=== PATIENT | male | born 1945 | race Caucasian/White ===

== ENCOUNTER 2020-01-12 17:22 | Inpatient (IN) ==
[2020-01-12 17:54] LABS: Basophils # (auto) 0.01 K/uL (0-0.2); Basophils % (auto) 0.2 %; Eosinophils # (auto) 0.12 K/uL (0-0.5); Eosinophils % (auto) 1.9 %; Hematocrit (blood only) 43.5 % (42-52); Hemoglobin 14.6 g/dL (14.0-18.0); Immature Granulocytes # (auto) 0.01 K/uL (0.00-0.02); Immature Granulocytes % (auto) 0.2 %; Lymphocytes # (auto) 1.65 K/uL (1.2-3.4); Lymphocytes % (auto) 25.7 %; Mean Corpuscular Hemoglobin 31.7 pg (25-34); Mean Corpuscular Hgb Conc 33.6 g/dL (32-36); Mean Corpuscular Volume 94.6 fL (80-100); Mean Platelet Volume 9.4 fL (7.4-10.4); Monocytes # (auto) 0.49 K/uL (0.11-0.59); Monocytes % (auto) 7.6 %; Neutrophils # (auto) 4.13 K/uL (1.4-6.5); Neutrophils % (auto) 64.4 %; Platelet Count 159 K/uL (130-400); RDW Coefficient of Variation 13.5 % (11.5-14.5); RDW Standard Deviation 46.3 fL (36.4-46.3); White Blood Count 6.41 K/uL (4.8-10.8)
[2020-01-12] MEDS ORDERED: FAMOTIDINE 20MG/5ML IV PUSH IV STA (17:57)
[2020-01-12] MEDS ORDERED: GI COCKTAIL ED USE PO ONE (17:57)
--- NOTE | 2020-01-12 18:03 | Emergency Department Note ---
Impression & Plan Epigastric abdominal pain, Biliary colic, Acute cholecystitis ED Provider Note NAME: KIM MOBLEY AGE: 74 SEX: M : 1945 ARRIVES VIA: Walk-In INFORMANT: [Patient] ED PROVIDER(S): [Cash Galvan MD] CHIEF COMPLAINT: Chest pain HISTORY OF PRESENT ILLNESS: The patient is a 74-year-old male who presents to the ER with epigastric, lower chest pain that is described as a burning. He has had the pain now for about 5 hours. The pain is a 4/10. He has had some nausea with it, no shortness of breath. No pain radiation. He has not had recent exertional chest pain or dyspnea as he has mowed the lawn and worked outside without difficulty. He has no known coronary disease. He states his pain did start about 30 minutes after having lunch. There has been no recent cough or congestion. No fever. The patient states he has never experienced pain like this before, he has no history of reflux or of gallbladder disease. REVIEW OF SYSTEMS: See HPI for pertinent positives and negatives. A total of ten systems were reviewed and were otherwise negative. PMHx/PSHx: See Below SOCIAL HISTORY: See Below. PHYSICAL EXAM: GENERAL: Patient is in no acute distress. HEENT: No acute trauma, normocephalic atraumatic, mucous membranes moist, no nasal congestion, no scleral icterus. NECK: No stridor, no adenopathy, no meningismus, trachea is midline. LUNGS: Clear to auscultation bilaterally, no wheeze, no rhonchi, breath sounds equal. HEART: Without murmurs gallops or rubs, regular rate and rhythm. Chest: Nontender chest wall. ABDOMEN: Soft, nontender, bowel sounds positive, no hernias, no peritonitis. EXTREMITIES: No cyanosis or edema, full range of motion of all the joints without pain or difficulty, no signs for acute trauma. NEUROLOGIC: Oriented x 3, no acute motor or sensory deficits, no focal weakness. SKIN: No rash, no jaundice, no diaphoresis. DIFFERENTIAL DIAGNOSIS: Cardiac ischemia, aortic dissection, pulmonary embolism, pneumothorax, pneumonia, pericarditis, myocarditis, esophageal rupture, GERD, cholecystitis, pancreatitis, musculoskeletal, as well as other pathologies. EMERGENCY DEPARTMENT COURSE/PROCEDURES: ECG: Indication was chest pain. The EKG shows a sinus rhythm with some sinus arrhythmia. The rate is 66. LVH is present. There is no ST elevation, no PVCs. The QTc is 421. Continuous Cardiac Monitoring: An order was placed for continuous cardiac monitoring. The monitor shows a rate of 72 with sinus rhythm with some sinus ar rhythmia. MEDICAL DECISION MAKING: There is no leukocytosis or anemia. No coagulopathy. No significant electrolyte abnormality or kidney failure. Alk phos slightly elevated, the remaining liver enzymes are unremarkable. No evidence for pancreatitis. EKG shows a sinus rhythm, no acute ischemia. Cardiac enzyme testing x1 is not consistent with acute cardiac injury. Chest film shows some diffuse parenchymal change of unknown etiology, no obvious pneumonia. Gallbladder ultrasound does show gallstones with some thickened gallbladder wall. The gallbladder was distended. Early acute cholecystitis was thought possible. The patient presents with epigastric/lower chest pain. Work-up here does suggest acute cholecystitis/biliary colic as the cause for his discomfort. The patient was given a GI cocktail, IV Pepcid. He is resting fairly comfortably. The patient was given a dose of IV Zosyn as antibiotic coverage because of the concern for early acute cholecystitis. I spoke to general surgery, I talked to the patient and case management. The patient will be admitted to a medical service with a surgery and GI consult. He is currently stable and not in need of emergent surgical intervention. The on-call hospitalist has been consulted. Past Med/Surg History Medical History High cholesterol Social History Feels Safe at Home: Yes Smoking Status: Never smoker Allergies Allergies Allergy/AdvReac Type Severity Reaction Status Date / Time niacin AdvReac FLUSH Unverified 01/12/20 20:03 Home Meds Home Medications Medication Instructions Recorded Confirmed allopurinol [Zyloprim] 200 mg PO DAILY 01/12/20 01/12/20 aspirin [Aspir-81] 81 mg PO DAILY 01/12/20 01/12/20 atorvastatin [Lipitor] 20 mg PO DAILY 01/12/20 01/12/20 clobetasol 1 applic TOPICAL BID 01/12/20 01/12/20 fluticasone propionate [Flonase 2 spray INTRANASAL DAILY 01/12/20 01/12/20 Allergy Relief] furosemide [Lasix] 20 mg PO 2XWK 01/12/20 01/12/20 latanoprost [Xalatan] 1 drp OPHTHALMIC (EYE) UD 01/12/20 01/12/20 levothyroxine [Levoxyl] 50 mcg PO DAILY 01/12/20 01/12/20 metoprolol succinate [Toprol XL] 25 mg PO DAILY 01/12/20 01/12/20 potassium chloride [Klor-Con M10] 10 meq PO 2XWK 01/12/20 01/12/20 thiamine HCl (vitamin B1) [Vitamin 100 mg PO DAILY 01/12/20 01/12/20 B-1] timolol maleate [Timoptic] 1 drp OPL DAILY 01/12/20 01/12/20 Results & Data (ED) Vital Signs Vital Signs - 24 hr 01/12/20 17:30 01/12/20 17:51 01/12/20 17:57 Temperature 36.5 C Temperature Source Oral Pulse Rate 66 71 Pulse Rate [Right Finger] Pulse Rate from SpO2 Sensor 64 65 Respiratory Rate 20 25 H 21 Respiratory Effort / Characteristics Non-Labored Respiratory Depth Normal Respiratory Pattern Blood Pressure 144/74 H 147/82 H Blood Pressure [Right Arm] Blood Pressure Mean 97 108 Blood Pressure Mean [Right Arm] Blood Pressure Position [Right Arm] Pulse Oximetry 99 100 99 Oxygen Delivery Method Room Air Sepsis Recent Fever Within 48 Hours No Sepsis Action Taken by Nursing No Action Required 01/12/20 18:00 01/12/20 18:11 01/12/20 18:30 Temperature Temperature Source Pulse Rate 64 65 72 Pulse Rate [Right Finger] Pulse Rate from SpO2 Sensor 62 61 66 Respiratory Rate 18 19 22 Respiratory Effort / Characteristics Respiratory Depth Respiratory Pattern Blood Pressure 139/69 135/93 Blood Pressure [Right Arm] Blood Pressure Mean 89 117 Blood Pressure Mean [Right Arm] Blood Pressure Position [Right Arm] Pulse Oximetry 99 100 96 Oxygen Delivery Method Sepsis Recent Fever Within 48 Hours Sepsis Action Taken by Nursing 01/12/20 18:31 01/12/20 19:44 Temperature Temperature Source Pulse Rate Pulse Rate [Right Finger] 73 Pulse Rate from SpO2 Sensor 70 Respiratory Rate 26 H 16 Respiratory Effort / Characteristics Non-Labored Spontaneous Respiratory Depth Normal Respiratory Pattern Regular Blood Pressure Blood Pressure [Right Arm] 122/57 L Blood Pressure Mean Blood Pressure Mean [Right Arm] 78 Blood Pressure Position [Right Arm] Lying Pulse Oximetry 98 99 Oxygen Delivery Method Room Air Sepsis Recent Fever Within 48 Hours Sepsis Action Taken by Assisted Medications Current Medication List: was personally reviewed by me Laboratory Data Attestation: I reviewed the patient's lab results. Result diagrams: 01/12/20 17:40 01/12/20 17:40 Lab Results 01/12/20 01/12/20 01/12/20 Range/Units 17:40 17:40 17:40 WBC 6.41 (4.8-10.8) K/uL RBC 4.60 L (4.7-6.1) M/uL Hgb 14.6 (14.0-18.0) g/dL Hct 43.5 (42-52) % MCV 94.6 (80-100) fL MCH 31.7 (25-34) pg MCHC 33.6 (32-36) g/dL RDW Std Deviation 46.3 (36.4-46.3) fL RDW Coeff of Christopher 13.5 (11.5-14.5) % Plt Count 159 (130-400) K/uL MPV 9.4 (7.4-10.4) fL Immature Gran % (Auto) 0.2 % Neut % (Auto) 64.4 % Lymph % (Auto) 25.7 % Powell % (Auto) 7.6 % Eos % (Auto) 1.9 % Baso % (Auto) 0.2 % Immature Gran # (Auto) 0.01 (0.00-0.02) K/uL Neut # (Auto) 4.13 (1.4-6.5) K/uL Lymph # (Auto) 1.65 (1.2-3.4) K/uL Powell # (Auto) 0.49 (0.11-0.59) K/uL Eos # (Auto) 0.12 (0-0.5) K/uL Baso # (Auto) 0.01 (0-0.2) K/uL PT 11.7 (9.0-12.0) Seconds INR 1.1 (0.9-1.1) APTT 29.3 (21.0-31.0) Seconds PTT Ratio 1.1 Sodium 136 (136-145) mmol/L Potassium 3.5 (3.5-5.1) mmol/L Chloride 104 (98-107) mmol/L Carbon Dioxide 26 (21-32) mmol/L Anion Gap 7.0 (3-11) BUN 18 (7-18) mg/dl Creatinine 1.07 (0.6-1.4) mg/dl Est Cr Clr Drug Dosing 65.5 ml/min Est GFR ( Amer) 78.3 Est GFR (Non-Af Amer) 67.5 BUN/Creatinine Ratio 16.4 (10-20) Glucose 127 H (70-99) mg/dl Calcium 9.2 (8.5-10.1) mg/dl Magnesium 2.3 (1.8-2.4) mg/dl Total Bilirubin 0.6 (0.2-1) mg/dl AST 18 (15-37) U/L ALT 33 (12-78) U/L Alkaline Phosphatase 154 H (45-117) U/L Troponin I < 0.015 (0-0.045) ng/ml NT-Pro-B Natriuret Pep 167 (0-900) pg/ml Total Protein 7.8 (6.4-8.2) gm/dl Albumin 3.9 (3.4-5.0) gm/dl Globulin 3.9 (2.5-4.0) gm/dl Albumin/Globulin Ratio 1.0 (0.9-2) Lipase 138 (73-393) U/L Administered Medications Piperacillin Sod/Tazobactam Sod (Zosyn) 4.5 gm in 120 mls @ 240 mls/hr IV NOW ONE Stop: 01/12/20 20:05 Last Admin: 01/12/20 19:48 Dose: 240 mls/hr Documented by: [id number] Miscellaneous Information (Consult) 1 ea N/A UD PRN PRN Reason: Consult Stop: 02/11/20 19:35 Last Admin: 01/12/20 19:46 Dose: 1 ea Documented by: [id number] Discontinued Medications Al Hydrox/Mg Hydrox/Simethicone () 1 dose PO ONE ONE Stop: 01/12/20 17:58 Last Admin: 01/12/20 18:10 Dose: 1 dose Documented by: [id number] Famotidine (Pepcid 20mg Iv Push) 20 mg IV ONE STA Stop: 01/12/20 17:58 Last Admin: 01/12/20 18:10 Dose: 20 mg Documented by: [id number] Imaging Data Radiologist's Impression: XR chest 1V portable CLINICAL HISTORY: Atypical chest pain COMPARISON STUDY: No previous studies for comparison. FINDINGS: The heart is enlarged. There is mild basilar interstitial thickening. There is no lobar consolidation. There are no significant pleural effusions.[ IMPRESSION: Cardiomegaly and mild basilar interstitial thickening, finding of uncertain chronicity BILIARY ULTRASOUND CLINICAL HISTORY: Epigastric pain, possible stones COMPARISON STUDY: No previous studies for comparison. FINDINGS: The pancreas appears normal as visualized. No focal hepatic masses are delineated. There is minimal intrahepatic biliary ductal prominence. There are multiple gallstones. There is mild gallbladder wall thickening. There is anterior, tail artifact consistent with adenomyomatosis. The technologist reports a negative sonographic Spring sign. There is no right-sided hydronephrosis. There is borderline dilatation of the common bile duct which measures 9 mm in maximal diameter. IMPRESSION: 1. Mildly distended gallbladder containing multiple calculi and demonstrating mild wall thickening 2. Mild ductal prominence. 3. Clinical correlation recommended in regards to acute cholecystitis. If desired, a nuclear medicine hepatic biliary study could be obtained to assess cystic duct patency Blood Pressure Blood Pressure Findings: Elevated blood pressure Blood Pressure Disposition: further management by hospitalist Discharge Plan Visit Data Chief Complaint: Chest Pain Stated Complaint: TIGHTNESS IN CHEST, FEELS LIKE VOMITING ED Provider: Cash Galvan Discharge Problem: Epigastric abdominal pain, Biliary colic, Acute cholecystitis Patient Disposition: Being Evaluated by Hospitalist Condition: Good Forms Stand Alone Forms: My [facility]ER[employer] Prescriptions Prescriptions: No Action potassium chloride [Klor-Con M10] 10 mEq tablet,ER particles/crystals 10 meq PO 2XWK RF: 0 furosemide [Lasix] 20 mg tablet 20 mg PO 2XWK RF: 0 latanoprost [Xalatan] 0.005 % drops 1 drp ophthalmic (eye) UD RF: 0 atorvastatin [Lipitor] 20 mg tablet 20 mg PO DAILY RF: 0 clobetasol 0.05 % Cream 1 applic TOPICAL BID RF: 0 thiamine HCl (vitamin B1) [Vitamin B-1] 100 mg Tablet 100 mg PO DAILY RF: 0 allopurinol [Zyloprim] 100 mg tablet 200 mg PO DAILY RF: 0 aspirin [Aspir-81] 81 mg Tablet,Delayed Release (Dr/Ec) 81 mg PO DAILY RF: 0 levothyroxine [Levoxyl] 50 mcg Tablet 50 mcg PO DAILY RF: 0 metoprolol succinate [Toprol XL] 25 mg tablet extended release 24 hr 25 mg PO DAILY RF: 0 timolol maleate [Timoptic] 0.5 % drops 1 drp OPL DAILY RF: 0 fluticasone propionate [Flonase Allergy Relief] 50 mcg/actuation [place],Suspension 2 spray INTRANASAL DAILY RF: 0 Referrals Referrals: Alyssa Kwok MD [Primary Care Provider] -
[2020-01-12 18:04] LABS: INR 1.1 (0.9-1.1); Partial Thromboplastin Ratio 1.1; Partial Thromboplastin Time 29.3 Seconds (21.0-31.0); Prothrombin Time 11.7 Seconds (9.0-12.0)
[2020-01-12 18:08] LABS: Albumin Level 3.9 gm/dl (3.4-5.0); Blood Urea Nitrogen 18 mg/dl (7-18); Calcium 9.2 mg/dl (8.5-10.1); Carbon Dioxide 26 mmol/L (21-32); Chloride 104 mmol/L (98-107); Glucose 127 mg/dl (70-99); Potassium 3.5 mmol/L (3.5-5.1); Sodium 136 mmol/L (136-145)
[2020-01-12 18:11] LABS: Alanine Aminotransferase 33 U/L (12-78); Aspartate Aminotransferase 18 U/L (15-37); BUN Creatinine Ratio 16.4 (10-20); Creatinine Clr Calc Pharmacy 65.5 ml/min; Est GFR (African American) 78.3; Est GFR (Non-African American) 67.5
--- NOTE | 2020-01-12 18:12 | XRay Report ---
XR chest 1V portable CLINICAL HISTORY: Atypical chest pain COMPARISON STUDY: No previous studies for comparison. FINDINGS: The heart is enlarged. There is mild basilar interstitial thickening. There is no lobar con solidation. There are no significant pleural effusions.[ IMPRESSION: Cardiomegaly and mild basilar interstitial thickening, finding of uncertain chronicity ACT 112: Negative or not required by law. Electronically signed by: Gold Duran M.D. 01/12/2020 6:11 PM
[2020-01-12 18:20] LABS: Alkaline Phosphatase 154 U/L (45-117); Bilirubin,Total 0.6 mg/dl (0.2-1); Globulin 3.9 gm/dl (2.5-4.0); Lipase 138 U/L (73-393); Magnesium 2.3 mg/dl (1.8-2.4); NT Pro B Type Natriuretic Pept 167 pg/ml (0-900); Total Protein 7.8 gm/dl (6.4-8.2); Troponin I < 0.015 ng/ml (0-0.045)
--- NOTE | 2020-01-12 19:28 | Ultrasound Report ---
BILIARY ULTRASOUND CLINICAL HISTORY: Epigastric pain, possible stones COMPARISON STUDY: No previous studies for comparison. FINDINGS: The pancreas appears normal as visualized. No focal hepatic masses are delineated. There is minimal intrahepatic biliary ductal prominence. There are multiple gallstones. There is mild gallbladder wall thickening. There is anterior, tail art ifact consistent with adenomyomatosis. The technologist reports a negative sonographic Spring sign. T here is no right-sided hydronephrosis. There is borderline dilatation of the common bile duct which measures 9 mm in maximal diameter. IMPRESSION: 1. Mildly distended gallbladder containing multiple calculi and demonstrating mild wall thickening 2. Mild ductal prominence. 3. Clinical correlation recommended in regards to acute cholecystitis. If desired, a nuclear medicine hepatic biliary study could be obtained to assess cystic duct patency ACT 112: Negative or not required by law. Electronically signed by: Gold Duran M.D. 01/12/2020 7:26 PM
[2020-01-12] MEDS ORDERED: PIPERACILL/TAZOBAC CONSULT ACTIVE PRN ×2 (19:36→21:36)
[2020-01-12] MEDS ORDERED: PIPERACILLIN/TAZOBACTAM 4.5 GM/120 ML BAG IV ONE (19:36)
--- NOTE | 2020-01-12 21:04 | History & Physical Report ---
Date of Service January 12, 2020 Assessment & Plan (1) Epigastric abdominal pain: (2) Acute cholecystitis: (3) Cholelithiasis: Pt is 74 y/o M with PMH HTN, HLD, diastolic heart failure hypothyroidism, gout, neuropathy presented to ER with complaint of epigastric pain. Patient states today for lunch he ate pasta with red meat sauce and coleslaw. States later developed burning type pain across the upper abdominal, epigastric area and lower chest area and nausea, occurred after eating pasta with meat sauce and coleslaw In ER patient afebrile, vitals stable. No leukocytosis alk phos: 154, otherwise LFTs WNL, initial troponin negative, EKG without any acute ST changes Gallbladder ultrasound:multiple gallstones. mild gallbladder wall thickening. borderline dilatation of the common bile duct which measures 9 mm in maximal diameter. -In ER patient given GI cocktail, Pepcid 20 mg IV with relief of epigastric discomfort -In ER Zosyn started. Will continue Zosyn -Clear liquids for now, n.p.o. at midnight -IVF -General surgery consult, on-call contacted by ER doctor and aware. Suggest GI consult as well -GI consult -Will obtain additional troponin -CBC, CMP in a.m. (4) HTN (hypertension): Stable -Continue metoprolol (5) Dyslipidemia: -Continue atorvastatin (6) Diastolic congestive heart failure: 2016 echo: EF: 60-64%, grade 1 diastolic dysfunction Appears euvolemic -Hold twice weekly Lasix at this time (7) Gout: -Continue allopurinol (8) Hypothyroidism: TSH: 1.9 in 12/2019 -Continue levothyroxine DVT Prophylaxis -SCDs Full Code as per discussion with pt, pt reports would want limited attempt Follows with Dr Kwok for routine care Pt was seen and care coordinated with Dr De Paz. See addendum History of Present Illness Chief Complaint: Epigastric pain Primary Care Provider: Alyssa Kwok MD Pt is 74 y/o M with PMH HTN, HLD, diastolic heart failure hypothyroidism, gout, neuropathy presented to ER with complaint of epigastric pain. Patient states today for lunch he ate pasta with red meat sauce and coleslaw. States later developed burning type pain across the upper abdominal, epigastric area and lower chest area. Patient also complains of nausea. Denies shortness of breath, dizziness, vomiting, diarrhea. Patient states a couple times in past has had some discomfort to right upper quadrant however has self resolved. Patient states is active and push mows his lawn without any history of shortness of breath or chest pain. Denies fever/chills, diaphoresis, GARG, dizziness, s yncope, vision changes, neck pain,orthopnea, palpitations, cough, sore throat, choking, otalgia, rhinorrhea, paresthesias, weakness, extremity weakness, extremity edema, rashes, urinary symptoms. Allergies Allergy/AdvReac Type Severity Reaction Status Date / Time niacin AdvReac FLUSH Unverified 01/12/20 20:03 Home Medications Home Medications Medication Instructions Recorded Confirmed Type allopurinol [Zyloprim] 200 mg PO DAILY 01/12/20 01/12/20 History aspirin [Aspir-81] 81 mg PO DAILY 01/12/20 01/12/20 History atorvastatin [Lipitor] 20 mg PO DAILY 01/12/20 01/12/20 History clobetasol 1 applic TOPICAL BID PRN 01/12/20 01/12/20 History furosemide [Lasix] 20 mg PO 2XWK 01/12/20 01/12/20 History latanoprost [Xalatan] 1 drp OPB HS 01/12/20 01/12/20 History levothyroxine [Levoxyl] 50 mcg PO DAILY 01/12/20 01/12/20 History metoprolol succinate [Toprol XL] 25 mg PO DAILY 01/12/20 01/12/20 History potassium chloride [Klor-Con M10] 10 meq PO 2XWK 01/12/20 01/12/20 History thiamine HCl (vitamin B1) [Vitamin 50 mg PO DAILY 01/12/20 01/12/20 History B-1] timolol maleate [Timoptic] 1 drp OPL DAILY 01/12/20 01/12/20 History Past Med/Surg History Medical History Diastolic congestive heart failure Dyslipidemia Gout High cholesterol HTN (hypertension) Hypothyroidism Surgical History H/O inguinal hernia repair History of arthroplasty of both knees Family History Other Coronary heart disease Social History Feels Safe at Home: Yes Smoking Status: Never smoker Tobacco Type: smokeless tobacco ; Hx Alcohol Use: Yes (2 beers a day) Hx Substance Use: No Review of Systems Review of Systems: All systems reviewed & are unremarkable except as noted in HPI & below Physical Exam Physical Exam: General: no distress, WDWN Head: normocephalic, atraumatic Eyes: PERRL, EOM's intact, conjunctiva non-injected, anicteric ENT: Hard of hearing, normal inspection external ears, nose, mucous membranes moist Neck: supple, trachea midline Lungs: clear, no respiratory distress, no wheezing/rhonchi/rales CV: RRR, no murmur, no pretibial edema Abd: normal BS, soft, non-tender to palpation at this time Ext: no cyanosis, no calf tenderness Neuro: A&O x 3, no focal deficits noted, normal affect Skin: warm, dry Results & Data Results & Data ([facility]) Vital Signs (Past 12 Hours) Vital Signs Temp Pulse Pulse Resp BP BP Pulse Ox 01/12/20 20:27 73 16 138/64 99 01/12/20 19:44 73 16 122/57 L 99 01/12/20 18:31 26 H 98 01/12/20 18:30 72 22 135/93 96 01/12/20 18:11 65 19 139/69 100 01/12/20 18:00 64 18 99 01/12/20 17:57 71 21 99 01/12/20 17:51 66 25 H 147/82 H 100 01/12/20 17:30 36.5 C 20 144/74 H 99 Laboratory Results Short CBC 01/12/20 Range/Units 17:40 WBC 6.41 (4.8-10.8) K/uL Hgb 14.6 (14.0-18.0) g/dL Hct 43.5 (42-52) % Plt Count 159 (130-400) K/uL BMP 01/12/20 17:40 Sodium 136 Potassium 3.5 Chloride 104 Carbon Dioxide 26 BUN 18 Creatinine 1.07 Glucose 127 H Calcium 9.2 Cardiac Enzymes 01/12/20 Range/Units 17:40 Troponin I < 0.015 (0-0.045) ng/ml Liver Function 01/12/20 Range/Units 17:40 Total Bilirubin 0.6 (0.2-1) mg/dl AST 18 (15-37) U/L ALT 33 (12-78) U/L Alkaline Phosphatase 154 H (45-117) U/L Albumin 3.9 (3.4-5.0) gm/dl Diagnostic Findings CXR: IMPRESSION: Cardiomegaly and mild basilar interstitial thickening, finding of uncertain chronicity GALLBLADDER ULTRASOUND: IMPRESSION: 1. Mildly distended gallbladder containing multiple calculi and demonstrating mild wall thickening 2. Mild ductal prominence. 3. Clinical correlation recommended in regards to acute cholecystitis. If desired, a nuclear medicine hepatic biliary study could be obtained to assess cystic duct patency ECG Rhythm: sinus rhythm Additional Comments: No ST elevation Code Status & VTE Plan VTE Prophylaxis Plan VTE Prophylaxis will be ordered: Yes Supervising Physician Co-Signing Physician Notes History and physical exam performed by me. History significant for 74 year old man with hypertension, hypothyroidism who presented with acute onset epigastric tightness that started at 2pm (30mins after lunch) associated with nausea. Reports father of heart problems in his 60s. At time of evaluation, symptoms are all resolved. Physical exam is unremarkable. Labs is only remarkable for elevated alk phos of 154. Gall bladder USS show mild distended gall bladder with multiple calculi, mild wall thickening, mild ductal prominence. -Acute calculous cholecystitis Continue IVF Got zosyn in ER. Continue zosyn for now Clear diet and NPO after midnight ER physician already spoke with surgeon Gen surg consult for eval for possible cholecystectomy GI consult for evaluation for possible ERCP considering Gall bladder findings Patient concerned about possibility of ACS. EKG is normal sinus without ischemic changes. Initial trop is <0.015 Low suspicion for ACS. However, will check one more trop 6hrs after initial one since first trop was about 3hrs after onset of symptoms. Other plans as documented in Neema Dumont PA-C's note
--- NOTE | 2020-01-12 21:10 | Communication Note ---
Date of Service: January 12, 2020 History and physical exam performed by me. History significant for 74 year old man with hypertension, hypothyroidism who presented with acute onset epigastric tightness that started at 2pm (30mins after lunch) associated with nausea. Reports father of heart problems in his 60s. At time of evaluation, symptoms are all resolved. Physical exam is unremarkable. Labs is only remarkable for elevated alk phos of 154. Gall bladder USS show mild distended gall bladder with multiple calculi, mild wall thickening, mild ductal prominence. -Acute calculous cholecystitis Continue IVF Got zosyn in ER. Continue zosyn for now Clear diet and NPO after midnight ER physician already spoke with surgeon Gen surg consult for eval for possible cholecystectomy GI consult for evaluation for possible ERCP considering Gall bladder findings Patient concerned about possibility of ACS. EKG is normal sinus without ischemic changes. Initial trop is <0.015 Low suspicion for ACS. However, will check one more trop 6hrs after initial one since first trop was about 3hrs after onset of symptoms. Other plans as documented in Neema Dumont PA-C's note.
[2020-01-12] MEDS ORDERED: ACETAMINOPHEN 325 MG TAB PO PRN (21:28)
[2020-01-12] MEDS ORDERED: ONDANSETRON INJ 2 MG/ML 2 ML VIAL IV PRN (21:28)
[2020-01-12] MEDS: SODIUM CHLORIDE 0.9% 1000ML 1,000 ML IV SCH (21:41)
[2020-01-12] MEDS: LATANOPROST 0.005% OP SOLN 2.5 ML BTL OPB SCH (23:30)
[2020-01-13] MEDS: PIPERACILLIN/TAZOBACTAM 3.375 GM in DEXTROSE 5% 100 ML IV SCH ×4 (01:04→23:19)
[2020-01-13] MEDS: LEVOTHYROXINE SODIUM 50 MCG TABLET PO SCH (06:13)
[2020-01-13 07:49] LABS: Hematocrit (blood only) 43.8 % (42-52); Hemoglobin 14.8 g/dL (14.0-18.0); Mean Corpuscular Hemoglobin 32.2 pg (25-34); Mean Corpuscular Hgb Conc 33.8 g/dL (32-36); Mean Corpuscular Volume 95.4 fL (80-100); Mean Platelet Volume 9.7 fL (7.4-10.4); Platelet Count 156 K/uL (130-400); RDW Coefficient of Variation 13.4 % (11.5-14.5); RDW Standard Deviation 46.8 fL (36.4-46.3); Red Blood Count 4.59 M/uL (4.7-6.1); White Blood Count 6.87 K/uL (4.8-10.8)
[2020-01-13] MEDS: METOPROLOL SUCC 25MG EXT REL TAB PO SCH (07:54)
[2020-01-13] MEDS: TIMOLOL MALEATE 0.25% OP SOLN 5 ML BTL OPL SCH (07:55)
[2020-01-13] MEDS: THIAMINE HCL 50 MG TABLET PO SCH (07:56)
[2020-01-13] MEDS: allopurinoL 100 MG TAB PO SCH (07:56)
[2020-01-13] MEDS: ATORVASTATIN 20 MG TAB PO SCH (07:56)
[2020-01-13 08:24] LABS: Albumin Level 3.7 gm/dl (3.4-5.0); BUN Creatinine Ratio 12.1 (10-20); Bilirubin Direct 0.2 mg/dl (0-0.2); Creatinine Clr Calc Pharmacy 65.5 ml/min; Est GFR (African American) 78.3; Est GFR (Non-African American) 67.5
[2020-01-13 08:26] LABS: Globulin 3.7 gm/dl (2.5-4.0); Total Protein 7.4 gm/dl (6.4-8.2)
--- NOTE | 2020-01-13 08:39 | Gastrointestinal Consultation ---
Date of Consultation January 13, 2020 Assessment & Plan (1) Epigastric abdominal pain: (2) Cholelithiasis: Pt is a 74 y/o male admitted w pain across upper abd 45min after lunch associated w nausea w/o vomiting. LFTs w mild elevation of Alk phose, normal lipase. Gallbladder us w signs of cholelithiasis and mild distended, wall thickened. CBD dilated at 9mm. He is clinically much improved today. Did state yesterday after Maalox w Lidocaine his pain was better. - Keep NPO - Will obtain MRCP to r/o choledocholithiasis. If positive will plan for ERCP - Surgery consulted already - Start Protonix 40mg daily in case he had gastritis, dyspepsia Supervising Physician Co-Signing Physician Notes Ingrid seen and examined the patient with STEW Walker whose note reflects our findings and plan. MRCP pending. Mildly elevated ALT. CBD9mm on imaging. Abd non-tender History of Present Illness Reason for Consultation: Borderline CBD dilation Requesting Physician: Dr. Kedar Sanabria Attending Physician: Dr. Dominique Cook History of Present Illness Pt is a 74 y/o w PMHx listed below who presented to ED yesterday w c/o pressure like discomfort across upper abd. This happened about 45 mins after eating lunch which consisted of pasta w red meat sauce and eri slaw w peppers. He had 2 bouts of nausea w/o vomiting. BM in ED yesterday w/o diarrhea, black tarry stools or rectal bleeding. He denies fever, chills, jaundice or dark colored urine. Labs w/o signs of leukocytosis, anemia. LFTs w sole elevation of Alk phose of 154, lipase normal. Gallbladder us showed: 1. Mildly distended gallbladder containing multiple calculi and demonstrating mild wall thickening 2. Mild ductal prominence of 9mm Pt today reports he's feeling great. In fact after he was given Maalox w Lidocaine in ED he felt a lot better. He chew tobacco, 2 beers a day. Denies NSAIDs Father w hx of stomach ulcers ? unknown etiology He denies any family hx of GI malignancy Allergies Allergy/AdvReac Type Severity Reaction Status Date / Time niacin AdvReac FLUSH Unverified 01/12/20 20:03 Home Medications Home Medications Medication Instructions Recorded Confirmed Type allopurinol [Zyloprim] 200 mg PO DAILY 01/12/20 01/12/20 History aspirin [Aspir-81] 81 mg PO DAILY 01/12/20 01/12/20 History atorvastatin [Lipitor] 20 mg PO DAILY 01/12/20 01/12/20 History clobetasol 1 applic TOPICAL BID PRN 01/12/20 01/12/20 History furosemide [Lasix] 20 mg PO 2XWK 01/12/20 01/12/20 History latanoprost [Xalatan] 1 drp OPB HS 01/12/20 01/12/20 History levothyroxine [Levoxyl] 50 mcg PO DAILY 01/12/20 01/12/20 History metoprolol succinate [Toprol XL] 25 mg PO DAILY 01/12/20 01/12/20 History potassium chloride [Klor-Con M10] 10 meq PO 2XWK 01/12/20 01/12/20 History thiamine HCl (vitamin B1) [Vitamin 50 mg PO DAILY 01/12/20 01/12/20 History B-1] timolol maleate [Timoptic] 1 drp OPL DAILY 01/12/20 01/12/20 History Patient History Medical History Diastolic congestive heart failure Dyslipidemia Gout High cholesterol HTN (hypertension) Hypothyroidism Surgical History H/O inguinal hernia repair History of arthroplasty of both knees Family History Other Coronary heart disease Social History Preferred Language: Lao Communication Ability: Effective Psychometric Examiner Required: No Beliefs That Will Affect Care: None Current Living Situation: Spouse Other Information That Helps Us Care for You: No Feels Safe at Home: Yes Safety Concerns: Feels Safe At This Time Smoking Status: Never smoker Tobacco Type: smokeless tobacco ; Do You Dip or Chew Tobacco: Yes ; Hx Alcohol Use: Yes Alcohol type: beer Hx Substance Use: No Review of Systems Review of Systems: All systems reviewed & are unremarkable except as noted in HPI & below Physical Exam Constitutional: WD/WN, vitals as above well groomed, cooperative and comfortable Eyes: PERRL, conjunctivae normal, anicteric sclerae ENMT: external ear and nose normal, oropharynx normal Respiratory: normal respiratory effort, lungs clear to auscultation Cardiovascular: RRR, no murmur, no edema Gastrointestinal (Abdomen): normal bowel sounds, soft, nontender, no hepatosplenomegaly Skin: no rashes, warm and dry no jaundice Psychiatric: A+Ox3, euthymic affect Lymphatic: no lymphedema Results & Data ([facility]) Vital Signs (Past 12 Hours) Vital Signs Temp Pulse Pulse Resp BP BP BP 01/13/20 07:27 36.5 C 56 L 18 141/75 H 01/13/20 07:09 48 L 01/13/20 04:00 36.5 C 58 L 18 134/69 01/13/20 02:49 58 L 01/12/20 23:23 64 01/12/20 22:59 36.8 C 64 20 139/79 01/12/20 21:28 36.8 C 64 18 149/76 H 01/12/20 21:16 65 18 136/76 Pulse Ox 01/13/20 07:27 98 01/13/20 07:09 01/13/20 04:00 97 01/13/20 02:49 01/12/20 23:23 01/12/20 22:59 99 01/12/20 21:28 98 01/12/20 21:16 98
--- NOTE | 2020-01-13 09:23 | Surgery Consultation ---
Date of Consultation January 13, 2020 Assessment & Plan (1) Epigastric abdominal pain: 74 year-old male presented to ED with epigastric abdominal pain postprandial at 2 pm. US showing gallstones, mild wall thickening, no leukocytosis, mild elevation in Alk phos other cmp and lipase wnl. Dilated CBD at 9 mm. Abdominal pain now resolved after GI cocktail. MRCP ordered for today. Plan: Will await results of MRCP. Discussed possible need for cholecystectomy depending on MRCP results either inpatient or outpatient. If MRCP negative, may consider outpatient cholecystectomy since his symptoms resolved. Continue NPO for now Continue medical management (2) Cholelithiasis: plan as above Dr. Nevarez has seen and examined patient, please see addendum for further recommendations/plan. Supervising Physician Co-Signing Physician Notes Interviewed and examined this patient and I agree with the above note. Patient was seen for upper abdominal tightness and was concerned about chest pain. During the work-up he had cholelithiasis detected with minimal gallbladder wall thickening. At the present time he is completely pain-free and tenderness free. His common bile duct measures 9 mm so I agree with the MRCP. He has a history of occasional discomfort in the right upper quadrant but it is not necessarily related to meals. We can find the results of the MRCP. If there is no ductal abnormalities he remains asymptomatic we can see him as an outpatient to discuss further cholecystectomy. History of Present Illness Reason for Consultation: Gallstones Requesting Physician: Neema Ugarte PA-C Attending Physician: Kedar Sanabria MD History of Present Illness Jerry is a 74 year-old male who presented to emergency department with complaint of upper abdominal lower chest pain that started yesterday afternoon around 2 pm after eating pasta, meat sauce, and eri slaw with peppers. States pain was more of a pressure sensation and thought maybe it was his chest. Had associated nausea but no vomiting. No prior episodes of similar pain. No known history of gallstones. Denies bowel changes, blood in stools, or black/tarry stools, diff iculty urinating, dysuria. ER work-up included labs which showed no leukocytosis. CMP wnl other than mildly elevated alk phos. Lipase wnl. US showed gallstones with mild gallbladder wall thickening. CBD dilated at 9 mm. Feeling fine now. States abdominal pain improved after Maalox and lidocaine in ED. GI saw recommending MRCP due to dilated CBD. Allergies Allergy/AdvReac Type Severity Reaction Status Date / Time niacin AdvReac FLUSH Unverified 01/12/20 20:03 Home Medications Home Medications Medication Instructions Recorded Confirmed Type allopurinol [Zyloprim] 200 mg PO DAILY 01/12/20 01/12/20 History aspirin [Aspir-81] 81 mg PO DAILY 01/12/20 01/12/20 History atorvastatin [Lipitor] 20 mg PO DAILY 01/12/20 01/12/20 History clobetasol 1 applic TOPICAL BID PRN 01/12/20 01/12/20 History furosemide [Lasix] 20 mg PO 2XWK 01/12/20 01/12/20 History latanoprost [Xalatan] 1 drp OPB HS 01/12/20 01/12/20 History levothyroxine [Levoxyl] 50 mcg PO DAILY 01/12/20 01/12/20 History metoprolol succinate [Toprol XL] 25 mg PO DAILY 01/12/20 01/12/20 History potassium chloride [Klor-Con M10] 10 meq PO 2XWK 01/12/20 01/12/20 History thiamine HCl (vitamin B1) [Vitamin 50 mg PO DAILY 01/12/20 01/12/20 History B-1] timolol maleate [Timoptic] 1 drp OPL DAILY 01/12/20 01/12/20 History Patient History Medical History Diastolic congestive heart failure Dyslipidemia Gout High cholesterol HTN (hypertension) Hypothyroidism Surgical History H/O inguinal hernia repair History of arthroplasty of both knees Family History Other Coronary heart disease Social History Preferred Language: Macedonian Communication Ability: Effective Dentures Lab Technician Required: No Beliefs That Will Affect Care: None Current Living Situation: Spouse Other Information That Helps Us Care for You: No Feels Safe at Home: Yes Safety Concerns: Feels Safe At This Time Smoking Status: Never smoker Tobacco Type: smokeless tobacco ; Do You Dip or Chew Tobacco: Yes ; Hx Alcohol Use: Yes Alcohol type: beer Hx Substance Use: No Review of Systems Review of Systems: All systems reviewed & are unremarkable except as noted in HPI & below Physical Exam Constitutional: WD/WN, vitals as above no acute distress Cardiovascular: RRR, no murmur, no edema Gastrointestinal (Abdomen): Inspection/Auscultation: abdomen normal to inspection and normal bowel sounds; abdomen not distended Percussion/Palpation: abdomen soft; abdomen nontender, no guarding and abdomen not rigid Skin: no rashes, warm and dry Psychiatric: A+Ox3, euthymic affect Results & Data Vital Signs (Past 12 Hours) Vital Signs Temp Pulse Pulse Resp BP BP Pulse Ox 01/13/20 07:27 36.5 C 56 L 18 141/75 H 98 01/13/20 07:09 48 L 01/13/20 04:00 36.5 C 58 L 18 134/69 97 01/13/20 02:49 58 L 01/12/20 23:23 64 01/12/20 22:59 36.8 C 64 20 139/79 99 01/12/20 21:28 36.8 C 64 18 149/76 H 98 Laboratory Results 01/13/20 01/13/20 01/13/20 Range/Units 07:11 07:11 07:11 WBC 6.87 (4.8-10.8) K/uL RBC 4.59 L (4.7-6.1) M/uL Hgb 14.8 (14.0-18.0) g/dL Hct 43.8 (42-52) % MCV 95.4 (80-100) fL MCH 32.2 (25-34) pg MCHC 33.8 (32-36) g/dL RDW Std Deviation 46.8 H (36.4-46.3) fL RDW Coeff of Christopher 13.4 (11.5-14.5) % Plt Count 156 (130-400) K/uL MPV 9.7 (7.4-10.4) fL Immature Gran % (Auto) % Neut % (Auto) % Lymph % (Auto) % [place] % (Auto) % Eos % (Auto) % Baso % (Auto) % Immature Gran # (Auto) (0.00-0.02) K/uL Neut # (Auto) (1.4-6.5) K/uL Lymph # (Auto) (1.2-3.4) K/uL [place] # (Auto) (0.11-0.59) K/uL Eos # (Auto) (0-0.5) K/uL Baso # (Auto) (0-0.2) K/uL PT (9.0-12.0) Seconds INR (0.9-1.1) APTT (21.0-31.0) Seconds PTT Ratio Sodium 140 (136-145) mmol/L Potassium 4.0 (3.5-5.1) mmol/L Chloride 106 (98-107) mmol/L Carbon Dioxide 28 (21-32) mmol/L Anion Gap 5.0 (3-11) BUN 13 (7-18) mg/dl Creatinine 1.07 (0.6-1.4) mg/dl Est Cr Clr Drug Dosing 65.5 ml/min Est GFR ( Amer) 78.3 Est GFR (Non-Af Amer) 67.5 BUN/Creatinine Ratio 12.1 (10-20) Glucose 97 (70-99) mg/dl Calcium 9.0 (8.5-10.1) mg/dl Magnesium (1.8-2.4) mg/dl Total Bilirubin 1.0 (0.2-1) mg/dl Direct Bilirubin 0.2 (0-0.2) mg/dl AST 17 (15-37) U/L ALT 30 (12-78) U/L Alkaline Phosphatase 127 H (45-117) U/L Troponin I (0-0.045) ng/ml NT-Pro-B Natriuret Pep (0-900) pg/ml Total Protein 7.4 (6.4-8.2) gm/dl Albumin 3.7 (3.4-5.0) gm/dl Globulin 3.7 (2.5-4.0) gm/dl Albumin/Globulin Ratio 1.0 (0.9-2) Amylase Cancelled 83 (25-115) U/L Lipase Cancelled 136 (73-393) U/L 01/12/20 01/12/20 01/12/20 Range/Units 22:41 17:40 17:40 WBC (4.8-10.8) K/uL RBC (4.7-6.1) M/uL Hgb (14.0-18.0) g/dL Hct (42-52) % MCV (80-100) fL MCH (25-34) pg MCHC (32-36) g/dL RDW Std Deviation (36.4-46.3) fL RDW Coeff of Christopher (11.5-14.5) % Plt Count (130-400) K/uL MPV (7.4-10.4) fL Immature Gran % (Auto) % Neut % (Auto) % Lymph % (Auto) % [place] % (Auto) % Eos % (Auto) % Baso % (Auto) % Immature Gran # (Auto) (0.00-0.02) K/uL Neut # (Auto) (1.4-6.5) K/uL Lymph # (Auto) (1.2-3.4) K/uL [place] # (Auto) (0.11-0.59) K/uL Eos # (Auto) (0-0.5) K/uL Baso # (Auto) (0-0.2) K/uL PT 11.7 (9.0-12.0) Seconds INR 1.1 (0.9-1.1) APTT 29.3 (21.0-31.0) Seconds PTT Ratio 1.1 Sodium 136 (136-145) mmol/L Potassium 3.5 (3.5-5.1) mmol/L Chloride 104 (98-107) mmol/L Carbon Dioxide 26 (21-32) mmol/L Anion Gap 7.0 (3-11) BUN 18 (7-18) mg/dl Creatinine 1.07 (0.6-1.4) mg/dl Est Cr Clr Drug Dosing 65.5 ml/min Est GFR ( Amer) 78.3 Est GFR (Non-Af Amer) 67.5 BUN/Creatinine Ratio 16.4 (10-20) Glucose 127 H (70-99) mg/dl Calcium 9.2 (8.5-10.1) mg/dl Magnesium 2.3 (1.8-2.4) mg/dl Total Bilirubin 0.6 (0.2-1) mg/dl Direct Bilirubin (0-0.2) mg/dl AST 18 (15-37) U/L ALT 33 (12-78) U/L Alkaline Phosphatase 154 H (45-117) U/L Troponin I < 0.015 < 0.015 (0-0.045) ng/ml NT-Pro-B Natriuret Pep 167 (0-900) pg/ml Total Protein 7.8 (6.4-8.2) gm/dl Albumin 3.9 (3.4-5.0) gm/dl Globulin 3.9 (2.5-4.0) gm/dl Albumin/Globulin Ratio 1.0 (0.9-2) Amylase (25-115) U/L Lipase 138 (73-393) U/L 01/12/20 Range/Units 17:40 WBC 6.41 (4.8-10.8) K/uL RBC 4.60 L (4.7-6.1) M/uL Hgb 14.6 (14.0-18.0) g/dL Hct 43.5 (42-52) % MCV 94.6 (80-100) fL MCH 31.7 (25-34) pg MCHC 33.6 (32-36) g/dL RDW Std Deviation 46.3 (36.4-46.3) fL RDW Coeff of Christopher 13.5 (11.5-14.5) % Plt Count 159 (130-400) K/uL MPV 9.4 (7.4-10.4) fL Immature Gran % (Auto) 0.2 % Neut % (Auto) 64.4 % Lymph % (Auto) 25.7 % [place] % (Auto) 7.6 % Eos % (Auto) 1.9 % Baso % (Auto) 0.2 % Immature Gran # (Auto) 0.01 (0.00-0.02) K/uL Neut # (Auto) 4.13 (1.4-6.5) K/uL Lymph # (Auto) 1.65 (1.2-3.4) K/uL [place] # (Auto) 0.49 (0.11-0.59) K/uL Eos # (Auto) 0.12 (0-0.5) K/uL Baso # (Auto) 0.01 (0-0.2) K/uL PT (9.0-12.0) Seconds INR (0.9-1.1) APTT (21.0-31.0) Seconds PTT Ratio Sodium (136-145) mmol/L Potassium (3.5-5.1) mmol/L Chloride (98-107) mmol/L Carbon Dioxide (21-32) mmol/L Anion Gap (3-11) BUN (7-18) mg/dl Creatinine (0.6-1.4) mg/dl Est Cr Clr Drug Dosing ml/min Est GFR ( Amer) Est GFR (Non-Af Amer) BUN/Creatinine Ratio (10-20) Glucose (70-99) mg/dl Calcium (8.5-10.1) mg/dl Magnesium (1.8-2.4) mg/dl Total Bilirubin (0.2-1) mg/dl Direct Bilirubin (0-0.2) mg/dl AST (15-37) U/L ALT (12-78) U/L Alkaline Phosphatase (45-117) U/L Troponin I (0-0.045) ng/ml NT-Pro-B Natriuret Pep (0-900) pg/ml Total Protein (6.4-8.2) gm/dl Albumin (3.4-5.0) gm/dl Globulin (2.5-4.0) gm/dl Albumin/Globulin Ratio (0.9-2) Amylase (25-115) U/L Lipase (73-393) U/L Diagnostic Findings BILIARY ULTRASOUND CLINICAL HISTORY: Epigastric pain, possible stones COMPARISON STUDY: No previous studies for comparison. FINDINGS: The pancreas appears normal as visualized. No focal hepatic masses are delineated. There is minimal intrahepatic biliary ductal prominence. There are multiple gallstones. There is mild gallbladder wall thickening. There is anterior, tail artifact consistent with adenomyomatosis. The technologist reports a negative sonographic Spring sign. There is no right-sided hydronephrosis. There is borderline dilatation of the common bile duct which measures 9 mm in maximal diameter. IMPRESSION: 1. Mildly distended gallbladder containing multiple calculi and demonstrating mild wall thickening 2. Mild ductal prominence. 3. Clinical correlation recommended in regards to acute cholecystitis. If desired, a nuclear medicine hepatic biliary study could be obtained to assess cystic duct patency
[2020-01-13] MEDS: SODIUM CHLORIDE 0.9% 1000ML 1,000 ML IV SCH (09:54)
[2020-01-13] MEDS: PANTOprazole 40 MG TAB PO SCH (10:36)
--- NOTE | 2020-01-13 11:28 | Hospitalist Progress Note ---
Date of Service January 13, 2020 Assessment & Plan (1) Epigastric abdominal pain: (2) Acute cholecystitis: (3) Cholelithiasis: -Pt is 74 y/o M with PMH HTN, HLD, diastolic heart failure hypothyroidism, gout, neuropathy presented to ER with complaint of epigastric pain. Patient states today for lunch he ate pasta with red meat sauce and coleslaw. States later developed burning type pain across the upper abdominal, epigastric area and lower chest area and nausea, occurred after eating pasta with meat sauce and coleslaw -In ER patient afebrile, vitals stable. No leukocytosis alk phos: 154, otherwise LFTs WNL, initial troponin negative, EKG without any acute ST changes Gallbladder ultrasound:multiple gallstones. mild gallbladder wall thickening. borderline dilatation of the common bile duct which measures 9 mm in maximal diameter. In ER patient given GI cocktail, Pepcid 20 mg IV with relief of epigastric discomfort. In ER Zosyn started and Zosyn continued -01/13/2020: day time hospitalist reviewed chart and no blood cultures were drawn on 01/12/2020 so they are sent on 01/13/2020 AM. continuing the IV Zosyn. patient has been seen by general surgery and gastroenterology and MRCP is pending to be performed. patient's abdominal symptoms apparently much improved on 01/13/2020 and based on my conversations with him, he seems reluctant to stay overnight further but he is agreeable to stay for now for MRCP and then await whether the findings change the hospital management. (4) HTN (hypertension): Stable -Continue metoprolol (5) Dyslipidemia: -Continue atorvastatin (6) Diastolic congestive heart failure: 2017 echo: EF: 60-64%, grade 1 diastolic dysfunction Appears euvolemic -Hold twice weekly Lasix at this time (7) Gout: -Continue allopurinol (8) Hypothyroidism: TSH: 1.9 in 12/2019 -Continue levothyroxine DVT Prophylaxis -SCDs Full Code as per discussion with pt, pt reports would want limited attempt Follows with Dr Kwok for routine care Admission and Anticipated Discharge Date Admission Date: January 12, 2020 Subjective Patient on IV antibiotics. Seen at bedside and awaiting for MRCP. Patient does not have any acute abdomen pain today. no vomiting. he denies fevers. no chest pain. no shortness of breath. breathing on room air. no dizziness. no headache Review of Systems Review of Systems: All systems reviewed & are unremarkable except as noted in Subjective Physical Exam Constitutional: WD/WN, vitals as above Eyes: PERRL, conjunctivae normal, anicteric sclerae EOM intact bilaterally ENMT: external ear and nose normal, oropharynx normal Neck: normal visual inspection Respiratory: normal respiratory effort, lungs clear to auscultation Cardiovascular: Rate/Rhythm: + bradycardic Gastrointestinal (Abdomen): normal bowel sounds, soft, nontender, no hepatosplenomegaly Musculoskeletal: Head/Neck/Chest: normocephalic and head atraumatic Neurologic: PERRL, EOMI, accommodation nl, no face palsy, no dysarthria CN's II-XI intact bilaterally Psychiatric: A+Ox3, euthymic affect Results & Data Results & Data ([facility]) Vital Signs (Past 12 Hours) Vital Signs Temp Pulse Pulse Resp BP Pulse Ox 01/13/20 07:27 36.5 C 56 L 18 141/75 H 98 01/13/20 07:09 48 L 01/13/20 04:00 36.5 C 58 L 18 134/69 97 01/13/20 02:49 58 L 01/12/20 23:23 64
[2020-01-13] MEDS ORDERED: ACETAMINOPHEN 325 MG TAB PO PRN (12:42)
[2020-01-13] MEDS: LATANOPROST 0.005% OP SOLN 2.5 ML BTL OPB SCH (20:10)
[2020-01-14] MEDS: LEVOTHYROXINE SODIUM 50 MCG TABLET PO SCH (05:49)
[2020-01-14 06:08] LABS: Basophils # (auto) 0.01 K/uL (0-0.2); Basophils % (auto) 0.2 %; Eosinophils # (auto) 0.16 K/uL (0-0.5); Hematocrit (blood only) 38.7 % (42-52); Immature Granulocytes # (auto) 0.01 K/uL (0.00-0.02); Immature Granulocytes % (auto) 0.2 %; Lymphocytes # (auto) 1.71 K/uL (1.2-3.4); Lymphocytes % (auto) 32.1 %; Mean Corpuscular Hgb Conc 33.6 g/dL (32-36); Mean Corpuscular Volume 95.3 fL (80-100); Mean Platelet Volume 9.5 fL (7.4-10.4); Monocytes % (auto) 9.4 %; Neutrophils # (auto) 2.93 K/uL (1.4-6.5); Neutrophils % (auto) 55.1 %; Platelet Count 133 K/uL (130-400); RDW Coefficient of Variation 13.6 % (11.5-14.5); RDW Standard Deviation 47.1 fL (36.4-46.3); Red Blood Count 4.06 M/uL (4.7-6.1); White Blood Count 5.32 K/uL (4.8-10.8)
[2020-01-14 06:39] LABS: BUN Creatinine Ratio 9.7 (10-20); Calcium 8.6 mg/dl (8.5-10.1); Creatinine Clr Calc Pharmacy 64.9 ml/min; Est GFR (African American) 77.4; Est GFR (Non-African American) 66.8; Potassium 4.2 mmol/L (3.5-5.1)
--- NOTE | 2020-01-14 07:48 | Hospitalist Progress Note ---
Date of Service January 14, 2020 Assessment & Plan (1) Epigastric abdominal pain: (2) Acute cholecystitis: acute cholecystitis was initially suspected (3) Cholelithiasis: -Pt is 74 y/o M with PMH HTN, HLD, diastolic heart failure hypothyroidism, gout, neuropathy presented to ER with complaint of epigastric pain. Patient states today for lunch he ate pasta with red meat sauce and coleslaw. States later developed burning type pain across the upper abdominal, epigastric area and lower chest area and nausea, occurred after eating pasta with meat sauce and coleslaw -In ER patient afebrile, vitals stable. No leukocytosis alk phos: 154, otherwise LFTs WNL, initial troponin negative, EKG without any acute ST changes Gallbladder ultrasound:multiple gallstones. mild gallbladder wall thickening. borderline dilatation of the common bile duct which measures 9 mm in maximal diameter. In ER patient given GI cocktail, Pepcid 20 mg IV with relief of epigastric discomfort. In ER Zosyn started and Zosyn continued -01/13/2020: day time hospitalist reviewed chart and no blood cultures were drawn on 01/12/2020 so they are sent on 01/13/2020 AM. continuing the IV Zosyn. patient has been seen by general surgery and gastroenterology and MRCP is pending to be performed. patient's abdominal symptoms apparently much improved on 01/13/2020 and based on my conversations with him, he seems reluctant to stay overnight further but he is agreeable to stay for now for MRCP and then await whether the findings change the hospital management. -01/14/2020. awaiting for MRCP machine to be repaired so that patient can have this diagnostic testing. hospitalist saw patient in AM when general surgery team at the bedside. Patient without acute abdomen symptoms. He is pain free. no vomiting. no fevers. the blood cultures from 01/13/2020. currently on IV Zosyn. discussed with general surgeon that if MRCP is unremarkable then perhaps patient can follow up with outpatient surgery clinic (4) HTN (hypertension): Stable -Continue metoprolol (5) Dyslipidemia: -Continue atorvastatin (6) Diastolic congestive heart failure: 2016 echo: EF: 60-64%, grade 1 diastolic dysfunction Appears euvolemic -Hold twice weekly Lasix at this time (7) Gout: -Continue allopurinol (8) Hypothyroidism: TSH: 1.9 in 12/2019 -Continue levothyroxine DVT Prophylaxis -SCDs Full Code as per discussion with pt, pt reports would want limited attempt Follows with Dr Kwok for routine care.appointment 01/18/2020 11:00 AM Provider Alyssa Kwok MD Department General Internal Medicine [facility] Admission and Anticipated Discharge Date Admission Date: January 12, 2020 Subjective 01/14/2020. awaiting for MRCP machine to be repaired so that patient can have this diagnostic testing. hospitalist saw patient in AM when general surgery team at the bedside. Patient without acute abdomen symptoms. He is pain free. no vomiting. no fevers. the blood cultures from 01/13/2020. currently on IV Zosyn. discussed with general surgeon that if MRCP is unremarkable then perhaps patient can follow up with outpatient surgery clinic no shortness of breath. no chest pain. no abdominal pain. no vomiting. no dizziness. no lightheadedness. Review of Systems Review of Systems: All systems reviewed & are unremarkable except as noted in Subjective Physical Exam Constitutional: WD/WN, vitals as above Eyes: PERRL, conjunctivae normal, anicteric sclerae EOM intact bilaterally ENMT: external ear and nose normal, oropharynx normal Neck: normal visual inspection Respiratory: normal respiratory effort, lungs clear to auscultation Cardiovascular: Rate/Rhythm: + bradycardic Gastrointestinal (Abdomen): normal bowel sounds, soft, nontender, no hepatosplenomegaly Musculoskeletal: Head/Neck/Chest: normocephalic and head atraumatic Neurologic: PERRL, EOMI, accommodation nl, no face palsy, no dysarthria CN's II-XI intact bilaterally Psychiatric: A+Ox3, euthymic affect Results & Data Results & Data ([facility]) Vital Signs (Past 12 Hours) Vital Signs Temp Pulse Resp BP BP Pulse Ox 01/14/20 07:24 36.6 C 54 L 18 138/84 96 01/14/20 00:02 36.5 C 57 L 18 123/75 97 01/13/20 20:00 36.4 C L 61 18 127/74 97
[2020-01-14] MEDS: PIPERACILLIN/TAZOBACTAM 3.375 GM in DEXTROSE 5% 100 ML IV SCH (08:14)
[2020-01-14] MEDS: ATORVASTATIN 20 MG TAB PO SCH (08:22)
[2020-01-14] MEDS: TIMOLOL MALEATE 0.25% OP SOLN 5 ML BTL OPL SCH (08:22)
[2020-01-14] MEDS: METOPROLOL SUCC 25MG EXT REL TAB PO SCH (08:22)
[2020-01-14] MEDS: THIAMINE HCL 50 MG TABLET PO SCH (08:22)
[2020-01-14] MEDS: allopurinoL 100 MG TAB PO SCH (08:22)
[2020-01-14] MEDS: PANTOprazole 40 MG TAB PO SCH (08:22)
--- NOTE | 2020-01-14 08:25 | Surgery Progress Note ---
Date of Service January 14, 2020 Assessment & Plan (1) Epigastric abdominal pain: 74 year-old male presented to ED with epigastric abdominal pain postprandial at 2 pm yesterday. US showing gallstones, mild wall thickening, no leukocytosis, mild elevation in Alk phos other cmp and lipase wnl. Dilated CBD at 9 mm. Abdominal pain now resolved after GI cocktail. MRCP ordered for today. Plan: Will await results of MRCP. Discussed possible need for cholecystectomy depending on MRCP results. If MRCP negative, can likely consider outpatient cholecystectomy since he is currently completely asymptomatic. Continue NPO for now Continue medical management (2) Cholelithiasis: plan as above Dr. Nevarez has seen and examined patient, please see addendum for further recommendations/plan. Subjective feeling well this am no abdominal pain no nausea or vomiting awaiting for MRCP Physical Exam Constitutional: WD/WN, vitals as above no acute distress Gastrointestinal (Abdomen): Inspection/Auscultation: abdomen normal to inspection; abdomen not distended Percussion/Palpation: abdomen soft; abdomen nontender, no guarding and abdomen not rigid Skin: no rashes, warm and dry Psychiatric: A+Ox3, euthymic affect Results & Data Vital Signs (Past 12 Hours) Vital Signs Temp Pulse Resp BP BP Pulse Ox 01/14/20 07:24 36.6 C 54 L 18 138/84 96 01/14/20 00:02 36.5 C 57 L 18 123/75 97 Laboratory Results 01/14/20 01/14/20 01/13/20 Range/Units 05:23 05:23 07:11 WBC 5.32 (4.8-10.8) K/uL RBC 4.06 L (4.7-6.1) M/uL Hgb 13.0 L (14.0-18.0) g/dL Hct 38.7 L (42-52) % MCV 95.3 (80-100) fL MCH 32.0 (25-34) pg MCHC 33.6 (32-36) g/dL RDW Std Deviation 47.1 H (36.4-46.3) fL RDW Coeff of Christopher 13.6 (11.5-14.5) % Plt Count 133 (130-400) K/uL MPV 9.5 (7.4-10.4) fL Immature Gran % (Auto) 0.2 % Neut % (Auto) 55.1 % Lymph % (Auto) 32.1 % Curry % (Auto) 9.4 % Eos % (Auto) 3.0 % Baso % (Auto) 0.2 % Immature Gran # (Auto) 0.01 (0.00-0.02) K/uL Neut # (Auto) 2.93 (1.4-6.5) K/uL Lymph # (Auto) 1.71 (1.2-3.4) K/uL Curry # (Auto) 0.50 (0.11-0.59) K/uL Eos # (Auto) 0.16 (0-0.5) K/uL Baso # (Auto) 0.01 (0-0.2) K/uL Sodium 143 140 (136-145) mmol/L Potassium 4.2 4.0 (3.5-5.1) mmol/L Chloride 109 H 106 (98-107) mmol/L Carbon Dioxide 29 28 (21-32) mmol/L Anion Gap 5.0 5.0 (3-11) BUN 11 13 (7-18) mg/dl Creatinine 1.08 1.07 (0.6-1.4) mg/dl Est Cr Clr Drug Dosing 64.9 65.5 ml/min Est GFR ( Amer) 77.4 78.3 Est GFR (Non-Af Amer) 66.8 67.5 BUN/Creatinine Ratio 9.7 L 12.1 (10-20) Glucose 85 97 (70-99) mg/dl Calcium 8.6 9.0 (8.5-10.1) mg/dl Total Bilirubin 1.0 (0.2-1) mg/dl Direct Bilirubin 0.2 (0-0.2) mg/dl AST 17 (15-37) U/L ALT 30 (12-78) U/L Alkaline Phosphatase 127 H (45-117) U/L Total Protein 7.4 (6.4-8.2) gm/dl Albumin 3.7 (3.4-5.0) gm/dl Globulin 3.7 (2.5-4.0) gm/dl Albumin/Globulin Ratio 1.0 (0.9-2) Amylase 83 (25-115) U/L Lipase 136 (73-393) U/L
--- NOTE | 2020-01-14 09:22 | Gastroenterology Progress Note ---
Date of Service January 14, 2020 Assessment & Plan (1) Epigastric abdominal pain: (2) Cholelithiasis: Pt is a 74 y/o male admitted w pain across upper abd 45min after lunch associated w nausea w/o vomiting. LFTs w mild elevation of Alk phose, normal lipase. Gallbladder us w signs of cholelithiasis and mild distended, wall thickened. CBD dilated at 9mm. He is clinically much improved today. Did state yesterday after Maalox w Lidocaine his pain was better. MRCP wasn't done yesterday as machine was broken. Hope to be done today. His previous abd pain ,nausea symptoms have resolved. - Keep NPO - Will obtain MRCP to r/o choledocholithiasis. If positive will plan for ERCP; if negative no further plans from GI standpoint and no contraindication for DC home. - Surgery following - Continue Protonix 40mg daily in case he had gastritis, dyspepsia Admission and Anticipated Discharge Date Admission Date: January 12, 2020 Supervising Physician Co-Signing Physician Notes I have seen and examined the patient with STEW Taylor whose note reflects our findings and plan. Awaiting MRCP. Subjective MRI machine down yesterday, MRCP unable to be done. Hope to be done this AM. Pt feels well, denies abd pain, n/v, tolerated CL diet. Last BM yesterday. Review of Systems Review of Systems: All systems reviewed & are unremarkable except as noted in HPI & below Physical Exam Constitutional: WD/WN, vitals as above well groomed, cooperative and comfortable Eyes: PERRL, conjunctivae normal, anicteric sclerae ENMT: external ear and nose normal, oropharynx normal Respiratory: normal respiratory effort, lungs clear to auscultation Cardiovascular: RRR, no murmur, no edema Gastrointestinal (Abdomen): normal bowel sounds, soft, nontender, no hepatosplenomegaly Skin: no rashes, warm and dry no jaundice Psychiatric: A+Ox3, euthymic affect Lymphatic: no lymphedema Results & Data ([facility]) Vital Signs (Past 12 Hours) Vital Signs Temp Pulse Resp BP BP Pulse Ox 01/14/20 07:24 36.6 C 54 L 18 138/84 96 01/14/20 00:02 36.5 C 57 L 18 123/75 97
--- NOTE | 2020-01-14 10:33 | Magnetic Resonance Report ---
MRCP CLINICAL HISTORY: r/o choledocholithiasis TECHNIQUE: Utilizing a 1.5 Itzel magnet and dedicated coil, multiplanar, multiecho imaging of the upp er abdomen was performed utilizing heavily T2 weighted pulsing sequences without IV contrast. COMPARISON STUDY: Right upper quadrant ultrasound January 12, 2020. FINDINGS: Note is made of an apparent 1.8 cm round T2 hypointense abnormality within the left atrial appendage on coronal FIESTA image 14 of 25. This could be artifactual. There is mild dilatation of th e common bile duct, measuring 8 mm. No common bile duct calculi are identified. There is relatively a brupt narrowing of the distal common bile duct. Numerous gallstones within the gallbladder are noted. No gallbladder wall thickening is evident by MRI. No hepatic lesions are identified on this unenhanc ed examination. The spleen, adrenal glands and kidneys are unremarkable. Course and caliber of the ma in pancreatic duct is normal. No abdominal lymphadenopathy or ascites is noted. IMPRESSION: 1. Mildly dilated common bile duct with relatively abrupt narrowing of the distal CBD. However, no co mmon bile duct calculi identified. 2. Cholelithiasis. 3. Apparent 1.8 cm round abnormality within the left atrial appendage. This could be artifactual. How ever, thrombus could appear similar. Cardiology consultation for consideration for echocardiography i s recommended. Discussed with María Gaffney at time of dictation. ACT 112: Positive. There are findings on this exam that require communication between the performing entity and the patient following Patient Test Result Information Act ([place] Act 112) guidelines. Electronically signed by: Rj Delcid M.D. 01/14/2020 10:31 AM
--- NOTE | 2020-01-14 13:52 | Cardiology Consultation ---
Date of Consultation January 14, 2020 Assessment & Plan (1) Abnormal MRI: MRI done to evaluate cholelithiasis demonstrated possible left atrial appendage mass versus thrombus. Echocardiogram without definitive answer. Discussed findings in detail with patient noted transesophageal echocardiogram best study to further define patient agreeable. 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 Sanabria Attending Physician: Kedar Sanabria MD History of Present Illness Patient is a 74-year-old male whose past medical history is notable for hypertension on therapy, hyperlipidemia and hypothyroidism who presented with symptoms of abdominal pain discomfort/cholelithiasis. MRCP performed and evaluation of presenting symptoms demonstrated possible mass in left atrial appendage Patient is referred now for further evaluation. Patient denies prior history of structural heart disease other than left hypertrophy/diastolic dysfunction. No prior history of [place] angina or congestive heart failure. No history of sustained tachypalpitations syncope or near syn cope of significance. One episode of syncope post knee replacement. No fevers chills unexplained infections. No history of TIA or stroke. No dysphasia or difficulty swallowing. No difficulties with sedation or anesthesia in the past most recent colonoscopy May 2019 with no difficulty No current bleeding issues melena medication dysuria hematuria. Patient n.p.o. overnight Allergies Allergy/AdvReac Type Severity Reaction Status Date / Time niacin AdvReac FLUSH Unverified 01/12/20 20:03 Home Medications Home Medications Medication Instructions Recorded Confirmed Type allopurinol [Zyloprim] 200 mg PO DAILY 01/12/20 01/12/20 History aspirin [Aspir-81] 81 mg PO DAILY 01/12/20 01/12/20 History atorvastatin [Lipitor] 20 mg PO DAILY 01/12/20 01/12/20 History clobetasol 1 applic TOPICAL BID PRN 01/12/20 01/12/20 History furosemide [Lasix] 20 mg PO 2XWK 01/12/20 01/12/20 History latanoprost [Xalatan] 1 drp OPB HS 01/12/20 01/12/20 History levothyroxine [Levoxyl] 50 mcg PO DAILY 01/12/20 01/12/20 History metoprolol succinate [Toprol XL] 25 mg PO DAILY 01/12/20 01/12/20 History potassium chloride [Klor-Con M10] 10 meq PO 2XWK 01/12/20 01/12/20 History thiamine HCl (vitamin B1) [Vitamin 50 mg PO DAILY 01/12/20 01/12/20 History B-1] timolol maleate [Timoptic] 1 drp OPL DAILY 01/12/20 01/12/20 History Patient History Medical History Diastolic congestive heart failure Dyslipidemia Gout High cholesterol HTN (hypertension) Hypothyroidism Surgical History H/O inguinal hernia repair History of arthroplasty of both knees Family History Other Coronary heart disease Social History Preferred Language: Salvadorean Communication Ability: Effective Job Molder Required: No Beliefs That Will Affect Care: None Current Living Situation: Spouse Other Information That Helps Us Care for You: No Feels Safe at Home: Yes Safety Concerns: Feels Safe At This Time Smoking Status: Never smoker Tobacco Type: smokeless tobacco ; Do You Dip or Chew Tobacco: Yes ; Hx Alcohol Use: Yes Alcohol type: beer Hx Substance Use: No Physical Exam Constitutional: WD/WN, vitals as above Eyes: PERRL, conjunctivae normal, anicteric sclerae ENMT: external ear and nose normal, oropharynx normal Neck: trachea midline, no thyromegaly Respiratory: normal respiratory effort, lungs clear to auscultation Cardiovascular: Rate/Rhythm: regular rate and regular rhythm Heart Sounds: normal S1 and normal S2; no gallop and no murmur Palpation: normal PMI Vessels: normal carotid upstroke and radial pulses present; no JVD and no carotid bruit Extremities: no edema Gastrointestinal (Abdomen): normal bowel sounds, soft, nontender, no hepatosplenomegaly Musculoskeletal: no cyanosis or clubbing, extremities motor strength 5/5 Skin: no rashes, warm and dry Neurologic: PERRL, EOMI, accommodation nl, no face palsy, no dysarthria Psychiatric: A+Ox3, euthymic affect Results & Data ([place]) Vital Signs (Past 12 Hours) Vital Signs Temp Pulse Resp BP Pulse Ox 01/14/20 07:24 36.6 C 54 L 18 138/84 96 Laboratory Results Laboratory Results - last 24 hr 01/14/20 01/14/20 05:23 05:23 WBC 5.32 RBC 4.06 L Hgb 13.0 L Hct 38.7 L MCV 95.3 MCH 32.0 MCHC 33.6 RDW Std Deviation 47.1 H RDW Coeff of Christopher 13.6 Plt Count 133 MPV 9.5 Immature Gran % (Auto) 0.2 Neut % (Auto) 55.1 Lymph % (Auto) 32.1 [place]ton % (Auto) 9.4 Eos % (Auto) 3.0 Baso % (Auto) 0.2 Immature Gran # (Auto) 0.01 Neut # (Auto) 2.93 Lymph # (Auto) 1.71 Overton # (Auto) 0.50 Eos # (Auto) 0.16 Baso # (Auto) 0.01 Sodium 143 Potassium 4.2 Chloride 109 H Carbon Dioxide 29 Anion Gap 5.0 BUN 11 Creatinine 1.08 Est Cr Clr Drug Dosing 64.9 Est GFR ( Amer) 77.4 Est GFR (Non-Af Amer) 66.8 BUN/Creatinine Ratio 9.7 L Glucose 85 Calcium 8.6 Diagnostic Findings MRI/MRCP 01/14/2020 IMPRESSION: 1. Mildly dilated common bile duct with relatively abrupt narrowing of the distal CBD. However, no common bile duct calculi identified. 2. Cholelithiasis. 3. Apparent 1.8 cm round abnormality within the left atrial appendage. This could be artifactual. However, thrombus could appear similar. Cardiology consultation for consideration for echocardiography is recommended ECG Additional Comments: EKG normal sinus rhythm with poor progression V1 V2 otherwise no acute changes or arrhythmias
--- NOTE | 2020-01-14 14:14 | Pre Anesthesia Assessment ---
Date of Service January 14, 2020 Pre Sedation Assessment Vital Signs Temp Pulse Pulse Resp BP BP Pulse Ox 01/14/20 07:24 36.6 C 54 L 18 138/84 96 01/14/20 00:02 36.5 C 57 L 18 123/75 97 01/13/20 20:00 36.4 C L 61 18 127/74 97 01/13/20 15:27 36.5 C 65 18 138/74 98 01/13/20 15:00 61 Cardiovascular RRR, no murmur, no edema Respiratory normal respiratory effort, lungs clear to auscultation Pre-Sedation Airway Assessment Smoking Status: Never smoker Mallampati Class: II NPO Status Date of Last Intake of Fluids: 01/14/20 Last Oral Intake of Fluids Comment: Sips of fluids with medications Date of Last Intake of Solid Food: 01/13/20 Last Intake of Solids Comment: Prior to midnight Procedure Planning Contraindications for Sedation: none Current Medications Reviewed: Yes Notes The planned sedation has been discussed with the patient. Informed Consent was obtained. I have identified the patient, determined the appropriateness of sedation and have assessed the patient immediately prior to the procedure. All medicine(s) and interventions are by my order.
[2020-01-14] MEDS ORDERED: fentaNYL citrate 100 MCG/2 ML VIAL ONE (14:18)
[2020-01-14] MEDS ORDERED: MIDAZOLAM HCL 1 MG/ML 2ML VIAL ONE (14:19)
--- NOTE | 2020-01-14 14:51 | Post Operative Brief Note ---
Cardiology Brief Post Op Date of Surgery January 14, 2020 Pre & Post Diagnosis Operation Date: 01/14/20 14:00 <No data on this case meets the specified criteria> Indications: Possible left atrial appendage thrombus versus mass on MRI Postop diagnosis: Normal structural heart, no left atrial appendage mass or thrombus Procedure Transesophageal echocardiogram [employer] Paral[employer] Matias Quinn MD Radiologic Electronic Specialist Kelvin Collins Estimated Blood Loss 0 Findings See Below Transesophageal echocardiogram was explained in detail with patient and informed consent was obtained. Patient was sedated with continuous heart rate blood pressure oxygen and end- tidal CO2 monitoring Sedation start time 1425, end time 1441 Medications administered Versed 4 mg IV, fentanyl 25 mg IV Topical anesthetic to posterior oropharynx with Xylocaine See echocardiogram report for full details. No intracardiac mass observed Post procedure patient aroused having tolerated well. Complications none Disposition Accompanied Patient To Recovery: Yes
--- NOTE | 2020-01-14 16:12 | Discharge Summary ---
Date of Service January 14, 2020 Admission HPI Per Admitting Provider Pt is 74 y/o M with PMH HTN, HLD, diastolic heart failure hypothyroidism, gout, neuropathy presented to ER with complaint of epigastric pain. Patient states today for lunch he ate pasta with red meat sauce and coleslaw. States later developed burning type pain across the upper abdominal, epigastric area and lower chest area. Patient also complains of nausea. Denies shortness of breath, dizziness, vomiting, diarrhea. Patient states a couple times in past has had some discomfort to right upper quadrant however has self resolved. Patient states is active and push mows his lawn without any history of shortness of breath or chest pain. Denies fever/chills, diaphoresis, GARG, dizziness, syncope, vision changes, neck pain,orthopnea, palpitations, cough, sore throat, choking, otalgia, rhinorrhea, paresthesias, weakness, extremity weakness, extremity edema, rashes, urinary symptoms. Principal Diagnosis Epigastric abdominal pain: Cholelithiasis suspected Acute cholecystitis initially but is ruled out Ruled Out left atrial appendage and reuled out cardiac thrombus Diastolic dysfunction without heart failure as per cardiology echocardiogram assessment on 01/14/2020 Discharge Exam Constitutional WD/WN, vitals as above Eyes PERRL, conjunctivae normal, anicteric sclerae EOM intact bilaterally ENMT external ear and nose normal, oropharynx normal Neck normal visual inspection Respiratory normal respiratory effort, lungs clear to auscultation Cardiovascular Rate/Rhythm: + bradycardic Gastrointestinal (Abdomen) normal bowel sounds, soft, nontender, no hepatosplenomegaly Musculoskeletal Head/Neck/Chest: normocephalic and head atraumatic Neurologic PERRL, EOMI, accommodation nl, no face palsy, no dysarthria CN's II-XI intact bilaterally Psychiatric A+Ox3, euthymic affect Discharge Data Allergies Allergy/AdvReac Type Severity Reaction Status Date / Time niacin AdvReac FLUSH Unverified 01/12/20 20:03 Consultations 01/12/20 20:10 ED Decision to Admit Stat 01/12/20 21:28 Consult Gastroenterology Routine Consult General Surgery Routine 01/14/20 10:51 Consult Cardiology Routine Procedures Performed Operation Date: 01/14/20 14:00 Actual Procedures p Echo Transesophageal - Matias Quinn MD Ordered Studies 01/12/20 17:57 US gallbladder Stat 01/14/20 02:02 MR MRCP Routine Hospital Course (1) Epigastric abdominal pain: secondary to cholelithiasis (2) Acute cholecystitis: acute cholecystitis was initially suspected and is ruled out (3) Cholelithiasis: -Pt is 74 y/o M with PMH HTN, HLD, diastolic heart failure hypothyroidism, gout, neuropathy presented to ER with complaint of epigastric pain. Patient states today for lunch he ate pasta with red meat sauce and coleslaw. States later developed burning type pain across the upper abdominal, epigastric area and lower chest area and nausea, occurred after eating pasta with meat sauce and coleslaw -In ER patient afebrile, vitals stable. No leukocytosis alk phos: 154, otherwise LFTs WNL, initial troponin negative, EKG without any acute ST changes Gallbladder ultrasound:multiple gallstones. mild gallbladder wall thickening. borderline dilatation of the common bile duct which measures 9 mm in maximal diameter. In ER patient given GI cocktail, Pepcid 20 mg IV with relief of epigastric discomfort. In ER Zosyn started and Zosyn continued -01/13/2020: day time hospitalist reviewed chart and no blood cultures were drawn on 01/12/2020 so they are sent on 01/13/2020 AM. continuing the IV Zosyn. patient has been seen by general surgery and gastroenterology and MRCP is pending to be performed. patient's abdominal symptoms apparently much improved on 01/13/2020 and based on my conversations with him, he seems reluctant to stay overnight further but he is agreeable to stay for now for MRCP and then await whether the findings change the hospital management. -MRCP 01/14/2020: Mildly dilated common bile duct with relatively abrupt narrowing of the distal CBD. However, no common bile duct calculi identified. Cholelithiasis. (as per radiology Apparent 1.8 cm round abnormality within the left atrial appendage. This could be artifactual. However, thrombus could appear similar. Cardiology consultation for consideration for echocardiography is recommended) -Transthoracic Echocardiogram performed without definitive answer. Cardiology Dr. Quinn performed Transesophageal echocardiography (FLACO) and reported to hospitalist that there is no left atrial appendage (PACO) atrial and there is no thrombus. blood cultures no growth to date and no further need for antibiotics. Diastolic dysfunction without heart failure as per cardiology echocardiogram assessment on 01/14/2020. no acute cardiac interventions at this time. follow up with primary care doctor -Gastroenterology Will offer pt outpt GI appt in a few week's time to discuss possible EUS to eval narrowing of distal CBD -avoid diet high in fatty/fried greasy foods. Outpatient follow-up to discuss elective cholecystectomy with Dr. Nevarez. appointment 02/10/2020 2:00 PM Provider Tony Nevarez MD Department General Surgery, [facility] -primary care doctor appointment 01/18/2020 11:00 AM Provider Alsysa Kwok MD Department General Internal Medicine [facility] Diastolic dysfunction without heart failure as per cardiology echocardiogram assessment on 01/14/2020 (4) HTN (hypertension): Stable -Continue metoprolol (5) Dyslipidemia: -Continue atorvastatin (6) Gout: -Continue allopurinol (7) Hypothyroidism: TSH: 1.9 in 12/2019 -Continue levothyroxine DVT Prophylaxis -SCDs Full Code as per discussion with pt, pt reports would want limited attempt Total Time Total Time Spent Total Time Spent (In Minutes): 40 minutes Total Time Includes: Examination of the Patient, Discharge Planning, Medication Reconciliation and Communication With Other Providers Discharge Plan Discharge Items Patient Disposition: Home - Self-Care Reason For Visit: EPIGASTRIC PAIN Discharge Diagnosis: Epigastric abdominal pain: Cholelithiasis suspected Acute cholecystitis initially but is ruled out Ruled Out left atrial appendage and reuled out cardiac thrombus 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 empirically started on IV Zosyn -MRCP 01/14/2020: Mildly dilated common bile duct with relatively abrupt narrowing of the distal CBD. However, no common bile duct calculi identified. Cholelithiasis. (as per radiology Apparent 1.8 cm round abnormality within the left atrial appendage. This could be artifactual. However, thrombus could appear similar. Cardiology consultation for consideration for echocardiography is recommended) -Transthoracic Echocardiogram performed without definitive answer. Cardiology Dr. Quinn performed Transesophageal echocardiography (FLACO) and reported to hospitalist that there is no left atrial appendage (PACO) atrial and there is no thrombus. blood cultures no growth to date and no further need for antibiotics. Diastolic dysfunction without heart failure as per cardiology echocardiogram assessment on 01/14/2020. no acute cardiac interventions at this time. follow up with primary care doctor -Gastroenterology Will offer pt outpt GI appt in a few week's time to discuss possible EUS to eval narrowing of distal CBD -avoid diet high in fatty/fried greasy foods. Outpatient follow-up to discuss elective cholecystectomy with Dr. Nevarez. appointment 02/10/2020 2:00 PM Provider Tnoy Nevarez MD Department General Surgery, [facility] -primary care doctor appointment 01/18/2020 11:00 AM Provider Alyssa Kwok MD Department General Internal Medicine [facility] Pending Studies at Discharge: No Stand-Alone Forms: My [facility], Smoking Cessation Medications and DC Order Prescriptions: Continued potassium chloride [Klor-Con M10] 10 mEq tablet,ER particles/crystals 10 meq PO 2XWK RF: 0 furosemide [Lasix] 20 mg tablet 20 mg PO 2XWK RF: 0 latanoprost [Xalatan] 0.005 % drops 1 drp OPB HS RF: 0 atorvastatin [Lipitor] 20 mg tablet 20 mg PO DAILY RF: 0 clobetasol 0.05 % Cream 1 applic TOPICAL BID PRN (Reason: BREAKOUTS) RF: 0 thiamine HCl (vitamin B1) [Vitamin B-1] 100 mg Tablet 50 mg PO DAILY RF: 0 allopurinol [Zyloprim] 100 mg tablet 200 mg PO DAILY RF: 0 aspirin [Aspir-81] 81 mg Tablet,Delayed Release (Dr/Ec) 81 mg PO DAILY RF: 0 levothyroxine [Levoxyl] 50 mcg Tablet 50 mcg PO DAILY RF: 0 metoprolol succinate [Toprol XL] 25 mg tablet extended release 24 hr 25 mg PO DAILY RF: 0 timolol maleate [Timoptic] 0.5 % drops 1 drp OPL DAILY RF: 0 Discharge Orders: Discharge Order (Routine); Ordered 01/14/20 Ordered By: Kedar Sanabria Admission Data Admit Date/Time: 01/12/20 20:44 Attending Provider: Kedar Sanabria Admit Provider: Kasandra De Paz I. Primary Care Provider: Alyssa Kwok Other Providers: Kasandra De Paz I. ; Dominique Cook ; Tony Nevarez ; Matias Quinn Other Interventions: Discharge Summary Assessment (RN) Last Done: 01/14/20 16:04
--- NOTE | 2020-01-15 06:31 | Electrocardiogram Report ---
Test Reason : Blood Pressure : / mmHG Vent. Rate : 053 BPM Atrial Rate : 053 BPM P-R Int : 180 ms QRS Dur : 088 ms QT Int : 446 ms P-R-T Axes : 038 019 004 degrees QTc Int : 418 ms Sinus bradycardia Cannot rule out Anterior infarct , age undetermined Abnormal ECG When compared with ECG of 27-NOV-2010 15:42, No significant change was found Confirmed by Bhavin Rich ([id number]) on 01/15/2020 6:31:30 AM Referred By: REFERRED SELF Confirmed By:Bhavin Rich
--- NOTE | 2020-01-15 09:12 | Electrocardiogram Report ---
Test Reason : Blood Pressure : / mmHG Vent. Rate : 066 BPM Atrial Rate : 066 BPM P-R Int : 182 ms QRS Dur : 096 ms QT Int : 402 ms P-R-T Axes : 048 -12 009 degrees QTc Int : 421 ms Normal sinus rhythm with sinus arrhythmia Minimal voltage criteria for LVH, may be normal variant Borderline ECG When compared with ECG of 27-NOV-2010 15:42, No significant change was found Confirmed by Shane Del Rio ([id number]) on 01/15/2020 9:11:35 AM Referred By: REFERRED SELF Confirmed By:Shane Del Rio
== END 2020-01-14 17:05 | disposition home or self-care (01) | DRG 392 ==
LOC: ED 17:22 → SUATTDRO 20:44 → 2N 20:44

== ENCOUNTER 2024-01-24 17:00 | Inpatient (IN) ==
--- NOTE | 2024-01-24 17:52 | Emergency Department Note ---
Impression & Plan Sepsis, Rhabdomyolysis, Cellulitis of foot, left, Heel ulcer ED Provider Note NAME: KIM MOBLEY AGE: 78 SEX: M : 1945 ARRIVES VIA: Walk-In INFORMANT: Patient ED PROVIDER(S): Michael Chung MD CHIEF COMPLAINT: illness, weak PLAN: Disposition: Admit MEDICAL DECISION MAKING: The patient is a pleasant 78 gentleman with a past medical history of diastolic dysfunction, hypothyroidism, gout, hypertension, hyperlipidemia who presents to the emergency department via walk-in for continued illness and weakness after being seen in this department earlier today after a fall last night where it was recommended he be admitted to the hospital but he declined. The patient reports that he fell last night in his garage and spent all night on the ground trying to get up on his left side. He also has a left heel ulcer that has been progressing over the past 2 weeks. He reports he is supposed to see a wound center at some point but has yet to have this scheduled. He does report a history of neuropathy. He reports he did not want to be admitted earlier because he wanted to visit his was admitted at this facility upstairs for a UTI. However now the patient admits that he is too weak to function and agrees with recommendations for admission. He denies any fevers, chills, cough congestion, vomiting or diarrhea. On evaluation the patient is ill-appearing in no distress, afebrile with stable vital signs. He exhibits dry cracked mucous membranes though he does have chronic bilateral lower extremity edema. There is a 4 cm left heel ulcer with foul odor and overlying eschar without overt purulent drainage. There is no crepitus. There is moderate surrounding erythema warmth. There is no tenderness. EKG without overt acute ischemia. Chest x-ray earlier today was negative for acute cardiopulmonary process. WBC within normal limits. There is neutrophil predominance but no left shift. H/H similar to prior range values. Platelets within normal limits. Chemistry without metabolic acidosis. BUN/creatinine is 29, consistent with patient's clinically dry appearance. CPK is elevated at 3900 consistent with the patient's prolonged downtime last night. High-sensitivity troponin is 27.4, nonspecific. Procalcitonin is elevated at 0.77 consistent with concern for infection/early sepsis. Lipase normal. TSH within normal limits. Blood cultures were obtained and empiric treatment initiated with IV Zosyn and daptomycin for left lower extremity cellulitis and infected ulcer. IV fluid hydration with 1 L normal saline provided with caution and 30 cc/kg was deferred given patient was hemodynamically stable and exhibits lower extremity edema. CT of the head, abdomen pelvis and left foot were ordered and are pending. Given the patient agrees with plan for admission patient referred to hospitalist service. [facility] the patient for admission. CT head negative for acute abnormality. CT of the abdomen pelvis demonstrates evidence of interstitial lung disease. CT of the left foot demonstrates plantar posterior ulceration below the posterior calcaneus. Diffuse edema consistent with patient's cellulitis on exam is noted. There is no soft tissue abscess. No distinct bony lesion. Further management per admitting team. Triage Nursing notes reviewed and agree them. Prior/external medical records reviewed Vital Signs: reviewed Differential diagnosis: Infection, dehydration, metabolic abnormality, hypo/hyperglycemia, electrolyte disturbance, anemia, hypoxia, cardiac sources, intracerebral event, toxicologic, neurologic, as well as other pathologies. ER treatment provided: See below. Diagnostics interpreted by me: ECG: Normal sinus rhythm, 86 bpm, no ectopy, LVH, no overt ST ovation or depression, QTc 447, QRS 80. Cardiac Monitoring: An order for continuous cardiac monitoring was placed and demonstrated Normal sinus rhythm, 86 bpm, no ectopy Laboratory studies: See below Imaging studies: See below Consultation(s): Case was discussed with Dr. Clay, [facility], who will evaluate the patient for admission. HPI: The patient is a pleasant 78 gentleman with a past medical history of diastolic dysfunction, hypothyroidism, gout, hypertension, hyperlipidemia who presents to the emergency department via walk-in for continued illness and weakness after being seen in this department earlier today after a fall last night where it was recommended he be admitted to the hospital but he declined. The patient reports that he fell last night in his garage and spent all night on the ground trying to get up on his left side. He also has a left heel ulcer that has been progressing over the past 2 weeks. He reports he is supposed to see a wound center at some point but has yet to have this scheduled. He does report a history of neuropathy. He reports he did not want to be admitted earlier because he wanted to visit his was admitted at this facility upstairs for a UTI. However now the patient admits that he is too weak to function and agrees with recommendations for admission. He denies any fevers, chills, cough congestion, vomiting or diarrhea. ROS: See above HPI for pertinent positives & negatives. A total of 10 systems reviewed and were otherwise negative. VITALS:See Below PHYSICAL EXAMINATION: GENERAL: Awake, alert, ill-appearing, in no distress HENT: Normocephalic, atraumatic. Oropharynx with dry mucous membranes and otherwise unremarkable. EYES: Normal conjunctiva. Sclera non-icteric. NECK: Supple. No nuchal rigidity. FROM. No JVD. RESPIRATORY: Clear to auscultation. CARDIAC: Regular rate, normal rhythm. Extremities warm and well perfused. Pulses equal. ABDOMEN: Soft, non-distended. No tenderness to palpation. No rebound or guarding. No masses. MUSCULOSKELETAL: Chest examination reveals no tenderness. The back is symmetrical on inspection without obvious abnormality. There is no CVA tenderness to palpation. No joint edema. LOWER EXTREMITIES: 2+ BLE edema. 4 cm left heel ulcer with foul odor and overlying eschar without overt purulent drainage. There is no crepitus. There is moderate surrounding erythema warmth. There is no tenderness. NEURO: No sensory or motor deficits noted. SKIN: No rash or jaundice noted. ED COURSE: Critical Care: I have personally spent greater than 35 minutes of critical care time in the direct management of this patient. This includes bedside care, interpretation of diagnostic studies, and testing, discussion with consultants, patient, and family members, and other required patient management activities. This 35 minutes is in excess of all separately billable procedures. Michael Chung MD Past Med/Surg History Problem List (Updated 01/25/24 @ 00:27 by Michael Chung MD) Sepsis (Acute) Heel ulcer (Acute) Cellulitis of foot, left (Acute) Rhabdomyolysis (Acute) Fall (Acute) Diabetic foot ulcer (Acute) Epigastric abdominal pain (Acute) Biliary colic (Acute) Acute cholecystitis (Acute) Cholelithiasis Abnormal MRI Diastolic dysfunction without heart failure Encounter for pre-operative examination Injury of right thigh Hypothyroidism Diastolic congestive heart failure Euvolemic on exam at [facility] Gout HTN (hypertension) Dyslipidemia Medical History Sleep apnea Osteoarthritis TMJ click Rarely Increased pressure in the eye Does not yet meet criteria for glaucoma Surgical History History of right cataract surgery S/P cholecystectomy History of arthroscopy of left knee History of transesophageal echocardiography (FLACO) History of colonoscopy History of ERCP H/O inguinal hernia repair BILAT History of arthroplasty of both knees Family History Other Coronary heart disease No family history of adverse response to anesthesia Social History Smoking Status: Never smoker Second Hand Exposure: No; Do You Dip or Chew Tobacco: Yes (advised); Hx Alcohol Use: Yes Alcohol type: beer Hx Substance Use: No Preferred Language: Persian Communication Ability: Effective Media Clerk Required: No Beliefs That Will Affect Care: None Current Living Situation: Spouse Current Living Situation Comment: Feels Safe at Home: Yes Assistive Devices: Hearing Aid - Left and Hearing Aid - Right Allergies Allergies Allergy/AdvReac Type Severity Reaction Status Date / Time niacin AdvReac Intermediate FLUSH Verified 01/24/24 21:54 Home Meds Home Medications Medication Instructions Recorded Confirmed allopurinol 100 mg tablet 200 mg PO QAM 01/12/20 01/24/24 (Zyloprim) aspirin 81 mg tablet,delayed 81 mg PO QAM 01/12/20 01/24/24 release (Aspir-) atorvastatin 20 mg tablet (Lipitor) 20 mg PO QAM 01/12/20 01/24/24 furosemide 20 mg tablet (Lasix) 20 mg PO Q OTHER DAY 01/12/20 01/24/24 latanoprost 0.005 % eye drops 1 drp OPB HS 01/12/20 01/24/24 (Xalatan) levothyroxine 50 mcg tablet 50 mcg PO QAM 01/12/20 01/24/24 (Levoxyl) metoprolol succinate 25 mg 25 mg PO QAM 01/12/20 01/24/24 tablet,extended release 24 hr (Toprol XL) thiamine HCl (vitamin B1) 100 mg 50 mg PO QAM 01/12/20 01/24/24 tablet (Vitamin B-1) timolol maleate 0.5 % eye drops 1 drp OPL QAM 01/12/20 01/24/24 (Timoptic) ketoconazole 1 % shampoo 1 applic topical UD 12/13/21 01/24/24 Previous Rx's Medication Instructions Recorded amoxicillin 875 mg-potassium 1 tab PO BID #14 tabs 01/24/24 clavulanate 125 mg tablet sulfamethoxazole 800 1 tab PO BID 7 days #14 tabs 01/24/24 mg-trimethoprim 160 mg tablet (Bactrim DS) Results & Data (ED) Vital Signs Vital Signs - 24 hr 01/24/24 17:09 01/24/24 17:18 01/24/24 17:55 Temperature 36.8 C Temperature Source Oral Pulse Rate 90 87 Pulse Rate [Apical] Pulse Rate from SpO2 Sensor Respiratory Rate 18 Respiratory Effort / Characteristics Respiratory Depth Respiratory Pattern Blood Pressure 144/76 H Blood Pressure [Right Arm] Blood Pressure Mean 98 Blood Pressure Mean [Right Arm] Pulse Oximetry 96 97 Oxygen Delivery Method Room Air Room Air Sepsis Recent Fever Within 48 Hours No Sepsis New/Unexplained Change in Mental Status No Sepsis Action Taken by Nursing No Action Required 01/24/24 19:09 01/24/24 20:21 01/24/24 22:08 Temperature Temperature Source Pulse Rate 80 Pulse Rate [Apical] 75 Pulse Rate from SpO2 Sensor 84 Respiratory Rate 22 24 Respiratory Effort / Characteristics Respiratory Depth Respiratory Pattern Blood Pressure 141/76 H Blood Pressure [Right Arm] 124/58 L Blood Pressure Mean 97 Blood Pressure Mean [Right Arm] 80 Pulse Oximetry 98 97 Oxygen Delivery Method Room Air Room Air Sepsis Recent Fever Within 48 Hours Sepsis New/Unexplained Change in Mental Status Sepsis Action Taken by Nursing 01/24/24 23:00 Temperature Temperature Source Pulse Rate Pulse Rate [Apical] 73 Pulse Rate from SpO2 Sensor Respiratory Rate 20 Respiratory Effort / Characteristics Non-Labored Spontaneous Respiratory Depth Normal Respiratory Pattern Regular Blood Pressure Blood Pressure [Right Arm] 116/59 L Blood Pressure Mean Blood Pressure Mean [Right Arm] 78 Pulse Oximetry 93 Oxygen Delivery Method Room Air Sepsis Recent Fever Within 48 Hours Sepsis New/Unexplained Change in Mental Status Sepsis Action Taken by Nursing Laboratory Data Attestation: I reviewed the patient's lab results. 01/24/24 18:01 01/24/24 18:01 Lab Results 01/24/24 01/24/24 01/24/24 Range/Units 18:01 18:03 18:57 WBC 8.07 (4.8-10.8) K/ul RBC 3.93 L (4.70-6.10) M/uL Hgb 12.5 L (14.0-18.0) g/dl Hct 37.0 L (42.0-52.0) % MCV 94.1 (80.0-100.0) fL MCH 31.8 (25.0-34.0) pg MCHC 33.8 (32.0-36.0) g/dL RDW Std Deviation 45.7 (36.4-46.3) fL RDW Coeff of Christopher 13.2 (11.5-14.5) % Plt Count 235 (130-400) K/uL MPV 8.6 L (9.4-12.4) fL Immature Gran % (Auto) 0.5 % Neut % (Auto) 82.9 % Lymph % (Auto) 7.9 % Osborne % (Auto) 8.1 % Eos % (Auto) 0.4 % Baso % (Auto) 0.2 % Neut # (Auto) 6.69 H (1.40-6.50) K/uL Lymph # (Auto) 0.64 L (1.20-3.40) K/uL Osborne # (Auto) 0.65 H (0.11-0.59) K/uL Eos # (Auto) 0.03 (0.00-0.50) K/uL Baso # (Auto) 0.02 (0.00-0.20) K/uL Immature Gran # (Auto) 0.04 (0.01-0.20) K/uL PT 13.0 H (9.0-12.0) Seconds INR 1.2 H (0.9-1.1) Sodium 133 L (136-145) mmol/L Potassium 4.3 (3.5-5.1) mmol/L Chloride 103 (98-107) mmol/L Carbon Dioxide 25 (21-32) mmol/L Anion Gap 5 (3-11) BUN 29 H (6-23) mg/dl Creatinine 0.97 (0.6-1.4) mg/dl Est Cr Clr Drug Dosing 67.4 ml/min Est GFR ( Amer) 85.7 ml/min Est GFR (Non-Af Amer) 73.9 ml/min BUN/Creatinine Ratio 29.9 H (10-20) Glucose 128 H (70-99(Fasting)) mg/dl Lactate 1.1 (0.4-2.0) mmol/L Calcium 8.3 L (8.6-10.3) mg/dl Phosphorus 2.4 L (2.5-4.9) mg/dl Magnesium 2.4 (1.7-2.4) mg/dl Total Creatine Kinase 3975 H (30-223) U/L Troponin I High Sens 27.4 H (0-20) pg/ml Lipase 15 (11-82) U/L Procalcitonin 0.77 H (0-0.5) ng/ml TSH 1.498 (0.300-4.500) uIu/ml Ethyl Alcohol mg/dL (<10.0) mg/dl 01/24/24 Range/Units 20:28 WBC (4.8-10.8) K/ul RBC (4.70-6.10) M/uL Hgb (14.0-18.0) g/dl Hct (42.0-52.0) % MCV (80.0-100.0) fL MCH (25.0-34.0) pg MCHC (32.0-36.0) g/dL RDW Std Deviation (36.4-46.3) fL RDW Coeff of Christopher (11.5-14.5) % Plt Count (130-400) K/uL MPV (9.4-12.4) fL Immature Gran % (Auto) % Neut % (Auto) % Lymph % (Auto) % Osborne % (Auto) % Eos % (Auto) % Baso % (Auto) % Neut # (Auto) (1.40-6.50) K/uL Lymph # (Auto) (1.20-3.40) K/uL Osborne # (Auto) (0.11-0.59) K/uL Eos # (Auto) (0.00-0.50) K/uL Baso # (Auto) (0.00-0.20) K/uL Immature Gran # (Auto) (0.01-0.20) K/uL PT (9.0-12.0) Seconds INR (0.9-1.1) Sodium (136-145) mmol/L Potassium (3.5-5.1) mmol/L Chloride (98-107) mmol/L Carbon Dioxide (21-32) mmol/L Anion Gap (3-11) BUN (6-23) mg/dl Creatinine (0.6-1.4) mg/dl Est Cr Clr Drug Dosing ml/min Est GFR ( Amer) ml/min Est GFR (Non-Af Amer) ml/min BUN/Creatinine Ratio (10-20) Glucose (70-99(Fasting)) mg/dl Lactate (0.4-2.0) mmol/L Calcium (8.6-10.3) mg/dl Phosphorus (2.5-4.9) mg/dl Magnesium (1.7-2.4) mg/dl Total Creatine Kinase (30-223) U/L Troponin I High Sens 27.7 H (0-20) pg/ml Lipase (11-82) U/L Procalcitonin (0-0.5) ng/ml TSH (0.300-4.500) uIu/ml Ethyl Alcohol mg/dL < 10.0 (<10.0) mg/dl Administered Medications Daptomycin 475 mg/ Syringe 9.5 mls @ 4.75 mls/min IV Q24H [facility]; Protocol Stop: 01/26/24 18:44 Last Admin: 01/24/24 19:14 Dose: 4.75 mls/min Documented By: PUMA Discontinued Medications Sodium Chloride (Nss) 1,000 mls @ 999 mls/hr IV .Q1H1M STA Stop: 01/24/24 18:50 Last Infusion: 01/24/24 19:07 Dose: Infused Documented By: Admin: 01/24/24 18:03 Dose: 999 mls/hr Documented By: JERRICA Piperacillin Sod/Tazobactam Sod (Zosyn) 4.5 gm in 100 mls @ 200 mls/hr IV NOW ONE Stop: 01/24/24 19:03 Last Infusion: 01/24/24 20:24 Dose: Infused Documented By: Admin: 01/24/24 19:14 Dose: 200 mls/hr Documented By: PUMA Ioversol (Optiray 320 100ml) 92 ml IV ONCE ONE Stop: 01/24/24 20:02 Last Admin: 01/24/24 20:01 Dose: 92 ml Documented By: REANNA Imaging Data Radiologist's Impression: Abdomen/Pelvis CT 01/24/24 18:33 Exam(s): CT ABDOMEN + PELVIS With Contrast IV Amt: 92 ml optiray 320 EXAM: CT Abdomen and Pelvis With Intravenous Contrast CLINICAL HISTORY: Reason for exam: sepsis, ?UTI. TECHNIQUE: Axial computed tomography images of the abdomen and pelvis with intravenous contrast. CTDI is 23.21 mGy and DLP is 1427.47 mGy-cm. Automated exposure control was utilized for the study. A dose lowering technique was utilized adhering to the principles of ALARA. CONTRAST: Patient received 92 ml optiray 320 of IV contrast COMPARISON: None. FINDINGS: Lung bases: Reticular interstitial prominence along the subtalar region of the lung bases concerning for interstitial lung disease versus early fibrosis. No consolidation. Pleural space: Trace bilateral effusions versus pleural thickening. Heart: Mild cardiomegaly with coronary artery calcifications. ABDOMEN: Liver: Unremarkable. No mass. Gallbladder and bile ducts: Status post cholecystectomy with nonspecific mild biliary distention. No ductal dilation. Pancreas: Unremarkable. No mass. No ductal dilation. Spleen: Unremarkable. No splenomegaly. Adrenals: Unremarkable. No mass. Kidneys and ureters: Unremarkable. No solid mass. No hydronephrosis. Stomach and bowel: Moderate to abundant fecal debris within the colon. Scattered diverticulosis with no signs of diverticulitis. No obstruction. PELVIS: Appendix: Normal appendix. Bladder: Slightly over distended urinary bladder. Reproductive: Mild prostate enlargement. ABDOMEN and PELVIS: Intraperitoneal space: Unremarkable. No free air. No significant fluid collection. Bones/joints: Multilevel degenerative disease of the spine. Minimal anterolisthesis of L5 on S1 with bilateral pars defect of L5. No acute fracture. No dislocation. Soft tissues: Small left-sided fat-containing inguinal hernia. Minimal stranding involving the subcutaneous fat, cannot exclude mild anasarca. Vasculature: Atherosclerotic disease of aorta with no aneurysm or dissection. Lymph nodes: Unremarkable. No enlarged lymph nodes. IMPRESSION: 1. Mild interstitial prominence which mainly indicate interstitial lung disease, cannot exclude pulmonary fibrosis versus early congestive heart failure. Trace bilateral pleural effusions versus pleural thickening. Clinical correlation recommended. 2. Status post cholecystectomy with nonspecific biliary distention. 3. Diverticulosis with no signs of diverticulitis. No acute appendicitis or bowel obstruction. Electronically signed by: Claudia Irving MD 01/24/24 23:[address] 01/24/24 18:33 Exam(s): CT LEFT FOOT With Contrast IV Amt: 92 ml optiray 320 EXAM: CT Left Lower Extremity With Intravenous Contrast, Foot CLINICAL HISTORY: Reason for exam: sepsis, plantar ulcer/infection. TECHNIQUE: Axial computed tomography images of the left foot with intravenous contrast. CTDI is 23.21 mGy and DLP is 1427.47 mGy-cm. Automated exposure control was utilized for the study. A dose lowering technique was utilized adhering to the principles of ALARA. CONTRAST: Patient received 92 ml optiray 320 of IV contrast COMPARISON: None. FINDINGS: Bones/joints: Mild degenerative arthrosis of the first metatarsal phalangeal joint and first tarsometatarsal joint. Otherwise bony structures are unremarkable with no acute fracture or subluxation. There is diffuse stranding/edema through the distal calf and ankle as well as dorsum of the foot. Soft tissues: There is a skin irregularity with defect and adjacent fluid and inflammation at the soft tissues along the plantar region, just inferior to the posterior calcaneus consistent with known ulceration. IMPRESSION: 1. Plantar posterior ulceration, just below the posterior calcaneus. 2. Diffuse edema versus cellulitis with no soft tissue abscess. 3. No distinct bony lesion seen. Note to be made that osteomyelitis cannot be excluded based on negative CT findings. If this represents a clinical concern, recommend follow-up with MRI of the region of interest or bone scan. Electronically signed by: Claudia Irving MD 01/24/24 23:[address] 01/24/24 18:33 Exam(s): CT HEAD Without Contrast EXAM: CT Head Without Intravenous Contrast CLINICAL HISTORY: Reason for exam: fall, weakness. TECHNIQUE: Axial computed tomography images of the head/brain without intravenous contrast. CTDI is 36.31 mGy and DLP is 625.8 mGy-cm. Automated exposure control was utilized for the study. A dose lowering technique was utilized adhering to the principles of ALARA. COMPARISON: No relevant prior studies available. FINDINGS: Brain: Remote ischemic injury of the left capsule. No hemorrhage. No significant white matter disease. No edema. Ventricles: Mild ventriculomegaly. Bones/joints: Incomplete fusion of the posterior ring of C1. No acute fracture. Soft tissues: Unremarkable. Sinuses: Unremarkable as visualized. No acute sinusitis. Mastoid air cells: Unremarkable as visualized. No mastoid effusion. IMPRESSION: No evidence of acute intracranial pathology. Electronically signed by: Karine Pichardo MD 01/24/24 23:40 PM Discharge Plan Visit Data Chief Complaint: Illness ED Provider: Michael Chung Discharge Problem: Sepsis, Rhabdomyolysis, Cellulitis of foot, left, Heel ulcer Discharge Instructions Interventions: ED Discharge Assessment Last Done: 01/24/24 23:58 Discharge Problem: Sepsis Qualifiers: Sepsis type: sepsis due to unspecified organism Sepsis acute organ dysfunction status: without acute organ dysfunction Qualified Code(s): A41.9 - Sepsis, unspecified organism Rhabdomyolysis Qualifiers: Rhabdomyolysis type: traumatic Encounter type: initial encounter Qualified Code(s): T79.6XXA - Traumatic ischemia of muscle, initial encounter Heel ulcer Qualifiers: Laterality: left Non-pressure ulcer stage: unspecified non-pressure ulcer stage Qualified Code(s): L97.429 - Non-pressure chronic ulcer of left heel and midfoot with unspecified severity
[2024-01-24] MEDS: SODIUM CHLORIDE 0.9% 1,000 ML IV STA (18:03)
[2024-01-24 18:19] LABS: Basophils # (auto) 0.02 K/uL (0.00-0.20); Basophils % (auto) 0.2 %; Eosinophils # (auto) 0.03 K/uL (0.00-0.50); Eosinophils % (auto) 0.4 %; Hemoglobin 12.5 g/dl (14.0-18.0); Immature Granulocytes # (auto) 0.04 K/uL (0.01-0.20); Immature Granulocytes % (auto) 0.5 %; Lymphocytes # (auto) 0.64 K/uL (1.20-3.40); Lymphocytes % (auto) 7.9 %; Mean Corpuscular Hemoglobin 31.8 pg (25.0-34.0); Mean Corpuscular Hgb Conc 33.8 g/dL (32.0-36.0); Mean Corpuscular Volume 94.1 fL (80.0-100.0); Mean Platelet Volume 8.6 fL (9.4-12.4); Monocytes # (auto) 0.65 K/uL (0.11-0.59); Monocytes % (auto) 8.1 %; Neutrophils # (auto) 6.69 K/uL (1.40-6.50); Neutrophils % (auto) 82.9 %; Platelet Count 235 K/uL (130-400); RDW Coefficient of Variation 13.2 % (11.5-14.5); RDW Standard Deviation 45.7 fL (36.4-46.3); Red Blood Count 3.93 M/uL (4.70-6.10); White Blood Count 8.07 K/ul (4.8-10.8)
[2024-01-24 18:33] LABS: BUN Creatinine Ratio 29.9 (10-20); Calcium 8.3 mg/dl (8.6-10.3); Creatinine Clr Calc Pharmacy 67.4 ml/min; Est GFR (African American) 85.7 ml/min; Est GFR (Non-African American) 73.9 ml/min; Magnesium 2.4 mg/dl (1.7-2.4); Phosphorus 2.4 mg/dl (2.5-4.9); Potassium 4.3 mmol/L (3.5-5.1)
[2024-01-24 18:39] LABS: Troponin I High Sensitivity 27.4 pg/ml (0-20)
[2024-01-24 18:43] LABS: INR 1.2 (0.9-1.1)
[2024-01-24 18:48] LABS: Thyroid Stimulating Hormone 1.498 uIu/ml (0.300-4.500)
[2024-01-24] MEDS: DAPTOmycin 475 MG in SYRINGE 0 ML IV SCH (19:14)
[2024-01-24] MEDS: PIPERACILLIN/TAZOBACTAM 4.5 GM/100 ML BAG IV ONE (19:14)
[2024-01-24] MEDS: OPTIRAY 320 100ml IV ONE (20:01)
--- NOTE | 2024-01-24 23:19 | CT Scan Report ---
Exam(s): CT LEFT FOOT With Contrast IV Amt: 92 ml optiray 320 EXAM: CT Left Lower Extremity With Intravenous Contrast, Foot CLINICAL HISTORY: Reason for exam: sepsis, plantar ulcer/infection. TECHNIQUE: Axial computed tomography images of the left foot with intravenous contrast. CTDI is 23.21 mGy and DLP is 1427.47 mGy-cm. Automated exposure control was utilized for the study. A dose lowering technique was utilized adhering to the principles of ALARA. CONTRAST: Patient received 92 ml optiray 320 of IV contrast COMPARISON: None. FINDINGS: Bones/joints: Mild degenerative arthrosis of the first metatarsal phalangeal joint and first tarsometatarsal joint. Otherwise bony structures are unremarkable with no acute fracture or subluxation. There is diffuse stranding/edema through the distal calf and ankle as well as dorsum of the foot. Soft tissues: There is a skin irregularity with defect and adjacent fluid and inflammation at the soft tissues along the plantar region, just inferior to the posterior calcaneus consistent with known ulceration. IMPRESSION: 1. Plantar posterior ulceration, just below the posterior calcaneus. 2. Diffuse edema versus cellulitis with no soft tissue abscess. 3. No distinct bony lesion seen. Note to be made that osteomyelitis cannot be excluded based on negative CT findings. If this represents a clinical concern, recommend follow-up with MRI of the region of interest or bone scan. Electronically signed by: Claudia Irving MD 01/24/24 23:18 PM
--- NOTE | 2024-01-24 23:24 | CT Scan Report ---
Exam(s): CT ABDOMEN + PELVIS With Contrast IV Amt: 92 ml optiray 320 EXAM: CT Abdomen and Pelvis With Intravenous Contrast CLINICAL HISTORY: Reason for exam: sepsis, ?UTI. TECHNIQUE: Axial computed tomography images of the abdomen and pelvis with intravenous contrast. CTDI is 23.21 mGy and DLP is 1427.47 mGy-cm. Automated exposure control was utilized for the study. A dose lowering technique was utilized adhering to the principles of ALARA. CONTRAST: Patient received 92 ml optiray 320 of IV contrast COMPARISON: None. FINDINGS: Lung bases: Reticular interstitial prominence along the subtalar region of the lung bases concerning for interstitial lung disease versus early fibrosis. No consolidation. Pleural space: Trace bilateral effusions versus pleural thickening. Heart: Mild cardiomegaly with coronary artery calcifications. ABDOMEN: Liver: Unremarkable. No mass. Gallbladder and bile ducts: Status post cholecystectomy with nonspecific mild biliary distention. No ductal dilation. Pancreas: Unremarkable. No mass. No ductal dilation. Spleen: Unremarkable. No splenomegaly. Adrenals: Unremarkable. No mass. Kidneys and ureters: Unremarkable. No solid mass. No hydronephrosis. Stomach and bowel: Moderate to abundant fecal debris within the colon. Scattered diverticulosis with no signs of diverticulitis. No obstruction. PELVIS: Appendix: Normal appendix. Bladder: Slightly over distended urinary bladder. Reproductive: Mild prostate enlargement. ABDOMEN and PELVIS: Intraperitoneal space: Unremarkable. No free air. No significant fluid collection. Bones/joints: Multilevel degenerative disease of the spine. Minimal anterolisthesis of L5 on S1 with bilateral pars defect of L5. No acute fracture. No dislocation. Soft tissues: Small left-sided fat-containing inguinal hernia. Minimal stranding involving the subcutaneous fat, cannot exclude mild anasarca. Vasculature: Atherosclerotic disease of aorta with no aneurysm or dissection. Lymph nodes: Unremarkable. No enlarged lymph nodes. IMPRESSION: 1. Mild interstitial prominence which mainly indicate interstitial lung disease, cannot exclude pulmonary fibrosis versus early congestive heart failure. Trace bilateral pleural effusions versus pleural thickening. Clinical correlation recommended. 2. Status post cholecystectomy with nonspecific biliary distention. 3. Diverticulosis with no signs of diverticulitis. No acute appendicitis or bowel obstruction. Electronically signed by: Claudia Irving MD 01/24/24 23:23 PM
--- NOTE | 2024-01-24 23:36 | History & Physical Report ---
Date of Service January 24, 2024 Assessment & Plan (1) Rhabdomyolysis: Plan: 78-year-old male with past medical history significant for hypothyroidism, hyperlipidemia, prediabetes, idiopathic chronic gout of multiple sites, chronic diastolic CHF, hypertension, Hereditary and idiopathic peripheral neuropathy, anxiety related to change in role presents because of fall at home and also found to have rhabdomyolysis and left heel infection. Patient states yesterday evening he got some stuff from his car into the garage and the lights went off in the garage when he tripped over his leg and fell down on the left side. Did not hit his head. No loss of consciousness. But he was not able to get up. Phone was inside the house. He stayed on the garage floor all night. In the morning was able to crawl and open his door and went inside and called EMS. And was brought into the ER. He was sore all over. But his was admitted in the hospital and he went to see her and declined admission At the time he was walking but was sore. But his family told him to get admitted as he was very weak . Patient resting comfortably currently. Denies any headache. No dizziness. No blurred vision. Has some runny nose. No sore throat. No cough. No fevers. No difficulty swallowing. No chest pain or shortness of breath. No nausea or vomiting. No abdominal pain. Normal bowel and bladder movements. He has chronic lower extremity edema. He states he has ulcer on left foot for last 2 weeks and is following with the podiatry. Is ambulating without support. Denies any pain in the legs. rhabdomyolysis fell down and is on the floor all night CPK 3975 creatinine 0.7 IV normal saline at 150 mill per hour repeat labs in a.m. fall seems mechanical PT OT when stable left heel infected ulcer on the plantar aspect , blackish color and foul-smelling. Empiric Zosyn and Vanco n.p.o. will follow Dopplers studies Ortho consult in a.m. prediabetes follow HbA1c levels elevated troponin troponin 27. Mostly demand ischemia we will follow serial enzymes chronic diastolic CHF lower extremity edema monitor for volume overload hypothyroidism on Synthyroid TSH is okay hyperlipidemia hold statin until CPK levels are okay hypertension on metoprolol succinate gout on allopurinol DVT prophylaxis SCDs for now disposition med/daily full code History of Present Illness Chief Complaint: Fall, rhabdomyolysis, left heel infection Primary Care Provider: Alyssa Kwok MD 78-year-old male with past medical history significant for hypothyroidism, hyperlipidemia, prediabetes, idiopathic chronic gout of multiple sites, chronic diastolic CHF, hypertension, Hereditary and idiopathic peripheral neuropathy, anxiety related to change in role presents because of fall at home and also found to have rhabdomyolysis and left heel infection. Patient states yesterday evening he got some stuff from his car into the garage and the lights went off in the garage when he tripped over his leg and fell down on the left side. Did not hit his head. No loss of consciousness. But he was not able to get up. Phone was inside the house. He stayed on the garage floor all night. In the morning was able to crawl and open his door and went inside and called EMS. And was brought into the ER. He was sore all over. But his was admitted in the hospital and he went to see her and declined admission At the time he was walking but was sore. But his family told him to get admitted as he was very weak . Patient resting comfortably currently. Denies any headache. No dizziness. No blurred vision. Has some runny nose. No sore throat. No cough. No fevers. No difficulty swallowing. No chest pain or shortness of breath. No nausea or vomiting. No abdominal pain. Normal bowel and bladder movements. He has chronic lower extremity edema. He states he has ulcer on left foot for last 2 weeks and is following with the podiatry. Is ambulating without support. Denies any pain in the legs. Past medical history. As mentioned above past surgical history. bilateral total knee arthroplasty. Colonoscopy. EGD with endoscopic ultrasound. ERCP. Knee arthroscopy. Inguinal hernia repair. Social history. . No smoking. Alcohol 8 standard drinks of alcohol per week. No drug use. Family history. Mother had [place]. Father had [place]. Father had stomach ulcer. Allergies Allergy/AdvReac Type Severity Reaction Status Date / Time niacin AdvReac Intermediate FLUSH Verified 01/24/24 21:54 Home Medications Medication Instructions Recorded Confirmed Type allopurinol 100 mg tablet 200 mg PO QAM 01/12/20 01/24/24 History (Zyloprim) aspirin 81 mg tablet,delayed 81 mg PO QAM 01/12/20 01/24/24 History release (Aspir-) atorvastatin 20 mg tablet (Lipitor) 20 mg PO QAM 01/12/20 01/24/24 History furosemide 20 mg tablet (Lasix) 20 mg PO Q OTHER DAY 01/12/20 01/24/24 History latanoprost 0.005 % eye drops 1 drp OPB HS 01/12/20 01/24/24 History (Xalatan) levothyroxine 50 mcg tablet 50 mcg PO QAM 01/12/20 01/24/24 History (Levoxyl) metoprolol succinate 25 mg 25 mg PO QAM 01/12/20 01/24/24 History tablet,extended release 24 hr (Toprol XL) thiamine HCl (vitamin B1) 100 mg 50 mg PO QAM 01/12/20 01/24/24 History tablet (Vitamin B-1) timolol maleate 0.5 % eye drops 1 drp OPL QAM 01/12/20 01/24/24 History (Timoptic) ketoconazole 1 % shampoo 1 applic topical UD 12/13/21 01/24/24 History amoxicillin 875 mg-potassium 1 tab PO BID #14 tabs 01/24/24 01/24/24 Rx clavulanate 125 mg tablet sulfamethoxazole 800 1 tab PO BID 7 days #14 tabs 01/24/24 01/24/24 Rx mg-trimethoprim 160 mg tablet (Bactrim DS) Past Med/Surg History Problem List (Updated 01/25/24 @ 00:27 by Michael Chung MD) Sepsis (Acute) Heel ulcer (Acute) Cellulitis of foot, left (Acute) Rhabdomyolysis (Acute) Fall (Acute) Diabetic foot ulcer (Acute) Epigastric abdominal pain (Acute) Biliary colic (Acute) Acute cholecystitis (Acute) Cholelithiasis Abnormal MRI Diastolic dysfunction without heart failure Encounter for pre-operative examination Injury of right thigh Hypothyroidism Diastolic congestive heart failure Euvolemic on exam at [facility] Gout HTN (hypertension) Dyslipidemia Medical History Sleep apnea Osteoarthritis TMJ click Rarely Increased pressure in the eye Does not yet meet criteria for glaucoma Surgical History History of right cataract surgery S/P cholecystectomy History of arthroscopy of left knee History of transesophageal echocardiography (FLACO) History of colonoscopy History of ERCP H/O inguinal hernia repair BILAT History of arthroplasty of both knees Family History Other Coronary heart disease No family history of adverse response to anesthesia Social History Smoking Status: Never smoker Second Hand Exposure: No; Do You Dip or Chew Tobacco: Yes (advised); Hx Alcohol Use: No Hx Substance Use: No Preferred Language: Slovak Communication Ability: Effective Jack Spinner Required: No Beliefs That Will Affect Care: None Current Living Situation: Spouse Current Living Situation Comment: Other Information That Helps Us Care for You: No Feels Safe at Home: Yes Safety Concerns: Feels Safe At This Time Assistive Devices: None Review of Systems Review of Systems: All systems reviewed & are unremarkable except as noted in HPI & below Physical Exam Physical Exam: General- Not in distress. Head- atraumatic Eyes- PERRL. ENT- oropharynx clear Neck- supple, no JVD. Lungs- clear to auscultation no wheezing or crackles. Heart- regular rate and rhythm; no murmur, no gallop, Abdomen- normal bowel sounds, soft, nontender, no distension Extremities- b/l lower extremity edema present ,Left heel on plantar aspect blackish discolored foul smell wound present Neuro- alert, oriented PERRL, no facial palsy; no dysarthria; moves extremities. Results & Data Results & Data Vital Signs (Past 12 Hours) Vital Signs Temp Pulse Pulse Resp BP BP Pulse Ox 01/24/24 22:08 75 124/58 L 01/24/24 20:21 24 97 01/24/24 19:09 80 22 141/76 H 98 01/24/24 17:55 97 01/24/24 17:18 87 01/24/24 17:09 36.8 C 90 18 144/76 H 96 O2 Del Method 01/24/24 22:08 01/24/24 20:21 Room Air 01/24/24 19:09 Room Air 01/24/24 17:55 Room Air 01/24/24 17:18 01/24/24 17:09 Room Air Diagnostic Findings Laboratory Results WBC 8.07 K/ul (4.8-10.8) 01/24/24 18:01 RBC 3.93 M/uL (4.70-6.10) L 01/24/24 18:01 Hgb 12.5 g/dl (14.0-18.0) L 01/24/24 18:01 Hct 37.0 % (42.0-52.0) L 01/24/24 18:01 MCV 94.1 fL (80.0-100.0) 01/24/24 18: MCH 31.8 pg (25.0-34.0) 01/24/24 18: MCHC 33.8 g/dL (32.0-36.0) 01/24/24 18: RDW Std Deviation 45.7 fL (36.4-46.3) 01/24/24 18: RDW Coeff of Christopher 13.2 % (11.5-14.5) 01/24/24 18: Plt Count 235 K/uL (130-400) 01/24/24 18: MPV 8.6 fL (9.4-12.4) L 01/24/24 18:01 Immature Gran % (Auto) 0.5 % 01/24/24 18:01 Neut % (Auto) 82.9 % 01/24/24 18:01 Lymph % (Auto) 7.9 % 01/24/24 18:01 [place] % (Auto) 8.1 % 01/24/24 18:01 Eos % (Auto) 0.4 % 01/24/24 18:01 Baso % (Auto) 0.2 % 01/24/24 18:01 Neut # (Auto) 6.69 K/uL (1.40-6.50) H 01/24/24 18:01 Lymph # (Auto) 0.64 K/uL (1.20-3.40) L 01/24/24 18:01 [place] # (Auto) 0.65 K/uL (0.11-0.59) H 01/24/24 18:01 Eos # (Auto) 0.03 K/uL (0.00-0.50) 01/24/24 18:01 Baso # (Auto) 0.02 K/uL (0.00-0.20) 01/24/24 18:01 Immature Gran # (Auto) 0.04 K/uL (0.01-0.20) 01/24/24 18:01 PT 13.0 Seconds (9.0-12.0) H 01/24/24 18:01 INR 1.2 (0.9-1.1) H 01/24/24 18:01 Sodium 133 mmol/L (136-145) L 01/24/24 18:01 Potassium 4.3 mmol/L (3.5-5.1) 01/24/24 18:01 Chloride 103 mmol/L (98-107) 01/24/24 18:01 Carbon Dioxide 25 mmol/L (21-32) 01/24/24 18:01 Anion Gap 5 (3-11) 01/24/24 18:01 BUN 29 mg/dl (6-23) H 01/24/24 18:01 Creatinine 0.97 mg/dl (0.6-1.4) 01/24/24 18:01 Est Cr Clr Drug Dosing 67.4 ml/min 01/24/24 18:01 Est GFR ( Amer) 85.7 ml/min 01/24/24 18:01 Est GFR (Non-Af Amer) 73.9 ml/min 01/24/24 18:01 BUN/Creatinine Ratio 29.9 (10-20) H 01/24/24 18:01 Glucose 128 mg/dl (70-99(Fasting)) H 01/24/24 18:01 Lactate 1.1 mmol/L (0.4-2.0) 01/24/24 18:57 Calcium 8.3 mg/dl (8.6-10.3) L 01/24/24 18:01 Phosphorus 2.4 mg/dl (2.5-4.9) L 01/24/24 18:01 Magnesium 2.4 mg/dl (1.7-2.4) 01/24/24 18:01 Total Creatine Kinase 3975 U/L (30-223) H 01/24/24 18:01 Troponin I High Sens 27.7 pg/ml (0-20) H 01/24/24 20:28 Lipase 15 U/L (11-82) 01/24/24 18:01 Procalcitonin 0.77 ng/ml (0-0.5) H 06/22/24 18:03 TSH 1.498 uIu/ml (0.300-4.500) 01/24/24 18:01 Ethyl Alcohol mg/dL < 10.0 mg/dl (<10.0) 01/24/24 20:28 Impressions Abdomen/Pelvis CT 01/24/24 18:33 Exam(s): CT ABDOMEN + PELVIS With Contrast IV Amt: 92 ml optiray 320 EXAM: CT Abdomen and Pelvis With Intravenous Contrast CLINICAL HISTORY: Reason for exam: sepsis, ?UTI. TECHNIQUE: Axial computed tomography images of the abdomen and pelvis with intravenous contrast. CTDI is 23.21 mGy and DLP is 1427.47 mGy-cm. Automated exposure control was utilized for the study. A dose lowering technique was utilized adhering to the principles of ALARA. CONTRAST: Patient received 92 ml optiray 320 of IV contrast COMPARISON: None. FINDINGS: Lung bases: Reticular interstitial prominence along the subtalar region of the lung bases concerning for interstitial lung disease versus early fibrosis. No consolidation. Pleural space: Trace bilateral effusions versus pleural thickening. Heart: Mild cardiomegaly with coronary artery calcifications. ABDOMEN: Liver: Unremarkable. No mass. Gallbladder and bile ducts: Status post cholecystectomy with nonspecific mild biliary distention. No ductal dilation. Pancreas: Unremarkable. No mass. No ductal dilation. Spleen: Unremarkable. No splenomegaly. Adrenals: Unremarkable. No mass. Kidneys and ureters: Unremarkable. No solid mass. No hydronephrosis. Stomach and bowel: Moderate to abundant fecal debris within the colon. Scattered diverticulosis with no signs of diverticulitis. No obstruction. PELVIS: Appendix: Normal appendix. Bladder: Slightly over distended urinary bladder. Reproductive: Mild prostate enlargement. ABDOMEN and PELVIS: Intraperitoneal space: Unremarkable. No free air. No significant fluid collection. Bones/joints: Multilevel degenerative disease of the spine. Minimal anterolisthesis of L5 on S1 with bilateral pars defect of L5. No acute fracture. No dislocation. Soft tissues: Small left-sided fat-containing inguinal hernia. Minimal stranding involving the subcutaneous fat, cannot exclude mild anasarca. Vasculature: Atherosclerotic disease of aorta with no aneurysm or dissection. Lymph nodes: Unremarkable. No enlarged lymph nodes. IMPRESSION: 1. Mild interstitial prominence which mainly indicate interstitial lung disease, cannot exclude pulmonary fibrosis versus early congestive heart failure. Trace bilateral pleural effusions versus pleural thickening. Clinical correlation recommended. 2. Status post cholecystectomy with nonspecific biliary distention. 3. Diverticulosis with no signs of diverticulitis. No acute appendicitis or bowel obstruction. Electronically signed by: Claudia Irving MD 01/24/24 23:[address] 01/24/24 18:33 Exam(s): CT LEFT FOOT With Contrast IV Amt: 92 ml optiray 320 EXAM: CT Left Lower Extremity With Intravenous Contrast, Foot CLINICAL HISTORY: Reason for exam: sepsis, plantar ulcer/infection. TECHNIQUE: Axial computed tomography images of the left foot with intravenous contrast. CTDI is 23.21 mGy and DLP is 1427.47 mGy-cm. Automated exposure control was utilized for the study. A dose lowering technique was utilized adhering to the principles of ALARA. CONTRAST: Patient received 92 ml optiray 320 of IV contrast COMPARISON: None. FINDINGS: Bones/joints: Mild degenerative arthrosis of the first metatarsal phalangeal joint and first tarsometatarsal joint. Otherwise bony structures are unremarkable with no acute fracture or subluxation. There is diffuse stranding/edema through the distal calf and ankle as well as dorsum of the foot. Soft tissues: There is a skin irregularity with defect and adjacent fluid and inflammation at the soft tissues along the plantar region, just inferior to the posterior calcaneus consistent with known ulceration. IMPRESSION: 1. Plantar posterior ulceration, just below the posterior calcaneus. 2. Diffuse edema versus cellulitis with no soft tissue abscess. 3. No distinct bony lesion seen. Note to be made that osteomyelitis cannot be excluded based on negative CT findings. If this represents a clinical concern, recommend follow-up with MRI of the region of interest or bone scan. Electronically signed by: Claudia Irving MD 01/24/24 23:18 PM ECG Additional Comments: Dizzy. Normal sinus rhythm rate of 86. No significant change was found. Code Status & VTE Plan VTE Prophylaxis Plan VTE Prophylaxis will be ordered: Yes
--- NOTE | 2024-01-24 23:41 | CT Scan Report ---
Exam(s): CT HEAD Without Contrast EXAM: CT Head Without Intravenous Contrast CLINICAL HISTORY: Reason for exam: fall, weakness. TECHNIQUE: Axial computed tomography images of the head/brain without intravenous contrast. CTDI is 36.31 mGy and DLP is 625.8 mGy-cm. Automated exposure control was utilized for the study. A dose lowering technique was utilized adhering to the principles of ALARA. COMPARISON: No relevant prior studies available. FINDINGS: Brain: Remote ischemic injury of the left capsule. No hemorrhage. No significant white matter disease. No edema. Ventricles: Mild ventriculomegaly. Bones/joints: Incomplete fusion of the posterior ring of C1. No acute fracture. Soft tissues: Unremarkable. Sinuses: Unremarkable as visualized. No acute sinusitis. Mastoid air cells: Unremarkable as visualized. No mastoid effusion. IMPRESSION: No evidence of acute intracranial pathology. Electronically signed by: Karine Pichardo MD 01/24/24 23:40 PM
[2024-01-25] MEDS ORDERED: ACETAMINOPHEN 325 MG TAB PO PRN (00:28)
[2024-01-25] MEDS ORDERED: NITROGLYCERIN SL 0.4 MG/TAB TAB SL PRN (00:28)
[2024-01-25] MEDS ORDERED: POLYETHYLENE (MIRALAX) 17 GM PACK PO PRN (00:28)
[2024-01-25] MEDS ORDERED: VANCOMYCIN CONSULT ACTIVE PRN (00:28)
[2024-01-25 01:20] LABS: BUN Creatinine Ratio 28.2 (10-20); Calcium 7.8 mg/dl (8.6-10.3); Creatinine Clr Calc Pharmacy 77.3 ml/min; Est GFR (African American) 96.1 ml/min; Est GFR (Non-African American) 82.9 ml/min; Potassium 3.8 mmol/L (3.5-5.1)
[2024-01-25] MEDS: SODIUM CHLORIDE 0.9% 1,000 ML IV SCH (01:20)
[2024-01-25] MEDS: PIPERACILLIN/TAZOBACTAM 4.5 GM in DEXTROSE 5% MINI-B 100 ML IV SCH (01:24)
[2024-01-25 01:41] LABS: Appearance Urine Cloudy (Clear); Bacteria Urine Automated None Seen (None Seen); Bilirubin Urine Negative (Negative); Blood Urine 3+ (Negative); Color Urine Dark Yellow; Glucose Urine UA Negative (Negative); Ketones Urine Trace (Negative); Leukocyte Esterase Urine 1+ (Negative); Nitrite Urine Negative (Negative); Protein Urine 3+ (Negative); RBC Urine Automated >20 /hpf (0-2); Specific Gravity Urine > 1.045 (1.000-1.030); Urobilinogen Urine Negative (Negative); WBC Urine Automated 21-50 /hpf (0-5)
[2024-01-25] MEDS: LEVOTHYROXINE SODIUM 50 MCG TABLET PO SCH (06:21)
[2024-01-25 06:55] LABS: Basophils # (auto) 0.02 K/uL (0.00-0.20); Basophils % (auto) 0.3 %; Eosinophils # (auto) 0.02 K/uL (0.00-0.50); Eosinophils % (auto) 0.3 %; Hematocrit (blood only) 33.8 % (42.0-52.0); Hemoglobin 11.2 g/dl (14.0-18.0); Immature Granulocytes # (auto) 0.02 K/uL (0.01-0.20); Immature Granulocytes % (auto) 0.3 %; Lymphocytes # (auto) 0.41 K/uL (1.20-3.40); Lymphocytes % (auto) 5.5 %; Mean Corpuscular Hemoglobin 31.3 pg (25.0-34.0); Mean Corpuscular Hgb Conc 33.1 g/dL (32.0-36.0); Mean Corpuscular Volume 94.4 fL (80.0-100.0); Mean Platelet Volume 8.6 fL (9.4-12.4); Monocytes # (auto) 0.36 K/uL (0.11-0.59); Monocytes % (auto) 4.9 %; Neutrophils # (auto) 6.58 K/uL (1.40-6.50); Neutrophils % (auto) 88.7 %; Platelet Count 194 K/uL (130-400); RDW Coefficient of Variation 13.2 % (11.5-14.5); RDW Standard Deviation 45.7 fL (36.4-46.3); Red Blood Count 3.58 M/uL (4.70-6.10); White Blood Count 7.41 K/ul (4.8-10.8)
--- NOTE | 2024-01-25 06:59 | Ultrasound Report ---
Exam(s): US VENOUS BILATERAL LOWER EXTREMITIES EXAM: US Duplex Bilateral Lower Extremities Veins CLINICAL HISTORY: Reason for exam: b/l lower ext edema. dvt?. TECHNIQUE: Real-time duplex ultrasound scan of the bilateral lower extremity veins integrating B-mode two-dimensional vascular structure, Doppler spectral analysis, color flow Doppler imaging and compression. COMPARISON: No relevant prior studies available. FINDINGS: Study is mildly limited for assessment of calf veins due to overlying edema. Right deep veins: Unremarkable. No DVT in the right common femoral, femoral, proximal deep femoral or popliteal veins. The veins demonstrate normal color flow, are normally compressible, with normal phasic flow and/or augmentation response. Right superficial veins: Unremarkable. No thrombus in the visualized right great saphenous vein. Left deep veins: There is some wall thickening or possible eccentric clot demonstrated within the left mid femoral vein. Deep venous structures are otherwise unremarkable configuration. Left superficial veins: Unremarkable. No thrombus in the visualized left great saphenous vein. Soft tissues: There is some edema demonstrated within the calves. No popliteal cyst. IMPRESSION: Possible chronic region of thrombosis and/or wall thickening left mid femoral vein no other thrombosis seen, some limitation as described Electronically signed by: Tung Monroy MD 01/25/24 06:58 AM
--- NOTE | 2024-01-25 07:06 | Ultrasound Report ---
Exam(s): US ARTERIAL LEFT LOWER EXTREMITY EXAM: US Duplex Left Lower Extremity Arteries CLINICAL HISTORY: Reason for exam: ulcer on heel. PVD?. TECHNIQUE: Real-time duplex ultrasound scan of the left lower extremity arteries integrating B-mode two-dimensional vascular structure, Doppler spectral analysis and color flow Doppler imaging. COMPARISON: No relevant prior studies available. FINDINGS: Aorta: Grayscale imaging reveals diffuse calcific atherosclerotic vascular disease, arterial sclerosis throughout the other vessels. Left common femoral artery: Grayscale imaging reveals some heterogeneous predominantly calcified plaque demonstrated within the left common femoral artery. Left superficial femoral artery: No acute findings. No occlusion or significant stenosis on color flow and spectral Doppler imaging. Left popliteal artery: Arterial sclerosis demonstrated. No occlusion or significant stenosis on color flow and spectral Doppler imaging. Left calf/foot arteries: There is diffuse disease demonstrated. No occlusion or significant stenosis on color flow and spectral Doppler imaging. Normal waveform. Soft tissues: Unremarkable. There are predominantly biphasic waveforms present IMPRESSION: Moderate vasculopathy demonstrated without focal vessel occlusions or stenosis. Electronically signed by: Tung Monroy MD 01/25/24 07:05 AM
[2024-01-25 07:09] LABS: BUN Creatinine Ratio 26.4 (10-20); Calcium 7.5 mg/dl (8.6-10.3); Creatinine Clr Calc Pharmacy 75.6 ml/min; Est GFR (African American) 95.1 ml/min; Est GFR (Non-African American) 82.1 ml/min; Magnesium 2.2 mg/dl (1.7-2.4); Potassium 3.7 mmol/L (3.5-5.1)
--- NOTE | 2024-01-25 08:48 | Urology Consultation ---
Date of Consultation January 25, 2024 Assessment & Plan (1) Voiding dysfunction: Plan Mcknight catheter placed secondary to weakness/inability to void upon arrival I think this is likely purely driven by his acute issues He probably has some underlying component of BPH and we could certainly add tamsulosin as he reports that he had some hesitancy with voiding for some time Overall, no indication for any involvement or intervention Plan for voiding trial prior to him leaving the hospital presuming he is ambulatory and moving around well Please call if further issues History of Present Illness Attending Physician: Dylon Griffiths MD History of Present Illness 78-year-old gentleman admitted with significant weakness Mcknight catheter placed on admission We were consulted secondary to urinary retention He reports that prior to this hospitalization he did not have significant urinary difficulties although he always felt that he needed to take a few s econds to consciously relax his bladder to be able to urinate He has not been on tamsulosin or other medications in the past He has no discomfort from the catheter currently His creatinine is 0.86 Allergies Allergy/AdvReac Type Severity Reaction Status Date / Time niacin AdvReac Intermediate FLUSH Verified 01/24/24 21:54 Home Medications Medication Instructions Recorded Confirmed Type allopurinol 100 mg tablet 200 mg PO QAM 01/12/20 01/24/24 History (Zyloprim) aspirin 81 mg tablet,delayed 81 mg PO QAM 01/12/20 01/24/24 History release (Aspir-) atorvastatin 20 mg tablet (Lipitor) 20 mg PO QAM 01/12/20 01/24/24 History furosemide 20 mg tablet (Lasix) 20 mg PO Q OTHER DAY 01/12/20 01/24/24 History latanoprost 0.005 % eye drops 1 drp OPB HS 01/12/20 01/24/24 History (Xalatan) levothyroxine 50 mcg tablet 50 mcg PO QAM 01/12/20 01/24/24 History (Levoxyl) metoprolol succinate 25 mg 25 mg PO QAM 01/12/20 01/24/24 History tablet,extended release 24 hr (Toprol XL) thiamine HCl (vitamin B1) 100 mg 50 mg PO QAM 01/12/20 01/24/24 History tablet (Vitamin B-1) timolol maleate 0.5 % eye drops 1 drp OPL QAM 01/12/20 01/24/24 History (Timoptic) ketoconazole 1 % shampoo 1 applic topical UD 12/13/21 01/24/24 History amoxicillin 875 mg-potassium 1 tab PO BID #14 tabs 01/24/24 01/24/24 Rx clavulanate 125 mg tablet sulfamethoxazole 800 1 tab PO BID 7 days #14 tabs 01/24/24 01/24/24 Rx mg-trimethoprim 160 mg tablet (Bactrim DS) Patient History Medical History Sleep apnea Osteoarthritis TMJ click Rarely Increased pressure in the eye Does not yet meet criteria for glaucoma Surgical History History of right cataract surgery S/P cholecystectomy History of arthroscopy of left knee History of transesophageal echocardiography (FLACO) History of colonoscopy History of ERCP H/O inguinal hernia repair BILAT History of arthroplasty of both knees Family History Other Coronary heart disease No family history of adverse response to anesthesia Social History Smoking Status: Never smoker Second Hand Exposure: No; Do You Dip or Chew Tobacco: Yes (advised); Hx Alcohol Use: No Hx Substance Use: No Preferred Language: Armenian Communication Ability: Effective 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: No Beliefs That Will Affect Care: None Current Living Situation: Spouse Current Living Situation Comment: Other Information That Helps Us Care for You: No Feels Safe at Home: Yes Safety Concerns: Feels Safe At This Time Assistive Devices: Cane, Crutches and Walker Review of Systems Constitutional: + fatigue and + malaise; no fever and no chills Eyes: no worsening vision Ear, Nose, Mouth, Throat: no facial pain and no pain with swallowing Respiratory: no cough and no dyspnea Cardiovascular: no chest pain and no palpitations Gastrointestinal: no abdominal pain, no nausea and no vomiting Musculoskeletal: no back pain Integumentary: no rash and no urticaria Neurologic: + unsteadiness and + generalized weaknes s Psychiatric: no behavioral changes and no depression Endocrine: no fatigue Physical Exam Physical Exam: Uncomfortable appearing Appropriately interactive Mcknight catheter in place draining clear urine Constitutional: well developed and well nourished Respiratory: no respiratory distress Cardiovascular: Extremities: no pedal edema Gastrointestinal (Abdomen): Inspection/Auscultation: abdomen normal to inspection Results & Data Vital Signs (Past 12 Hours) Vital Signs Temp Pulse Pulse Pulse Resp BP BP 01/25/24 07:21 22 01/25/24 07:21 01/25/24 07:16 98 H 01/25/24 07:13 37.5 C 93 H 22 01/25/24 03:37 36.3 C L 75 18 01/25/24 01:32 80 01/25/24 00:28 36.4 C L 82 18 122/65 01/24/24 23:58 66 20 122/59 L 01/24/24 23:00 73 20 01/24/24 22:08 75 BP Pulse Ox O2 Del Method O2 Flow Rate 01/25/24 07:21 92 Nasal Cannula 3 01/25/24 07:21 81 L Room Air, Nasal Cannula 0 01/25/24 07:16 01/25/24 07:13 120/64 81 L Room Air 01/25/24 03:37 111/60 91 Room Air 01/25/24 01:32 01/25/24 00:28 94 Room Air 01/24/24 23:58 95 Room Air 01/24/24 23:00 116/59 L 93 Room Air 01/24/24 22:08 124/58 L PG Care Time/CCT Total # of Minutes Spent Total Time Spent with Patient: Total time spent is greater than 50% in coordination of care (as documented) at patient's floor/unit and/or counseling patient: Coding Level of Care Code 00562 IN/OBS CONSULT LVL 2,35M Diagnoses Voiding dysfunction N39.8
--- NOTE | 2024-01-25 09:05 | Electrocardiogram Report ---
Test Reason : Blood Pressure : / mmHG Vent. Rate : 086 BPM Atrial Rate : 086 BPM P-R Int : 134 ms QRS Dur : 080 ms QT Int : 374 ms P-R-T Axes : 053 -21 006 degrees QTc Int : 447 ms Normal sinus rhythm Minimal voltage criteria for LVH, may be normal variant ( R in aVL ) Abnormal ECG When compared with ECG of 24-JAN-2024 09:25, No significant change was found Confirmed by Dandre Navarrete ([id number]) on 01/25/2024 9:05:21 AM Referred By: REFERRED SELF Confirmed By:Dandre Navarrete
[2024-01-25] MEDS: allopurinoL 100 MG TAB PO SCH (09:47)
[2024-01-25] MEDS: METOPROLOL SUCC 25MG EXT REL TAB PO SCH (09:47)
[2024-01-25] MEDS: THIAMINE HCL 50 MG TABLET PO SCH (09:47)
[2024-01-25] MEDS: ASPIRIN 81 MG ECTAB PO SCH (09:47)
[2024-01-25] MEDS: FUROSEMIDE 20 MG TAB PO SCH (09:47)
--- NOTE | 2024-01-25 10:20 | Pharmacy Report ---
Pharmacy PK ABX Note - Date of Service January 25, 2024 - Assessment and Plan Assessment 78 year old M receiving Vancomycin and Zosyn for treatment of left heel ulcer. * Day #2 of antimicrobial therapy. * Afebrile. No leukocytosis. SCr near baseline. * Blood and urine cultures pending. L foot culture growing Group B Strep. Plan Vancomycin * Loading dose: 1750 mg IV x 1 * Maintenance dose: 1000 mg IV every 12 hours * Regimen is predicted to achieve target AUC/YANG of 400-600 mg/L.hr * No level will be ordered unless therapy extends beyond 48 hours. Zosyn * 4.5 g IV every 8 hours Pharmacy will continue to follow and will adjust dose/frequency as necessary. Thank you. Pharmacy has transitioned to AUC monitoring for vancomycin. AUC/YANG is the preferred PK/PD target and is associated with decreased risk of nephrotoxicity compared to traditional trough targets.
[2024-01-25] MEDS: TIMOLOL MALEATE 0.5% OP SOLN 5 ML BTL OPL SCH (10:24)
--- NOTE | 2024-01-25 10:30 | XRay Report ---
SINGLE VIEW CHEST CLINICAL HISTORY: Hypoxia. FINDINGS: An AP, portable, upright chest radiograph is compared to study dated 01/24/2024. The heart i s enlarged noting atherosclerotic calcification of the thoracic aorta. Pulmonary vascular congestion is new from previous. There are small pleural effusions with bibasilar consolidation. No pneumothorax is seen. The skeletal structures are osteopenic. The bony thorax is grossly intact. Cholecystectomy clips are seen in the right upper quadrant. IMPRESSION: 1. Cardiomegaly with pulmonary vascular congestion. This is new from previous. 2. Small pleural effusions with dependent consolidation. This likely represents atelectasis. Correlat e clinically for evidence of pneumonia/aspiration pneumonitis. Clinical correlation will be required and radiographic follow-up to resolution is recommended. ACT 112: Negative or not required by law. Electronically signed by: Cash Kolb M.D. 01/25/2024 10:28 AM
[2024-01-25] MEDS: FUROSEMIDE INJ 20 MG/2 ML VIAL IV ONE (13:08)
--- NOTE | 2024-01-25 14:09 | Hospitalist Progress Note ---
Date of Service January 25, 2024 Assessment & Plan (1) Rhabdomyolysis: Plan: 78-year-old male with past medical history significant for hypothyroidism, hyperlipidemia, prediabetes, idiopathic chronic gout of multiple sites, chronic diastolic CHF, hypertension, Hereditary and idiopathic peripheral neuropathy, anxiety related to change in role presents because of fall at home and also found to have rhabdomyolysis and left heel infection. Left foot infected ulcer Patient presents with fall and left heel infected ulcer. Notes that the ulcer has increased in size for several weeks. Reports fatigue and tiredness for several days as well. No leukocytosis present Duplex of the arteries shows moderate vasculopathy without focal vessel occlusion or stenosis Venous duplex shows possible chronic region of thrombosis or wall thickening in the left medial femoral vein. No other thrombosis. Foot CT shows ulceration on left plantar posterior aspect. Continue on IV antibiotics with Zosyn and vancomycin. Wound culture is growing group B strep. Will likely need surgical debridement; discussed with on-call orthopedic. Patient to be evaluated later today follow up on blood culture Rhabdomyolysis CPK On presentation 3975 creatinine 0.7 s/p fluids. CPK improved. Repeat tomorrow am Acute on chronic diastolic heart failure Echocardiogram from January 2020 shows EF of 60 to 65% Chest x-ray personally reviewed; consistent with volume overload Will diuresis with IV Lasix Monitor urine output Acute urinary retention Status post Mcknight Urology consulted; plan to do trial of void later in the hospitalization Fall seems mechanical PT OT when stable Elevated troponin no chest pain troponin 27. Mostly demand ischemia Hypothyroidism on Synthyroid TSH is okay hyperlipidemia hold statin until CPK levels are normalized Hypertension on metoprolol succinate Gout on allopurinol DVT prophylaxis SCDs for now disposition med tele full code Time spent evaluating patient, direct bedside care, chart review, placing orders, interpretation of diagnostic studies, discussion with consultants, patient, and family members, as well as other required patient management activities is 50 minutes Please note the above document was generated using voice recognition software. It may contain grammatical, syntax or spelling errors. Any formal questions or concerns about the content, text or information contained within the body of this dictation should be directly addressed to the provider for clarification Admission and Anticipated Discharge Date Admission Date: January 24, 2024 Subjective Patient seen and examined at bedside. He appears fatigued and tired. Foul-smelling wound on left plantar aspect Urine appears cloudy Review of Systems Review of Systems: All systems reviewed & are unremarkable except as noted in Subjective Physical Exam Physical Exam: General- Not in distress. Head- atraumatic Lungs- clear to auscultation no wheezing or crackles. Heart- regular rate and rhythm; no murmur, no gallop, Abdomen- normal bowel sounds, soft, nontender, no distension Extremities- b/l lower extremity edema present ,Left heel on plantar aspect blackish discolored foul smell wound present Neuro- alert, oriented PERRL, no facial palsy; no dysarthria; moves extremities. Results & Data Results & Data Vital Signs (Past 12 Hours) Vital Signs Temp Pulse Pulse Resp BP Pulse Ox O2 Del Method 01/25/24 11:12 Nasal Cannula 01/25/24 11:06 36.8 C 74 20 109/62 96 Nasal Cannula 01/25/24 07:21 22 92 Nasal Cannula 01/25/24 07:21 81 L Room Air, Nasal Cannula 01/25/24 07:16 98 H 01/25/24 07:13 37.5 C 93 H 22 120/64 81 L Room Air 01/25/24 03:37 36.3 C L 75 18 111/60 91 Room Air O2 Flow Rate 01/25/24 11:12 3 01/25/24 11:06 3 01/25/24 07:21 3 01/25/24 07:21 0 01/25/24 07:16 01/25/24 07:13 01/25/24 03:37 (1) Rhabdomyolysis Encounter type: initial encounter Rhabdomyolysis type: traumatic Qualified Code(s): T79.6XXA - Traumatic ischemia of muscle, initial encounter
--- NOTE | 2024-01-25 15:24 | Orthopedic Consultation ---
Date of Consultation January 25, 2024 Assessment & Plan (1) Heel ulcer: IMPRESSION: Left Heel Ulcer, no distinct bone involvement PLAN: Discussed with patient and primary team that need to obtain MRI of the left foot Vascular consult The study and consult will aid in determining further treatment, which may include debridement vs amputation. To consider Wound care consult Continue dressing changes. Continue pain control Continue antibiotics Continue care per primary service Will continue to follow. Present on Admission?: Yes History of Present Illness Reason for Consultation: Left foot heel Ulcer Requesting Physician: Jaja Avalos MD Attending Physician: Dylon Griffiths MD History of Present Illness 78 yo male with past medical history significant for hypothyroidism, hyperlipidemia, prediabetes, idiopathic chronic gout of multiple sites, chronic diastolic CHF, hypertension, Hereditary and idiopathic peripheral neuropathy, anxiety related to change in role presents because of fall at home and also found to have rhabdomyolysis and left heel infection. 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 He was admitted by hospitalist service and started on antibiotics. I was consulted for evaluation and treatment. Allergies Allergy/AdvReac Type Severity Reaction Status Date / Time niacin AdvReac Intermediate FLUSH Verified 01/24/24 21:54 Home Medications Medication Instructions Recorded Confirmed Type allopurinol 100 mg tablet 200 mg PO QAM 01/12/20 01/24/24 History (Zyloprim) aspirin 81 mg tablet,delayed 81 mg PO QAM 01/12/20 01/24/24 History release (Aspir-) atorvastatin 20 mg tablet (Lipitor) 20 mg PO QAM 01/12/20 01/24/24 History furosemide 20 mg tablet (Lasix) 20 mg PO Q OTHER DAY 01/12/20 01/24/24 History latanoprost 0.005 % eye drops 1 drp OPB HS 01/12/20 01/24/24 History (Xalatan) levothyroxine 50 mcg tablet 50 mcg PO QAM 01/12/20 01/24/24 History (Levoxyl) metoprolol succinate 25 mg 25 mg PO QAM 01/12/20 01/24/24 History tablet,extended release 24 hr (Toprol XL) thiamine HCl (vitamin B1) 100 mg 50 mg PO QAM 01/12/20 01/24/24 History tablet (Vitamin B-1) timolol maleate 0.5 % eye drops 1 drp OPL QAM 01/12/20 01/24/24 History (Timoptic) ketoconazole 1 % shampoo 1 applic topical UD 12/13/21 01/24/24 History amoxicillin 875 mg-potassium 1 tab PO BID #14 tabs 01/24/24 01/24/24 Rx clavulanate 125 mg tablet sulfamethoxazole 800 1 tab PO BID 7 days #14 tabs 01/24/24 01/24/24 Rx mg-trimethoprim 160 mg tablet (Bactrim DS) Patient History Medical History Sleep apnea Osteoarthritis TMJ click Rarely Increased pressure in the eye Does not yet meet criteria for glaucoma Surgical History History of right cataract surgery S/P cholecystectomy History of arthroscopy of left knee History of transesophageal echocardiography (FLACO) History of colonoscopy History of ERCP H/O inguinal hernia repair BILAT History of arthroplasty of both knees Family History Other Coronary heart disease No family history of adverse response to anesthesia Social History Smoking Status: Never smoker Second Hand Exposure: No; Do You Dip or Chew Tobacco: Yes (advised); Hx Alcohol Use: No Hx Substance Use: No Preferred Language: Nepali Communication Ability: Effective Commercial Agent Required: No Beliefs That Will Affect Care: None Current Living Situation: Spouse Current Living Situation Comment: Other Information That Helps Us Care for You: No Feels Safe at Home: Yes Safety Concerns: Feels Safe At This Time Assistive Devices: None Review of Systems Review of Systems: All systems reviewed & are unremarkable except as noted in HPI & below Physical Exam Physical Exam: LLE: Non-healing ulcer plantar heel with eschar approximate size of half dollar, No active drainage. Unable to penetrate the edge with a Q-tip. + Swelling/pitting edema. Sensation diminished unchanged. BCR < 2 sec. Wiggling toes. Foul odor present. Results & Data Vital Signs (Past 12 Hours) Vital Signs Temp Pulse Pulse Resp BP Pulse Ox O2 Del Method 01/25/24 14:32 63 01/25/24 11:12 Nasal Cannula 01/25/24 11:06 36.8 C 74 20 109/62 96 Nasal Cannula 01/25/24 07:21 22 92 Nasal Cannula 01/25/24 07:21 81 L Room Air, Nasal Cannula 01/25/24 07:16 98 H 01/25/24 07:13 37.5 C 93 H 22 120/64 81 L Room Air 01/25/24 03:37 36.3 C L 75 18 111/60 91 Room Air O2 Flow Rate 01/25/24 14:32 01/25/24 11:12 3 01/25/24 11:06 3 01/25/24 07:21 3 01/25/24 07:21 0 01/25/24 07:16 01/25/24 07:13 01/25/24 03:37 Laboratory Results Laboratory Results WBC 7.41 K/ul (4.8-10.8) 01/25/24 06:36 RBC 3.58 M/uL (4.70-6.10) L 01/25/24 06:36 Hgb 11.2 g/dl (14.0-18.0) L 01/25/24 06:36 Hct 33.8 % (42.0-52.0) L 01/25/24 06:36 MCV 94.4 fL (80.0-100.0) 01/25/24 06:36 MCH 31.3 pg (25.0-34.0) 01/25/24 06:36 MCHC 33.1 g/dL (32.0-36.0) 01/25/24 06:36 RDW Std Deviation 45.7 fL (36.4-46.3) 01/25/24 06:36 RDW Coeff of Christopher 13.2 % (11.5-14.5) 01/25/24 06:36 Plt Count 194 K/uL (130-400) 01/25/24 06:36 MPV 8.6 fL (9.4-12.4) L 01/25/24 06:36 Immature Gran % (Auto) 0.3 % 01/25/24 06:36 Neut % (Auto) 88.7 % 01/25/24 06:36 Lymph % (Auto) 5.5 % 01/25/24 06:36 [place] % (Auto) 4.9 % 01/25/24 06:36 Eos % (Auto) 0.3 % 01/25/24 06:36 Baso % (Auto) 0.3 % 01/25/24 06:36 Neut # (Auto) 6.58 K/uL (1.40-6.50) H 01/25/24 06:36 Lymph # (Auto) 0.41 K/uL (1.20-3.40) L 01/25/24 06:36 [place] # (Auto) 0.36 K/uL (0.11-0.59) 01/25/24 06:36 Eos # (Auto) 0.02 K/uL (0.00-0.50) 01/25/24 06:36 Baso # (Auto) 0.02 K/uL (0.00-0.20) 01/25/24 06:36 Immature Gran # (Auto) 0.02 K/uL (0.01-0.20) 01/25/24 06:36 PT 13.0 Seconds (9.0-12.0) H 01/24/24 18:01 INR 1.2 (0.9-1.1) H 01/24/24 18:01 Sodium 136 mmol/L (136-145) 01/25/24 06:36 Potassium 3.7 mmol/L (3.5-5.1) 01/25/24 06:36 Chloride 106 mmol/L (98-107) 01/25/24 06:36 Carbon Dioxide 25 mmol/L (21-32) 01/25/24 06:36 Anion Gap 5 (3-11) 01/25/24 06:36 BUN 23 mg/dl (6-23) 01/25/24 06:36 Creatinine 0.87 mg/dl (0.6-1.4) 01/25/24 06:36 Est Cr Clr Drug Dosing 75.6 ml/min 01/25/24 06:36 Est GFR ( Amer) 95.1 ml/min 01/25/24 06:36 Est GFR (Non-Af Amer) 82.1 ml/min 01/25/24 06:36 BUN/Creatinine Ratio 26.4 (10-20) H 01/25/24 06:36 Glucose 111 mg/dl (70-99(Fasting)) H 01/25/24 06:36 Lactate 1.1 mmol/L (0.4-2.0) 01/24/24 18:57 Calcium 7.5 mg/dl (8.6-10.3) L 01/25/24 06:36 Phosphorus 2.4 mg/dl (2.5-4.9) L 01/24/24 18:01 Magnesium 2.2 mg/dl (1.7-2.4) 01/25/24 06:36 Total Creatine Kinase 1735 U/L (30-223) H 01/25/24 06:36 Troponin I High Sens 22.4 pg/ml (0-20) H 01/25/24 10:50 Lipase 15 U/L (11-82) 01/24/24 18:01 Procalcitonin 0.77 ng/ml (0-0.5) H 01/24/24 18:03 TSH 1.498 uIu/ml (0.300-4.500) 01/24/24 18:01 Urine Color Dark Yellow 01/25/24 01:29 Urine Appearance Cloudy (Clear) A 01/25/24 01:29 Urine pH 5.0 (4.5-7.5) 01/25/24 01:29 Ur Specific [place] > 1.045 (1.000-1.030) H 01/25/24 01:29 Urine Protein 3+ (Negative) H 01/25/24 01:29 Urine Glucose (UA) Negative (Negative) 01/25/24 01:29 Urine Ketones Trace (Negative) H 01/25/24 01:29 Urine Blood 3+ (Negative) H 01/25/24 01:29 Urine Nitrite Negative (Negative) 01/25/24 01:29 Urine Bilirubin Negative (Negative) 01/25/24 01:29 Urine Urobilinogen Negative (Negative) 01/25/24 01:29 Ur Leukocyte Esterase 1+ (Negative) H 01/25/24 01:29 Urine WBC (Auto) 21-50 /hpf (0-5) H 01/25/24 01:29 Urine RBC (Auto) >20 /hpf (0-2) H 01/25/24 01:29 U Hyaline Cast (Auto) 3-5 /lpf (0-2) H 01/25/24 01:29 U Epithel Cells (Auto) 3-5 /hpf (0-2) H 01/25/24 01:29 Urine Bacteria (Auto) None Seen (None Seen) 01/25/24 01:29 Ethyl Alcohol mg/dL < 10.0 mg/dl (<10.0) 01/24/24 20:28 Impressions Abdomen/Pelvis CT 01/24/24 18:33 Exam(s): CT ABDOMEN + PELVIS With Contrast IV Amt: 92 ml optiray 320 EXAM: CT Abdomen and Pelvis With Intravenous Contrast CLINICAL HISTORY: Reason for exam: sepsis, ?UTI. TECHNIQUE: Axial computed tomography images of the abdomen and pelvis with intravenous contrast. CTDI is 23.21 mGy and DLP is 1427.47 mGy-cm. Automated exposure control was utilized for the study. A dose lowering technique was utilized adhering to the principles of ALARA. CONTRAST: Patient received 92 ml optiray 320 of IV contrast COMPARISON: None. FINDINGS: Lung bases: Reticular interstitial prominence along the subtalar region of the lung bases concerning for interstitial lung disease versus early fibrosis. No consolidation. Pleural space: Trace bilateral effusions versus pleural thickening. Heart: Mild cardiomegaly with coronary artery calcifications. ABDOMEN: Liver: Unremarkable. No mass. Gallbladder and bile ducts: Status post cholecystectomy with nonspecific mild biliary distention. No ductal dilation. Pancreas: Unremarkable. No mass. No ductal dilation. Spleen: Unremarkable. No splenomegaly. Adrenals: Unremarkable. No mass. Kidneys and ureters: Unremarkable. No solid mass. No hydronephrosis. Stomach and bowel: Moderate to abundant fecal debris within the colon. Scattered diverticulosis with no signs of diverticulitis. No obstruction. PELVIS: Appendix: Normal appendix. Bladder: Slightly over distended urinary bladder. Reproductive: Mild prostate enlargement. ABDOMEN and PELVIS: Intraperitoneal space: Unremarkable. No free air. No significant fluid collection. Bones/joints: Multilevel degenerative disease of the spine. Minimal anterolisthesis of L5 on S1 with bilateral pars defect of L5. No acute fracture. No dislocation. Soft tissues: Small left-sided fat-containing inguinal hernia. Minimal stranding involving the subcutaneous fat, cannot exclude mild anasarca. Vasculature: Atherosclerotic disease of aorta with no aneurysm or dissection. Lymph nodes: Unremarkable. No enlarged lymph nodes. IMPRESSION: 1. Mild interstitial prominence which mainly indicate interstitial lung disease, cannot exclude pulmonary fibrosis versus early congestive heart failure. Trace bilateral pleural effusions versus pleural thickening. Clinical correlation recommended. 2. Status post cholecystectomy with nonspecific biliary distention. 3. Diverticulosis with no signs of diverticulitis. No acute appendicitis or bowel obstruction. Electronically signed by: Claudia Irving MD 01/24/24 23:[address] 01/24/24 18:33 Exam(s): CT LEFT FOOT With Contrast IV Amt: 92 ml optiray 320 EXAM: CT Left Lower Extremity With Intravenous Contrast, Foot CLINICAL HISTORY: Reason for exam: sepsis, plantar ulcer/infection. TECHNIQUE: Axial computed tomography images of the left foot with intravenous contrast. CTDI is 23.21 mGy and DLP is 1427.47 mGy-cm. Automated exposure control was utilized for the study. A dose lowering technique was utilized adhering to the principles of ALARA. CONTRAST: Patient received 92 ml optiray 320 of IV contrast COMPARISON: None. FINDINGS: Bones/joints: Mild degenerative arthrosis of the first metatarsal phalangeal joint and first tarsometatarsal joint. Otherwise bony structures are unremarkable with no acute fracture or subluxation. There is diffuse stranding/edema through the distal calf and ankle as well as dorsum of the foot. Soft tissues: There is a skin irregularity with defect and adjacent fluid and inflammation at the soft tissues along the plantar region, just inferior to the posterior calcaneus consistent with known ulceration. IMPRESSION: 1. Plantar posterior ulceration, just below the posterior calcaneus. 2. Diffuse edema versus cellulitis with no soft tissue abscess. 3. No distinct bony lesion seen. Note to be made that osteomyelitis cannot be excluded based on negative CT findings. If this represents a clinical concern, recommend follow-up with MRI of the region of interest or bone scan. Electronically signed by: Claudia Irving MD 01/24/24 23:[address] 01/24/24 18:33 Exam(s): CT HEAD Without Contrast EXAM: CT Head Without Intravenous Contrast CLINICAL HISTORY: Reason for exam: fall, weakness. TECHNIQUE: Axial computed tomography images of the head/brain without intravenous contrast. CTDI is 36.31 mGy and DLP is 625.8 mGy-cm. Automated exposure control was utilized for the study. A dose lowering technique was utilized adhering to the principles of ALARA. COMPARISON: No relevant prior studies available. FINDINGS: Brain: Remote ischemic injury of the left capsule. No hemorrhage. No significant white matter disease. No edema. Ventricles: Mild ventriculomegaly. Bones/joints: Incomplete fusion of the posterior ring of C1. No acute fracture. Soft tissues: Unremarkable. Sinuses: Unremarkable as visualized. No acute sinusitis. Mastoid air cells: Unremarkable as visualized. No mastoid effusion. IMPRESSION: No evidence of acute intracranial pathology. Electronically signed by: Karine Pichardo MD 01/24/24 23:40 PM Duplex Scan Lower Extremity Artery 01/25/24 00:28 Exam(s): US ARTERIAL LEFT LOWER EXTREMITY EXAM: US Duplex Left Lower Extremity Arteries CLINICAL HISTORY: Reason for exam: ulcer on heel. PVD?. TECHNIQUE: Real-time duplex ultrasound scan of the left lower extremity arteries integrating B-mode two-dimensional vascular structure, Doppler spectral analysis and color flow Doppler imaging. COMPARISON: No relevant prior studies available. FINDINGS: Aorta: Grayscale imaging reveals diffuse calcific atherosclerotic vascular disease, arterial sclerosis throughout the other vessels. Left common femoral artery: Grayscale imaging reveals some heterogeneous predominantly calcified plaque demonstrated within the left common femoral artery. Left superficial femoral artery: No acute findings. No occlusion or significant stenosis on color flow and spectral Doppler imaging. Left popliteal artery: Arterial sclerosis demonstrated. No occlusion or significant stenosis on color flow and spectral Doppler imaging. Left calf/foot arteries: There is diffuse disease demonstrated. No occlusion or significant stenosis on color flow and spectral Doppler imaging. Normal waveform. Soft tissues: Unremarkable. There are predominantly biphasic waveforms present IMPRESSION: Moderate vasculopathy demonstrated without focal vessel occlusions or stenosis. Electronically signed by: Tung Monroy MD 01/25/24 07:05 AM Venous Doppler Study 01/25/24 00:28 Exam(s): US VENOUS BILATERAL LOWER EXTREMITIES EXAM: US Duplex Bilateral Lower Extremities Veins CLINICAL HISTORY: Reason for exam: b/l lower ext edema. dvt?. TECHNIQUE: Real-time duplex ultrasound scan of the bilateral lower extremity veins integrating B-mode two-dimensional vascular structure, Doppler spectral analysis, color flow Doppler imaging and compression. COMPARISON: No relevant prior studies available. FINDINGS: Study is mildly limited for assessment of calf veins due to overlying edema. Right deep veins: Unremarkable. No DVT in the right common femoral, femoral, proximal deep femoral or popliteal veins. The veins demonstrate normal color flow, are normally compressible, with normal phasic flow and/or augmentation response. Right superficial veins: Unremarkable. No thrombus in the visualized right great saphenous vein. Left deep veins: There is some wall thickening or possible eccentric clot demonstrated within the left mid femoral vein. Deep venous structures are otherwise unremarkable configuration. Left superficial veins: Unremarkable. No thrombus in the visualized left great saphenous vein. Soft tissues: There is some edema demonstrated within the calves. No popliteal cyst. IMPRESSION: Possible chronic region of thrombosis and/or wall thickening left mid femoral vein no other thrombosis seen, some limitation as described Electronically signed by: Tung Monroy MD 01/25/24 06:58 AM Chest X-Ray 01/25/24 09:38 SINGLE VIEW CHEST CLINICAL HISTORY: Hypoxia. FINDINGS: An AP, portable, upright chest radiograph is compared to study dated 01/24/2024. The heart is enlarged noting atherosclerotic calcification of the thoracic aorta. Pulmonary vascular congestion is new from previous. There are small pleural effusions with bibasilar consolidation. No pneumothorax is seen. The skeletal structures are osteopenic. The bony thorax is grossly intact. Cholecystectomy clips are seen in the right upper quadrant. IMPRESSION: 1. Cardiomegaly with pulmonary vascular congestion. This is new from previous. 2. Small pleural effusions with dependent consolidation. This likely represents atelectasis. Correlate clinically for evidence of pneumonia/aspiration pneumonitis. Clinical correlation will be required and radiographic follow-up to resolution is recommended. ACT 112: Negative or not required by law. Electronically signed by: Cash Kolb M.D. 01/25/2024 10:28 AM (1) Heel ulcer Laterality: left Non-pressure ulcer stage: unspecified non-pressure ulcer stage Qualified Code(s): L97.429 - Non-pressure chronic ulcer of left heel and midfoot with unspecified severity
[2024-01-25] MEDS ORDERED: VANCOMYCIN HCL 1,000 MG in SODIUM CHLORIDE 0.9% 250 ML IV SCH (20:00)
[2024-01-25] MEDS: TAMSULOSIN HCL 0.4 MG CAP PO SCH (20:56)
[2024-01-25] MEDS: LATANOPROST 0.005% OP SOLN 2.5 ML BTL OPB SCH (21:20)
[2024-01-25] MEDS: VANCOMYCIN HCL 1,750 MG in SODIUM CHLORIDE 0.9% 500 ML IV ONE (21:20)
[2024-01-26 06:29] LABS: Creatinine Clr Calc Pharmacy 62.6 ml/min; Est GFR (African American) 77.9 ml/min; Est GFR (Non-African American) 67.2 ml/min
[2024-01-26 07:27] LABS: Estimated Average Glucose 123 mg/dl; Hemoglobin A1C 5.9 % (4.5-5.6)
[2024-01-26] MEDS: VANCOMYCIN HCL 1,000 MG in SODIUM CHLORIDE 0.9% 250 ML IV SCH (07:58)
[2024-01-26 08:21] LABS: Basophils # (auto) 0.01 K/uL (0.00-0.20); Basophils % (auto) 0.1 %; Eosinophils % (auto) 1.3 %; Hematocrit (blood only) 29.5 % (42.0-52.0); Hemoglobin 9.7 g/dl (14.0-18.0); Immature Granulocytes # (auto) 0.04 K/uL (0.01-0.20); Immature Granulocytes % (auto) 0.5 %; Lymphocytes # (auto) 0.77 K/uL (1.20-3.40); Mean Corpuscular Hemoglobin 31.3 pg (25.0-34.0); Mean Corpuscular Hgb Conc 32.9 g/dL (32.0-36.0); Mean Corpuscular Volume 95.2 fL (80.0-100.0); Mean Platelet Volume 8.6 fL (9.4-12.4); Monocytes # (auto) 0.43 K/uL (0.11-0.59); Monocytes % (auto) 5.6 %; Neutrophils # (auto) 6.34 K/uL (1.40-6.50); Neutrophils % (auto) 82.5 %; Platelet Count 202 K/uL (130-400); RDW Coefficient of Variation 13.4 % (11.5-14.5); RDW Standard Deviation 46.2 fL (36.4-46.3); White Blood Count 7.69 K/ul (4.8-10.8)
--- NOTE | 2024-01-26 08:23 | Hospitalist Progress Note ---
Date of Service January 26, 2024 Assessment & Plan (1) Rhabdomyolysis: Plan: 78-year-old male with past medical history significant for hypothyroidism, hyperlipidemia, prediabetes, idiopathic chronic gout of multiple sites, chronic diastolic CHF, hypertension, Hereditary and idiopathic peripheral neuropathy, anxiety related to change in role presents because of fall at home and also found to have rhabdomyolysis and left heel infection. Left foot infected ulcer: Acute Has been following with [facility] for a few weeks Duplex of the arteries shows moderate vasculopathy without focal vessel occlusion or stenosis Foot CT shows ulceration on left plantar posterior aspect. Venous duplex shows possible chronic region of thrombosis or wall thickening in the left medial femoral vein. No other thrombosis. Awaiting MRI of the left foot to further assess osteomyelitis possibility Vascular saw patient this a.m. reportedly has mild to moderate occlusive disease with normal blood flow Continue IV antibiotics and await Ortho recommendations regarding surgical debridement Teds to also assist with swelling WOCN consult placed Wound culture is growing group B strep. Ortho saw patient today; appreciate reccs; will await imaging results to determine next steps; debridement vs amputation follow up on blood culture; Group B Strep; on Zosyn; cont + Vanco for now; pending MRI L Foot; if osteomyelitis; consider ID consult Rhabdomyolysis: Acute secondary to mechanical fall CPK improving [id number] s/p fluids Repeat in AM to continue observing trend in right direction PT/OT when able Acute on chronic diastolic heart failure Acute urinary retention Chronic Echocardiogram from January 2020 shows EF of 60 to 65% Chest x-ray personally reviewed; consistent with volume overload Will diuresis with IV Lasix daily Monitor urine output (01/25: -250 mL/24 hour period) Status post [facility] consulted; plan to do trial of void later in the hospitalization Elevated troponin: On admission; troponin 27; improved to 15. Likely demand ischemia Hypothyroidism: Chronic Continue Synthroid HLD: Chronic Takes atorvastatin; continue to hold until CPK levels are normalized Hypertension: chronic Takes metoprolol succinate; continue Gout: Chronic Takes allopurinol;continue Disposition: PCP: Dr. Kwok Code Status: Full VTE Prophylaxis: Teds/ SCDs for now Please note the above document was generated using voice recognition software. It may contain grammatical, syntax or spelling errors. Any formal questions or concerns about the content, text or information contained within the body of this dictation should be directly addressed to the provider for clarification I spent a total of 81 minutes coordinating, documenting, and providing care for this patient excluding time spent in the performance of separately billed services. All of the aforementioned completed while collaborating with the assigned attending physician for a full treatment plan. Please see their addendum for further details. Admission and Anticipated Discharge Date Admission Date: January 24, 2024 Supervising Physician Co-Signing Physician Notes Patient seen and examined independently. Discussed with above provider Patient evaluated by vascular surgery; no intervention at present time Patient to undergo MRI to see if there is bone involvement. Continue current IV antibiotics Appreciate orthopedic input regarding timing of the debridement. Blood culture no growth to date I have reviewed the advanced practitioner's documentation, and I agree with, and take responsibility for the plan of care I spent a total of 30 minutes coordinating, documenting, and providing care for this patient excluding time spent in the performance of separately billed services. All of the aforementioned completed while collaborating with the assigned advanced practitioner for a full treatment plan Subjective Patient sitting in his hospital bed, laying at 30 degree angle in no apparent distress Continues to wear 2LNC Reports feeling weak and tired; reportedly admits to being concerned about discharge planning and concerns for his who is wheelchair-bound and also admitted Patient afebrile, no leukocytosis Updated daughter Myra at [phone] on the phone Review of Systems Review of Systems: Neuro: (-) Falls, trauma, slurred speech HEENT: (-) GARG, dizziness, dysphagia, visual or auditory changes CV: (-) CP, palpitations, swelling Resp: (-) SOB GI: (-) appetite changes, N/V/D, bowel changes : (-) urinary changes Skin: (-) rashes Psych: (-) anxiety, depression Physical Exam Physical Exam: Neuro: AAOx4, PERRLA, no aphagia, memory changes, CNII-XII grossly intact HEENT: head normocephalic, moist mucus membranes CV: S1/S2, (-) M/G/R, (-) edema, cap refill < 3 seconds Resp: Lungs CTA in all sanchez. On RA GI: Abdomen S/NT/ND, Ax4 bowel sounds, (-) CVA tenderness Musculoskeletal: 5/5 B/L UE strength, 5/5 B/L LE strength. No gait disturbance Skin: (-) rashes , (-) erythema. Psych: euthymic mood Results & Data Results & Data Vital Signs (Past 12 Hours) Vital Signs Temp Pulse Pulse Resp BP Pulse Ox O2 Del Method 01/26/24 08:04 Nasal Cannula 01/26/24 07:15 71 01/26/24 07:14 36.6 C 70 15 109/61 94 Nasal Cannula 01/26/24 03:27 36.4 C L 74 18 111/50 L 96 Nasal Cannula 01/25/24 22:49 36.4 C L 71 18 111/63 97 Nasal Cannula 01/25/24 21:54 61 O2 Flow Rate 01/26/24 08:04 2 01/26/24 07:15 01/26/24 07:14 2 01/26/24 03:27 2 01/25/24 22:49 2 01/25/24 21:54 Laboratory Results Short CBC 01/26/24 Range/Units 07:48 WBC 7.69 (4.8-10.8) K/ul Hgb 9.7 L (14.0-18.0) g/dl Hct 29.5 L (42.0-52.0) % Plt Count 202 (130-400) K/uL BMP 01/26/24 05:48 Creatinine 1.05 (1) Rhabdomyolysis Encounter type: initial encounter Rhabdomyolysis type: traumatic Qualified Code(s): T79.6XXA - Traumatic ischemia of muscle, initial encounter
--- NOTE | 2024-01-26 08:28 | Orthopedic Progress Note ---
Date of Service January 26, 2024 Assessment & Plan (1) Heel ulcer: Plan: IMPRESSION: Left Heel Ulcer, no distinct bone involvement, moderate vasculopathy PLAN: Awaiting MRI of the left foot, to further asses for osteomyelitis Awaiting Vascular consult to assess blood flow to leg especially in regards to healing potential of the the heel and rest of the leg. The study and consult will aid in determining further treatment, which may include debridement vs amputation. To consider Wound care consult Continue dressing changes. Continue pain control Continue antibiotics Continue care per primary service Will continue to follow. Present on Admission?: Yes Admission and Anticipated Discharge Date Admission Date: January 24, 2024 Subjective Feeling weak. Physical Exam Physical Exam: LLE: Non-healing ulcer plantar heel with eschar approximate size of half dollar, No active drainage. + Swelling/pitting edema. Sensation diminished unchanged. BCR < 2 sec. Wiggling toes. Foul odor present. Results & Data Vital Signs (Past 12 Hours) Vital Signs Temp Pulse Pulse Resp BP Pulse Ox O2 Del Method 01/26/24 08:04 Nasal Cannula 01/26/24 07:15 71 01/26/24 07:14 36.6 C 70 15 109/61 94 Nasal Cannula 01/26/24 03:27 36.4 C L 74 18 111/50 L 96 Nasal Cannula 01/25/24 22:49 36.4 C L 71 18 111/63 97 Nasal Cannula 01/25/24 21:54 61 O2 Flow Rate 01/26/24 08:04 2 01/26/24 07:15 01/26/24 07:14 2 01/26/24 03:27 2 01/25/24 22:49 2 01/25/24 21:54 Laboratory Results Laboratory Results WBC 7.69 K/ul (4.8-10.8) 01/26/24 07:48 RBC 3.10 M/uL (4.70-6.10) L 01/26/24 07:48 Hgb 9.7 g/dl (14.0-18.0) L 01/26/24 07:48 Hct 29.5 % (42.0-52.0) L 01/26/24 07:48 MCV 95.2 fL (80.0-100.0) 01/26/24 07:48 MCH 31.3 pg (25.0-34.0) 01/26/24 07:48 MCHC 32.9 g/dL (32.0-36.0) 01/26/24 07:48 RDW Std Deviation 46.2 fL (36.4-46.3) 01/26/24 07:48 RDW Coeff of Christopher 13.4 % (11.5-14.5) 01/26/24 07:48 Plt Count 202 K/uL (130-400) 01/26/24 07:48 MPV 8.6 fL (9.4-12.4) L 01/26/24 07:48 Immature Gran % (Auto) 0.5 % 01/26/24 07:48 Neut % (Auto) 82.5 % 01/26/24 07:48 Lymph % (Auto) 10.0 % 01/26/24 07:48 Snyder % (Auto) 5.6 % 01/26/24 07:48 Eos % (Auto) 1.3 % 01/26/24 07:48 Baso % (Auto) 0.1 % 01/26/24 07:48 Neut # (Auto) 6.34 K/uL (1.40-6.50) 01/26/24 07:48 Lymph # (Auto) 0.77 K/uL (1.20-3.40) L 01/26/24 07:48 Snyder # (Auto) 0.43 K/uL (0.11-0.59) 01/26/24 07:48 Eos # (Auto) 0.10 K/uL (0.00-0.50) 01/26/24 07:48 Baso # (Auto) 0.01 K/uL (0.00-0.20) 01/26/24 07:48 Immature Gran # (Auto) 0.04 K/uL (0.01-0.20) 01/26/24 07:48 PT 13.0 Seconds (9.0-12.0) H 01/24/24 18:01 INR 1.2 (0.9-1.1) H 01/24/24 18:01 Sodium 136 mmol/L (136-145) 01/25/24 06:36 Potassium 3.7 mmol/L (3.5-5.1) 01/25/24 06:36 Chloride 106 mmol/L (98-107) 01/25/24 06:36 Carbon Dioxide 25 mmol/L (21-32) 01/25/24 06:36 Anion Gap 5 (3-11) 01/25/24 06:36 BUN 23 mg/dl (6-23) 01/25/24 06:36 Creatinine 1.05 mg/dl (0.6-1.4) 01/26/24 05:48 Est Cr Clr Drug Dosing 62.6 ml/min 01/26/24 05:48 Est GFR ( Amer) 77.9 ml/min 01/26/24 05:48 Est GFR (Non-Af Amer) 67.2 ml/min 01/26/24 05:48 BUN/Creatinine Ratio 26.4 (10-20) H 01/25/24 06:36 Glucose 111 mg/dl (70-99(Fasting)) H 01/25/24 06:36 Estimat Average Glucose 123 mg/dl 01/25/24 06:36 Hemoglobin A1c 5.9 % (4.5-5.6) H 01/25/24 06:36 Lactate 1.1 mmol/L (0.4-2.0) 01/24/24 18:57 Calcium 7.5 mg/dl (8.6-10.3) L 01/25/24 06:36 Phosphorus 2.4 mg/dl (2.5-4.9) L 01/24/24 18:01 Magnesium 2.2 mg/dl (1.7-2.4) 01/25/24 06:36 Total Creatine Kinase 1735 U/L (30-223) H 01/25/24 06:36 Troponin I High Sens 15.0 pg/ml (0-20) D 01/25/24 17:27 Lipase 15 U/L (11-82) 01/24/24 18:01 Procalcitonin 0.77 ng/ml (0-0.5) H 01/24/24 18:03 TSH 1.498 uIu/ml (0.300-4.500) 01/24/24 18:01 Urine Color Dark Yellow 01/25/24 01:29 Urine Appearance Cloudy (Clear) A 01/25/24 01:29 Urine pH 5.0 (4.5-7.5) 01/25/24 01:29 Ur Specific [place] > 1.045 (1.000-1.030) H 01/25/24 01:29 Urine Protein 3+ (Negative) H 01/25/24 01:29 Urine Glucose (UA) Negative (Negative) 01/25/24 01:29 Urine Ketones Trace (Negative) H 01/25/24 01:29 Urine Blood 3+ (Negative) H 01/25/24 01:29 Urine Nitrite Negative (Negative) 01/25/24 01:29 Urine Bilirubin Negative (Negative) 01/25/24 01:29 Urine Urobilinogen Negative (Negative) 01/25/24 01:29 Ur Leukocyte Esterase 1+ (Negative) H 01/25/24 01:29 Urine WBC (Auto) 21-50 /hpf (0-5) H 01/25/24 01:29 Urine RBC (Auto) >20 /hpf (0-2) H 01/25/24 01:29 U Hyaline Cast (Auto) 3-5 /lpf (0-2) H 01/25/24 01:29 U Epithel Cells (Auto) 3-5 /hpf (0-2) H 01/25/24 01:29 Urine Bacteria (Auto) None Seen (None Seen) 01/25/24 01:29 Ethyl Alcohol mg/dL < 10.0 mg/dl (<10.0) 01/24/24 20:28 Impressions Abdomen/Pelvis CT 01/24/24 18:33 Exam(s): CT ABDOMEN + PELVIS With Contrast IV Amt: 92 ml optiray 320 EXAM: CT Abdomen and Pelvis With Intravenous Contrast CLINICAL HISTORY: Reason for exam: sepsis, ?UTI. TECHNIQUE: Axial computed tomography images of the abdomen and pelvis with intravenous contrast. CTDI is 23.21 mGy and DLP is 1427.47 mGy-cm. Automated exposure control was utilized for the study. A dose lowering technique was utilized adhering to the principles of ALARA. CONTRAST: Patient received 92 ml optiray 320 of IV contrast COMPARISON: None. FINDINGS: Lung bases: Reticular interstitial prominence along the subtalar region of the lung bases concerning for interstitial lung disease versus early fibrosis. No consolidation. Pleural space: Trace bilateral effusions versus pleural thickening. Heart: Mild cardiomegaly with coronary artery calcifications. ABDOMEN: Liver: Unremarkable. No mass. Gallbladder and bile ducts: Status post cholecystectomy with nonspecific mild biliary distention. No ductal dilation. Pancreas: Unremarkable. No mass. No ductal dilation. Spleen: Unremarkable. No splenomegaly. Adrenals: Unremarkable. No mass. Kidneys and ureters: Unremarkable. No solid mass. No hydronephrosis. Stomach and bowel: Moderate to abundant fecal debris within the colon. Scattered diverticulosis with no signs of diverticulitis. No obstruction. PELVIS: Appendix: Normal appendix. Bladder: Slightly over distended urinary bladder. Reproductive: Mild prostate enlargement. ABDOMEN and PELVIS: Intraperitoneal space: Unremarkable. No free air. No significant fluid collection. Bones/joints: Multilevel degenerative disease of the spine. Minimal anterolisthesis of L5 on S1 with bilateral pars defect of L5. No acute fracture. No dislocation. Soft tissues: Small left-sided fat-containing inguinal hernia. Minimal stranding involving the subcutaneous fat, cannot exclude mild anasarca. Vasculature: Atherosclerotic disease of aorta with no aneurysm or dissection. Lymph nodes: Unremarkable. No enlarged lymph nodes. IMPRESSION: 1. Mild interstitial prominence which mainly indicate interstitial lung disease, cannot exclude pulmonary fibrosis versus early congestive heart failure. Trace bilateral pleural effusions versus pleural thickening. Clinical correlation recommended. 2. Status post cholecystectomy with nonspecific biliary distention. 3. Diverticulosis with no signs of diverticulitis. No acute appendicitis or bowel obstruction. Electronically signed by: Claudia Irving MD 01/24/24 23:[address] 01/24/24 18:33 Exam(s): CT LEFT FOOT With Contrast IV Amt: 92 ml optiray 320 EXAM: CT Left Lower Extremity With Intravenous Contrast, Foot CLINICAL HISTORY: Reason for exam: sepsis, plantar ulcer/infection. TECHNIQUE: Axial computed tomography images of the left foot with intravenous contrast. CTDI is 23.21 mGy and DLP is 1427.47 mGy-cm. Automated exposure control was utilized for the study. A dose lowering technique was utilized adhering to the principles of ALARA. CONTRAST: Patient received 92 ml optiray 320 of IV contrast COMPARISON: None. FINDINGS: Bones/joints: Mild degenerative arthrosis of the first metatarsal phalangeal joint and first tarsometatarsal joint. Otherwise bony structures are unremarkable with no acute fracture or subluxation. There is diffuse stranding/edema through the distal calf and ankle as well as dorsum of the foot. Soft tissues: There is a skin irregularity with defect and adjacent fluid and inflammation at the soft tissues along the plantar region, just inferior to the posterior calcaneus consistent with known ulceration. IMPRESSION: 1. Plantar posterior ulceration, just below the posterior calcaneus. 2. Diffuse edema versus cellulitis with no soft tissue abscess. 3. No distinct bony lesion seen. Note to be made that osteomyelitis cannot be excluded based on negative CT findings. If this represents a clinical concern, recommend follow-up with MRI of the region of interest or bone scan. Electronically signed by: Claudia Irving MD 01/24/24 23:[address] 01/24/24 18:33 Exam(s): CT HEAD Without Contrast EXAM: CT Head Without Intravenous Contrast CLINICAL HISTORY: Reason for exam: fall, weakness. TECHNIQUE: Axial computed tomography images of the head/brain without intravenous contrast. CTDI is 36.31 mGy and DLP is 625.8 mGy-cm. Automated exposure control was utilized for the study. A dose lowering technique was utilized adhering to the principles of ALARA. COMPARISON: No relevant prior studies available. FINDINGS: Brain: Remote ischemic injury of the left capsule. No hemorrhage. No significant white matter disease. No edema. Ventricles: Mild ventriculomegaly. Bones/joints: Incomplete fusion of the posterior ring of C1. No acute fracture. Soft tissues: Unremarkable. Sinuses: Unremarkable as visualized. No acute sinusitis. Mastoid air cells: Unremarkable as visualized. No mastoid effusion. IMPRESSION: No evidence of acute intracranial pathology. Electronically signed by: Karine Pichardo MD 01/24/24 23:40 PM Duplex Scan Lower Extremity Artery 01/25/24 00:28 Exam(s): US ARTERIAL LEFT LOWER EXTREMITY EXAM: US Duplex Left Lower Extremity Arteries CLINICAL HISTORY: Reason for exam: ulcer on heel. PVD?. TECHNIQUE: Real-time duplex ultrasound scan of the left lower extremity arteries integrating B-mode two-dimensional vascular structure, Doppler spectral analysis and color flow Doppler imaging. COMPARISON: No relevant prior studies available. FINDINGS: Aorta: Grayscale imaging reveals diffuse calcific atherosclerotic vascular disease, arterial sclerosis throughout the other vessels. Left common femoral artery: Grayscale imaging reveals some heterogeneous predominantly calcified plaque demonstrated within the left common femoral artery. Left superficial femoral artery: No acute findings. No occlusion or significant stenosis on color flow and spectral Doppler imaging. Left popliteal artery: Arterial sclerosis demonstrated. No occlusion or significant stenosis on color flow and spectral Doppler imaging. Left calf/foot arteries: There is diffuse disease demonstrated. No occlusion or significant stenosis on color flow and spectral Doppler imaging. Normal waveform. Soft tissues: Unremarkable. There are predominantly biphasic waveforms present IMPRESSION: Moderate vasculopathy demonstrated without focal vessel occlusions or stenosis. Electronically signed by: Tung Monroy MD 01/25/24 07:05 AM Venous Doppler Study 01/25/24 00:28 Exam(s): US VENOUS BILATERAL LOWER EXTREMITIES EXAM: US Duplex Bilateral Lower Extremities Veins CLINICAL HISTORY: Reason for exam: b/l lower ext edema. dvt?. TECHNIQUE: Real-time duplex ultrasound scan of the bilateral lower extremity veins integrating B-mode two-dimensional vascular structure, Doppler spectral analysis, color flow Doppler imaging and compression. COMPARISON: No relevant prior studies available. FINDINGS: Study is mildly limited for assessment of calf veins due to overlying edema. Right deep veins: Unremarkable. No DVT in the right common femoral, femoral, proximal deep femoral or popliteal veins. The veins demonstrate normal color flow, are normally compressible, with normal phasic flow and/or augmentation response. Right superficial veins: Unremarkable. No thrombus in the visualized right great saphenous vein. Left deep veins: There is some wall thickening or possible eccentric clot demonstrated within the left mid femoral vein. Deep venous structures are otherwise unremarkable configuration. Left superficial veins: Unremarkable. No thrombus in the visualized left great saphenous vein. Soft tissues: There is some edema demonstrated within the calves. No popliteal cyst. IMPRESSION: Possible chronic region of thrombosis and/or wall thickening left mid femoral vein no other thrombosis seen, some limitation as described Electronically signed by: Tung Monroy MD 01/25/24 06:58 AM Chest X-Ray 01/25/24 09:38 SINGLE VIEW CHEST CLINICAL HISTORY: Hypoxia. FINDINGS: An AP, portable, upright chest radiograph is compared to study dated 01/24/2024. The heart is enlarged noting atherosclerotic calcification of the thoracic aorta. Pulmonary vascular congestion is new from previous. There are small pleural effusions with bibasilar consolidation. No pneumothorax is seen. The skeletal structures are osteopenic. The bony thorax is grossly intact. Cholecystectomy clips are seen in the right upper quadrant. IMPRESSION: 1. Cardiomegaly with pulmonary vascular congestion. This is new from previous. 2. Small pleural effusions with dependent consolidation. This likely represents atelectasis. Correlate clinically for evidence of pneumonia/aspiration pneumonitis. Clinical correlation will be required and radiographic follow-up to resolution is recommended. ACT 112: Negative or not required by law. Electronically signed by: Cash Kolb M.D. 01/25/2024 10:28 AM (1) Heel ulcer Laterality: left Non-pressure ulcer stage: unspecified non-pressure ulcer stage Qualified Code(s): L97.429 - Non-pressure chronic ulcer of left heel and midfoot with unspecified severity
[2024-01-26 08:39] LABS: BUN Creatinine Ratio 24.5 (10-20); Calcium 7.4 mg/dl (8.6-10.3); Creatinine Clr Calc Pharmacy 64.5 ml/min; Est GFR (African American) 80.6 ml/min; Est GFR (Non-African American) 69.6 ml/min; Potassium 3.6 mmol/L (3.5-5.1)
--- NOTE | 2024-01-26 11:10 | Consultation ---
Date of Consultation January 26, 2024 Assessment & Plan (1) Heel ulcer: Patient has mild to moderate occlusive disease of the left lower extremity. The anterior tibial has a normal waveform. He should have enough blood flow to undergo surgery on his left foot. Agree with antibiotics and surgical debridement. Would also use appropriate fitting knee adalberto compression stockings for his peripheral edema. Thank you very much for letting us participate in the care of this patient. Please call us if needed. Laterality: left Non-pressure ulcer stage: unspecified non- pressure ulcer stage Qualified Code(s): L97.429 - Non-pressure chronic ulcer of left heel and midfoot with unspecified severity History of Present Illness Reason for Consultation: Left heel ulcer Attending Physician: Dylon Griffiths MD History of Present Illness This is a 78 yo male with past medical history of prediabetes, idiopathic chronic gout of multiple sites, chronic diastolic CHF, hypertension. He does have a history of neuropathy. He had a fall at home and was admitted with rhabdomyolysis and left heel infected ulcer. He has been treated by his firewall engineer for the heel ulcer the last few weeks prior to admission. He does not give a history of claudication or rest pain. He claims the ulcer has been there for some time. He also complains of long standing lower extremity edema. He tried compression stockings in the past but can not get them on. Allergies Allergy/AdvReac Type Severity Reaction Status Date / Time niacin AdvReac Intermediate FLUSH Verified 01/24/24 21:54 Home Medications Medication Instructions Recorded Confirmed Type allopurinol 100 mg tablet 200 mg PO QAM 01/12/20 01/24/24 History (Zyloprim) aspirin 81 mg tablet,delayed 81 mg PO QAM 01/12/20 01/24/24 History release (Aspir-) atorvastatin 20 mg tablet (Lipitor) 20 mg PO QAM 01/12/20 01/24/24 History furosemide 20 mg tablet (Lasix) 20 mg PO Q OTHER DAY 01/12/20 01/24/24 History latanoprost 0.005 % eye drops 1 drp OPB HS 01/12/20 01/24/24 History (Xalatan) levothyroxine 50 mcg tablet 50 mcg PO QAM 01/12/20 01/24/24 History (Levoxyl) metoprolol succinate 25 mg 25 mg PO QAM 01/12/20 01/24/24 History tablet,extended release 24 hr (Toprol XL) thiamine HCl (vitamin B1) 100 mg 50 mg PO QAM 01/12/20 01/24/24 History tablet (Vitamin B-1) timolol maleate 0.5 % eye drops 1 drp OPL QAM 01/12/20 01/24/24 History (Timoptic) ketoconazole 1 % shampoo 1 applic topical UD 12/13/21 01/24/24 History amoxicillin 875 mg-potassium 1 tab PO BID #14 tabs 01/24/24 01/24/24 Rx clavulanate 125 mg tablet sulfamethoxazole 800 1 tab PO BID 7 days #14 tabs 01/24/24 01/24/24 Rx mg-trimethoprim 160 mg tablet (Bactrim DS) Patient History Medical History Sleep apnea Osteoarthritis TMJ click Rarely Increased pressure in the eye Does not yet meet criteria for glaucoma Surgical History History of right cataract surgery S/P cholecystectomy History of arthroscopy of left knee History of transesophageal echocardiography (FLACO) History of colonoscopy History of ERCP H/O inguinal hernia repair BILAT History of arthroplasty of both knees Family History Other Coronary heart disease No family history of adverse response to anesthesia Social History Smoking Status: Never smoker Second Hand Exposure: No; Do You Dip or Chew Tobacco: Yes (advised); Hx Alcohol Use: No Hx Substance Use: No Preferred Language: Upper Sorbian Communication Ability: Effective Entertainment Dancer Required: No Beliefs That Will Affect Care: None Current Living Situation: Spouse Current Living Situation Comment: Other Information That Helps Us Care for You: No Feels Safe at Home: Yes Safety Concerns: Feels Safe At This Time Assistive Devices: None Review of Systems Review of Systems: All systems reviewed & are unremarkable except as noted in HPI & below Physical Exam Constitutional: + frail appearing and cooperative; no ac benton distress Respiratory: normal respiratory effort; no respiratory distress Cardiovascular: Rate/Rhythm: regular rate and regular rhythm Vessels: femoral pulses present and dorsalis pedis pulses present Extremities: normal capillary refill and + edema (bilateral lower extremity edema) Gastrointestinal (Abdomen): Inspection/Auscultation: abdomen normal to inspection; abdomen not distended Percussion/Palpation: abdomen soft Skin: + eschar (overlying an ulcer of the left heel) malodorous left heel wound Neurologic: CN's II-XI intact bilaterally and moves all extremities; + abnormal sensation to monofilament Psychiatric: Orientation: alert and oriented x 3 Results & Data Vital Signs (Past 12 Hours) Vital Signs Temp Pulse Pulse Resp BP Pulse Ox O2 Del Method 01/26/24 10:53 36.4 C L 65 15 108/57 L 97 Nasal Cannula 01/26/24 08:04 Nasal Cannula 01/26/24 07:15 71 01/26/24 07:14 36.6 C 70 15 109/61 94 Nasal Cannula 01/26/24 03:27 36.4 C L 74 18 111/50 L 96 Nasal Cannula O2 Flow Rate 01/26/24 10:53 2 01/26/24 08:04 2 01/26/24 07:15 01/26/24 07:14 2 01/26/24 03:27 2 Diagnostic Findings Arterial non invasives show triphasic waveforms in the ant tib and dorsalis pedis. Peroneal and post tib waveforms are biphasic.
[2024-01-26] MEDS: FUROSEMIDE INJ 20 MG/2 ML VIAL IV SCH (11:17)
--- NOTE | 2024-01-26 17:47 | Magnetic Resonance Report ---
MRI OF THE LEFT ANKLE WITHOUT IV CONTRAST CLINICAL HISTORY: Heel wound. COMPARISON STUDY: Radiographs of the left ankle dated 01/24/2024. CT scan of the left foot dated 2023. TECHNIQUE: MRI of the left ankle was performed utilizing various T1 and T2-weighted sequences in the axial, sagittal, and coronal planes. IV contrast was not administered for this examination. The exami nation is compromised by motion artifact. FINDINGS: Diffuse soft tissue edema is present throughout the left ankle. There is a cutaneous ulcera tion/wound along the posterior plantar aspect of the heel. Surrounding soft tissue edema is typical f or cellulitis. A 1.4 cm pocket of fluid is seen in the region of the wound on axial image #37 and sag ittal image #11. This could potentially represent packing material versus a small fluid collection. T here is no marrow edema or erosive change in the underlying calcaneus to suggest osteomyelitis. There is no MRI evidence of fracture. There is degenerative change and marrow edema seen at the lateral bustamante btalar joint. Nonspecific edema is seen within the sinus tarsi. The ankle mortise is intact. No osteo chondral defect is seen in the talar dome. A small joint effusion is observed. The Achilles tendon is normal in morphology and signal intensity. There is trace surrounding fluid, as well as a retrocalca howie bursal effusion. There is also edema throughout Kager's fat pad. Paratenonitis is not excluded. The anterior and posterior tendons are intact. The tibialis tendon is significantly thickened and ten dinotic. There is a split-thickness tear of the peroneal brevis tendon. There is evidence of peroneal tenosynovitis. There is also tenosynovitis of the tibialis posterior tendon. Imaged portions of the plantar fascia appear intact. There is age indeterminant sprain of the anterior tibiofibular ligament . The anterior talofibular ligament is preserved. The deltoid ligament appears intact. IMPRESSION: 1. Diffuse soft tissue edema throughout the left foot/ankle with a plantar heel wound. Findings sugge st cellulitis. 2. There is no MRI evidence of osteomyelitis of the underlying calcaneus. 3. There is a 1.4 cm pocket of fluid seen in the region of the wound. This could represent packing ma terial. A small abscess is not excluded. Correlate clinically. 4. Question Achilles paratenonitis with nonspecific edema throughout Kager's fat pad and a retrocalca howie bursal effusion. 5. There is thickening and tendinopathy of the tibialis anterior tendon. 6. Split-thickness tear of the peroneus brevis tendon. 7. There is tenosynovitis of the peroneal tendons as well as the tibialis posterior. 8. Additional findings as above. Dictated: 01/26/2024 3:29 PM Transcribed: 01/26/2024 3:47 PM Vero [id number] Electronically signed by: Cash Kolb M.D. 01/26/2024 5:46 PM
[2024-01-26] MEDS: LACTATED RINGER'S 1,000 ML IV SCH (22:55)
[2024-01-27 06:32] LABS: Basophils # (auto) 0.01 K/uL (0.00-0.20); Basophils % (auto) 0.2 %; Eosinophils # (auto) 0.11 K/uL (0.00-0.50); Eosinophils % (auto) 2.1 %; Hematocrit (blood only) 29.5 % (42.0-52.0); Hemoglobin 9.9 g/dl (14.0-18.0); Immature Granulocytes # (auto) 0.03 K/uL (0.01-0.20); Immature Granulocytes % (auto) 0.6 %; Lymphocytes # (auto) 0.91 K/uL (1.20-3.40); Lymphocytes % (auto) 17.6 %; Mean Corpuscular Hemoglobin 31.5 pg (25.0-34.0); Mean Corpuscular Hgb Conc 33.6 g/dL (32.0-36.0); Mean Corpuscular Volume 93.9 fL (80.0-100.0); Mean Platelet Volume 8.5 fL (9.4-12.4); Monocytes # (auto) 0.38 K/uL (0.11-0.59); Monocytes % (auto) 7.4 %; Neutrophils # (auto) 3.73 K/uL (1.40-6.50); Neutrophils % (auto) 72.1 %; Platelet Count 212 K/uL (130-400); RDW Coefficient of Variation 13.3 % (11.5-14.5); RDW Standard Deviation 45.8 fL (36.4-46.3); Red Blood Count 3.14 M/uL (4.70-6.10); White Blood Count 5.17 K/ul (4.8-10.8)
[2024-01-27 06:44] LABS: Calcium 7.4 mg/dl (8.6-10.3); Creatinine Clr Calc Pharmacy 75.6 ml/min; Est GFR (African American) 95.1 ml/min; Est GFR (Non-African American) 82.1 ml/min; Potassium 3.6 mmol/L (3.5-5.1)
[2024-01-27] MEDS ORDERED: MIDAZOLAM HCL 1 MG/ML 2ML VIAL ONE (09:00)
[2024-01-27] MEDS ORDERED: fentaNYL citrate PF 100 MCG/2 ML VIAL ONE (09:00)
[2024-01-27] MEDS ORDERED: LIDOCAINE 2% 2 ML VIAL/AMP(20MG/ML) INFIL ONE (09:02)
[2024-01-27] MEDS ORDERED: PROPOFOL IV EMULSION 10 MG/ML 20 ML VIAL IV ONE (09:02)
[2024-01-27] MEDS ORDERED: DEXAMETHASONE SOD INJ 4 MG/ML VIAL ONE (09:02)
[2024-01-27] MEDS ORDERED: ONDANSETRON INJ 2 MG/ML 2 ML VIAL ONE (09:02)
--- NOTE | 2024-01-27 09:16 | Orthopedic Progress Note ---
Date of Service January 27, 2024 Assessment & Plan (1) Heel ulcer: Plan: IMPRESSION: Left Heel Ulcer, no bone involvement, moderate vasculopathy PLAN: MRI of the left foot, No osteomyelitis OR today for I&D, possible wound vac placement NPO since midnight Post-op will obtain Wound care consult Continue pain control Continue antibiotics Continue care per primary service Will continue to follow. Admission and Anticipated Discharge Date Admission Date: January 24, 2024 Subjective Ready for surgery Physical Exam Physical Exam: LLE: Non-healing ulcer plantar heel with eschar approximate size of half dollar, No active drainage. + Swelling/pitting edema. Sensation diminished unchanged. BCR < 2 sec. Wiggling toes. Foul odor present. Results & Data Vital Signs (Past 12 Hours) Vital Signs Temp Pulse Pulse Resp BP BP Pulse Ox 01/27/24 08:57 36.5 C 73 20 122/66 93 01/27/24 08:24 36.4 C L 62 18 108/56 L 93 01/27/24 07:37 64 01/27/24 02:36 36.5 C 83 16 125/66 93 01/27/24 01:50 77 01/26/24 23:20 36.4 C L 78 16 122/63 92 01/26/24 22:31 O2 Del Method 01/27/24 08:57 Room Air 01/27/24 08:24 Room Air 01/27/24 07:37 01/27/24 02:36 Room Air 01/27/24 01:50 01/26/24 23:20 Room Air 01/26/24 22:31 Room Air Laboratory Results Laboratory Results WBC 5.17 K/ul (4.8-10.8) 01/27/24 05:53 RBC 3.14 M/uL (4.70-6.10) L 01/27/24 05:53 Hgb 9.9 g/dl (14.0-18.0) L 01/27/24 05:53 Hct 29.5 % (42.0-52.0) L 01/27/24 05:53 MCV 93.9 fL (80.0-100.0) 01/27/24 05:53 MCH 31.5 pg (25.0-34.0) 01/27/24 05:53 MCHC 33.6 g/dL (32.0-36.0) 01/27/24 05:53 RDW Std Deviation 45.8 fL (36.4-46.3) 01/27/24 05:53 RDW Coeff of Christopher 13.3 % (11.5-14.5) 01/27/24 05:53 Plt Count 212 K/uL (130-400) 01/27/24 05:53 MPV 8.5 fL (9.4-12.4) L 01/27/24 05:53 Immature Gran % (Auto) 0.6 % 01/27/24 05:53 Neut % (Auto) 72.1 % 01/27/24 05:53 Lymph % (Auto) 17.6 % 01/27/24 05:53 [place] % (Auto) 7.4 % 01/27/24 05:53 Eos % (Auto) 2.1 % 01/27/24 05:53 Baso % (Auto) 0.2 % 01/27/24 05:53 Neut # (Auto) 3.73 K/uL (1.40-6.50) 01/27/24 05:53 Lymph # (Auto) 0.91 K/uL (1.20-3.40) L 01/27/24 05:53 [place] # (Auto) 0.38 K/uL (0.11-0.59) 01/27/24 05:53 Eos # (Auto) 0.11 K/uL (0.00-0.50) 01/27/24 05:53 Baso # (Auto) 0.01 K/uL (0.00-0.20) 01/27/24 05:53 Immature Gran # (Auto) 0.03 K/uL (0.01-0.20) 01/27/24 05:53 PT 13.0 Seconds (9.0-12.0) H 01/24/24 18:01 INR 1.2 (0.9-1.1) H 01/24/24 18:01 Sodium 135 mmol/L (136-145) L 01/27/24 05:53 Potassium 3.6 mmol/L (3.5-5.1) 01/27/24 05:53 Chloride 104 mmol/L (98-107) 01/27/24 05:53 Carbon Dioxide 26 mmol/L (21-32) 01/27/24 05:53 Anion Gap 5 (3-11) 01/27/24 05:53 BUN 27 mg/dl (6-23) H 01/27/24 05:53 Creatinine 0.87 mg/dl (0.6-1.4) 01/27/24 05:53 Est Cr Clr Drug Dosing 75.6 ml/min 01/27/24 05:53 Est GFR ( Amer) 95.1 ml/min 01/27/24 05:53 Est GFR (Non-Af Amer) 82.1 ml/min 01/27/24 05:53 BUN/Creatinine Ratio 31.0 (10-20) H 01/27/24 05:53 Glucose 100 mg/dl (70-99(Fasting)) H 01/27/24 05:53 Estimat Average Glucose 123 mg/dl 01/25/24 06:36 Hemoglobin A1c 5.9 % (4.5-5.6) H 01/25/24 06:36 Lactate 1.1 mmol/L (0.4-2.0) 01/24/24 18:57 Calcium 7.4 mg/dl (8.6-10.3) L 01/27/24 05:53 Phosphorus 2.4 mg/dl (2.5-4.9) L 01/24/24 18:01 Magnesium 2.2 mg/dl (1.7-2.4) 01/25/24 06:36 Total Creatine Kinase 615 U/L (30-223) H 01/26/24 07:48 Troponin I High Sens 15.0 pg/ml (0-20) D 01/25/24 17:27 Lipase 15 U/L (11-82) 01/24/24 18:01 Procalcitonin 0.77 ng/ml (0-0.5) H 01/24/24 18:03 TSH 1.498 uIu/ml (0.300-4.500) 01/24/24 18:01 Urine Color Dark Yellow 01/25/24 01:29 Urine Appearance Cloudy (Clear) A 01/25/24 01:29 Urine pH 5.0 (4.5-7.5) 01/25/24 01:29 Ur Specific [place] > 1.045 (1.000-1.030) H 01/25/24 01:29 Urine Protein 3+ (Negative) H 01/25/24 01:29 Urine Glucose (UA) Negative (Negative) 01/25/24 01:29 Urine Ketones Trace (Negative) H 01/25/24 01:29 Urine Blood 3+ (Negative) H 01/25/24 01:29 Urine Nitrite Negative (Negative) 01/25/24 01:29 Urine Bilirubin Negative (Negative) 01/25/24 01:29 Urine Urobilinogen Negative (Negative) 01/25/24 01:29 Ur Leukocyte Esterase 1+ (Negative) H 01/25/24 01:29 Urine WBC (Auto) 21-50 /hpf (0-5) H 01/25/24 01:29 Urine RBC (Auto) >20 /hpf (0-2) H 01/25/24 01:29 U Hyaline Cast (Auto) 3-5 /lpf (0-2) H 01/25/24 01:29 U Epithel Cells (Auto) 3-5 /hpf (0-2) H 01/25/24 01:29 Urine Bacteria (Auto) None Seen (None Seen) 01/25/24 01:29 Random Vancomycin 13.9 mcg/ml (10-20) 01/27/24 05:53 Ethyl Alcohol mg/dL < 10.0 mg/dl (<10.0) 01/24/24 20:28 Impressions Abdomen/Pelvis CT 01/24/24 18:33 Exam(s): CT ABDOMEN + PELVIS With Contrast IV Amt: 92 ml optiray 320 EXAM: CT Abdomen and Pelvis With Intravenous Contrast CLINICAL HISTORY: Reason for exam: sepsis, ?UTI. TECHNIQUE: Axial computed tomography images of the abdomen and pelvis with intravenous contrast. CTDI is 23.21 mGy and DLP is 1427.47 mGy-cm. Automated exposure control was utilized for the study. A dose lowering technique was utilized adhering to the principles of ALARA. CONTRAST: Patient received 92 ml optiray 320 of IV contrast COMPARISON: None. FINDINGS: Lung bases: Reticular interstitial prominence along the subtalar region of the lung bases concerning for interstitial lung disease versus early fibrosis. No consolidation. Pleural space: Trace bilateral effusions versus pleural thickening. Heart: Mild cardiomegaly with coronary artery calcifications. ABDOMEN: Liver: Unremarkable. No mass. Gallbladder and bile ducts: Status post cholecystectomy with nonspecific mild biliary distention. No ductal dilation. Pancreas: Unremarkable. No mass. No ductal dilation. Spleen: Unremarkable. No splenomegaly. Adrenals: Unremarkable. No mass. Kidneys and ureters: Unremarkable. No solid mass. No hydronephrosis. Stomach and bowel: Moderate to abundant fecal debris within the colon. Scattered diverticulosis with no signs of diverticulitis. No obstruction. PELVIS: Appendix: Normal appendix. Bladder: Slightly over distended urinary bladder. Reproductive: Mild prostate enlargement. ABDOMEN and PELVIS: Intraperitoneal space: Unremarkable. No free air. No significant fluid collection. Bones/joints: Multilevel degenerative disease of the spine. Minimal anterolisthesis of L5 on S1 with bilateral pars defect of L5. No acute fracture. No dislocation. Soft tissues: Small left-sided fat-containing inguinal hernia. Minimal stranding involving the subcutaneous fat, cannot exclude mild anasarca. Vasculature: Atherosclerotic disease of aorta with no aneurysm or dissection. Lymph nodes: Unremarkable. No enlarged lymph nodes. IMPRESSION: 1. Mild interstitial prominence which mainly indicate interstitial lung disease, cannot exclude pulmonary fibrosis versus early congestive heart failure. Trace bilateral pleural effusions versus pleural thickening. Clinical correlation recommended. 2. Status post cholecystectomy with nonspecific biliary distention. 3. Diverticulosis with no signs of diverticulitis. No acute appendicitis or bowel obstruction. Electronically signed by: Claudia Irving MD 01/24/24 23:[address] 01/24/24 18:33 Exam(s): CT LEFT FOOT With Contrast IV Amt: 92 ml optiray 320 EXAM: CT Left Lower Extremity With Intravenous Contrast, Foot CLINICAL HISTORY: Reason for exam: sepsis, plantar ulcer/infection. TECHNIQUE: Axial computed tomography images of the left foot with intravenous contrast. CTDI is 23.21 mGy and DLP is 1427.47 mGy-cm. Automated exposure control was utilized for the study. A dose lowering technique was utilized adhering to the principles of ALARA. CONTRAST: Patient received 92 ml optiray 320 of IV contrast COMPARISON: None. FINDINGS: Bones/joints: Mild degenerative arthrosis of the first metatarsal phalangeal joint and first tarsometatarsal joint. Otherwise bony structures are unremarkable with no acute fracture or subluxation. There is diffuse stranding/edema through the distal calf and ankle as well as dorsum of the foot. Soft tissues: There is a skin irregularity with defect and adjacent fluid and inflammation at the soft tissues along the plantar region, just inferior to the posterior calcaneus consistent with known ulceration. IMPRESSION: 1. Plantar posterior ulceration, just below the posterior calcaneus. 2. Diffuse edema versus cellulitis with no soft tissue abscess. 3. No distinct bony lesion seen. Note to be made that osteomyelitis cannot be excluded based on negative CT findings. If this represents a clinical concern, recommend follow-up with MRI of the region of interest or bone scan. Electronically signed by: Claudia Irving MD 01/24/24 23:[address] 01/24/24 18:33 Exam(s): CT HEAD Without Contrast EXAM: CT Head Without Intravenous Contrast CLINICAL HISTORY: Reason for exam: fall, weakness. TECHNIQUE: Axial computed tomography images of the head/brain without intravenous contrast. CTDI is 36.31 mGy and DLP is 625.8 mGy-cm. Automated exposure control was utilized for the study. A dose lowering technique was utilized adhering to the principles of ALARA. COMPARISON: No relevant prior studies available. FINDINGS: Brain: Remote ischemic injury of the left capsule. No hemorrhage. No significant white matter disease. No edema. Ventricles: Mild ventriculomegaly. Bones/joints: Incomplete fusion of the posterior ring of C1. No acute fracture. Soft tissues: Unremarkable. Sinuses: Unremarkable as visualized. No acute sinusitis. Mastoid air cells: Unremarkable as visualized. No mastoid effusion. IMPRESSION: No evidence of acute intracranial pathology. Electronically signed by: Karine Pichardo MD 01/24/24 23:40 PM Duplex Scan Lower Extremity Artery 01/25/24 00:28 Exam(s): US ARTERIAL LEFT LOWER EXTREMITY EXAM: US Duplex Left Lower Extremity Arteries CLINICAL HISTORY: Reason for exam: ulcer on heel. PVD?. TECHNIQUE: Real-time duplex ultrasound scan of the left lower extremity arteries integrating B-mode two-dimensional vascular structure, Doppler spectral analysis and color flow Doppler imaging. COMPARISON: No relevant prior studies available. FINDINGS: Aorta: Grayscale imaging reveals diffuse calcific atherosclerotic vascular disease, arterial sclerosis throughout the other vessels. Left common femoral artery: Grayscale imaging reveals some heterogeneous predominantly calcified plaque demonstrated within the left common femoral artery. Left superficial femoral artery: No acute findings. No occlusion or significant stenosis on color flow and spectral Doppler imaging. Left popliteal artery: Arterial sclerosis demonstrated. No occlusion or significant stenosis on color flow and spectral Doppler imaging. Left calf/foot arteries: There is diffuse disease demonstrated. No occlusion or significant stenosis on color flow and spectral Doppler imaging. Normal waveform. Soft tissues: Unremarkable. There are predominantly biphasic waveforms present IMPRESSION: Moderate vasculopathy demonstrated without focal vessel occlusions or stenosis. Electronically signed by: Tung Monroy MD 01/25/24 07:05 AM Venous Doppler Study 01/25/24 00:28 Exam(s): US VENOUS BILATERAL LOWER EXTREMITIES EXAM: US Duplex Bilateral Lower Extremities Veins CLINICAL HISTORY: Reason for exam: b/l lower ext edema. dvt?. TECHNIQUE: Real-time duplex ultrasound scan of the bilateral lower extremity veins integrating B-mode two-dimensional vascular structure, Doppler spectral analysis, color flow Doppler imaging and compression. COMPARISON: No relevant prior studies available. FINDINGS: Study is mildly limited for assessment of calf veins due to overlying edema. Right deep veins: Unremarkable. No DVT in the right common femoral, femoral, proximal deep femoral or popliteal veins. The veins demonstrate normal color flow, are normally compressible, with normal phasic flow and/or augmentation response. Right superficial veins: Unremarkable. No thrombus in the visualized right great saphenous vein. Left deep veins: There is some wall thickening or possible eccentric clot demonstrated within the left mid femoral vein. Deep venous structures are otherwise unremarkable configuration. Left superficial veins: Unremarkable. No thrombus in the visualized left great saphenous vein. Soft tissues: There is some edema demonstrated within the calves. No popliteal cyst. IMPRESSION: Possible chronic region of thrombosis and/or wall thickening left mid femoral vein no other thrombosis seen, some limitation as described Electronically signed by: Tung Monroy MD 01/25/24 06:58 AM Chest X-Ray 01/25/24 09:38 SINGLE VIEW CHEST CLINICAL HISTORY: Hypoxia. FINDINGS: An AP, portable, upright chest radiograph is compared to study dated 01/24/2024. The heart is enlarged noting atherosclerotic calcification of the thoracic aorta. Pulmonary vascular congestion is new from previous. There are small pleural effusions with bibasilar consolidation. No pneumothorax is seen. The skeletal structures are osteopenic. The bony thorax is grossly intact. Cholecystectomy clips are seen in the right upper quadrant. IMPRESSION: 1. Cardiomegaly with pulmonary vascular congestion. This is new from previous. 2. Small pleural effusions with dependent consolidation. This likely represents atelectasis. Correlate clinically for evidence of pneumonia/aspiration pneumonitis. Clinical correlation will be required and radiographic follow-up to resolution is recommended. ACT 112: Negative or not required by law. Electronically signed by: Cash Kolb M.D. 01/25/2024 10:28 AM Ankle MRI 01/26/24 10:55 MRI OF THE LEFT ANKLE WITHOUT IV CONTRAST CLINICAL HISTORY: Heel wound. COMPARISON STUDY: Radiographs of the left ankle dated 01/24/2024. CT scan of the left foot dated 01/24/2024. TECHNIQUE: MRI of the left ankle was performed utilizing various T1 and T2- weighted sequences in the axial, sagittal, and coronal planes. IV contrast was not administered for this examination. The examination is compromised by motion artifact. FINDINGS: Diffuse soft tissue edema is present throughout the left ankle. There is a cutaneous ulceration/wound along the posterior plantar aspect of the heel. Surrounding soft tissue edema is typical for cellulitis. A 1.4 cm pocket of fluid is seen in the region of the wound on axial image #37 and sagittal image #11. This could potentially represent packing material versus a small fluid collection. There is no marrow edema or erosive change in the underlying calcaneus to suggest osteomyelitis. There is no MRI evidence of fracture. There is degenerative change and marrow edema seen at the lateral subtalar joint. N onspecific edema is seen within the sinus tarsi. The ankle mortise is intact. No osteochondral defect is seen in the talar dome. A small joint effusion is observed. The Achilles tendon is normal in morphology and signal intensity. There is trace surrounding fluid, as well as a retrocalcaneal bursal effusion. There is also edema throughout Kager's fat pad. Paratenonitis is not excluded. The anterior and posterior tendons are intact. The tibialis tendon is significantly thickened and tendinotic. There is a split-thickness tear of the peroneal brevis tendon. There is evidence of peroneal tenosynovitis. There is also tenosynovitis of the tibialis posterior tendon. Imaged portions of the plantar fascia appear intact. There is age indeterminant sprain of the anterior tibiofibular ligament. The anterior talofibular ligament is preserved. The deltoid ligament appears intact. IMPRESSION: 1. Diffuse soft tissue edema throughout the left foot/ankle with a plantar heel wound. Findings suggest cellulitis. 2. There is no MRI evidence of osteomyelitis of the underlying calcaneus. 3. There is a 1.4 cm pocket of fluid seen in the region of the wound. This could represent packing material. A small abscess is not excluded. Correlate clinically. 4. Question Achilles paratenonitis with nonspecific edema throughout [place]'s fat pad and a retrocalcaneal bursal effusion. 5. There is thickening and tendinopathy of the tibialis anterior tendon. 6. Split-thickness tear of the peroneus brevis tendon. 7. There is tenosynovitis of the peroneal tendons as well as the tibialis posterior. 8. Additional findings as above. Dictated: 01/26/2024 3:29 PM Transcribed: 01/26/2024 3:47 PM Vero [id number] Electronically signed by: Cash Kolb M.D. 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
[2024-01-27] MEDS ORDERED: ONDANSETRON INJ 2 MG/ML 2 ML VIAL IV PRN (10:00)
[2024-01-27] MEDS ORDERED: ATROPINE SULFATE 0.1 MG/ML 10ML SYR IV PRN (10:00)
[2024-01-27] MEDS ORDERED: fentaNYL citrate PF 100 MCG/2 ML VIAL IV PRN (10:00)
[2024-01-27] MEDS ORDERED: ePHEDrine sulfate 50 MG/ML AMP IV PRN (10:00)
--- NOTE | 2024-01-27 10:00 | Anesthesiology Consultation ---
Date of Service January 27, 2024 Assessment & Plan Chart Review Chart Review: Acceptable Risk for Surgery and Patient NOT seen in Pre Admission Testing Consults Requested none ASA ASA3 Proposed Anesthesia Anesthesia Type: General Risk / Benefits Reviewed With: PT / POA / Parent / Guardian, Accepts Plan and Informed Consent Obtained History Surgery Operation Date: 01/27/24 09:35 Proposed Procedures p Left Heel Incision and Drainage, Antibiotic Beads, Placement of Wound Vac - Giles Eugenie Avalos MD Height/Weight Height: 6 ft Weight: 86.2 kg Allergies Allergy/AdvReac Type Severity Reaction Status Date / Time niacin AdvReac Intermediate FLUSH Verified 01/24/24 21:54 Medications Home Medications Medication Instructions Recorded Confirmed Last Taken allopurinol 100 mg tablet 200 mg PO QAM 01/12/20 01/24/24 12/17/21 (Zyloprim) aspirin 81 mg tablet,delayed 81 mg PO QAM 01/12/20 01/24/24 12/17/21 release (Aspir-) atorvastatin 20 mg tablet (Lipitor) 20 mg PO QAM 01/12/20 01/24/24 12/17/21 furosemide 20 mg tablet (Lasix) 20 mg PO Q OTHER DAY 01/12/20 01/24/24 01/23/24 latanoprost 0.005 % eye drops 1 drp OPB HS 01/12/20 01/24/24 12/17/21 (Xalatan) levothyroxine 50 mcg tablet 50 mcg PO QAM 01/12/20 01/24/24 01/01/22 07:40 (Levoxyl) metoprolol succinate 25 mg 25 mg PO QAM 01/12/20 01/24/24 01/01/22 07:40 tablet,extended release 24 hr (Toprol XL) thiamine HCl (vitamin B1) 100 mg 50 mg PO QAM 01/12/20 01/24/24 12/17/21 tablet (Vitamin B-1) timolol maleate 0.5 % eye drops 1 drp OPL QA 01/12/20 01/24/24 12/17/21 (Timoptic) ketoconazole 1 % shampoo 1 applic topical UD 12/13/21 01/24/24 Unknown amoxicillin 875 mg-potassium 1 tab PO BID #14 tabs 01/24/24 01/24/24 Unknown clavulanate 125 mg tablet sulfamethoxazole 800 1 tab PO BID 7 days #14 tabs 01/24/24 01/24/24 Unknown mg-trimethoprim 160 mg tablet (Bactrim DS) Active Medications Generic Name Dose Route Start Last Admin Trade Name Amaris PRN Reason Stop Dose Admin Allopurinol 200 mg 01/25/24 09:00 01/27/24 08:28 Allopurinol 100 Mg Tab PO 02/24/24 08:59 200 mg QAM RADHA Administration Aspirin 81 mg 01/25/24 09:00 01/26/24 07:55 Aspirin 81 Mg Ectab PO 02/24/24 08:59 81 mg QAM RADHA Administration Furosemide 20 mg 01/26/24 11:00 01/27/24 08:28 Furosemide Inj 20 Mg/2 Ml Vial IV 02/25/24 10:59 20 mg DAILY RADHA Administration Piperacillin Sod/Tazobactam 100 mls @ 25 mls/hr 01/25/24 02:00 01/27/24 07:31 Sod 4.5 gm/ Dextrose IV 02/01/24 01:59 Infused Q8H RADHA Infusion Protocol Vancomycin HCl 1,000 mg/ 270 mls @ 200 mls/hr 01/26/24 08:00 01/27/24 08:28 Sodium Chloride IV 02/02/24 07:59 200 mls/hr Q12H RADHA Administration Lactated Ringer's 1,000 mls @ 80 mls/hr 01/27/24 00:00 01/26/24 22:55 Lr IV 02/26/24 00:00 80 mls/hr .[id number] RADHA Administration Latanoprost 1 drops 01/25/24 21:00 01/26/24 20:30 Latanoprost 0.005% Op Soln 2.5 Ml Btl OPB 02/24/24 20:59 1 drops HS RADHA Administration Levothyroxine Sodium 50 mcg 01/25/24 06:30 01/27/24 05:56 Levothyroxine Sodium 50 Mcg Tablet PO 02/24/24 06:29 50 mcg DAILYBB RADHA Administration Metoprolol Succinate 25 mg 01/25/24 09:00 01/27/24 08:29 Metoprolol Succ 25mg Ext Rel Tab PO 02/24/24 08:59 25 mg QAM RADHA Administration Miscellaneous 1 each 01/25/24 08:00 01/27/24 07:23 Ketoconazole Shampoo - Order Awaiting Action N/A 02/24/24 07:59 Not Given QS RADHA Tamsulosin HCl 0.4 mg 01/25/24 21:00 01/26/24 21:23 Tamsulosin Hcl 0.4 Mg Cap PO 02/24/24 20:59 0.4 mg HS RADHA Administration Thiamine HCl 50 mg 01/25/24 09:00 01/27/24 08:29 Thiamine Hcl 50 Mg Tablet PO 02/24/24 08:59 50 mg QAM RADHA Administration Timolol Maleate 1 drops 01/25/24 09:00 01/27/24 08:29 Timolol Maleate 0.5% Op Soln 5 Ml Btl OPL 02/24/24 08:59 1 drops QAM RADHA Administration NPO Date Last Intake of Fluids: 01/26/24 Time Last Intake of Fluids: 23:00 Last Intake of Fluids Comment: 30 sip water for meds Date Last Intake of Solids: 01/26/24 Time Last Intake of Solids: 19:00 Past Medical History Medical History Sleep apnea Osteoarthritis TMJ click Rarely Increased pressure in the eye Does not yet meet criteria for glaucoma Exercise / Class Metabolic Activity II 4-5 Yardwork/Stairs/Walk up hill Past Family History Family History Other Coronary heart disease No family history of adverse response to anesthesia Past Surgical History Surgical History History of right cataract surgery S/P cholecystectomy History of arthroscopy of left knee History of transesophageal echocardiography (FLACO) History of colonoscopy History of ERCP H/O inguinal hernia repair BILAT History of arthroplasty of both knees Past Anesthesia History No Hx of Anesthesia Complications and No Family Hx of Anesthesia Complications History of PONV No Hx of PONV and No Hx of Motion Sickness Social History Smoking Status: Never smoker tobacco type: smokeless tobacco Do You Dip or Chew Tobacco: Yes (advised) Hx Alcohol Use: No Alcohol type: beer alcohol intake frequency: 0-2 drinks per day Hx Substance Use: No substance use type: does not use Physical Exam Vital Signs Last Vital Signs Temp 36.5 C 01/27/24 08:57 Pulse 73 01/27/24 08:57 Resp 20 01/27/24 08:57 BP 122/66 01/27/24 08:57 Pulse Ox 93 01/27/24 08:57 O2 Del Method Room Air 01/27/24 08:57 O2 Flow Rate 2 01/26/24 10:53 ENMT Mouth: no dentition abnormality Thyromental Distance: > or= 3.5 Finger Breadths Mallampati Class: II Neck normal visual inspection Respiratory normal respiratory effort Auscultation: lungs clear to auscultation bilaterally Cardiovascular Rate/Rhythm: regular rate and regular rhythm Psychiatric Orientation: alert Testing Laboratory Results 01/27/24 05:53 01/27/24 05:53 PT 13.0 Seconds (9.0-12.0) H 01/24/24 18:01 INR 1.2 (0.9-1.1) H 01/24/24 18:01 Hemoglobin A1c 5.9 % (4.5-5.6) H 01/25/24 06:36 Urine Color Dark Yellow 01/25/24 01:29 Urine Appearance Cloudy (Clear) A 01/25/24 01:29 Urine pH 5.0 (4.5-7.5) 01/25/24 01:29 Ur Specific [place] > 1.045 (1.000-1.030) H 01/25/24 01:29 Urine Protein 3+ (Negative) H 01/25/24 01:29 Urine Glucose (UA) Negative (Negative) 01/25/24 01:29 Urine Ketones Trace (Negative) H 01/25/24 01:29 Urine Nitrite Negative (Negative) 01/25/24 01:29 Ur Leukocyte Esterase 1+ (Negative) H 01/25/24 01:29 Urine WBC (Auto) 21-50 /hpf (0-5) H 01/25/24 01:29 Urine RBC (Auto) >20 /hpf (0-2) H 01/25/24 01:29 U Hyaline Cast (Auto) 3-5 /lpf (0-2) H 01/25/24 01:29 U Epithel Cells (Auto) 3-5 /hpf (0-2) H 01/25/24 01:29 Urine Bacteria (Auto) None Seen (None Seen) 01/25/24 01:29 01/24/24 18:57 Aerobic Blood Culture - Preliminary Blood No growth in Aerobic bottle after 48 hours. Anaerobic Blood Culture - Preliminary No growth in Anaerobic bottle after 48 hours. 01/24/24 18:57 Aerobic Blood Culture - Preliminary Blood No growth in Aerobic bottle after 48 hours. Anaerobic Blood Culture - Preliminary No growth in Anaerobic bottle after 48 hours. 01/24/24 13:58 Gram Stain - Final Foot,Left Wound Culture - Preliminary Group B Beta Strep 01/25/24 Unknown Urine Culture - Preliminary Urine,Clean Catch No growth - Less than 1,000 colonies/mL, Final report to follow.
--- NOTE | 2024-01-27 10:34 | Pharmacy Report ---
Pharmacy PK ABX Note - Date of Service January 27, 2024 - Assessment and Plan Assessment 01/26: Reviewed vancomycin level, predicting therapeutic AUC/YANG. No evidence of osteomyelitis per ankle MRI, likely cellulitis, abscess?. I&D today 01/24: 78 year old M receiving Vancomycin and Zosyn for treatment of left heel ulcer. * Day #2 of antimicrobial therapy. * Afebrile. No leukocytosis. SCr near baseline. * Blood and urine cultures pending. L foot culture growing Group B Strep. Plan Vancomycin * Loading dose: 1750 mg IV x 1 * Maintenance dose: 1000 mg IV every 12 hours * Regimen is predicted to achieve target AUC/YANG of 400-600 mg/L.hr * Reorder level if continued beyond 48 hours. Zosyn * 4.5 g IV every 8 hours Pharmacy will continue to follow and will adjust dose/frequency as necessary. Thank you. Pharmacy has transitioned to AUC monitoring for vancomycin. AUC/YANG is the preferred PK/PD target and is associated with decreased risk of nephrotoxicity compared to traditional trough targets.
[2024-01-27] MEDS: GENTAMICIN SULFATE 40 MG/ML 2 ML VIAL ONE (10:54)
[2024-01-27] MEDS: VANCOMYCIN HCL 1000MG/20ML VIAL ONE (10:54)
[2024-01-27] MEDS: BUPIVACAINE 0.5 % 5 MG/1 ML MPF 30ML VIAL ONE (11:31)
[2024-01-27] MEDS: LIDOCAINE 1%/EPINEPHRINE 1:100,000 50 ML VIAL ONE (11:32)
--- NOTE | 2024-01-27 11:41 | Post Operative Brief Note ---
Immediate Post Op Note Date of Surgery January 27, 2024 Pre & Post Diagnosis Operation Date: 01/27/24 09:35 Pre-Op Diagnosis: Left Heel Infected Ulcer Post-Op Diagnosis: Left Heel Infected Ulcer I identified the patient and participated in the time-out.: Yes Procedure Operation Date: 01/27/24 09:35 Actual Procedures p Left Heel Incision and Drainage, Placement of Wound Vac(Left) - Giles Avalos MD Surgeon Giles Avalos MD Operations Dispatcher DENIA Bonner PA-C (No fellow avail) Estimated Blood Loss 75 Findings Consistent with Post-Op Diagnosis Fluids 1000 cc Specimens L Heel Cx x 2 L Heel Ulcer skin & Soft Tissue for Pathology Drains Mcknight Catheter Anesthesia Type General Complications none
--- NOTE | 2024-01-27 11:41 | Operative Report ---
Post Operative Report Pre & Post Diagnosis Operation Date: 01/27/24 09:35 Pre-Op Diagnosis: Left Heel Infected Ulcer Post-Op Diagnosis: Left Heel Infected Ulcer I identified the patient and participated in the time-out.: Yes Procedure Operation Date: 01/27/24 09:35 Actual Procedures p Left Heel Incision and Drainage, Placement of Wound Vac(Left) - Giles Avalos MD Surgeon Giles Avalos MD Profile Saw Operator DENIA Bonner PA-C (No fellow avail) Estimated Blood Loss 75 Findings See Below Left Heel Ulcer with eschar and necrotic tissue beneath, measured 45 mm x 40 mm x 13 mm. There was larger area, around the previous described area where there was loss of the superficial skin with some other smaller deeper lesions. Fluids 1000 cc Specimens L Heel Cx x 2, L Heel Ulcer skin & Soft Tissue for Pathology Drains Mcknight Wound Vac Anesthesia Type General Complications none Indications The patient had chronic draining wound from there left heel that appears to be infected. The patient understands the risks of surgery, which include but are not limited to: bleeding, infection, re-operation, damage to nerves and arteries, continued pain and DVT. The patient understands all of these instructions and explanations, all of their questions have been satisfactorily addressed. The patient has elected to proceed with surgery and the informed consent was signed. Description of Procedure DENIA Bonner PA-C is assisting with positioning, I&D for retraction, placement of wound vac, due to fellow not available. Procedure The patient was taken to the Operating Room and placed in the lazy lateral position on the operating table. After general anesthetic was administered a multidisciplinary time-out was performed identifying my initials on the left limb as the correct and operative limb. Antibiotics were regime was continued as scheduled. The left leg was prepped and draped in the usual Orthopaedic sterile fashion. The edge of the patient's viable skin and planned incision were marked. The planned incision was injected with a 50:50 mixture of 1% lidocaine and 0.5 % Marcaine with epi for a total of 6 cc. The planned incision was carried from distal to the central portion of the necrotic eschar which was circumferentially excised with a scalpel and The superficial skin which had from the remained of the skin was also excised with scalpel. There was devitalized, necrotic soft tissue beneath the eschar. There was no floyd purulence, deep cultures were obtained. The non-viable skin, soft tissue down to the calcaneus and plantar fascia was removed with a combination of sharp dissection with the scalpel, curette, the Versajet, rongeur. The wound was copiously irrigated with 6L normal saline. Following irrigation and debridement there was healthy viable red beefy tissue that was bleeding. The adaptic was placed in the portion of the wound covering the calcaneus and plantar fascia. A small wound vac was placed in the standard fashion and held a seal immediately. The wound was limb was covered with sterile cast padding, and an HUBERT. The sponge and needle counts were correct. POST-OP: Patient will be re-admitted to the hospitalist service and continued on IV antibiotics. Will continue with wound vac which will be changed by Wound Care team M-W-F. TTWB. I attest to the content of the Intraoperative Record and any orders documented therein. Any exceptions are noted below.
--- NOTE | 2024-01-27 11:50 | Operative Report ---
Post Operative Report Pre & Post Diagnosis Operation Date: 01/27/24 09:35 Pre-Op Diagnosis: Left Heel Infected Ulcer Post-Op Diagnosis: Left Heel Infected Ulcer I identified the patient and participated in the time-out.: Yes Procedure Operation Date: 01/27/24 09:35 Actual Procedures p Left Heel Incision and Drainage, Placement of Wound Vac(Left) - Giles Avalos MD Surgeon Giles Avalos MD Associate Professor Of Forestry DENIA Bonner PA-C (No fellow avail) Estimated Blood Loss 75 Findings Consistent with Post-Op Diagnosis Specimens Left heel soft tissue Description of Procedure I was present during the entire case assisting with positioning, prepping, draping, wound retraction, dressing and wound vac placement. No fellow present. Please see Dr. Avalos procedure note for specifics of the case. I attest to the content of the Intraoperative Record and any orders documented therein. Any exceptions are noted below.
--- NOTE | 2024-01-27 13:15 | Anesthesiology Progress Note ---
Date of Service January 27, 2024 Anesthesia Post Procedure Vital Signs Vital Signs: Temp Pulse Pulse Pulse Resp BP BP 01/27/24 13:10 36.3 C L 65 21 123/63 01/27/24 12:55 53 L 19 128/70 01/27/24 12:40 62 15 129/68 01/27/24 12:30 70 15 118/65 01/27/24 12:20 36.5 C 65 16 122/68 01/27/24 12:10 66 16 120/65 01/27/24 12:00 65 19 117/66 01/27/24 11:51 36.6 C 66 17 121/64 01/27/24 08:57 36.5 C 73 20 122/66 01/27/24 08:24 36.4 C L 62 18 108/56 L 01/27/24 07:37 64 01/27/24 02:36 36.5 C 83 16 125/66 01/27/24 01:50 77 01/26/24 23:20 36.4 C L 78 16 122/63 01/26/24 22:31 01/26/24 20:13 36.9 C 86 18 132/70 01/26/24 15:04 36.4 C L 75 14 114/60 01/26/24 14:50 84 Pulse Ox O2 Del Method O2 Flow Rate 01/27/24 13:10 97 Nasal Cannula 01/27/24 12:55 97 Nasal Cannula 01/27/24 12:40 95 Room Air 01/27/24 12:30 95 Room Air 01/27/24 12:20 95 Room Air 01/27/24 12:10 95 Room Air 01/27/24 12:00 100 Oxymask 5 01/27/24 11:51 100 Oxymask 5 01/27/24 08:57 93 Room Air 01/27/24 08:24 93 Room Air 01/27/24 07:37 01/27/24 02:36 93 Room Air 01/27/24 01:50 01/26/24 23:20 92 Room Air 01/26/24 22:31 Room Air 01/26/24 20:13 90 Room Air 01/26/24 15:04 93 Room Air 01/26/24 14:50 Transfer of Care Handoff Completed per policy Notes Mental Status: alert / awake / arousable Patient Amnestic to Procedure: Yes Nausea / Vomiting: adequately controlled Pain: adequately controlled Airway Patency, RR, SpO2: stable & adequate BP & HR: stable & adequate Hydration State: stable & adequate Anesthetic Complications: no major complications apparent
--- NOTE | 2024-01-27 14:45 | Hospitalist Progress Note ---
Date of Service January 27, 2024 Assessment & Plan (1) Heel ulcer: (2) Rhabdomyolysis: (3) HTN (hypertension): (4) Hypothyroidism: (5) Hypothyroidism: Plan: 78-year-old male with past medical history significant for hypothyroidism, hyperlipidemia, prediabetes, idiopathic chronic gout of multiple sites, chronic diastolic CHF, hypertension, Hereditary and idiopathic peripheral neuropathy, anxiety related to change in role presents because of fall at home and also found to have rhabdomyolysis and left heel infection. Left foot infected ulcer: Acute Has been following with [facility] for a few weeks Duplex of the arteries shows moderate vasculopathy without focal vessel occlusion or stenosis Foot CT shows ulceration on left plantar posterior aspect. Venous duplex shows possible chronic region of thrombosis or wall thickening in the left medial femoral vein. No other thrombosis. MRI of the left foot without osteomyelitis. 1.4 cm pocket of fluid seen in the region of the wound. This could represent packing material. A small abscess is not excluded. Vascular saw patient this a.m. reportedly has mild to moderate occlusive disease with normal blood flow Continue IV antibiotics and await Ortho recommendations regarding surgical debridement Teds to also assist with swelling Wound culture is growing group B strep. POD # 0 s/p Left Heel Incision and Drainage and wound vac placement of L heel under the care of Dr. Avalos 01/26 follow up on blood culture; Group B Strep; on Zosyn; cont + Vanco for now Rhabdomyolysis: Acute secondary to mechanical fall CPK improving 3975-615 s/p fluids Repeat in AM to continue observing trend in right direction PT/OT to start 01/27 if able Acute on chronic diastolic heart failure Acute urinary retention Chronic Echocardiogram from January 2020 shows EF of 60 to 65% Chest x-ray personally reviewed; consistent with volume overload Will diuresis with IV Lasix daily Monitor urine output (01/25: -250 mL/24 hour period) Status post Mcknight Urology consulted; plan to do trial of void later in the hospitalization Elevated troponin: resolved. On admission; troponin 27; improved to 15. Likely demand ischemia Hypothyroidism: Chronic Continue Synthroid HLD: Chronic Takes atorvastatin; continue to hold until CPK levels are normalized Hypertension: chronic Takes metoprolol succinate; continue Gout: Chronic Takes allopurinol;continue Disposition: PCP: Dr. Kwok Code Status: Full VTE Prophylaxis: Teds/ SCDs for now Please note the above document was generated using voice recognition software. It may contain grammatical, syntax or spelling errors. Any formal questions or concerns about the content, text or information contained within the body of this dictation should be directly addressed to the provider for clarification I spent a total of 58 minutes coordinating, documenting, and providing care for this patient excluding time spent in the performance of separately billed services. All of the aforementioned completed while collaborating with the assigned attending physician for a full treatment plan. Please see their addendum for further details. Admission and Anticipated Discharge Date Admission Date: January 24, 2024 Supervising Physician Co-Signing Physician Notes Patient seen and examined independently. Discussed with above provider. Patient underwent wound debridement and wound VAC placement today by orthopedic He is doing well postoperatively; vitals are stable and pain is well-controlled Will follow-up on postop wound culture. Plan to treat for 7 days postoperatively depending on culture results. PT OT eval. Will likely need rehab at discharge I have reviewed the advanced practitioner's documentation, and I agree with, and take responsibility for the plan of care I spent a total of 20 minutes coordinating, documenting, and providing care for this patient excluding time spent in the performance of separately billed services. All of the aforementioned completed while collaborating with the assigned advanced practitioner for a full treatment plan Subjective Pt sitting in his hospital bed post operatively. He is in no apparent distress. he is s/p Left Heel Incision and Drainage and wound vac placement of L heel under the care of Dr. Avalos on 01/26 Pt is normotensive post op and tolerating a diet. Denies chest pain, SOB, palpitations, N/V/D, numbness, tingling in his left foot. Review of Systems Review of Systems: Neuro: (-) Falls, trauma, slurred speech HEENT: (-) GARG, dizziness, dysphagia, visual or auditory changes CV: (-) CP, palpitations, swelling Resp: (-) SOB GI: (-) appetite changes, N/V/D, bowel changes : (-) urinary changes Skin: (-) rashes Psych: (-) anxiety, depression Physical Exam Physical Exam: Neuro: AAOx4, PERRLA, no aphagia, memory changes, CNII-XII grossly intact HEENT: head normocephalic, moist mucus membranes CV: S1/S2, (-) M/G/R, (-) edema, cap refill < 3 seconds Resp: Lungs CTA in all sanchez. On RA GI: Abdomen S/NT/ND, Ax4 bowel sounds, (-) CVA tenderness Musculoskeletal: 5/5 B/L UE strength, 5/5 B/L LE strength. No gait disturbance Skin: (-) rashes , LLE with ulcer that underwent debridement today. Wound vac in place with seroussangenous drainage. Psych: euthymic mood Results & Data Results & Data Vital Signs (Past 12 Hours) Vital Signs Temp Pulse Pulse Pulse Resp BP BP 01/27/24 13:54 36.4 C L 63 18 131/71 01/27/24 13:30 36.4 C L 66 16 123/64 01/27/24 13:10 36.3 C L 65 21 123/63 01/27/24 12:55 53 L 19 128/70 01/27/24 12:40 62 15 129/68 01/27/24 12:30 70 15 118/65 01/27/24 12:20 36.5 C 65 16 122/68 01/27/24 12:10 66 16 120/65 01/27/24 12:00 65 19 117/66 01/27/24 11:51 36.6 C 66 17 121/64 01/27/24 08:57 36.5 C 73 20 122/66 01/27/24 08:30 01/27/24 08:24 36.4 C L 62 18 108/56 L 01/27/24 07:37 64 Pulse Ox O2 Del Method O2 Flow Rate 01/27/24 13:54 96 Nasal Cannula 2 01/27/24 13:30 95 Nasal Cannula 2 01/27/24 13:10 97 Nasal Cannula 01/27/24 12:55 97 Nasal Cannula 01/27/24 12:40 95 Room Air 01/27/24 12:30 95 Room Air 01/27/24 12:20 95 Room Air 01/27/24 12:10 95 Room Air 01/27/24 12:00 100 Oxymask 5 01/27/24 11:51 100 Oxymask 5 01/27/24 08:57 93 Room Air 01/27/24 08:30 Room Air 01/27/24 08:24 93 Room Air 01/27/24 07:37 Laboratory Results Short CBC 01/27/24 Range/Units 05:53 WBC 5.17 (4.8-10.8) K/ul Hgb 9.9 L (14.0-18.0) g/dl Hct 29.5 L (42.0-52.0) % Plt Count 212 (130-400) K/uL BMP 01/27/24 05:53 Sodium 135 L Potassium 3.6 Chloride 104 Carbon Dioxide 26 BUN 27 H Creatinine 0.87 Glucose 100 H Calcium 7.4 L (1) Heel ulcer Laterality: left Non-pressure ulcer stage: unspecified non-pressure ulcer stage Qualified Code(s): L97.429 - Non-pressure chronic ulcer of left heel and midfoot with unspecified severity (2) Rhabdomyolysis Encounter type: initial encounter Rhabdomyolysis type: traumatic Qualified Code(s): T79.6XXA - Traumatic ischemia of muscle, initial encounter
[2024-01-27] MEDS ORDERED: Nursing to Pharmacy Communication SCH (16:00)
[2024-01-27] MEDS ORDERED: SULFAMETHOXAZOLE/TRIMETHOPRIM DS 800/160MG TAB PO SCH (21:00)
[2024-01-27] MEDS ORDERED: AMOXICILLIN/CLAVULANATE 875 MG TAB PO SCH (21:00)
[2024-01-28 07:15] LABS: Basophils # (auto) 0.01 K/uL (0.00-0.20); Basophils % (auto) 0.2 %; Eosinophils # (auto) 0.01 K/uL (0.00-0.50); Eosinophils % (auto) 0.2 %; Hematocrit (blood only) 28.1 % (42.0-52.0); Hemoglobin 9.4 g/dl (14.0-18.0); Immature Granulocytes # (auto) 0.03 K/uL (0.01-0.20); Immature Granulocytes % (auto) 0.5 %; Lymphocytes # (auto) 0.78 K/uL (1.20-3.40); Lymphocytes % (auto) 13.2 %; Mean Corpuscular Hemoglobin 31.9 pg (25.0-34.0); Mean Corpuscular Hgb Conc 33.5 g/dL (32.0-36.0); Mean Corpuscular Volume 95.3 fL (80.0-100.0); Mean Platelet Volume 8.8 fL (9.4-12.4); Monocytes # (auto) 0.44 K/uL (0.11-0.59); Monocytes % (auto) 7.5 %; Neutrophils # (auto) 4.62 K/uL (1.40-6.50); Neutrophils % (auto) 78.4 %; Platelet Count 193 K/uL (130-400); RDW Coefficient of Variation 12.9 % (11.5-14.5); RDW Standard Deviation 44.7 fL (36.4-46.3); Red Blood Count 2.95 M/uL (4.70-6.10); White Blood Count 5.89 K/ul (4.8-10.8)
[2024-01-28 07:23] LABS: BUN Creatinine Ratio 24.7 (10-20); C Reactive Protein 5.49 mg/dl (0-0.5); Calcium 7.5 mg/dl (8.6-10.3); Creatinine Clr Calc Pharmacy 66.4 ml/min; Est GFR (African American) 85.7 ml/min; Est GFR (Non-African American) 73.9 ml/min; Potassium 4.1 mmol/L (3.5-5.1)
[2024-01-28] MEDS: ATORVASTATIN 20 MG TAB PO SCH (08:09)
--- NOTE | 2024-01-28 09:57 | Orthopedic Progress Note ---
Date of Service January 28, 2024 Assessment & Plan (1) Heel ulcer: Plan: IMPRESSION: POD #1 s/p I&D Left Heel Ulcer; no bone involvement, moderate vasculopathy PLAN: Resume diet Wound care consult, for wound vac change -- LLE TTWB Continue pain control Continue antibiotics: Group B Strep; on Zosyn; cont + Vanco Weekly CBC, ESR, CRP Continue care per primary service Will continue to follow. Admission and Anticipated Discharge Date Admission Date: January 24, 2024 Subjective No Complaints Physical Exam Physical Exam: LLE:+ Swelling/pitting edema. Sensation diminished unchanged. BCR < 2 sec. Wiggling toes. Wound vac in place functioning, with minimal drainage. Results & Data Vital Signs (Past 12 Hours) Vital Signs Temp Pulse Pulse Resp BP BP Pulse Ox 01/28/24 07:43 36.3 C L 54 L 16 104/39 L 94 01/28/24 07:40 53 L 01/28/24 03:39 36.3 C L 66 16 115/53 L 94 01/27/24 22:52 65 01/27/24 21:52 36.4 C L 75 16 110/54 L 95 O2 Del Method O2 Flow Rate 01/28/24 07:43 Nasal Cannula 2 01/28/24 07:40 01/28/24 03:39 Nasal Cannula 2 01/27/24 22:52 01/27/24 21:52 Nasal Cannula 2 Laboratory Results 01/28/24 Range/Units 06:13 WBC 5.89 (4.8-10.8) K/ul RBC 2.95 L (4.70-6.10) M/uL Hgb 9.4 L (14.0-18.0) g/dl Hct 28.1 L (42.0-52.0) % MCV 95.3 (80.0-100.0) fL MCH 31.9 (25.0-34.0) pg MCHC 33.5 (32.0-36.0) g/dL RDW Std Deviation 44.7 (36.4-46.3) fL RDW Coeff of Christopher 12.9 (11.5-14.5) % Plt Count 193 (130-400) K/uL MPV 8.8 L (9.4-12.4) fL Immature Gran % (Auto) 0.5 % Neut % (Auto) 78.4 % Lymph % (Auto) 13.2 % [place] % (Auto) 7.5 % Eos % (Auto) 0.2 % Baso % (Auto) 0.2 % Neut # (Auto) 4.62 (1.40-6.50) K/uL Lymph # (Auto) 0.78 L (1.20-3.40) K/uL [place] # (Auto) 0.44 (0.11-0.59) K/uL Eos # (Auto) 0.01 (0.00-0.50) K/uL Baso # (Auto) 0.01 (0.00-0.20) K/uL Immature Gran # (Auto) 0.03 (0.01-0.20) K/uL Sodium 135 L (136-145) mmol/L Potassium 4.1 (3.5-5.1) mmol/L Chloride 102 (98-107) mmol/L Carbon Dioxide 28 (21-32) mmol/L Anion Gap 5 (3-11) BUN 24 H (6-23) mg/dl Creatinine 0.97 (0.6-1.4) mg/dl Est Cr Clr Drug Dosing 66.4 ml/min Est GFR ( Amer) 85.7 ml/min Est GFR (Non-Af Amer) 73.9 ml/min BUN/Creatinine Ratio 24.7 H (10-20) Glucose 120 H (70-99(Fasting)) mg/dl Calcium 7.5 L (8.6-10.3) mg/dl Total Creatine Kinase 203 (30-223) U/L C-Reactive Protein 5.49 H (0-0.5) mg/dl Nurse reported that wound Cx showed MRSA. (1) Heel ulcer Laterality: left Non-pressure ulcer stage: unspecified non-pressure ulcer stage Qualified Code(s): L97.429 - Non-pressure chronic ulcer of left heel and midfoot with unspecified severity
--- NOTE | 2024-01-28 13:05 | Hospitalist Progress Note ---
Date of Service January 28, 2024 Assessment & Plan (1) Heel ulcer: (2) Rhabdomyolysis: (3) HTN (hypertension): (4) Hypothyroidism: (5) Hypothyroidism: Plan: 78-year-old male with past medical history significant for hypothyroidism, hyperlipidemia, prediabetes, idiopathic chronic gout of multiple sites, chronic diastolic CHF, hypertension, Hereditary and idiopathic peripheral neuropathy, anxiety related to change in role presents because of fall at home and also found to have rhabdomyolysis and left heel infection. Left foot infected ulcer: Acute Has been following with [facility] for a few weeks Duplex of the arteries shows moderate vasculopathy without focal vessel occlusion or stenosis Foot CT shows ulceration on left plantar posterior aspect. Venous duplex shows possible chronic region of thrombosis or wall thickening in the left medial femoral vein. No other thrombosis. MRI of the left foot without osteomyelitis. 1.4 cm pocket of fluid seen in the region of the wound. This could represent packing material. A small abscess is not excluded. Vascular saw patient this a.m. reportedly has mild to moderate occlusive disease with normal blood flow Continue IV antibiotics and await Ortho recommendations regarding surgical debridement Teds to also assist with swelling Wound culture is growing group B strep. POD # 1 s/p Left Heel Incision and Drainage and wound vac placement of L heel under the care of Dr. Avalos 01/26 Wound vac M-W- LLE TTWB Weekly CBC, ESR, CRP follow up on blood culture; Group B Strep and MRSA; on Vanco and zosyn contact precautions consult infectious disease for antibiotic recommendations Rhabdomyolysis: Acute secondary to mechanical fall CPK 3900, now normalized Acute on chronic diastolic heart failure Chronic Echocardiogram from January 2020 shows EF of 60 to 65% CXR with volume overload, congestion Continue IV lasix monitor intake and output, daily weight pt still examines as volume overload Acute urinary retention Urology consulted; plan to do trial of void later in the hospitalization flomax started, pimentel in place Elevated troponin: resolved. On admission; troponin 27; improved to 15. Likely demand ischemia Hypothyroidism: Chronic Continue Synthroid HLD: Chronic Takes atorvastatin; will resume Hypertension: chronic Takes metoprolol succinate; continue Gout: Chronic Takes allopurinol;continue Disposition: PT/OT recs reviewed, awaiting infectious disease consultation, pt likely to need rehab, continue tele monitoring while treating acute chf PCP: Dr. Kwok Code Status: Full VTE Prophylaxis: SQ Lovenox Pt was seen and examined in collaboration with Dr. Reyes, please see addendum I spent a total of 46 minutes coordinating, documenting, and providing care for this patient excluding time spent in the performance of separately billed services. All of the aforementioned completed while collaborating with the assigned attending physician for a full treatment plan. Please see their addendum for further details. Admission and Anticipated Discharge Date Admission Date: January 24, 2024 Supervising Physician Co-Signing Physician Notes Patient seen and examined independently. Discussed with above provider. Patient underwent wound debridement and wound VAC placement 12/26 by orthopedic. c/w angelina and marce. He is doing well postoperatively; vitals are stable and pain is well-controlled Will follow-up on postop wound culture. Final antibiotics TBD. PT OT eval. Will likely need rehab at discharge I have reviewed the advanced practitioner's documentation, and I agree with, and take responsibility for the plan of care I spent a total of 20 minutes coordinating, documenting, and providing care for this patient excluding time spent in the performance of separately billed services. All of the aforementioned completed while collaborating with the assigned advanced practitioner for a full treatment plan Subjective Pt was seen in room 284-2. F/U L foot wound. He denies any pain. He feels he may need to have a bowel movement. He was passing gas. He denies f/c/s, chest pain, sob, n/v/d. Review of Systems Review of Systems: All systems reviewed & are unremarkable except as noted in HPI & below Physical Exam Physical Exam: Gen: Elderly, Chronically ill M, NAD, A&O x3 to basics HEENT: Normocephalic, atraumatic, conjunctivae moist, sclerae anicteric, mucous membranes moist. Lung: Clear to Auscultation bilaterally, no wheezes/rales/rhonchi Heart: Regular rate, regular rhythm, no murmurs, rubs, or gallops Abdomen: Soft, NT, ND +BS x 4 Extremities: wound vac L heel, LLE dressing/splint in place, b/l lower extremity edema Skin: Warm, no rash, negative turgor. Results & Data Results & Data Vital Signs (Past 12 Hours) Vital Signs Temp Pulse Pulse Resp BP BP Pulse Ox 01/28/24 11:35 36.4 C L 53 L 16 90/44 L 93 01/28/24 09:15 01/28/24 07:43 36.3 C L 54 L 16 104/39 L 94 01/28/24 07:40 53 L 01/28/24 03:39 36.3 C L 66 16 115/53 L 94 O2 Del Method O2 Flow Rate 01/28/24 11:35 Room Air 01/28/24 09:15 Room Air 01/28/24 07:43 Nasal Cannula 2 01/28/24 07:40 01/28/24 03:39 Nasal Cannula 2 Medications Administered Current Inpatient Medications Acetaminophen (Acetaminophen 325 Mg Tab) 650 mg PO Q4H PRN PRN Reason: Pain or Fever Stop: 02/24/24 00:27 Allopurinol ([facility] 100 Mg Tab) [facility] [place] Stop: 02/24/24 08:59 Last Admin: 01/28/24 08:09 Dose: 200 mg Aspirin (Aspirin 81 Mg Ectab) [facility] [place] Stop: 02/24/24 08:59 Last Admin: 01/28/24 08:09 Dose: 81 mg Atorvastatin Calcium (Atorvastatin 20 Mg Tab) [facility] [place] Stop: 02/27/24 08:59 Last Admin: 01/28/24 08:09 Dose: 20 mg Furosemide (Furosemide Inj 20 Mg/2 Ml Vial) 20 mg IV DAILY [facility] Stop: 02/25/24 10:59 Last Admin: 01/28/24 08:10 Dose: 20 mg Piperacillin Sod/Tazobactam (Sod 4.5 gm/ Dextrose) 100 mls @ 25 mls/hr IV Q8H [facility]; Protocol Stop: 02/01/24 01:59 Last Infusion: 01/28/24 09:47 Dose: Infused Vancomycin HCl 1,000 mg/ (Sodium Chloride) 270 mls @ 200 mls/hr IV Q12H [facility] Stop: 02/02/24 07:59 Last Infusion: 01/28/24 09:47 Dose: Infused Latanoprost (Latanoprost 0.005% Op Soln 2.5 Ml Btl) 1 drops OPB HS [facility] Stop: 02/24/24 20:59 Last Admin: 01/27/24 20:38 Dose: 1 drops Levothyroxine Sodium (Levothyroxine Sodium 50 Mcg Tablet) 50 mcg PO DAILYBB [facility] Stop: 02/24/24 06:29 Last Admin: 01/28/24 05:15 Dose: 50 mcg Metoprolol Succinate (Metoprolol Succ 25mg Ext Rel Tab) 25 mg PO QAM [facility] Stop: 02/24/24 08:59 Last Admin: 01/28/24 08:10 Dose: Not Given Miscellaneous (Ketoconazole Shampoo - Order Awaiting Action) 1 each N/A QS [facility] Stop: 02/24/24 07:59 Last Admin: 01/28/24 07:09 Dose: Not Given Miscellaneous Information (Vancomycin Consult Active) 1 each N/A UD PRN PRN Reason: Consult Stop: 02/24/24 00:27 Nitroglycerin (Nitroglycerin Sl 0.4 Mg/Tab Tab) 0.4 mg SL Q5M PRN PRN Reason: Chest Pain Stop: 02/24/24 00:27 Polyethylene Glycol (Polyethylene (Miralax) 17 Gm Pack) 17 gm PO DAILY PRN PRN Reason: Constipation Stop: 02/24/24 00:27 Tamsulosin HCl (Tamsulosin Hcl 0.4 Mg Cap) 0.4 mg PO HS [facility] Stop: 02/24/24 20:59 Last Admin: 01/27/24 20:38 Dose: 0.4 mg Thiamine HCl (Thiamine Hcl 50 Mg Tablet) 50 mg PO QAM [facility] Stop: 02/24/24 08:59 Last Admin: 01/28/24 08:09 Dose: 50 mg Timolol Maleate (Timolol Maleate 0.5% Op Soln 5 Ml Btl) 1 drops OPL [facility] Stop: 02/24/24 08:59 Last Admin: 01/28/24 08:09 Dose: 1 drops (1) Heel ulcer Laterality: left Non-pressure ulcer stage: unspecified non-pressure ulcer stage Qualified Code(s): L97.429 - Non-pressure chronic ulcer of left heel and midfoot with unspecified severity (2) Rhabdomyolysis Encounter type: initial encounter Rhabdomyolysis type: traumatic Qualified Code(s): T79.6XXA - Traumatic ischemia of muscle, initial encounter
[2024-01-28] MEDS: ENOXAPARIN INJ 40 MG/0.4 ML SYR SQ SCH (19:39)
[2024-01-29 07:08] LABS: Basophils # (auto) 0.01 K/uL (0.00-0.20); Basophils % (auto) 0.2 %; Eosinophils # (auto) 0.16 K/uL (0.00-0.50); Hematocrit (blood only) 29.1 % (42.0-52.0); Hemoglobin 9.4 g/dl (14.0-18.0); Immature Granulocytes # (auto) 0.06 K/uL (0.01-0.20); Immature Granulocytes % (auto) 1.1 %; Lymphocytes # (auto) 0.96 K/uL (1.20-3.40); Lymphocytes % (auto) 18.3 %; Mean Corpuscular Hemoglobin 30.6 pg (25.0-34.0); Mean Corpuscular Hgb Conc 32.3 g/dL (32.0-36.0); Mean Corpuscular Volume 94.8 fL (80.0-100.0); Mean Platelet Volume 8.8 fL (9.4-12.4); Monocytes % (auto) 9.5 %; Neutrophils # (auto) 3.57 K/uL (1.40-6.50); Neutrophils % (auto) 67.9 %; Platelet Count 217 K/uL (130-400); RDW Coefficient of Variation 13.2 % (11.5-14.5); Red Blood Count 3.07 M/uL (4.70-6.10); White Blood Count 5.26 K/ul (4.8-10.8)
[2024-01-29 07:28] LABS: Calcium 7.6 mg/dl (8.6-10.3); Creatinine Clr Calc Pharmacy 64.4 ml/min; Est GFR (African American) 82.6 ml/min; Est GFR (Non-African American) 71.3 ml/min
--- NOTE | 2024-01-29 09:29 | Orthopedic Progress Note ---
Date of Service January 29, 2024 Assessment & Plan (1) Heel ulcer: Plan: The patient was educated regarding today's findings. Conservative care measures were discussed. His wound VAC will be changed tomorrow. Switch to WBAT through heel with post op shoe on the left leg for now. He will be reassessed tomorrow. Continue his IV antibiotics. I concur with the hospitalist service plan of using Lovenox for DVT prophylaxis given his sedentary status. Admission and Anticipated Discharge Date Admission Date: January 24, 2024 Supervising Physician Co-Signing Physician Notes I, Dr. Avalos, saw and examined the patient. I discussed the management with my PA. I reviewed my PAs note and agree with the documented findings and attest to completing the substantive portion of medical decision making and plan of care I developed. Subjective This 78-year-old male seen today in his room. He is 2 days status post left heel I&D with wound VAC application. He denies any chest pain, shortness of breath, nausea, vomiting, or chest pain. He states his heel does not hurt. He is wondering when he can start bearing weight. Hospitalist service is in the room at the same time and has evaluated him this morning. No other complaints. Physical Exam Physical Exam: General: Well-developed, well-nourished, elderly male, in no acute distress. Laying in bed. Alert and oriented. Conversive. Skin: Warm and dry with good turgor. No rashes. Postsurgical dressing is in place on the left lower leg. It was not removed. He has an intact wound VAC that is putting out a very small amount of bloody drainage. Musculoskeletal: The patient has intact motor function of all of his toes of the left foot. Intact motor function of his left hip and knee as well. Ankle motion was not assessed secondary to his dressing and wound VAC placement. Neurologic: Gross sensation is intact across each of the toes of the left foot. Dorsalis pedis pulse is 2+. Results & Data Vital Signs (Past 12 Hours) Vital Signs Temp Pulse Pulse Resp BP BP Pulse Ox 01/29/24 06:33 36.3 C L 57 L 18 129/64 92 01/28/24 23:20 36.4 C L 64 18 107/58 L 93 01/28/24 22:28 56 L O2 Del Method O2 Flow Rate 01/29/24 06:33 Nasal Cannula 2 01/28/24 23:20 Room Air 01/28/24 22:28 Laboratory Results CBC obtained this morning shows a white count of 5.26. H&H of 9.4 and 29.1. This is stable. Platelets 217,000. BUN of 26 with creatinine 1.0. Glucose this morning is stable at 93. (1) Heel ulcer Laterality: left Non-pressure ulcer stage: unspecified non-pressure ulcer stage Qualified Code(s): L97.429 - Non-pressure chronic ulcer of left heel and midfoot with unspecified severity
--- NOTE | 2024-01-29 10:30 | XRay Report ---
SINGLE VIEW CHEST CLINICAL HISTORY: Congestive heart failure. FINDINGS: An AP, portable, upright chest radiograph is compared to study dated 01/25/2024. The heart i s enlarged noting atherosclerotic calcification of the thoracic aorta. Pulmonary vascular congestion persists. There are small pleural effusions with bibasilar consolidation. There are increasing airspa ce opacities in the upper lobes, right greater than left. No pneumothorax is seen. The skeletal struc tures are osteopenic. The bony thorax is grossly intact. Cholecystectomy clips are seen in the right upper quadrant. IMPRESSION: 1. Cardiomegaly with persistent pulmonary vascular congestion. . 2. Small pleural effusions with dependent consolidation. There are also increasing airspace opacities in the upper lobes. This likely represents pulmonary edema. Correlate clinically for evidence of a s uperimposed pneumonia/aspiration noticed. Radiographic follow up to resolution is recommended. ACT 112: Negative or not required by law. Electronically signed by: Cash Kolb M.D. 01/29/2024 10:28 AM
--- NOTE | 2024-01-29 12:02 | Cardiology Consultation ---
Date of Consultation January 29, 2024 Assessment & Plan (1) Acute on chronic diastolic HF (heart failure): (2) Cellulitis of foot, left: (3) Rhabdomyolysis: (4) Urinary retention: Plan IMPRESSION: 78-year-old male admitted for rhabdomyolysis following a mechanical fall. Consistently found to have a left heel ulcer and debridement and wound VAC placement with orthopedics on 01/27/2024. Known chronic diastolic CHF with acute exacerbation. PLAN: Acute on chronic diastolic CHF: Patient remains hypervolemic on exam likely in the setting IV fluid and IV antibiotic use this admission. Recommend ongoing diuresis with IV Lasix, given low blood pressures and with a Mcknight in place will proceed with IV Lasix 20 mg QID Hospitalist service working with ID to adjust antibiotics to reduce fluid intake. BMP in the am. Maintain K goal of 4.0 and mag goal of 2.0 Echocardiogram pending 2g sodium diet restriction. Daily standing weights. Strict I's/O. CHF education. Wean o2 as tolerated. Rhabdomyolysis: Acute; secondary to mechanical fall CPK 3900, now normalized Cellulitis of the Left foot: Wound vac in place; receiving IV abx. Will defer to surgical team and h ospitalist service for management. Urinary retention: Following with urology. Mcknight in place. On Flomax Case discussed with Dr. Rob. Further recommendations pending assessment. I spent a total of 60 minutes on the date of service in preparation, delivery, and documentation of the care provided to the patient excluding any time spent in the performance of separately billed services. STEW Addison Department of Cardiology, [facility] This chart was completed in part utilizing Speech Voice Recognition Software. Grammatical errors, random word insertions, pronoun errors, and incomplete sentences are an occasional consequence of this system due to software limitations, ambient noise, and hardware issues. Any formal questions or concerns about the content, text, or information contained within the body of this dictation should be directly addressed to the provider for clarification. Supervising Physician Co-Signing Physician Notes Attending attestation: Case reviewed with the advanced practitioner. I have personally performed a history and physical examination on the patient. I have reviewed the advanced practitioner's documentation on the date of service referenced in note, and I agree with, and take responsibility for the plan of care. Subjective: Patient sitting up, pulse oximetry 92% on room air during my assessment. 1+ right lower extremity edema, left lower leg wrapped in an John bandage. Exam: Mildly decreased breath sounds bilaterally at the bases Data: Chest x-ray with interstitial edema, small left pleural effusion Impression/ Plan: Acute heart failure (likely with preserved ejection fraction based on history, repeat echo pending) with iatrogenic volume overload having received IV fluids on admission and subsequent treatment with 2 IV antibiotics Mcknight catheter already in place due to urinary retention. -Increase furosemide 20 mg IV daily to 20 mg IV 4 times daily -Repeat echocardiogram has been requested and will be reviewed. I spent a total of 20 minutes coordinating, documenting, and providing care for this patient excluding time spent in the performance of separately billed services or time spent by another provider. Derick Rob DO History of Present Illness Reason for Consultation: CHF Requesting Physician: Hawk montanaist Attending Physician: Bernie Reyes MD History of Present Illness 78-year-old male who initially presented to [facility] emergency department on 01/24/2024 after suffering a mechanical fall at home while getting out of his car. Patient was unable to get up off the floor and laid on the floor overnight. In the morning he was able to crawl to his door and call EMS. Patient found to have rhabdomyolysis with a CPK of 3975. Incidentally found to have a left heel ulcer and has been treated with antibiotics. MRI of the foot showed cellulitis without evidence of ost eomyelitis. Underwent debridement and wound VAC placement on 01/27/[address] Avalos (ortho). Vascular surgery was consulted and he was found to have mild to moderate occlusive disease of the left lower extremity. No intervention was recommended. During hospitalization he has been having difficulty with urinary retention. Urology consulted. Patient was started on Flomax and Mcknight catheter was placed. Patient appeared hypervolemic on exam with evidence of pulmonary edema and small bilateral pleural effusions on chest x-ray. Was started on IV Lasix 40 mg daily on 01/27/2024. Cardiology consulted for volume management. 01/29/2024: TELE: /SB 50-60s I/O: +3L Weight: 85 kg >> 86.2kg >>76 kg Echo: PENDING* Upon entrance into the room patient resting in the chair. Subjectively has no concerns. Notes some mild dyspnea with exertion but none at rest. Denies orthopnea or PND. + BLLE pitting edema. Wearing o2, sats in the mid to upper 90s at rest, but drops into the mid 70s per nursing. Does not normally wear o2 at home. No palpitations, dizziness, syncope or near syncope. No fever, chills, cough, hematochezia, melena, or hemoptysis. Outpatient cardiac medications include: Atorvastatin 20 mg daily Furosemide 20 mg twice per week Aspirin 81 mg daily Past medical history: Hypertensive heart disease with chronic diastolic CHF Hyperlipidemia Type 2 diabetes Hereditary idiopathic peripheral neuropathy Gout Hypothyroidism Allergies Allergy/AdvReac Type Severity Reaction Status Date / Time niacin AdvReac Intermediate FLUSH Verified 01/24/24 21:54 Home Medications Medication Instructions Recorded Confirmed Type allopurinol 100 mg tablet 200 mg PO QAM 01/12/20 01/24/24 History (Zyloprim) aspirin 81 mg tablet,delayed 81 mg PO QAM 01/12/20 01/24/24 History release (Aspir-) atorvastatin 20 mg tablet (Lipitor) 20 mg PO QAM 01/12/20 01/24/24 History furosemide 20 mg tablet (Lasix) 20 mg PO Q OTHER DAY 01/12/20 01/24/24 History latanoprost 0.005 % eye drops 1 drp OPB HS 01/12/20 01/24/24 History (Xalatan) levothyroxine 50 mcg tablet 50 mcg PO QAM 01/12/20 01/24/24 History (Levoxyl) metoprolol succinate 25 mg 25 mg PO QAM 01/12/20 01/24/24 History tablet,extended release 24 hr (Toprol XL) thiamine HCl (vitamin B1) 100 mg 50 mg PO QAM 01/12/20 01/24/24 History tablet (Vitamin B-1) timolol maleate 0.5 % eye drops 1 drp OPL QAM 01/12/20 01/24/24 History (Timoptic) ketoconazole 1 % shampoo 1 applic topical UD 12/13/21 01/24/24 History amoxicillin 875 mg-potassium 1 tab PO BID #14 tabs 01/24/24 01/24/24 Rx clavulanate 125 mg tablet sulfamethoxazole 800 1 tab PO BID 7 days #14 tabs 01/24/24 01/24/24 Rx mg-trimethoprim 160 mg tablet (Bactrim DS) Patient History Medical History Sleep apnea Osteoarthritis TMJ click Rarely Increased pressure in the eye Does not yet meet criteria for glaucoma Surgical History History of right cataract surgery S/P cholecystectomy History of arthroscopy of left knee History of transesophageal echocardiography (FLACO) History of colonoscopy History of ERCP H/O inguinal hernia repair BILAT History of arthroplasty of both knees Family History Other Coronary heart disease No family history of adverse response to anesthesia Social History Smoking Status: Never smoker Second Hand Exposure: No; Do You Dip or Chew Tobacco: Yes (advised); Hx Alcohol Use: No Hx Substance Use: No Preferred Language: Lithuanian Communication Ability: Effective Charity Fundraiser Required: No Beliefs That Will Affect Care: None Current Living Situation: Spouse Current Living Situation Comment: Other Information That Helps Us Care for You: No Feels Safe at Home: Yes Safety Concerns: Feels Safe At This Time Assistive Devices: Cane, Crutches and Walker Review of Systems Review of Systems: All systems reviewed & are unremarkable except as noted in HPI & below Physical Exam Constitutional: well developed, well nourished and + ill appearing; no acute distress Eyes: PERRL, conjunctivae normal, anicteric sclerae ENMT: external ear and nose normal, oropharynx normal Neck: normal visual inspection and trachea midline Respiratory: normal respiratory effort and + cough; no respiratory distress Auscultation: + rales; no rhonchi and no wheezes Cardiovascular: Rate/Rhythm: regular rate and regular rhythm Heart Sounds: normal S1 and normal S2; no murmur Extremities: + edema (+3 BLLE pitting edema ) Neurologic: PERRL, EOMI, accommodation nl, no face palsy, no dysarthria Psychiatric: A+Ox3, euthymic affect Results & Data Vital Signs (Past 12 Hours) Vital Signs Temp Pulse Pulse Resp BP BP Pulse Ox 01/29/24 11:33 36.5 C 67 18 111/64 98 01/29/24 11:15 62 01/29/24 06:33 36.3 C L 57 L 18 129/64 92 O2 Del Method O2 Flow Rate 01/29/24 11:33 Nasal Cannula 2.5 01/29/24 11:15 01/29/24 06:33 Nasal Cannula 2 Laboratory Results CBC 01/29/24 Range/Units 06:29 WBC 5.26 (4.8-10.8) K/ul RBC 3.07 L (4.70-6.10) M/uL Hgb 9.4 L (14.0-18.0) g/dl Hct 29.1 L (42.0-52.0) % Plt Count 217 (130-400) K/uL Neut # (Auto) 3.57 (1.40-6.50) K/uL Lymph # (Auto) 0.96 L (1.20-3.40) K/uL Dixon # (Auto) 0.50 (0.11-0.59) K/uL Eos # (Auto) 0.16 (0.00-0.50) K/uL Baso # (Auto) 0.01 (0.00-0.20) K/uL Comprehensive Metabolic Panel 01/29/24 Range/Units 06:29 Sodium 135 L (136-145) mmol/L Potassium 4.0 (3.5-5.1) mmol/L Chloride 103 (98-107) mmol/L Carbon Dioxide 28 (21-32) mmol/L BUN 26 H (6-23) mg/dl Creatinine 1.00 (0.6-1.4) mg/dl Glucose 93 (70-99(Fasting)) mg/dl Calcium 7.6 L (8.6-10.3) mg/dl Intake and Output 01/28/24 01/29/24 01/29/24 22:59 06:59 14:59 Intake Total 370 / 1320 100 / 1320 370 / 370 Output Total 700 / 1300 Balance 370 / 20 -600 / 20 370 / 370 Intake: IV 370 / 840 100 / 840 370 / 370 Piperacillin/Tazobactam 4.5 gm 100 / 300 100 / 300 100 / 100 In Dextrose 5% Mini-B 100 ml @ 25 mls/hr IV Q8H [facility] Rx#: [id number] Vancomycin HCl 1,000 mg In 270 / 540 270 / 270 Sodium Chloride 0.9% 250 ml @ 200 mls/hr IV Q12H [facility] Rx#: [id number] Output: Urine Amount (Catheter) 700 / 1300 Mcknight/Indwelling 700 / 1300 (3) Rhabdomyolysis Encounter type: initial encounter Rhabdomyolysis type: traumatic Qualified Code(s): T79.6XXA - Traumatic ischemia of muscle, initial encounter
--- NOTE | 2024-01-29 13:50 | Hospitalist Progress Note ---
Date of Service January 29, 2024 Assessment & Plan (1) Heel ulcer: (2) Rhabdomyolysis: (3) HTN (hypertension): (4) Hypothyroidism: (5) Hypothyroidism: Plan: 78-year-old male with past medical history significant for hypothyroidism, hyperlipidemia, prediabetes, idiopathic chronic gout of multiple sites, chronic diastolic CHF, hypertension, Hereditary and idiopathic peripheral neuropathy, anxiety related to change in role presents because of fall at home and also found to have rhabdomyolysis and left heel infection. Left foot infected ulcer: Acute Has been following with [facility] for a few weeks Duplex of the arteries shows moderate vasculopathy without focal vessel occlusion or stenosis Foot CT shows ulceration on left plantar posterior aspect. Venous duplex shows possible chronic region of thrombosis or wall thickening in the left medial femoral vein. No other thrombosis. MRI of the left foot without osteomyelitis. 1.4 cm pocket of fluid seen in the region of the wound. This could represent packing material. A small abscess is not excluded. Vascular saw patient this a.m. reportedly has mild to moderate occlusive disease with normal blood flow Continue IV antibiotics and await Ortho recommendations regarding surgical debridement Teds to also assist with swelling POD # 2 s/p Left Heel Incision and Drainage and wound vac placement of L heel under the care of Dr. Avalos 01/26 Wound vac M-W-F LLE TTWB Weekly CBC, ESR, CRP BC: NGTD Wound culture Group B Strep and MRSA; both sensitive to Vancomycin, will d/c Zosyn contact precautions Discussed with Dr. Santamaria with ID who recommends continue IV vanco for now, will consider de escalate to oral antibiotic upon final culture data given no concern for bone involvement Rhabdomyolysis: Acute secondary to mechanical fall CPK 3900, now normalized Acute on chronic diastolic heart failure Chronic Echocardiogram from January 2020 shows EF of 60 to 65% CXR with volume overload, congestion Repeat CXR on 01/28 with persistent effusions, vascular congestion and pulm edema Consult cardiology - discussed with Dr. Rob, given pts Rhabdo and requirement for IV antibiotics he likely has become volume overload update echo, BNP 499 Continue IV lasix but cardiology to increase to 20mg QID due to soft pressures Pt with + net output on 01/27 therefore not effective diuresis monitor intake and output, daily weight pt still examines as volume overload Discussed with pharmacy to help concentrate antibiotic, d/c of zosyn will also be helpful Acute urinary retention Urology consulted; plan to do trial of void later in the hospitalization flomax started, pimentel in place keep pimentel in while diuresing Elevated troponin: resolved. On admission; troponin 27; improved to 15. Likely demand ischemia Hypothyroidism: Chronic Continue Synthroid HLD: Chronic Takes atorvastatin; will resume Hypertension: chronic Takes metoprolol succinate; continue Gout: Chronic Takes allopurinol;continue Disposition: PT/OT recs reviewed, awaiting infectious disease consultation, pt likely to need rehab, continue tele monitoring while treating acute chf PCP: Dr. Kwok Code Status: Full VTE Prophylaxis: SQ Lovenox Pt was seen and examined in collaboration with Dr. Reyes, please see addendum I spent a total of 52 minutes coordinating, documenting, and providing care for this patient excluding time spent in the performance of separately billed services. All of the aforementioned completed while collaborating with the [facility] attending physician for a full treatment plan. Please see their addendum for further details. Admission and Anticipated Discharge Date Admission Date: January 24, 2024 Supervising Physician Co-Signing Physician Notes Pt was not seen or evaluated myself today. Subjective Pt was seen in room 284-2. F/U L foot wound and a/c chf. He denies any pain. He denies any chest pain or shortness of breath. He still admits to coughing while eating if he is not sitting upright. He states he was sitting in a chair for lunch yesterday and he did not have any issues. Review of Systems Review of Systems: All systems reviewed & are unremarkable except as noted in HPI & below Physical Exam Physical Exam: Gen: Elderly, Chronically ill M, NAD, A&O x3 to basics HEENT: Normocephalic, atraumatic, conjunctivae moist, sclerae anicteric, mucous membranes moist. Lung: Clear to Auscultation bilaterally, no wheezes/rales/rhonchi Heart: Regular rate, regular rhythm, no murmurs, rubs, or gallops Abdomen: Soft, NT, ND +BS x 4 Extremities: wound vac L heel, LLE dressing/splint in place, b/l lower extremity edema Skin: Warm, no rash, negative turgor. Results & Data Results & Data Vital Signs (Past 12 Hours) Vital Signs Temp Pulse Pulse Resp BP BP Pulse Ox 01/29/24 11:33 36.5 C 67 18 111/64 98 01/29/24 11:33 01/29/24 11:15 62 01/29/24 06:33 36.3 C L 57 L 18 129/64 92 O2 Del Method O2 Flow Rate 01/29/24 11:33 Nasal Cannula 2.5 01/29/24 11:33 Nasal Cannula 2 01/29/24 11:15 01/29/24 06:33 Nasal Cannula 2 Diagnostic Findings Chest X-Ray 01/29/24 09:18 SINGLE VIEW CHEST CLINICAL HISTORY: Congestive heart failure. FINDINGS: An AP, portable, upright chest radiograph is compared to study dated 01/25/2024. The heart is enlarged noting atherosclerotic calcification of the thoracic aorta. Pulmonary vascular congestion persists. There are small pleural effusions with bibasilar consolidation. There are increasing airspace opacities in the upper lobes, right greater than left. No pneumothorax is seen. The skeletal structures are osteopenic. The bony thorax is grossly intact. Cholecystectomy clips are seen in the right upper quadrant. IMPRESSION: 1. Cardiomegaly with persistent pulmonary vascular congestion. . 2. Small pleural effusions with dependent consolidation. There are also increasing airspace opacities in the upper lobes. This likely represents pulmonary edema. Correlate clinically for evidence of a superimposed pneumonia/aspiration noticed. Radiographic follow up to resolution is recommended. ACT 112: Negative or not required by law. Electronically signed by: Cash Kolb M.D. 01/29/2024 10:28 AM Medications Administered Current Inpatient Medications Acetaminophen (Acetaminophen 325 Mg Tab) 650 mg PO Q4H PRN PRN Reason: Pain or Fever Stop: 02/24/24 00:27 [facility]urin[facility] ([facility] 100 Mg Tab) [facility] Stop[facility] 02/24/24 08:59 Last Admin: 01/29/24 09:26 Dose: 200 mg Aspirin (Aspirin 81 Mg Ectab) [facility] Stop: 02/24/24 08:59 Last Admin: 01/29/24 09:26 Dose: 81 mg Atorvastatin Calcium (Atorvastatin 20 Mg Tab) [facility] Stop: 02/27/24 08:59 Last Admin: 01/29/24 09:26 Dose: 20 mg Enoxaparin Sodium (Enoxaparin Inj 40 Mg/0.4 Ml Syr) 40 mg SQ HS [facility] Stop: 02/27/24 20:59 Last Admin: 01/28/24 19:39 Dose: 40 mg Furosemide (Furosemide 40 Mg/4 Ml Vial) 20 mg IV QID [facility] Stop: 02/28/24 12:59 Piperacillin Sod/Tazobactam (Sod 4.5 gm/ Dextrose) 100 mls @ 25 mls/hr IV Q8H [facility]; Protocol Stop: 02/01/24 01:59 Last Infusion: 01/29/24 10:53 Dose: Infused Vancomycin HCl 1,000 mg/ (Sodium Chloride) 270 mls @ 200 mls/hr IV Q12H [facility] Stop: 02/02/24 07:59 Last Infusion: 01/29/24 10:52 Dose: Infused Latanoprost (Latanoprost 0.005% Op Soln 2.5 Ml Btl) 1 drops OPB [facility] Stop: 02/24/24 20:59 Last Admin: 01/28/24 19:40 Dose: 1 drops Levothyroxine Sodium (Levothyroxine Sodium 50 Mcg Tablet) 50 mcg PO DAILYBB [facility] Stop: 02/24/24 06:29 Last Admin: 01/29/24 06:12 Dose: 50 mcg Metoprolol Succinate (Metoprolol Succ 25mg Ext Rel Tab) 25 mg PO QAM [facility] Stop: 02/24/24 08:59 Last Admin: 01/29/24 09:27 Dose: 25 mg Miscellaneous (Ketoconazole Shampoo - Order Awaiting Action) 1 each N/A QS [facility] Stop: 02/24/24 07:59 Last Admin: 01/29/24 09:20 Dose: Not Given Miscellaneous Information (Vancomycin Consult Active) 1 each N/A UD PRN PRN Reason: Consult Stop: 02/24/24 00:27 Nitroglycerin (Nitroglycerin Sl 0.4 Mg/Tab Tab) 0.4 mg SL Q5M PRN PRN Reason: Chest Pain Stop: 02/24/24 00:27 Polyethylene Glycol (Polyethylene (Miralax) 17 Gm Pack) 17 gm PO DAILY PRN PRN Reason: Constipation Stop: 02/24/24 00:27 Tamsulosin HCl (Tamsulosin Hcl 0.4 Mg Cap) 0.4 mg PO [facility] Stop: 02/24/24 20:59 Last Admin: 01/28/24 19:40 Dose: 0.4 mg Thiamine HCl (Thiamine Hcl 50 Mg Tablet) 50 mg PO QAM [facility] Stop: 02/24/24 08:59 Last Admin: 01/29/24 09:27 Dose: 50 mg Timolol Maleate (Timolol Maleate 0.5% Op Soln 5 Ml Btl) 1 drops [facility]PL [facility] Stop: 02/24/24 08:59 Last Admin: 01/29/24 09:28 Dose: 1 drops (1) Heel ulcer Laterality: left Non-pressure ulcer stage: unspecified non-pressure ulcer stage Qualified Code(s): L97.429 - Non-pressure chronic ulcer of left heel and midfoot with unspecified severity (2) Rhabdomyolysis Encounter type: initial encounter Rhabdomyolysis type: traumatic Qualified Code(s): T79.6XXA - Traumatic ischemia of muscle, initial encounter
--- NOTE | 2024-01-29 15:05 | Communication Note ---
Date of Service: January 29, 2024 Mr. Tobias is a 78-year-old man with medical history of hypothyroidism, hyperlipidemia, prediabetes, idiopathic chronic gout, chronic diastolic congestive heart failure, HTN, idiopathic peripheral neuropathy and generalized anxiety disorder who was admitted to [facility] on 01/23 after a fall at home. In the hospital, workup suggested rhabdomyolysis and he was found to have a left heel infected ulcer. MRI of the heel showed diffuse soft tissue edema of the left foot/ankle with plantar heel wound without any evidence of osteomyelitis. It also demonstrated 1.4 cm pocket of fluid in the area of the wound which could suggest an abscess. He was eventually taken for an incision and drainage on 01/26 with all intraoperative cultures negative to date. Microbiology: 01/23: Superficial wound culture of the left foot with group B strep and MRSA 01/23: 2 sets of blood culture negative to date 01/26: 2 intraoperative tissue cultures were obtained, 1 of them showing pinpoint growth (reintubated for further growth) Impression: 1. Infected left heel ulcer-no evidence of osteomyelitis on the MRI and intraoperatively 2. Status post incision and drainage 3. History of idiopathic peripheral neuropathy Recommendations: 1. I agree with the primary team on IV vancomycin for now. 2. We will follow up on the intraoperative tissue cultures and adjust antibiotics as needed. 3. Since there is no concern for osteomyelitis, we would likely be able to finalize the antibiotic plan with oral antibiotics and for a short duration (not exceeding 14 days).
[2024-01-29] MEDS: FUROSEMIDE 40 MG/4 ML VIAL IV SCH (15:12)
[2024-01-30] MEDS: VANCOMYCIN LEVEL ONE (06:22)
[2024-01-30 06:44] LABS: Basophils # (auto) 0.02 K/uL (0.00-0.20); Basophils % (auto) 0.3 %; Eosinophils # (auto) 0.13 K/uL (0.00-0.50); Eosinophils % (auto) 2.3 %; Hematocrit (blood only) 30.3 % (42.0-52.0); Hemoglobin 10.2 g/dl (14.0-18.0); Immature Granulocytes # (auto) 0.08 K/uL (0.01-0.20); Immature Granulocytes % (auto) 1.4 %; Lymphocytes # (auto) 0.97 K/uL (1.20-3.40); Lymphocytes % (auto) 16.9 %; Mean Corpuscular Hemoglobin 31.5 pg (25.0-34.0); Mean Corpuscular Hgb Conc 33.7 g/dL (32.0-36.0); Mean Corpuscular Volume 93.5 fL (80.0-100.0); Mean Platelet Volume 8.7 fL (9.4-12.4); Monocytes # (auto) 0.62 K/uL (0.11-0.59); Monocytes % (auto) 10.8 %; Neutrophils # (auto) 3.92 K/uL (1.40-6.50); Neutrophils % (auto) 68.3 %; Platelet Count 226 K/uL (130-400); RDW Coefficient of Variation 12.8 % (11.5-14.5); RDW Standard Deviation 43.9 fL (36.4-46.3); Red Blood Count 3.24 M/uL (4.70-6.10); White Blood Count 5.74 K/ul (4.8-10.8)
--- NOTE | 2024-01-30 07:10 | Cardiology Progress Note ---
Date of Service January 30, 2024 Assessment & Plan (1) Acute on chronic diastolic HF (heart failure): (2) Cellulitis of foot, left: (3) Rhabdomyolysis: (4) Urinary retention: Plan IMPRESSION: 78-year-old male admitted for rhabdomyolysis following a mechanical fall. Consistently found to have a left heel ulcer and debridement and wound VAC placement with orthopedics on 01/27/2024. Known chronic diastolic CHF with acute exacerbation secondary to iatrogenic volume overload having received IV fluids on admission and subsequent treatment with x2 IV antibiotics. PLAN: Acute on chronic diastolic CHF: Patient remains mildly hypervolemic on exam but responding well to IV diuresis. Put out 3 L overnight. Recommend ongoing diuresis with IV Lasix, given low blood pressures and with a Mcknight in place will proceed with IV Lasix 20 mg QID for an additional day. Hospitalist service working with ID to adjust antibiotics to reduce fluid intake. Monitor daily BMP. Maintain K goal of 4.0 and mag goal of 2.0. Potassium supplementation increased today to 40 meq twice daily. 2g sodium diet restriction. Daily standing weights. Strict I's/O. CHF education. Rhabdomyolysis: Acute; secondary to mechanical fall CPK 3900, now normalized Cellulitis of the Left foot: Wound vac in place; receiving IV abx. Will defer to surgical team and hospi talist service for management. Urinary retention: Following with urology. Mcknight in place. On Flomax Case discussed with Dr. Rob. Further recommendations pending assessment. I spent a total of 30 minutes on the date of service in preparation, delivery, and documentation of the care provided to the patient excluding any time spent in the performance of separately billed services. STEW Addison Department of Cardiology, [facility] This chart was completed in part utilizing Speech Voice Recognition Software. Grammatical errors, random word insertions, pronoun errors, and incomplete sentences are an occasional consequence of this system due to software limitations, ambient noise, and hardware issues. Any formal questions or concerns about the content, text, or information contained within the body of this dictation should be directly addressed to the provider for clarification. Admission and Anticipated Discharge Date Admission Date: January 24, 2024 Supervising Physician Co-Signing Physician Notes Attending attestation: Case reviewed with the advanced practitioner. I have personally performed a history and physical examination on the patient. I have reviewed the advanced practitioner's documentation on the date of service referenced in note, and I agree with, and take responsibility for the plan of care. Patient improved subjectively. Pulse oximetry 93% room air. 4.7 L of urine output noted yesterday, and another 1.4 L of urine output noted thus far today. Impression: Acute decompensation of heart failure with preserved ejection fraction due to IV fluid and fluid from fluid resuscitation for rhabdomyolysis and antibiotic therapy. Recommendations: Zosyn has now been discontinued. He remains on monotherapy with vancomycin. Mcknight catheter remains in place due to urinary outflow dysfunction earlier this hospital stay. While Mcknight is in place, would recommend continue furosemide 20 mg IV every 6 hours for the next 24 to 48 hours. Blood pressure stable. Patient is also on potassium supplementation potassium chloride 40 mill equivalents twice daily. Would consider obtaining a repeat chest x-ray perhaps on 02/01/2024, formal study in the department rather than a portable study for reassessment and back off on diuretics as able. Depending upon plans with antibiotics, would recommend that ongoing negative fluid balance achieved. Cardiology to sign off. Dr. Gonzalez rounding 01/31/2024, call with questions or concerns I spent a total of 25 minutes coordinating, documenting, and providing care for this patient excluding time spent in the performance of separately billed services or time spent by another provider. Derick Rob DO Subjective 78-year-old male admitted for rhabdomyolysis following a mechanical fall. Consistently found to have a left heel ulcer and debridement and wound VAC placement with orthopedics on 01/27/2024. Known chronic diastolic CHF with acute exacerbation secondary to iatrogenic volume overload having received IV fluids on admission and subsequent treatment with x2 IV antibiotics. 01/29/2024: Patient hypervolemic on exam. Furosemide increased to 20 mg 4 times daily. Urinary retention: Mcknight in place. Patient on Flomax. 01/30/2024: Telemetry: Sinus rhythm/sinus bradycardia 50 to 60s I/O: -3.4 L (24 hrs), -152 mL (total) Weight:77.2 kg >> 86.2 kg >> 76 kg >> 75.8 kg Upon entrance into the room patient patient resting comfortably in the chair eating breakfast. No acute concerns. Denies chest pain, shortness of breath, palpitations, dizziness, syncope or near syncope. Lower extremity edema improving. No orthopnea, PND. No fever, chills, cough, hematochezia, melena, or hemoptysis. Review of Systems Review of Systems: All systems reviewed & are unremarkable except as noted in HPI & below Physical Exam Constitutional: well developed, well nourished and + ill appearing; no acute distress Eyes: PERRL, conjunctivae normal, anicteric sclerae ENMT: external ear and nose normal, oropharynx normal Neck: normal visual inspection and trachea midline Respiratory: normal respiratory effort and + cough; no respiratory distress Auscultation: + rales (Bilateral bases); no rhonchi and no wheezes Cardiovascular: Rate/Rhythm: regular rate and regular rhythm Heart Sounds: normal S1 and normal S2; no murmur Extremities: + edema (+1 left lower extremity pitting edema. Right leg wrapped.) Neurologic: PERRL, EOMI, accommodation nl, no face palsy, no dysarthria Psychiatric: A+Ox3, euthymic affect Results & Data Vital Signs (Past 12 Hours) Vital Signs Temp Pulse Pulse Resp BP Pulse Ox O2 Del Method 01/30/24 02:56 36.5 C 75 18 126/62 92 Room Air 01/30/24 02:09 59 L 01/29/24 23:29 36.7 C 74 18 135/69 94 Room Air 01/29/24 20:00 Room Air 01/29/24 19:09 36.5 C 62 18 135/73 96 Room Air Laboratory Results Cardiac Enzymes 01/29/24 Range/Units 11:50 B-Natriuretic Peptide 499 H (0-100) pg/ml CBC 01/30/24 Range/Units 06:15 WBC 5.74 (4.8-10.8) K/ul RBC 3.24 L (4.70-6.10) M/uL Hgb 10.2 L (14.0-18.0) g/dl Hct 30.3 L (42.0-52.0) % Plt Count 226 (130-400) K/uL Neut # (Auto) 3.92 (1.40-6.50) K/uL Lymph # (Auto) 0.97 L (1.20-3.40) K/uL Meade # (Auto) 0.62 H (0.11-0.59) K/uL Eos # (Auto) 0.13 (0.00-0.50) K/uL Baso # (Auto) 0.02 (0.00-0.20) K/uL Comprehensive Metabolic Panel 01/30/24 Range/Units 06:15 Sodium 135 L (136-145) mmol/L Potassium 3.6 (3.5-5.1) mmol/L Chloride 101 (98-107) mmol/L Carbon Dioxide 29 (21-32) mmol/L BUN 25 H (6-23) mg/dl Creatinine 0.98 (0.6-1.4) mg/dl Glucose 97 (70-99(Fasting)) mg/dl Calcium 7.9 L (8.6-10.3) mg/dl Intake and Output 01/29/24 01/30/24 01/30/24 22:59 06:59 14:59 Intake Total 674 / 1369 120 / 120 Output Total 7211 / 0630 Balance -2851 / -3356 120 / 120 Intake: IV 120 / 490 120 / 120 Vancomycin HCl 1,000 mg In 0.9 120 / 120 120 / 120 % Sodium Chloride 100 ml @ 80 mls/hr IV Q12H [facility] Rx#:[id number] Oral 554 / 879 Output: Urine Amount (Catheter) 3525 / 3525 Mcknight/Indwelling 3525 / 3525 Other: Other Intake Source sips Weight 75.8 kg (3) Rhabdomyolysis Encounter type: initial encounter Rhabdomyolysis type: traumatic Qualified Code(s): T79.6XXA - Traumatic ischemia of muscle, initial encounter
[2024-01-30 07:19] LABS: BUN Creatinine Ratio 25.5 (10-20); Calcium 7.9 mg/dl (8.6-10.3); Creatinine Clr Calc Pharmacy 65.5 ml/min; Est GFR (African American) 84.6 ml/min; Magnesium 1.9 mg/dl (1.7-2.4); Potassium 3.6 mmol/L (3.5-5.1)
[2024-01-30] MEDS: POTASSIUM CHLORIDE CRTAB 20 MEQ TABCR PO SCH ×2 (08:43→20:24)
[2024-01-30] MEDS ORDERED: FUROSEMIDE 40 MG/4 ML VIAL IV SCH (09:00)
[2024-01-30] MEDS: POTASSIUM CHLORIDE CRTAB 20 MEQ TABCR PO STA (09:48)
--- NOTE | 2024-01-30 10:48 | Pharmacy Report ---
Pharmacy PK ABX Note - Date of Service January 30, 2024 - Assessment and Plan Assessment 01/29: * Random vancomycin level this AM was 21 mcg/ml - current dosing estimated to achieve AUC/YANG >600, therefore will scale back dosing to 750 mg iv q 12 hours 01/26: Reviewed vancomycin level, predicting therapeutic AUC/YANG. No evidence of osteomyelitis per ankle MRI, likely cellulitis, abscess?. I&D today 01/24: 78 year old M receiving Vancomycin and Zosyn for treatment of left heel ulcer. * Day #2 of antimicrobial therapy. * Afebrile. No leukocytosis. SCr near baseline. * Blood and urine cultures pending. L foot culture growing Group B Strep. Plan Vancomycin * Decrease 750 mg iv q 12 hrs * Plan to recheck level in next 2-3 days * Note: nonstandard concentration d/t provider request to limit fluid Pharmacy will continue to follow and will adjust dose/frequency as necessary. Thank you. Pharmacy has transitioned to AUC monitoring for vancomycin. AUC/YANG is the preferred PK/PD target and is associated with decreased risk of nephrotoxicity compared to traditional trough targets.
--- NOTE | 2024-01-30 14:04 | Orthopedic Progress Note ---
Date of Service January 30, 2024 Assessment & Plan (1) Heel ulcer: Plan: IMPRESSION: POD #3 s/p I&D Left Heel Ulcer; no bone involvement, moderate vasculopathy PLAN: Resume diet Wound care consult, wound vac changed 01/30/24 and continue changes M-W-F LLE TTWB Continue pain control Continue antibiotics: per ID, awaiting sensitivities. Weekly CBC, ESR, CRP Continue care per primary service Follow-up next week in Dr. Avalos's office. Admission and Anticipated Discharge Date Admission Date: January 24, 2024 Subjective No complaints, wound vac replaced earlier today. Physical Exam Physical Exam: LLE:+ Swelling/pitting edema. + Swelling & bruising foot and toes. Sensation diminished unchanged. BCR < 2 sec. Wiggling toes. Wound vac in place functioning, with minimal drainage. Results & Data Vital Signs (Past 12 Hours) Vital Signs Temp Pulse Pulse Resp BP Pulse Ox O2 Del Method 01/30/24 11:23 36.6 C 67 18 127/64 93 Room Air 01/30/24 07:58 36.6 C 76 18 126/65 93 Room Air 01/30/24 07:33 Room Air 01/30/24 06:03 78 01/30/24 02:56 36.5 C 75 18 126/62 92 Room Air 01/30/24 02:09 59 L Laboratory Results 01/30/24 Range/Units 06:15 WBC 5.74 (4.8-10.8) K/ul RBC 3.24 L (4.70-6.10) M/uL Hgb 10.2 L (14.0-18.0) g/dl Hct 30.3 L (42.0-52.0) % MCV 93.5 (80.0-100.0) fL MCH 31.5 (25.0-34.0) pg MCHC 33.7 (32.0-36.0) g/dL RDW Std Deviation 43.9 (36.4-46.3) fL RDW Coeff of Christopher 12.8 (11.5-14.5) % Plt Count 226 (130-400) K/uL MPV 8.7 L (9.4-12.4) fL Immature Gran % (Auto) 1.4 % Neut % (Auto) 68.3 % Lymph % (Auto) 16.9 % Wright % (Auto) 10.8 % Eos % (Auto) 2.3 % Baso % (Auto) 0.3 % Neut # (Auto) 3.92 (1.40-6.50) K/uL Lymph # (Auto) 0.97 L (1.20-3.40) K/uL Wright # (Auto) 0.62 H (0.11-0.59) K/uL Eos # (Auto) 0.13 (0.00-0.50) K/uL Baso # (Auto) 0.02 (0.00-0.20) K/uL Immature Gran # (Auto) 0.08 (0.01-0.20) K/uL Sodium 135 L (136-145) mmol/L Potassium 3.6 (3.5-5.1) mmol/L Chloride 101 (98-107) mmol/L Carbon Dioxide 29 (21-32) mmol/L Anion Gap 5 (3-11) BUN 25 H (6-23) mg/dl Creatinine 0.98 (0.6-1.4) mg/dl Est Cr Clr Drug Dosing 65.5 ml/min Est GFR ( Amer) 84.6 ml/min Est GFR (Non-Af Amer) 73.0 ml/min BUN/Creatinine Ratio 25.5 H (10-20) Glucose 97 (70-99(Fasting)) mg/dl Calcium 7.9 L (8.6-10.3) mg/dl Magnesium 1.9 (1.7-2.4) mg/dl Random Vancomycin 21.2 H (10-20) mcg/ml Source: Foot,Left OV Order: Ordered: Aer/Santa Cult/Sm Comments: Comment 1. Left Heel Ulcer Procedure Result Verified Site Gram Stain Final 01/28/24-0800 Gram Stain Result Moderate WBCs Seen No Organisms Seen Aero/Santa Cult Preliminary 01/30/24-1104 Organism 1 Anaerobic gram negative bacill Quantity Rare Sens No Sensitivities to Follow Organism 2 Staphylococcus species Quantity Rare Sens Sensitivities to Follow (1) Heel ulcer Laterality: left Non-pressure ulcer stage: unspecified non-pressure ulcer stage Qualified Code(s): L97.429 - Non-pressure chronic ulcer of left heel and midfoot with unspecified severity
--- NOTE | 2024-01-30 14:29 | Hospitalist Progress Note ---
Date of Service January 30, 2024 Assessment & Plan (1) Heel ulcer: (2) Rhabdomyolysis: (3) HTN (hypertension): (4) Hypothyroidism: (5) Hypothyroidism: Plan: 78-year-old male with past medical history significant for hypothyroidism, hyperlipidemia, prediabetes, idiopathic chronic gout of multiple sites, chronic diastolic CHF, hypertension, Hereditary and idiopathic peripheral neuropathy, anxiety related to change in role presents because of fall at home and also found to have rhabdomyolysis and left heel infection. Left foot infected ulcer: Acute Has been following with [facility] for a few weeks Duplex of the arteries shows moderate vasculopathy without focal vessel occlusion or stenosis Foot CT shows ulceration on left plantar posterior aspect. Venous duplex shows possible chronic region of thrombosis or wall thickening in the left medial femoral vein. No other thrombosis. MRI of the left foot without osteomyelitis. 1.4 cm pocket of fluid seen in the region of the wound. This could represent packing material. A small abscess is not excluded. Vascular saw patient this a.m. reportedly has mild to moderate occlusive disease with normal blood flow Continue IV antibiotics and await Ortho recommendations regarding surgical debridement Teds to also assist with swelling POD # 3 s/p Left Heel Incision and Drainage and wound vac placement of L heel under the care of Dr. Avalos 01/26 Wound vac M-W- LLE TTWB Weekly CBC, ESR, CRP Follow up next week in orthopedic office if discharged BC: NGTD Wound culture Group B Strep and MRSA; both sensitive to Vancomycin, will d/c Zosyn Intra operative culture growing bacteroides fragilis and staph species with sensitives still to follow - will await final results contact precautions Discussed with Dr. Santamaria with ID who recommends continue IV vanco for now, will consider de escalate to oral antibiotic upon final culture data given no concern for bone involvement for total of 14 days therapy Rhabdomyolysis: Acute secondary to mechanical fall CPK [id number], now normalized Acute on chronic diastolic heart failure Chronic Echocardiogram from January 2020 shows EF of 60 to 65% Echo today EF 60-65%, mild TR, PASP 41mmhg, grade I DD, aortic root borderline dilated at 4.5cm BNP 499 Initial CXR with volume overload, congestion Iatrogenic in setting of IVF resusc 2/2 rhabdo and antibiotics Repeat CXR on 01/28 with persistent effusions, vascular congestion and pulm edema Consulted cardiology - discussed with Arely Phelan who recommends continued IV diuresis today and consider backing down over next 1-2 days, appreciate cardiology assistance Continue IV lasix 20mg QID, pt with -4.3L outpt in last 24hrs, goal is to keep a negative net output given hx will repeat CXR on 01/31 and cbc, bmp, mag in am. Continue IV diuresis for another 24-48hrs and back down accordingly Supplement K to 40meq BID to keep K > 4 He is still mildly hypervolemic but much improved from 01/28 anticipate d/c IV antibiotics soon and transition to oral which will also help Acute urinary retention Urology consulted; plan to do trial of void later in the hospitalization flomax started, pimentel in place keep pimentel in while diuresing consider voiding trial after significant diuresing resolved or consider voiding trial at rehab [facility] Elevated troponin: resolved. On admission; troponin 27; improved to 15. Likely demand ischemia Hypothyroidism: Chronic Continue Synthroid HLD: Chronic Takes atorvastatin; will resume Hypertension: chronic Takes metoprolol succinate; continue Gout: Chronic Takes allopurinol;continue Disposition: Awaiting final antibiotic recs and continued diuresis, anticipate possible discharge on Friday or early next week when Euvolemic and on oral antibiotics. PCP: Dr. Kwok Code Status: Full VTE Prophylaxis: SQ Lovenox Pt was seen and examined in collaboration with Dr. Reyes, please see addendum I spent a total of 51 minutes coordinating, documenting, and providing care for this patient excluding time spent in the performance of separately billed services. All of the aforementioned completed while collaborating with the assigned attending physician for a full treatment plan. Please see their addendum for further details. Admission and Anticipated Discharge Date Admission Date: January 24, 2024 Supervising Physician Co-Signing Physician Notes Pt was not seen or evaluated myself today. Subjective Pt was seen in room 284-2. F/U L foot wound and a/c chf. He is sitting up in bedside chair eating lunch. He denies f/c/s, chest pain, sob, n/v/d. He is off oxygen. He expresses concern for managing his while he is recovering himself. Review of Systems Review of Systems: All systems reviewed & are unremarkable except as noted in HPI & below Physical Exam Physical Exam: Gen: Elderly, Chronically ill M, NAD, A&O x3 to basics HEENT: Normocephalic, atraumatic, conjunctivae moist, sclerae anicteric, mucous membranes moist. Lung: Clear to Auscultation bilaterally, no wheezes/rales/rhonchi off oxygen Heart: Regular rate, regular rhythm, no murmurs, rubs, or gallops Abdomen: Soft, NT, ND +BS x 4 Extremities: wound vac L heel, LLE dressing/splint in place, lower extremity edema much improved Skin: Warm, no rash, negative turgor. Wound pictures noted in chart Results & Data Results & Data Vital Signs (Past 12 Hours) Vital Signs Temp Pulse Pulse Resp BP Pulse Ox O2 Del Method 01/30/24 11:23 36.6 C 67 18 127/64 93 Room Air 01/30/24 07:58 36.6 C 76 18 126/65 93 Room Air 01/30/24 07:33 Room Air 01/30/24 06:03 78 01/30/24 02:56 36.5 C 75 18 126/62 92 Room Air Laboratory Results Short CBC 01/30/24 Range/Units 06:15 WBC 5.74 (4.8-10.8) K/ul Hgb 10.2 L (14.0-18.0) g/dl Hct 30.3 L (42.0-52.0) % Plt Count 226 (130-400) K/uL BMP 01/30/24 06:15 Sodium 135 L Potassium 3.6 Chloride 101 Carbon Dioxide 29 BUN 25 H Creatinine 0.98 Glucose 97 Calcium 7.9 L I have independently reviewed and interpreted patient's a.m. labs including cbc, bmp, mag Medications Administered Current Inpatient Medications Acetaminophen (Acetaminophen 325 Mg Tab) 650 mg PO Q4H PRN PRN Reason: Pain or Fever Stop: 02/24/24 00:27 Allopurinol (Allopurinol 100 Mg Tab) 200 mg PO [facility] Stop: 02/24/24 08:59 Last Admin: 01/30/24 08:41 Dose: 200 mg Aspirin (Aspirin 81 Mg Ectab) [facility]: 02/24/24 08:59 Last Admin: 01/30/24 08:41 Dose: 81 mg Atorvastatin Calcium (Atorvastatin 20 Mg Tab) 20 mg PO [facility] Stop: 02/27/24 08:59 Last Admin: 01/30/24 08:41 Dose: 20 mg Enoxaparin Sodium (Enoxaparin Inj 40 Mg/0.4 Ml Syr) 40 mg SQ HS [facility] Stop: 02/27/24 20:59 Last Admin: 01/29/24 21:42 Dose: 40 mg Furosemide (Furosemide 40 Mg/4 Ml Vial) 20 mg IV QID [facility] Stop: 02/28/24 12:59 Last Admin: 01/30/24 12:15 Dose: 20 mg Vancomycin HCl 750 mg/ Sodium (Chloride) 115 mls @ 80 mls/hr IV Q12H [facility] Stop: 02/02/24 19:59 Latanoprost (Latanoprost 0.005% Op Soln 2.5 Ml Btl) 1 drops OPB [facility] Stop: 02/24/24 20:59 Last Admin: 01/29/24 22:47 Dose: 1 drops Levothyroxine Sodium (Levothyroxine Sodium 50 Mcg Tablet) 50 mcg PO DAILYBB [facility] Stop: 02/24/24 06:29 Last Admin: 01/30/24 06:22 Dose: 50 mcg Metoprolol Succinate (Metoprolol Succ 25mg Ext Rel Tab) 25 [facility] [place] Stop: 02/24/24 08:59 Last Admin: 01/30/24 08:41 Dose: 25 mg Miscellaneous Information (Vancomycin Consult Active) 1 each N/A UD PRN PRN Reason: Consult Stop: 02/24/24 00:27 Nitroglycerin (Nitroglycerin Sl 0.4 Mg/Tab Tab) 0.4 mg SL Q5M PRN PRN Reason: Chest Pain Stop: 02/24/24 00:27 Polyethylene Glycol (Polyethylene (Miralax) 17 Gm Pack) 17 gm PO DAILY PRN PRN Reason: Constipation Stop: 02/24/24 00:27 Potassium Chloride (Potassium Chloride Crtab 20 Meq Tabcr) 40 meq PO BID [facility] Stop: 02/29/24 20:59 Tamsulosin HCl (Tamsulosin Hcl 0.4 Mg Cap) 0.4 mg PO [facility] Stop: 02/24/24 20:59 Last Admin: 01/29/24 21:42 Dose: 0.4 mg Thiamine HCl (Thiamine Hcl 50 Mg Tablet) 50 mg PO QAM [facility] Stop: 02/24/24 08:59 Last Admin: 01/30/24 08:41 Dose: 50 mg Timolol Maleate (Timolol Maleate 0.5% Op Soln 5 Ml Btl) 1 drops OPL QAM [facility] Stop: 02/24/24 08:59 Last Admin: 01/30/24 08:40 Dose: 1 drops (1) Heel ulcer Laterality: left Non-pressure ulcer stage: unspecified non-pressure ulcer stage Qualified Code(s): L97.429 - Non-pressure chronic ulcer of left heel and midfoot with unspecified severity (2) Rhabdomyolysis Encounter type: initial encounter Rhabdomyolysis type: traumatic Qualified Code(s): T79.6XXA - Traumatic ischemia of muscle, initial encounter
--- NOTE | 2024-01-30 17:35 | Infectious Disease Consult ---
Date of Service January 30, 2024 Telehealth Information I performed this visit using a real-time telehealth connection between my location and the patients location ([facility]). After connecting through interactive tele-video, patient was identified by name and date of and/or wristband check.Patient (or authorized healthcare office machines sales representative) was informed that this was a telemedicine visit and it was being conducted confidentially over secure lines. My office door was closed and no one else was present in the room with me.Patient (or authorized healthcare office machines sales representative) provided consent to proceed with the visit, expressed an understanding of privacy and security of the telemedicine visit, and gave permission to have a hospital office machines sales representative in the room in order to assist with the visit and to conduct portions of the visit, as needed. I informed the patient (or authorized healthcare office machines sales representative) that I reviewed their record and presented the opportunity for them to ask any questions regarding the visit today. The patient agreed to participate. Assessment & Plan (1) Foot abscess, left: (2) Heel ulcer: (3) Peripheral neuropathy: (4) Status post incision and drainage: Plan 1. Please continue on IV vancomycin for now. 2. We will follow up on the intraoperative tissue cultures and adjust antibiotics as needed. 3. Since there is no concern for osteomyelitis, we would likely be able to finalize the antibiotic plan with oral antibiotics and for a short duration (not exceeding 14 days). History of Present Illness History of Present Illness Mr. Tobias is a 78-year-old man with medical history of hypothyroidism, hyperlipidemia, prediabetes, idiopathic chronic gout, chronic diastolic congestive heart failure, HTN, idiopathic peripheral neuropathy and generalized anxiety disorder who was admitted to [facility] on 01/23 after a fall at home. In the hospital, workup suggested rhabdomyolysis and he was found to have a left heel infected ulcer. MRI of the heel showed diffuse soft tissue edema of the left foot/ankle with plantar heel wound without any evidence of osteomyelitis. It also demonstrated 1.4 cm pocket of fluid in the area of the wound which could suggest an abscess. He was eventually taken for an incision and drainage on 01/26 with all intraoperative cultures negative to date.ID team was consulted for further recommendations and to help guide antibiotic treatment. Allergies Allergy/AdvReac Type Severity Reaction Status Date / Time niacin AdvReac Intermediate FLUSH Verified 01/24/24 21:54 Home Medications Medication Instructions Recorded Confirmed Type allopurinol 100 mg tablet 200 mg PO QAM 01/12/20 01/24/24 History (Zyloprim) aspirin 81 mg tablet,delayed 81 mg PO QAM 01/12/20 01/24/24 History release (Aspir-) atorvastatin 20 mg tablet (Lipitor) 20 mg PO QAM 01/12/20 01/24/24 History furosemide 20 mg tablet (Lasix) 20 mg PO Q OTHER DAY 01/12/20 01/24/24 History latanoprost 0.005 % eye drops 1 drp OPB HS 01/12/20 01/24/24 History (Xalatan) levothyroxine 50 mcg tablet 50 mcg PO QAM 01/12/20 01/24/24 History (Levoxyl) metoprolol succinate 25 mg 25 mg PO QAM 01/12/20 01/24/24 History tablet,extended release 24 hr (Toprol XL) thiamine HCl (vitamin B1) 100 mg 50 mg PO QAM 01/12/20 01/24/24 History tablet (Vitamin B-1) timolol maleate 0.5 % eye drops 1 drp OPL QAM 01/12/20 01/24/24 History (Timoptic) ketoconazole 1 % shampoo 1 applic topical UD 12/13/21 01/24/24 History amoxicillin 875 mg-potassium 1 tab PO BID #14 tabs 01/24/24 01/24/24 Rx clavulanate 125 mg tablet sulfamethoxazole 800 1 tab PO BID 7 days #14 tabs 01/24/24 01/24/24 Rx mg-trimethoprim 160 mg tablet (Bactrim DS) Patient History Medical History Sleep apnea Osteoarthritis TMJ click Rarely Increased pressure in the eye Does not yet meet criteria for glaucoma Surgical History History of right cataract surgery S/P cholecystectomy History of arthroscopy of left knee History of transesophageal echocardiography (FLACO) History of colonoscopy History of ERCP H/O inguinal hernia repair BILAT History of arthroplasty of both knees Family History Other Coronary heart disease No family history of adverse response to anesthesia Social History Smoking Status: Never smoker Second Hand Exposure: No; Do You Dip or Chew Tobacco: Yes (advised); Hx Alcohol Use: No Hx Substance Use: No Preferred Language: Frisian Communication Ability: Effective Electrical Systems Design Engineer Required: No Beliefs That Will Affect Care: None Current Living Situation: Spouse Current Living Situation Comment: Other Information That Helps Us Care for You: No Feels Safe at Home: Yes Safety Concerns: Feels Safe At This Time Assistive Devices: Cane, Crutches and Walker Review of Systems Constitutional: No fever or chills Cardiovascular: No chest pain or palpitations Respiratory: No shortness of breath or cough Abdominal: no Lt foot pain Urinary tract: No dysuria, urgency or frequency Musculoskeletal: No muscle pain or rash Physical Exam Couldn't be performed as the encounter was performed via telemed. Results & Data Vital Signs (Past 12 Hours) Vital Signs Temp Pulse Pulse Resp BP Pulse Ox O2 Del Method 01/30/24 15:47 36.3 C L 66 18 133/66 92 Room Air 01/30/24 14:13 61 01/30/24 11:23 36.6 C 67 18 127/64 93 Room Air 01/30/24 07:58 36.6 C 76 18 126/65 93 Room Air 01/30/24 07:33 Room Air 01/30/24 06:03 78 Laboratory Results Microbiology: 01/23: Superficial wound culture of the left foot with group B strep and MRSA 01/23: 2 sets of blood culture negative to date 01/26: 2 intraoperative tissue cultures were obtained, 1 of them growing staph species and bacteroides Diagnostic Findings Lt ankle MRI on 01/25: 1. Diffuse soft tissue edema throughout the left foot/ankle with a plantar heel wound. Findings suggest cellulitis. 2. There is no MRI evidence of osteomyelitis of the underlying calcaneus. 3. There is a 1.4 cm pocket of fluid seen in the region of the wound. This could represent packing material. A small abscess is not excluded. Correlate clinically. 4. Question Achilles paratenonitis with nonspecific edema throughout Kager's fat pad and a retrocalcaneal bursal effusion. 5. There is thickening and tendinopathy of the tibialis anterior tendon. 6. Split-thickness tear of the peroneus brevis tendon. 7. There is tenosynovitis of the peroneal tendons as well as the tibialis posterior. (2) Heel ulcer Laterality: left Non-pressure ulcer stage: unspecified non-pressure ulcer stage Qualified Code(s): L97.429 - Non-pressure chronic ulcer of left heel and midfoot with unspecified severity
[2024-01-30] MEDS: SODIUM CHLORIDE 0.9% IV SCH (20:25)
[2024-01-30] MEDS: VANCOMYCIN HCL IV SCH (20:25)
[2024-01-31 06:35] LABS: Hematocrit (blood only) 30.9 % (42.0-52.0); Hemoglobin 10.5 g/dl (14.0-18.0); Mean Corpuscular Hemoglobin 31.4 pg (25.0-34.0); Mean Corpuscular Volume 92.5 fL (80.0-100.0); Mean Platelet Volume 8.8 fL (9.4-12.4); Platelet Count 244 K/uL (130-400); RDW Coefficient of Variation 13.2 % (11.5-14.5); RDW Standard Deviation 43.8 fL (36.4-46.3); Red Blood Count 3.34 M/uL (4.70-6.10); White Blood Count 6.64 K/ul (4.8-10.8)
[2024-01-31 07:11] LABS: BUN Creatinine Ratio 27.8 (10-20); Calcium 8.1 mg/dl (8.6-10.3); Creatinine Clr Calc Pharmacy 71.2 ml/min; Est GFR (African American) 93.8 ml/min; Est GFR (Non-African American) 80.9 ml/min; Potassium 4.2 mmol/L (3.5-5.1)
--- NOTE | 2024-01-31 14:37 | Hospitalist Progress Note ---
Date of Service January 31, 2024 Assessment & Plan (1) Heel ulcer: (2) Rhabdomyolysis: (3) HTN (hypertension): (4) Hypothyroidism: Plan 78-year-old male with past medical history significant for hypothyroidism, hyperlipidemia, prediabetes, idiopathic chronic gout of multiple sites, chronic diastolic CHF, hypertension, Hereditary and idiopathic peripheral neuropathy, anxiety related to change in role presents because of fall at home and also found to have rhabdomyolysis and left heel infection. Left foot infected ulcer: Acute Has been following with [facility] for a few weeks Duplex of the arteries shows moderate vasculopathy without focal vessel occlusion or stenosis Foot CT shows ulceration on left plantar posterior aspect. Venous duplex shows possible chronic region of thrombosis or wall thickening in the left medial femoral vein. No other thrombosis. MRI of the left foot without osteomyelitis. 1.4 cm pocket of fluid seen in the region of the wound. This could represent packing material. A small abscess is not excluded. Vascular saw patient this a.m. reportedly has mild to moderate occlusive disease with normal blood flow Continue IV antibiotics and await Ortho recommendations regarding surgical debridement Teds to also assist with swelling S/p Left Heel Incision and Drainage and wound vac placement of L heel under the care of Dr. Avalos 01/26 Wound vac M-W-F LLE TTWB Weekly CBC, ESR, CRP Follow up in a week w orthopedic office. Neg Bl Cx. 01/23 (pre op) lt foot wound Cx w/ Gr B strep and MRSA. 01/26 (operative Cx) Lt foot wound Cx w/ Bacteroides fragilis and MRSA. ID Evaled, recs are Linezolid 600 mg BID to complete 14 days of therapy from OT date. contact precautions Change atb to linezolid 01/30. Rhabdomyolysis: secondary to mechanical fall. Resolved. Acute on chronic diastolic heart failure Echocardiogram from January 2020 shows EF of 60 to 65% Echo this admission EF 60-65%, mild TR, PASP 41mmhg, grade I DD, aortic root borderline dilated at 4.5cm BNP 499 Initial CXR with volume overload, congestion Iatrogenic in setting of IVF resusc /2 rhabdo and antibiotics Repeat CXR on 01/28 with persistent effusions, vascular congestion and pulm edema Cardiology evaluated, on IV diuresis, possibly to p.o. diuresis from tomorrow. Follow-up CXR in the morning. Labs in AM. Adjust KCL supplement in AM. He is still mildly hypervolemic but much improved from 01/28 Acute urinary retention Urology consulted; plan to do trial of void later in the hospitalization flomax started, pimentel in place keep pimentel in while diuresing consider voiding trial after significant diuresing resolved or consider voiding trial at rehab if [facility] Elevated troponin: resolved. On admission; troponin 27; improved to 15. Likely demand ischemia Hypothyroidism: Chronic Continue Synthroid HLD: Chronic Takes atorvastatin; will resume Hypertension: chronic Takes metoprolol succinate; continue Gout: Chronic Takes allopurinol;continue Disposition: possible dc in 1-2 days PCP: Dr. Kwok Code Status: Full VTE Prophylaxis: SQ Lovenox Admission and Anticipated Discharge Date Admission Date: January 24, 2024 Subjective Pt was seen in room 284-2. F/U L foot wound and a/c chf. He is sitting up in bedside chair , Comfortable He denies f/c/s, chest pain, sob, n/v/d. He is off oxygen. Physical Exam Physical Exam: Gen: Elderly, Chronically ill M, NAD, A&O x3 HEENT: Normocephalic, atraumatic, conjunctivae moist, sclerae anicteric, mucous membranes moist. Lung: Clear to Auscultation bilaterally, no wheezes/rales/rhonchi off oxygen Heart: Regular rate, regular rhythm, no murmurs, rubs, or gallops Abdomen: Soft, NT, ND +BS x 4 Extremities: wound vac L heel, LLE dressing/splint in place, lower extremity edema much improved Skin: Warm, no rash, negative turgor. Wound pictures noted in chart Results & Data Results & Data Vital Signs (Past 12 Hours) Vital Signs Temp Pulse Pulse Resp BP Pulse Ox O2 Del Method 01/31/24 13:00 67 01/31/24 11:25 36.5 C 74 20 104/64 96 Room Air 01/31/24 08:47 79 01/31/24 07:50 36.5 C 93 H 20 106/64 94 Room Air 01/31/24 07:11 Room Air 01/31/24 05:36 61 01/31/24 03:49 36.5 C 81 18 126/64 92 Room Air (1) Heel ulcer Laterality: left Non-pressure ulcer stage: unspecified non-pressure ulcer stage Qualified Code(s): L97.429 - Non-pressure chronic ulcer of left heel and midfoot with unspecified severity (2) Rhabdomyolysis Encounter type: initial encounter Rhabdomyolysis type: traumatic Qualified Code(s): T79.6XXA - Traumatic ischemia of muscle, initial encounter
[2024-01-31] MEDS: ADVANCED PROBIOTIC 625 MG CAPSULE PO SCH (17:06)
[2024-01-31] MEDS: LINEZOLID 600 MG TAB PO SCH (19:53)
[2024-02-01 07:15] LABS: BUN Creatinine Ratio 27.8 (10-20); Calcium 8.3 mg/dl (8.6-10.3); Creatinine Clr Calc Pharmacy 66.2 ml/min; Est GFR (African American) 85.7 ml/min; Est GFR (Non-African American) 73.9 ml/min; Phosphorus 3.2 mg/dl (2.5-4.9); Potassium 4.1 mmol/L (3.5-5.1)
--- NOTE | 2024-02-01 09:52 | XRay Report ---
XR chest 2V PA/lateral CLINICAL HISTORY: Congestive heart failure. COMPARISON STUDY: Chest radiograph January 29, 2024. FINDINGS: There is no pneumothorax. There are trace bilateral pleural effusions. Pulmonary edema has mildly improved. Cardiomegaly is again noted. Mild left basilar opacity is improved. IMPRESSION: 1. Cardiomegaly. Mild improvement in pulmonary edema. 2. Trace bilateral pleural effusions. ACT 112: Negative or not required by law. Electronically signed by: Rj Delcid M.D. 02/01/2024 9:50 AM
--- NOTE | 2024-02-01 11:00 | Discharge Summary ---
Date of Service February 01, 2024 Admission HPI Per Admitting Provider 78-year-old male with past medical history significant for hypothyroidism, hyperlipidemia, prediabetes, idiopathic chronic gout of multiple sites, chronic diastolic CHF, hypertension, Hereditary and idiopathic peripheral neuropathy, anxiety related to change in role presents because of fall at home and also found to have rhabdomyolysis and left heel infection. Patient states yesterday evening he got some stuff from his car into the garage and the lights went off in the garage when he tripped over his leg and fell down on the left side. Did not hit his head. No loss of consciousness. But he was not able to get up. Phone was inside the house. He stayed on the garage floor all night. In the morning was able to crawl and open his door and went inside and called EMS. And was brought into the ER. He was sore all over. But his was admitted in the hospital and he went to see her and declined admission At the time he was walking but was sore. But his family told him to get admitted as he was very weak . Patient resting comfortably currently. Denies any headache. No dizziness. No blurred vision. Has some runny nose. No sore throat. No cough. No fevers. No difficulty swallowing. No chest pain or shortness of breath. No nausea or vomiting. No abdominal pain. Normal bowel and bladder movements. He has chronic lower extremity edema. He states he has ulcer on left foot for last 2 weeks and is following with the podiatry. Is ambulating without support. Denies any pain in the legs. Past medical history. As mentioned above past surgical history. bilateral total knee arthroplasty. Colonoscopy. EGD with endoscopic ultrasound. ERCP. Knee arthroscopy. Inguinal hernia repair. Social history. . No smoking. Alcohol 8 standard drinks of alcohol per week. No drug use. Family history. Mother had PR. Father had PR. Father had stomach ulcer. Admission Exam Per Admitting Provider General- Not in distress. Head- atraumatic Eyes- PERRL. ENT- oropharynx clear Neck- supple, no JVD. Lungs- clear to auscultation no wheezing or crackles. Heart- regular rate and rhythm; no murmur, no gallop, Abdomen- normal bowel sounds, soft, nontender, no distension Extremities- b/l lower extremity edema present ,Left heel on plantar aspect blackish discolored foul smell wound present Neuro- alert, oriented PERRL, no facial palsy; no dysarthria; moves extremities. Principal Diagnosis Left foot infected ulcer Rhabdomyolysis Acute on chronic diastolic heart failure Acute urinary retention Discharge Exam Gen: Elderly, Chronically ill M, NAD, A&O x3 HEENT: Normocephalic, atraumatic, conjunctivae moist, sclerae anicteric, mucous membranes moist. Lung: Clear to Auscultation bilaterally, no wheezes/rales/rhonchi off oxygen Heart: Regular rate, regular rhythm, no murmurs, rubs, or gallops Abdomen: Soft, NT, ND +BS x 4 Extremities: wound vac L heel, LLE dressing/splint in place, lower extremity edema much improved Skin: Warm, no rash, negative turgor. Wound pictures noted in chart Discharge Data Allergies Allergy/AdvReac Type Severity Reaction Status Date / Time niacin AdvReac Intermediate FLUSH Verified 01/24/24 21:54 Consultations 01/24/24 19:36 ED Decision to Admit Stat 01/25/24 08:00 Consult Orthopedic Surgery Routine Consult Urology Routine 01/26/24 07:19 Consult Vascular Surgery Routine 01/28/24 12:24 Consult Infectious Diseases Routine 01/29/24 11:41 Consult Cardiology Routine Procedures Performed Operation Date: 01/27/24 09:35 Actual Procedures p Left Heel Incision and Drainage, Placement of Wound Vac(Left) - Giles Avalos MD Ordered Studies 01/24/24 18:33 CT abd pelvis IV con only Stat CT foot LT w con Stat CT head/brain wo con Stat 01/25/24 00:28 US doppler leg [US arterial duplex LE LT] Urgent US venous doppler LE BI Urgent 01/26/24 10:55 MR ankle LT wo con Routine Hospital Course (1) Heel ulcer: (2) Rhabdomyolysis: (3) HTN (hypertension): (4) Hypothyroidism: Plan 78-year-old male with past medical history significant for hypothyroidism, hyperlipidemia, prediabetes, idiopathic chronic gout of multiple sites, chronic diastolic CHF, hypertension, Hereditary and idiopathic peripheral neuropathy, anxiety related to change in role presents because of fall at home and also found to have rhabdomyolysis and left heel infection. He was managed for the following: Left foot infected ulcer: Acute Has been following with [facility] for a few weeks Duplex of the arteries shows moderate vasculopathy without focal vessel occlusion or stenosis Foot CT shows ulceration on left plantar posterior aspect. Venous duplex shows possible chronic region of thrombosis or wall thickening in the left medial femoral vein. No other thrombosis. MRI of the left foot without osteomyelitis. 1.4 cm pocket of fluid seen in the region of the wound. This could represent packing material. A small abscess is not excluded. Vascular evaled, has mild to moderate occlusive disease with normal blood flow S/p Left Heel Incision and Drainage and wound vac placement of L heel under the care of Dr. Avalos 01/26 Wound vac M-W-F LLE TTWB Weekly CBC, ESR, CRP Follow up in a week w orthopedic office. Neg Bl Cx. 01/23 (pre op) lt foot wound Cx w/ Gr B strep and MRSA. 01/26 (operative Cx) Lt foot wound Cx w/ Bacteroides fragilis and MRSA. ID Evaled, recs are Linezolid 600 mg BID to complete 14 days of therapy from OT date. contact precautions Change atb to linezolid 01/30. Complete the course. Rhabdomyolysis: secondary to mechanical fall. Resolved. Acute on chronic diastolic heart failure Echocardiogram from January 2020 shows EF of 60 to 65% Echo this admission EF 60-65%, mild TR, PASP 41mmhg, grade I DD, aortic root borderline dilated at 4.5cm BNP 499 Initial CXR with volume overload, congestion Iatrogenic in setting of IVF resusc 2/2 rhabdo and antibiotics Repeat CXR on 01/28 with persistent effusions, vascular congestion and pulm edema Cardiology evaluated CXR w/ improved pul edema. To po diuresis w/ kcl supplement. needs labs in 3-5 days of discharge. He is still mildly hypervolemic but much improved. FR 1.8L/day, low Na diet. Acute urinary retention Urology consulted; plan to do trial of void later in the hospitalization flomax started, pimentel in place keep pimentel in while diuresing consider voiding trial at rehab in 3-5 days. ? uro follow up if pimentel can't be taken off. Elevated troponin: resolved. On admission; troponin 27; improved to 15. Likely demand ischemia Hypothyroidism: Chronic Continue Synthroid HLD: Chronic Takes atorvastatin; will resume Hypertension: chronic Takes metoprolol succinate; continue Gout: Chronic Takes allopurinol;continue Disposition: possible dc in 1-2 days PCP: Dr. Kwok Code Status: Full Patient is being discharged to [facility] with following instruction at the point of discharge: Follow-up with your primary care physician within a week time and likely you will need labs CBC/CMP/magnesium/phosphorus. Weekly CBC/ESR/CRP while on antibiotic. You had been evaluated for left foot infected ulcer, you underwent left heel incision and drainage and wound VAC placement on 01/27/2024. You are being discharged on antibiotic to complete 14-day therapy from the date of operation. Maintain wound VAC and wound care, follow-up with home health and wound care as an outpatient. Follow-up with orthopedics in 1 week's time upon discharge. You will be discharged on Lasix 20 mg daily, maintain fluid restriction of 1.8 L a day, maintain low-sodium [less than 2 g/day] diet. Maintain heart healthy diet. Take 20 meq KCL supplement when taking lasix. You were also evaluated for acute urinary retention, urology evaluated you. Flomax started. You will need voiding trial in about 3 to 5 days to assess if you can be taken off of Pimentel catheter. If not, you will need urology follow-up in a week time. Take your medications as prescribed. Please make sure that you are able to get your medications today by calling your pharmacy before you leave the hospital so that your treatment continuity is not broken. Home Health Attestation I certify that this patient is under my care and that I, or a physicians buyer assistant working with me, had a face to-face encounter that meets the home health [id number] encounter requirements with this patient. The encounter with the patient was in whole, or in part, for the following medical condition, which is the primary reason for home health care (list medical condition): I certify that, based on my findings, the following services are medically necessary home health services: My clinical findings support the need for the above services because: Further, I certify that my clinical findings support that this patient is homebound (i.e. absences from home require considerable and taxing effort and are for medical reasons or episcopal services or infrequently or of short duration when for other reasons) because: Certification for Home Health Services: Based on the above findings, I certify that this patient is confined to the home and needs intermittent long term care, physical therapy and/or speech therapy or continues to need occupational therapy. The patient is under my care, and I have initiated the establishment of the plan of care. This patient will be followed by a physician who will periodically review the plan of care. Total Time Total Time Spent Total Time Spent (In Minutes): 45 Discharge Plan Discharge Items Patient Disposition: Transfer Inpatient Rehab Fac Reason For Visit: FALL,RHABDOMYOLYSIS,LEFT HEEL INFECTED ULCER Discharge Diagnosis: left heel infected ulcer Health Concerns: Left foot infected ulcer Rhabdomyolysis Acute on chronic diastolic heart failure Acute urinary retention Activity: Per Instructions section Non-emergency contact: Surgeon Call non-emergency contact if: your symptoms worsen, your pain is not controlled, your temperature is above 101, your wound has increased redness and your wound has increased drainage Follow-up/Referrals: Claudette Mendoza PA-C [[employer]] - 02/04/24 8:15 am Alyssa Kwok MD [Primary Care Provider] - Diet: Heart Healthy and Low Sodium (2gm) Addtl Attending Provider Instructions: Follow-up with your primary care physician within a week time and likely you will need labs CBC/CMP/magnesium/phosphorus. Weekly CBC/ESR/CRP while on antibiotic. You had been evaluated for left foot infected ulcer, you underwent left heel incision and drainage and wound VAC placement on 01/27/2024. You are being discharged on antibiotic to complete 14-day therapy from the date of operation. Maintain wound VAC and wound care, follow-up with home health and wound care as an outpatient. Follow-up with orthopedics in 1 week's time upon discharge. You will be discharged on Lasix 20 mg daily, maintain fluid restriction of 1.8 L a day, maintain low-sodium [less than 2 g/day] diet. Maintain heart healthy diet. Take 20 meq KCL supplement when taking lasix. You were also evaluated for acute urinary retention, urology evaluated you. Flomax started. You will need voiding trial in about 3 to 5 days to assess if you can be taken off of Pimentel catheter. If not, you will need urology follow-up in a week time. Take your medications as prescribed. Please make sure that you are able to get your medications today by calling your pharmacy before you leave the hospital so that your treatment continuity is not broken. Addtl Revenue Liaison Provider Instructions: Orthopedic Instructions: - Toe touch weight bearing with post op shoe in place - Rest and elevation frequently to prevent swelling - Ice to left heel as needed for pain/swelling - Keep wound vac in place at all times. Will need Home health and wound care outpatient appointments for the vac to be changed. - Antibiotics as ordered - use walker or crutches to assist with ambulation - Weekly CBC, CRP and ESR and weekly labs needed while on antibiotics - Follow up with [facility] as scheduled - Call [phone] with any questions, concerns, fevers, chills, drainage, need to confirm or reschedule appointments. Pending Studies at Discharge: No Stand-Alone Forms: My [facility] Skilled Items Patient informed of condition?: Yes DNR: No Discharge Level of Care: Acute rehab Communicable Disease: No Discharge Prognosis: Stable Lines: None Urinary Catheter: Yes Medications and DC Order Prescriptions: New linezolid 600 mg Tablet 600 mg PO BID 10 Days Qty: 20 0RF tamsulosin 0.4 mg Capsule 0.4 mg PO HS Qty: 30 0RF potassium chloride 20 mEq Tablet,Er Particles/Crystals 20 meq PO DAILY Qty: 30 0RF Advanced Probiotic 625 mg (10 billion cell) Capsule 1 cap PO DAILY 14 Days Qty: 14 0RF Continued latanoprost [Xalatan] 0.005 % drops 1 drp OPB HS atorvastatin [Lipitor] 20 mg tablet 20 mg PO QAM thiamine HCl (vitamin B1) [Vitamin B-1] 100 mg Tablet 50 mg PO QAM allopurinol [Zyloprim] 100 mg tablet 200 mg PO QAM aspirin [Aspir-81] 81 mg Tablet,Delayed Release (Dr/Ec) 81 mg PO QAM levothyroxine [Levoxyl] 50 mcg Tablet 50 mcg PO QAM metoprolol succinate [Toprol XL] 25 mg tablet extended release 24 hr 25 mg PO QAM timolol maleate [Timoptic] 0.5 % drops 1 drp OPL QAM Rx Instructions: LEFT EYE ketoconazole 1 % Shampoo 1 applic TOPICAL UD Rx Instructions: PUT ON SITE SEVERAL MINUTES PRIOR TO SHOWERING 3-5X PER WEEK Changed furosemide [Lasix] 20 mg tablet 20 mg PO DAILY Qty: 30 0RF Discontinued sulfamethoxazole-trimethoprim [Bactrim DS] 800-160 mg tablet 1 tab PO BID 7 Days Qty: 14 0RF amoxicillin-pot clavulanate 875-125 mg tablet 1 tab PO BID Qty: 14 0RF Discharge Orders: Discharge Order (Routine); Ordered 02/01/24 Ordered By: Bernie eRyes Admission Data Admit Date/Time: 01/24/24 23:05 Attending Provider: Bernie Reyes Admit Provider: Tim Clay Primary Care Provider: Alyssa Kowk Other Providers: [facility]; Tim Clay; Giles Avalos; Liborio Lopez; Tyler Aiken; Hong Saucedo; Manuel Stanley I.; Harish Varner II; Ruthie Bowser; Tony Byrne; Kris Diallo; Vicente Santamaria; Derick Rob
[2024-02-02] MEDS ORDERED: VANCOMYCIN LEVEL ONE (07:30)
== END 2024-02-01 14:36 | DRG 570 ==
LOC: ED 17:00 → 2N 23:05 → SUATTDRO 23:05 → 2N 23:58

== ENCOUNTER 2024-12-03 10:10 | Inpatient (IN) ==
--- NOTE | 2024-12-03 10:36 | Emergency Department Note ---
Impression & Plan Pneumonia, Generalized weakness, MUNIRA (acute kidney injury), Elevated troponin, Chronic heel ulcer ED Provider Note CHIEF COMPLAINT: Weakness, fever HISTORY OF PRESENTING ILLNESS: This 79-year-old male patient presents to the emergency department via EMS for evaluation of weakness and fever. The patient states that he woke up this morning and just felt weak. He was having trouble getting out of bed because he could not stand on his own. Having pain in his left heel that has progressively gotten worse since yesterday. The patient's left foot is in a cast. The patient requires a walker to get around. The patient also started with a cough this morning. The patient did not notice a fever at home, but has one in the ER. Denies chest pain or SOB. Denies abdominal pain, nausea, or vomiting. Denies any urinary symptoms or changes in his BMs. Denies any headaches, dizziness, confusion, or changes in his mental status. Denies any trouble talking. Denies facial droop. He states that he just feels weak and tired all over. No weakness or symptoms of a particular side or a particular limb. He has not taken any medication for his symptoms today. The patient was last seen by the diabetic foot clinic on 11/30/2024. The patient has a bivalved cast secondary to increased drainage from his pressure ulcer of his left heel. The patient gets his dressing and cast changed weekly. The patient has a history of peripheral arterial disease and has seen Dr. Lopez for moderate occlusive disease of the left lower extremity. No intervention was recommended and the patient is in compression stockings. The patient had x-rays of the left heel on 06/23/2024 and an MRI of the left heel on 07/29/2024 that showed no evidence of osteomyelitis or other concerning abnormalities. REVIEW OF SYSTEMS: See HPI for pertinent positives and pertinent negatives. ALLERGIES: Niacin MEDICATIONS: See below PAST MEDICAL HISTORY: See below PHYSICAL EXAM: VITALS: Vitals are noted on the nurse's note and reviewed by myself. GENERAL: No acute distress, non-diaphoretic. SKIN: See musculoskeletal exam. Capillary reflex less than 2 seconds. HEAD: No scalp tenderness. No step-offs felt. EARS: Bilateral external auditory canals clear. Bilateral tympanic membranes pearly rosas without erythema or effusion. No hemotympanum. No richards sign. No mastoid tenderness. EYES: Pupils equal round and reactive to light and accommodation. Conjunctivae without injection, sclerae without icterus. Extraocular movements intact without pain. No nystagmus. NOSE: Patent, turbinates without inflammation or discharge. No sinus tenderness. No septal hematoma or bleeding. FACE: No facial bone tenderness. Full range of motion of the jaw without tenderness. No facial droop. MOUTH: Mucous membranes moist. Uvula midline. Airway patent. Tongue does not deviate. NECK: Supple without nuchal rigidity. Cervical spine is nontender. Full range of motion of the neck without tenderness and normal strength. HEART: Regular rate and rhythm without murmurs gallops or rubs. LUNGS: Clear to auscultation bilaterally without wheezes, rales or rhonchi. No retractions or accessory muscle use. No chest wall tenderness. ABDOMEN: Positive bowel sounds x 4. Normal tympanic percussion. Soft, nontender to palpation. No masses or hepatosplenomegaly. No guarding or rebound tenderness. No focal RLQ or LLQ tenderness. MUSCULOSKELETAL: No tenderness of the thoracic or lumbar spine or paraspinal muscles. Normal strength and movement of the bilateral upper extremities given his age and health condition. The patient is able to move the bilateral lower extremities fully, but difficulty moving the left lower extremity due to the pain and cast in place. The patient has a cast in place to the left lower extremity. Once the cast was removed, his pressure ulcer was noted to the left heel. There was some mild erythema surrounding the pressure ulcer, but no obvious fluctuance, pointing, or discharge. No obvious lymphatic streaking. Dorsalis pedis and posterior tibial pulses were equal in the bilateral lower extremities. No tenderness to palpation of the left calf or upper part of the leg. NEURO: Patient was alert and oriented to person place and time. Normal mental status exam. Normal sensation to light and sharp touch. No focal neurological deficits. DIFFERENTIAL DIAGNOSIS: Differential diagnosis includes infection, dehydration, metabolic abnormality, hypo/hyperglycemia, electrolyte disturbance, anemia, hypoxia, cardiac sources, PE, CVA, TIA, acute intracranial bleed, intracerebral event, toxicologic, neurologic, Influenza, RSV, COVID, viral syndrome, otitis media, otitis externa, pharyngitis, strep throat, pneumonia, meningitis, urinary tract infection, cellulitis, abscess, sepsis, bacteremia, as well as other pathologies. ED COURSE AND MEDICAL DECISION MAKING: MEDICATIONS GIVEN: 500 mL normal saline solution bolus. Tylenol 1000 mg IV. Cefepime 2 g IV. Zithromax 500 mg p.o. MONITOR: Continuous monitoring engineer: Order was placed for continuous monitoring engineer. Patient was placed on the monitoring engineer and continuous pulse ox. Patient was noted to be in normal sinus rhythm at an initial rate of 90 bpm per my interpretation. EKG: EKG was interpreted by myself as normal sinus rhythm at 95 bpm with no acute ST or T wave changes. INTERPRETATION OF LABS: I interpreted the labs with full lab results as below in the lab section of this note. Laboratory results pertinent to the emergent complaint are discussed in the MDM section below. The patient was advised to follow up with their PCP and/or specialist(s) for further outpatient monitoring and management of any abnormal results. INTERPRETATION OF IMAGING: Imaging studies were interpreted by myself and read by radiology as per the imaging section of this note. The patient was advised to follow up with their PCP and/or specialist(s) for further outpatient management of any non-emergent abnormal findings. Chest x-ray shows a 2.9 cm right midlung elongated density which may represent atelectasis or pneumonia. A pulmonary nodule could appear similar. Cardiomegaly with no evidence for overt pulmonary edema. X-rays of the left foot and calcaneus were negative for acute traumatic abnormalities or obvious evidence of acute osteomyelitis by x-ray. There is soft tissue swelling with a heel ulcer present. EXTERNAL RECORDS REVIEWED: I reviewed the outpatient wound care notes as summarized above. 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 Nursing triage protocols were initiated with IV lock, labs, and/or imaging studies conducted by protocol in the triage area. The patient was initially evaluated in a triage room and then re-evaluated once they were taken back to an exam room. The patient woke up this morning and felt weak all over with no focal neurologic deficits by history or exam. The patient also has increased pain to the left heel where he currently has a pressure ulcer that is being managed by the diabetic foot clinic and wound management. The patient has a cast in place to the left lower extremity to assist with healing in between visits. The patient was found to be febrile in triage. The patient started with a cough this morning as well. The patient was protocoled with labs obtained. The patient was given 500 mL normal saline solution bolus. Additional IV fluids were held in the ER due to concerns for fluid overload due to his history of heart failure. The patient was given IV Tylenol for his pain and fever. White blood cell count normal at 9.86. Hemoglobin low, but stable at 10.5. Platelet count low at 111. INR 1.2 and PT 13. The patient has an acute kidney injury with a creatinine of 1.46 and BUN of 26. Sodium 134 and alk phos 106, but CMP otherwise without concerning abnormalities. Initial high-sensitivity troponin was 43.6 and increased to 79.1 on recheck. The patient denies any chest pain and his EKG was without evidence for STEMI. I suspect his elevated troponins are secondary to ischemic demand. The patient's lactate was normal. Procalcitonin elevated at 1.0. Respiratory bio fire was negative. The patient was unable to give a urine sample while in the ER. The patient's cast was removed in the ER so that I could evaluate the patient's chronic ulcer of the left heel. X-rays of the left foot and calcaneus were negative for acute traumatic abnormalities or obvious evidence of acute osteomyelitis by x-ray. There is soft tissue swelling with a heel ulcer present. Chest x-ray shows a 2.9 cm right midlung elongated density which may represent atelectasis or pneumonia. A pulmonary nodule could appear similar. Cardiomegaly with no evidence for overt pulmonary edema. Blood cultures were drawn and the patient was given cefepime 2 g IV and Zithromax 500 mg p.o. I had a meaningful discussion about this patient with Dr. Mi who agrees with my assessment and the treatment plan. We suspect the patient's fever and weakness is secondary to his pneumonia found on chest x-ray. We feel that the patient requires admission for further evaluation and treatment given his history, exam, and workup findings. I spoke with the on-call hospitalist who agreed to admit the patient for further evaluation and treatment. Please refer to their dictation for further details. The patient was admitted in stable condition. DIAGNOSIS: Pneumonia Weakness Acute kidney injury Elevated troponin Chronic heel ulcer Past Med/Surg History Problem List (Updated 12/03/24 @ 20:20 by Dorinda Mcknight PA-C) Chronic heel ulcer (Acute) Elevated troponin (Acute) MUNIRA (acute kidney injury) (Acute) Generalized weakness (Acute) Pneumonia (Acute) Peripheral arterial disease (Chronic) Peripheral neuropathy Hypothyroidism Diastolic congestive heart failure Euvolemic on exam at [facility] Gout HTN (hypertension) Dyslipidemia Medical History (Updated 12/03/24 @ 20:20 by Dorinda Mcknight PA-C) Hypothyroidism Stage III pressure ulcer of left heel Loss of protective sensation of skin of deformed foot Deformity of left foot MRSA infection Pseudomonas infection Venous ulcer of left leg Surgical wound, non healing Foot abscess, left Urinary retention Acute on chronic diastolic HF (heart failure) Voiding dysfunction Sepsis Cellulitis of foot, left Rhabdomyolysis Injury of right thigh Encounter for pre-operative examination Diastolic dysfunction without heart failure Abnormal MRI Cholelithiasis Acute cholecystitis Biliary colic Epigastric abdominal pain Pressure ulcer of left foot Sleep apnea Osteoarthritis TMJ click Rarely Increased pressure in the eye Does not yet meet criteria for glaucoma Surgical History Status post incision and drainage History of right cataract surgery S/P cholecystectomy History of arthroscopy of left knee History of transesophageal echocardiography (FLACO) History of colonoscopy History of ERCP H/O inguinal hernia repair BILAT History of arthroplasty of both knees Family History Other Coronary heart disease No family history of adverse response to anesthesia Social History (Updated 12/03/24 @ 14:26 by STEW Martinez) Smoking Status: Never smoker Tobacco Type: Smokeless Tobacco (Dip or Chew) Second Hand Exposure: Yes (as a child); Do You Dip or Chew Tobacco: Yes (advised); Hx Alcohol Use: Yes Alcohol type: beer Hx Substance Use: No Preferred Language: Kiswahili Communication Ability: Effective Athletic Turf Worker Required: No Beliefs That Will Affect Care: None Current Living Situation: Spouse Current Living Situation Comment: and daughter Feels Safe at Home: Yes Assistive Devices: Cane, Crutches and Walker Allergies Allergies Allergy/AdvReac Type Severity Reaction Status Date / Time niacin AdvReac Intermediate FLUSH Verified 11/30/24 10:04 Home Meds Home Medications Medication Instructions Recorded Confirmed allopurinol 100 mg tablet 200 mg PO QAM 01/12/20 12/03/24 (Zyloprim) aspirin 81 mg tablet,delayed 81 mg PO QAM 01/12/20 12/03/24 release (Aspir-) atorvastatin 20 mg tablet (Lipitor) 20 mg PO QAM 01/12/20 12/03/24 latanoprost 0.005 % eye drops 1 drp OPB HS 01/12/20 12/03/24 (Xalatan) levothyroxine 50 mcg tablet 50 mcg PO QAM 01/12/20 12/03/24 (Levoxyl) metoprolol succinate 25 mg 25 mg PO QAM 01/12/20 12/03/24 tablet,extended release 24 hr (Toprol XL) thiamine HCl (vitamin B1) 100 mg 50 mg PO QAM 01/12/20 12/03/24 tablet (Vitamin B-1) timolol maleate 0.5 % eye drops 1 drp OPL [facility] 01/12/20 12/03/24 (Timoptic) ketoconazole 1 % shampoo 1 applic topical UD 12/13/21 12/03/24 amoxicillin 250 mg capsule 1,000 mg PO .COMPLEX 02/24/24 12/03/24 potassium chloride 20 mEq 10 meq PO DAILY 12/03/24 12/03/24 tablet,extended release(part/cryst) Previous Rx's Medication Instructions Recorded furosemide 20 mg tablet (Lasix) 20 mg PO DAILY #30 tabs 02/01/24 tamsulosin 0.4 mg capsule 0.4 mg PO HS #30 caps 02/01/24 Results & Data (ED) Vital Signs Vital Signs - 24 hr 12/03/24 10:22 12/03/24 11:27 12/03/24 11:36 Temperature 38.0 C H Temperature Source Oral Pulse Rate 86 95 H Pulse Rate from SpO2 Sensor Respiratory Rate 20 Respiratory Effort / Characteristics Non-Labored Spontaneous Respiratory Depth Normal Respiratory Pattern Regular Blood Pressure 127/61 131/64 Blood Pressure Mean 83 86 Pulse Oximetry 96 Oxygen Delivery Method Room Air Sepsis Recent Fever Within 48 Hours Yes Sepsis New/Unexplained Change in Mental Status N/A Sepsis Action Taken by Nursing No Action Required 12/03/24 12:03 12/03/24 12:33 12/03/24 13:00 Temperature Temperature Source Pulse Rate 72 72 71 Pulse Rate from SpO2 Sensor Respiratory Rate 32 H 34 H 23 Respiratory Effort / Characteristics Respiratory Depth Respiratory Pattern Blood Pressure Blood Pressure Mean Pulse Oximetry Oxygen Delivery Method Sepsis Recent Fever Within 48 Hours Sepsis New/Unexplained Change in Mental Status Sepsis Action Taken by Nursing 12/03/24 13:30 12/03/24 14:06 Temperature Temperature Source Pulse Rate 64 64 Pulse Rate from SpO2 Sensor 64 65 Respiratory Rate 25 H 26 H Respiratory Effort / Characteristics Respiratory Depth Respiratory Pattern Blood Pressure Blood Pressure Mean Pulse Oximetry 95 95 Oxygen Delivery Method Room Air Room Air Sepsis Recent Fever Within 48 Hours Sepsis New/Unexplained Change in Mental Status Sepsis Action Taken by Nursing Laboratory Data 12/03/24 11:29 12/03/24 11:29 Lab Results 12/03/24 12/03/24 Range/Units 11:29 14:47 WBC 9.86 (4.8-10.8) K/ul RBC 3.38 L (4.70-6.10) M/uL Hgb 10.5 L (14.0-18.0) g/dl Hct 31.6 L (42.0-52.0) % MCV 93.5 (80.0-100.0) fL MCH 31.1 (25.0-34.0) pg MCHC 33.2 (32.0-36.0) g/dL RDW Std Deviation 50.3 H (36.4-46.3) fL RDW Coeff of Christopher 14.6 H (11.5-14.5) % Plt Count 111 L (130-400) K/uL MPV 9.8 (9.4-12.4) fL Immature Gran % (Auto) 0.7 % Neut % (Auto) 88.3 % Lymph % (Auto) 3.9 % [place] % (Auto) 6.9 % Eos % (Auto) 0.0 % Baso % (Auto) 0.2 % Neut # (Auto) 8.71 H (1.40-6.50) K/uL Lymph # (Auto) 0.38 L (1.20-3.40) K/uL [place] # (Auto) 0.68 H (0.11-0.59) K/uL Eos # (Auto) 0.00 (0.00-0.50) K/uL Baso # (Auto) 0.02 (0.00-0.20) K/uL Immature Gran # (Auto) 0.07 (0.01-0.20) K/uL PT 13.0 H (9.0-12.0) Seconds INR 1.2 H (0.9-1.1) APTT 26 (21-31) Seconds PTT Ratio 1.0 Sodium 134 L (136-145) mmol/L Potassium 4.3 (3.5-5.1) mmol/L Chloride 103 (98-107) mmol/L Carbon Dioxide 25 (21-32) mmol/L Anion Gap 6 (3-11) BUN 26 H (6-23) mg/dl Creatinine 1.46 H (0.6-1.4) mg/dl Est Cr Clr Drug Dosing Not Reportable eGFR 48.31 BUN/Creatinine Ratio 17.8 (10-20) Glucose 99 (70-99(Fasting)) mg/dl Lactate 1.8 (0.4-2.0) mmol/L Calcium 9.1 (8.6-10.3) mg/dl Total Bilirubin 0.9 (0.2-1.0) mg/dl AST 31 (13-39) U/L ALT 13 (7-52) U/L Alkaline Phosphatase 106 H (34-104) U/L Troponin I High Sens 43.6 H 79.1 H* D (0-20) pg/ml Total Protein 7.0 (6.0-8.3) gm/dl Albumin 4.0 (3.4-5.0) gm/dl Globulin 3.0 (2.5-4.0) gm/dl Albumin/Globulin Ratio 1.3 (0.9-2) Procalcitonin 1.00 H (0-0.5) ng/ml Adenovirus (PCR) Not Detected (NotDetected) B. pertussis DNA (PCR) Not Detected (NotDetected) B.parapertussis DNA PCR Not Detected (NotDetected) C. pneumoniae DNA (PCR) Not Detected (NotDetected) Coronavirus OC43 (PCR) Not Detected (NotDetected) Coronavirus HKU1 (PCR) Not Detected (NotDetected) Coronavirus 229E (PCR) Not Detected (NotDetected) SARS-CoV-2 (PCR) Not Detected (NotDetected) Coronavirus NL63 (PCR) Not Detected (NotDetected) Human Metapneumovir PCR Not Detected (NotDetected) Influenza Type A (PCR) Not Detected (NotDetected) Influenza Type B (PCR) Not Detected (NotDetected) M. pneumoniae (PCR) Not Detected (NotDetected) Parainfluenza 1 (PCR) Not Detected (NotDetected) Parainfluenza 2 (PCR) Not Detected (NotDetected) Parainfluenza 3 (PCR) Not Detected (NotDetected) Parainfluenza 4 (PCR) Not Detected (NotDetected) RSV (PCR) Not Detected (NotDetected) Entero/Rhino (PCR) Not Detected (NotDetected) Administered Medications Sodium Chloride (Nss) 1,000 mls @ 75 mls/hr IV .[id number] ONE Stop: 12/04/24 04:16 Last Admin: 12/03/24 15:20 Dose: 75 mls/hr Documented By: CAP Discontinued Medications Azithromycin (Azithromycin 250 Mg Tab) 500 mg PO NOW ONE Stop: 12/03/24 12:45 Last Admin: 12/03/24 13:12 Dose: 500 mg Documented By: CAP Doxycycline Hyclate (Doxycycline Hyclate 100 Mg Cap) 100 mg PO NOW ONE Stop: 12/03/24 14:50 Last Admin: 12/03/24 15:19 Dose: 100 mg Documented By: CAP Sodium Chloride (Nss) 500 mls @ 999 mls/hr IV .[id number] ONE Stop: 12/03/24 11:16 Last Infusion: 12/03/24 12:41 Dose: Infused Documented By: Admin: 12/03/24 11:36 Dose: 999 mls/hr Documented By: CAP Acetaminophen (Ofirmev) 1,000 mg in 100 mls @ 400 mls/hr IV NOW STA Stop: 12/03/24 11:00 Last Infusion: 12/03/24 12:11 Dose: Infused Documented By: Admin: 12/03/24 11:36 Dose: 400 mls/hr Documented By: CAP Cefepime HCl (Maxipime 2000mg) 2,000 mg in 20 mls @ 5 mls/min IV NOW STA; Protocol Stop: 12/03/24 12:47 Last Admin: 12/03/24 13:14 Dose: 5 mls/min Documented By: CAP Sodium Chloride (Nss) 1,000 mls @ 75 mls/hr IV .[id number] RADHA Stop: 12/06/24 14:14 Last Infusion: 12/03/24 15:20 Dose: Infused Documented By: Admin: 12/03/24 14:24 Dose: 75 mls/hr Documented By: PING Imaging Data Radiologist's Impression: Calcaneus X-Ray 12/03/24 11:30 XR calcaneus LT min 2V CLINICAL HISTORY: Pain, infection, pressure ulcer - ? osteomyelitis COMPARISON: MRI of the left ankle July 29, 2024. Left ankle radiographs and left foot CT January 24, 2024. FINDINGS: No areas of bony erosion within the left calcaneus are identified. There are no fractures or osseous lesions. Moderate vascular calcification is incidentally noted. Subtalar joint is intact. IMPRESSION: No evidence for osteomyelitis within the left calcaneus. ACT 112: Negative or not required by law. Electronically signed by: Rj Delcid M.D. 12/03/2024 12:04 PM Foot X-Ray 12/03/24 11:30 XR foot LT min 3V routine HISTORY: 79 years-old Male Pain, infection, pressure ulcer - ? osteomyelitis chronic pain of the left foot with clinical concern for osteomyelitis COMPARISON: Calcaneus radiographs 06/23/2024 TECHNIQUE: 3 views of the left foot FINDINGS: Limited evaluation of the toes secondary to extension of the metatarsophalangeal joints and flexion of the interphalangeal joints. Arterial calcifications. Demineralized appearance of the bones with mild to moderate multifocal osteoarthritis. There is diffuse soft tissue swelling. Probable cutaneous ulcer of the posterior heel. No acute osseous erosions. IMPRESSION: 1. Soft tissue swelling with heel ulcer. 2. No radiographic evidence of acute osteomyelitis. ACT 112: Negative or not required by law. The above report was generated using voice recognition software. It may contain grammatical, syntax or spelling errors. Electronically signed by: Allan Soriano M.D. 12/03/2024 12:10 PM Chest X-Ray 12/03/24 11:34 XR chest 1V not portable CLINICAL HISTORY: Fever. COMPARISON STUDY: Chest radiograph February 01, 2024. FINDINGS: Lung volumes are normal. A 2.9 cm right midlung elongated density is noted. An adjacent linear density represents atelectasis or scarring. There is no pneumothorax or pleural effusion. Cardiomegaly is unchanged. Mediastinal contours are normal. There is no evidence for pulmonary edema. IMPRESSION: 1. 2.9 cm right midlung elongated density. This may represent atelectasis or pneumonia. A pulmonary nodule could appear similar. Radiographic follow-up to ensure resolution is recommended. 2. Cardiomegaly without evidence for overt pulmonary edema. ACT 112: Negative or not required by law. Electronically signed by: Rj Delcid M.D. 12/03/2024 12:37 PM Discharge Plan Visit Data Chief Complaint: Leg Weakness, Bilateral Stated Complaint: WEAKNESS ED Provider: Tony Mi ED Midlevel Provider: Dorinda Mcknight Discharge Problem: Pneumonia, Generalized weakness, MUNIRA (acute kidney injury), Elevated troponin, Chronic heel ulcer Patient Disposition: Admitted As Inpatient Condition: Fair Discharge Instructions Interventions: ED Discharge Assessment Last Done: 12/03/24 17:04 Discharge Problem: Pneumonia Qualifiers: Pneumonia type: due to unspecified organism Laterality: right Lung location: u nspecified part of lung Qualified Code(s): J18.9 - Pneumonia, unspecified organism Chronic heel ulcer Qualifiers: Laterality: left
[2024-12-03] MEDS: ACETAMINOPHEN 1,000 MG/100 ML VIAL IV STA (11:36)
[2024-12-03] MEDS: SODIUM CHLORIDE 0.9% 500 ML IV ONE (11:36)
[2024-12-03 11:47] LABS: Basophils # (auto) 0.02 K/uL (0.00-0.20); Basophils % (auto) 0.2 %; Hematocrit (blood only) 31.6 % (42.0-52.0); Hemoglobin 10.5 g/dl (14.0-18.0); Immature Granulocytes # (auto) 0.07 K/uL (0.01-0.20); Immature Granulocytes % (auto) 0.7 %; Lymphocytes # (auto) 0.38 K/uL (1.20-3.40); Lymphocytes % (auto) 3.9 %; Mean Corpuscular Hemoglobin 31.1 pg (25.0-34.0); Mean Corpuscular Hgb Conc 33.2 g/dL (32.0-36.0); Mean Corpuscular Volume 93.5 fL (80.0-100.0); Mean Platelet Volume 9.8 fL (9.4-12.4); Monocytes # (auto) 0.68 K/uL (0.11-0.59); Monocytes % (auto) 6.9 %; Neutrophils # (auto) 8.71 K/uL (1.40-6.50); Neutrophils % (auto) 88.3 %; Platelet Count 111 K/uL (130-400); RDW Coefficient of Variation 14.6 % (11.5-14.5); RDW Standard Deviation 50.3 fL (36.4-46.3); Red Blood Count 3.38 M/uL (4.70-6.10); White Blood Count 9.86 K/ul (4.8-10.8)
[2024-12-03 12:06] LABS: Alanine Aminotransferase 13 U/L (7-52); Albumin Globulin Ratio 1.3 (0.9-2); Alkaline Phosphatase 106 U/L (34-104); Anion Gap 6 (3-11); Aspartate Aminotransferase 31 U/L (13-39); BUN Creatinine Ratio 17.8 (10-20); Bilirubin,Total 0.9 mg/dl (0.2-1.0); Blood Urea Nitrogen 26 mg/dl (6-23); Calcium 9.1 mg/dl (8.6-10.3); Carbon Dioxide 25 mmol/L (21-32); Chloride 103 mmol/L (98-107); Glucose 99 mg/dl (70-99(Fasting)); Potassium 4.3 mmol/L (3.5-5.1); Sodium 134 mmol/L (136-145)
--- NOTE | 2024-12-03 12:06 | XRay Report ---
XR calcaneus LT min 2V CLINICAL HISTORY: Pain, infection, pressure ulcer - ? osteomyelitis COMPARISON: MRI of the left ankle July 29, 2024. Left ankle radiographs and left foot CT January 24, 2024. FINDINGS: No areas of bony erosion within the left calcaneus are identified. There are no fractures or osseous lesions. Moderate vascular calcification is incidentally noted. Subtalar joint is intact. IMPRESSION: No evidence for osteomyelitis within the left calcaneus. ACT 112: Negative or not required by law. Electronically signed by: Rj Delcid M.D. 12/03/2024 12:04 PM
--- NOTE | 2024-12-03 12:11 | XRay Report ---
XR foot LT min 3V routine HISTORY: 79 years-old Male Pain, infection, pressure ulcer - ? osteomyelitis chronic pain of the lef t foot with clinical concern for osteomyelitis COMPARISON: Calcaneus radiographs 06/23/2024 TECHNIQUE: 3 views of the left foot FINDINGS: Limited evaluation of the toes secondary to extension of the metatarsophalangeal joints and flexion o f the interphalangeal joints. Arterial calcifications. Demineralized appearance of the bones with mil d to moderate multifocal osteoarthritis. There is diffuse soft tissue swelling. Probable cutaneous ul cer of the posterior heel. No acute osseous erosions. IMPRESSION: 1. Soft tissue swelling with heel ulcer. 2. No radiographic evidence of acute osteomyelitis. ACT 112: Negative or not required by law. The above report was generated using voice recognition software. It may contain grammatical, syntax o r spelling errors. Electronically signed by: Allan Soriano M.D. 12/03/2024 12:10 PM
[2024-12-03 12:12] LABS: Troponin I High Sensitivity 43.6 pg/ml (0-20)
[2024-12-03 12:36] LABS: INR 1.2 (0.9-1.1); Partial Thromboplastin Time 26 Seconds (21-31)
--- NOTE | 2024-12-03 12:38 | XRay Report ---
XR chest 1V not portable CLINICAL HISTORY: Fever. COMPARISON STUDY: Chest radiograph February 01, 2024. FINDINGS: Lung volumes are normal. A 2.9 cm right midlung elongated density is noted. An adjacent kesha ear density represents atelectasis or scarring. There is no pneumothorax or pleural effusion. Cardiom egaly is unchanged. Mediastinal contours are normal. There is no evidence for pulmonary edema. IMPRESSION: 1. 2.9 cm right midlung elongated density. This may represent atelectasis or pneumonia. A pulmonary n odule could appear similar. Radiographic follow-up to ensure resolution is recommended. 2. Cardiomegaly without evidence for overt pulmonary edema. ACT 112: Negative or not required by law. Electronically signed by: Rj Delcid M.D. 12/03/2024 12:37 PM
[2024-12-03 12:41] LABS: Adenovirus PCR Not Detected (NotDetected); Bordetella parapertussis PCR Not Detected (NotDetected); Bordetella pertussis PCR Not Detected (NotDetected); Chlamydia pneumoniae PCR Not Detected (NotDetected); Coronavirus 229E PCR Not Detected (NotDetected); Coronavirus CoV-2 (COVID19)PCR Not Detected (NotDetected); Coronavirus HKU1 PCR Not Detected (NotDetected); Coronavirus NL63 PCR Not Detected (NotDetected); Coronavirus OC43PCR Not Detected (NotDetected); Human Metapneumovirus PCR Not Detected (NotDetected); Influenza A PCR Not Detected (NotDetected); Influenza B PCR Not Detected (NotDetected); Mycoplasma pneumoniae PCR Not Detected (NotDetected); Parainfluenza Virus 1 PCR Not Detected (NotDetected); Parainfluenza Virus 2 PCR Not Detected (NotDetected); Parainfluenza Virus 3 PCR Not Detected (NotDetected); Parainfluenza Virus 4 PCR Not Detected (NotDetected); Respiratory Syncytial VirusPCR Not Detected (NotDetected); Rhinovirus/Enterovirus PCR Not Detected (NotDetected)
--- OUTSIDE RECORDS SUMMARY | 2024-12-03 12:44 | External Medical Summary | Summary of Care ---
Author Name Unknown Organization [facility] Address [address] [place] [address] Phone [phone] Care Team Providers Care Seal Extrusion Operator Name Role Phone Alyssa Kwok MD Primary Care Provider [phone] Reason for Visit * Reason Comments Follow Up Encounter Details Date Type Department Care Team (Late st Contact Info) Description 07/30/2024 10:20 AM EST Office Visit General Internal Medicine [facility] [place] [address] [facility] [place] [address] Alyssa Kwok MD [address] [place] [address] HTN, goal below 140/90*; Nummular dermatitis; Stress due to illness of family member; Prediabetes; Hyperlipidemia with target LDL less than 100; Idiopathic chronic gout of multiple sites without tophus; Stage 3a chronic kidney disease (HCC); Hereditary and idiopathic peripheral neuropathy; Heart failure, diastolic, due to HTN (HCC); Anxiety related to change in role; Acquired hypothyroidism; BPH with obstruction/lower urinary tract symptoms; Anemia, unspecified type; Ulcer of left foot, unspecified ulcer stage ([facility]); Other vitamin B12 deficiency anemia; NATALI (generalized anxiety disorder) Allergies Active Allergy Reactions Criticality Noted Date Comments Niacin [place] High 12/18/2021 Niacin High 04/28/2009 Itchy burning skin red ears documented as of this encounter (statuses as of 07/30/2024) Medications ASPIRIN 81 MG PO CHEW One pill by mouth once a day with food 100 Tab 5 05/20/20 12 Active TIMOLOL MALEATE 0.25 % OP SOLN one drop in left eye once daily 09/01/19 14 Active latanoprost (XALATAN) 0.005 % ophthalmic solution 1 Drop at bedtime. Active Thiamine HCl (B-1) 100 MG TABS Take 50 mg by mouth daily. 09/15/19 19 Active Allopurinol 100 MG Oral Tablet (Zyloprim)Indicati ons:Idiopathic chronic gout of left ankle without tophus,Idiopathic chronic gout of right ankle without tophus Take 2 Tablets by mouth in the morning. 180 Tablet 3 02/18/20 24 Active Metoprolol Succinate ER 25 MG Oral Tablet Extended Release 24 Hour (toPROL XL)Indications:HTN , goal below 140/90,Heart failure, diastolic, due to HTN (HCC) Take 1 Tablet by mouth in the morning. 90 Tablet 3 02/18/20 24 Active Levothyroxine Sodium 50 MCG Oral Tablet (Levoxyl)Indicatio ns:Acquired hypothyroidism Take 1 Tablet by mouth daily first thing in the morning. (at least 30 min prior to breakfast or other meds) 90 Tablet 3 04/30/20 24 Active Furosemide 20 MG Oral Tablet (Lasix)Indications :Heart failure, diastolic, due to HTN (HCC) Take 1 tab daily in the morning . Take an extra tab on Mon and Fri if increased swelling. 100 Tablet 3 04/30/20 24 Active Potassium Chloride Edwina ER 10 MEQ Oral Tablet Extended ReleaseIndications :Heart failure, diastolic, due to HTN (HCC) Take 1 Tablet by mouth in the morning. With extra one Mon and Fri along with lasix. 100 Tablet 3 04/30/20 24 Active Atorvastatin Calcium 20 MG Oral Tablet (Lipitor)Indicatio ns:Hyperlipidemia with target LDL less than 100 TAKE 1 TABLET EVERY MORNING 90 Tablet 3 07/09/20 24 Active Tamsulosin HCl 0.4 MG Oral Capsule (Flomax)Indication s:BPH with obstruction/lower urinary tract symptoms Take 1 Capsule by mouth every evening. 90 Capsule 3 07/30/20 24 Active DULoxetine HCl 20 MG Oral Capsule Delayed Release Particles (duloxetine)Indica tions:Anxiety related to change in role,NATALI (generalized anxiety disorder) Take 1 Capsule by mouth in the morning. Do not cut, crush or chew. 30 Capsule 5 07/30/20 24 Active Betamethasone Valerate 0.1 % External Ointment (Valisone) Apply to back twice daily as needed for itching 45 g 11/21/19 22 024 Discontin ued(End of Procedure ) Multi-Vitamins Oral Tablet Take 1 Tablet by mouth in the morning. 02/18/20 24 024 Discontin ued(End of Procedure ) Tamsulosin HCl 0.4 MG Oral Capsule (Flomax)Indication s:BPH with obstruction/lower urinary tract symptoms Take 1 Capsule by mouth every evening. 04/30/20 24 024 Discontin ued(Refil l) documented as of this encounter (statuses as of 07/30/2024) Active Problems Problem Noted Date Diagnosed Date Stage 3a chronic kidney disease 07/30/2024 Prediabetes 05/17/2024 Overview: Per Prediabetes protocol Stress due to illness of family member Anxiety related to change in role 08/24/2023 Idiopathic chronic gout of multiple sites withou t tophus 12/05/2021 Nummular dermatitis 06/29/2018 Hereditary and idiopathic peripheral neuropathy 03/13/2018 Heart failure, diastolic, due to HTN 05/19/2017 HTN, goal below 140/90 05/19/2017 Hyperlipidemia with target LDL less than 100 11/2010 Acquired hypothyroidism documented as of this encounter (statuses as of 07/30/2024) Resolved Problems Problem Noted Date Diagnosed Date Resolved Date Prediabetes 08/17/2018 03/18/2024 Overview: Per Prediabetes protocol #1 Neuropathy involving both lower extremities 09/12/2017 12/05/2021 Idiopathic chronic gout of l eft ankle without tophus 05/19/2017 12/05/2021 Idiopathic chronic gout of r ight ankle without tophus 02/25/2017 12/05/2021 Chronic idiopathic gout invo lving toe of right foot without tophus 09/11/2016 12/05/2021 Impaired fasting glucose 05/11/201011/2021 HTN, goal to be determined 1 08/22/2008 Overview (06/22/2009): Modified per [facility] protocol #16. documented as of this encounter (statuses as of 07/30/2024) Immunizations Name Administration Dates Next Due COVID-19 mRNA, LNP-s, No Pre serve, 2-Dose Series (Pfizer) 12/04/2021,06/01/2021,10/16/2020,09/11 COVID-19, MRNA-LNP, 24-25, P F, 50 MCG/0.5ML, IM, 12 YRS & ABOVE (Moderna - Spikevax) 05/15/2024 Covid-19, Mrna, Lnp-s, Pf, B ivalent, 30 Mcg, IM, 12 yrs and above (Pfizer) 01/10/2023,06/05/2022 DTaP Dipth/Tet/Acell Pertussis (Infanrix), Peds 09/16/2000 Pneumococcal Conjugate Vacc, 13 Valent (Prevnar) 03/13/2016 Pneumococcal Polysaccharide PPV23 (Pneumovax) 09/01/2013,01/27/2008 Seasonal Influenza Vac., MDV , IM, 0.5 mL (Fluzone) 08/12/2014,09/01/2013,05/20/2012,05/20,05/11/2010,04/28/2009,07/15/2008 Seasonal Influenza, High Dos e, Trivalent, PF, IM (Fluzone HD) 04/30/2024 Seasonal Influenza, PF, 6 M & above, IM , (FluLaval or Fluzone) 05/11/2020,09/14/2018,05/19/2017 Seasonal Influenza, Quadriva lent Hd (Fluzone Hd) 06/06/2023,05/11/2022,06/21/2021 Seasonal Influenza, Quadriva lent Hd, 65+ Yrs 05/11/2020 Seasonal Influenza, Quadriva lent, No Preserve, IM 09/04/2016,09/15/2015 Seasonal Influenza, Trivalen t, Adjuvanted, 65+ YRS, PF, (Fluad) 04/15/2019 TD, Preservative Free 05/20/2011 TDAP (age 10 and older)(Boostrix) 02/18/2024 Varicella Zoster Vaccine (Adult) 05/20/2012 Zoster Vaccine Recombinant (Shingrix) 01/10/2023 ,03/13/2018 documented as of this encounter Social History Tobacco Use Types Packs/Day Years Used Date Smoking Tobacco: Never Smokeless Tobacco: Current Chew Comments:smokeless tobacco f or 49 yrs Alcohol Use Standard Drinks/Week Comments Yes 8 (1 standard drink = 0.6 oz pur e alcohol) PHQ-2 Answer Date Recorded PHQ Adult Total Score 2 02/18/2024 Hunger Vital Sign Answer Date Recorded Within the past 12 months, y ou worried that your food would run out before you got the money to buy more. Never true 02/18/20 24 Within the past 12 months, t he food you bought just didn't last and you didn't have money to get more. Never true 02/18/2024 Childcare Answer Date Recorded Do you feel overwhelmed with taking care of a child, family member or friend? No 02/18/2024 Does your family need help f inding childcare? (Household - for ages 0-17 years) Not on file 02/18/2024 Clothing Answer Date Recorded Have you been unable to get clothing when it was really needed? No 02/18/2024 Is your family able to get c lothes or diapers when needed? (Household - for ages 0-17 years) Not on file 02/18/2024 Personal Safety Answer Date Recorded Do you feel unsafe or have concerns for your saf ety? No 02/18/2024 Do you have concerns for you r family's safety? (Household - for ages 0-17 years) Not on file 02/18/2024 Utilities Answer Date Recorded Do you have trouble paying y our heating, water, or electric bill? No 02/18/2024 Is your family able to pay t he heat, water, or electric bill? (Household - for ages 0-17 years) Not on file 02/18/2024 Does your family have access to good internet? (Household - for ages 0-17 years) Not on file 02/18/2024 Employment Status Answer Date Recorded Are you unemployed or without regular income? No 02/18/2024 Does the household have a re gular source of income? (Household - for ages 0-17 years) Not on file 02/18/2024 Social Connections Answer Date Recorded How often do you feel lonely or isolated from th ose around you? Never 02/18/2024 Financial Resource Strain Answer Date R ecorded Do you have any trouble payi ng for your medications, or do you think you might in the future? No 02/18/2024 Does your family have troubl e paying for medicine? (Household - for ages 0-17 years) Not on file 02/18/2024 Transportation Needs Answer Date Record ed Do you have trouble getting a ride to medical visits or work? (Adult - for ages 18 years and over) Not on file 02/18/2024 Does your family have a hard time getting a ride to doctors visits? (Household - for ages 0-17 years) Not on file 02/18/2024 Has lack of transportation k ept you from medical appointments, meetings, work, or from getting things needed for daily living? Check all that apply. No 02/18/2024 Do you (or your family) have trouble finding or paying for a ride (transportation)? (Household - for ages 0-17 years) Not on file 02/18/2024 Housing Stability Answer Date Recorded Do you currently live in a s helter or have no steady place to sleep at night? No 02/18/2024 Do you think you are at risk of becoming homeless? (Adult - for ages 18 years and over) Not on file 02/18/2024 Does your family worry about paying for your home or becoming homeless? (Household - for ages 0-17 years) Not on file 0 02/18/2024 Are you homeless or worried that you might be in the future? No 02/18/2024 Are you (or your family) dave eless or worried that you might be in the future? (Household - for ages 0-17 years) Not on file Food Insecurity Answer Date Recorded Do you need food for this week? No 02/18/2024 Are you able to get enough f ood for your family? (Household - for ages 0-17 years) Not on file 02/18/2024 Does your family need food t his week? (Household - for ages 0-17 years) Not on file 02/18/2024 Do you always have enough fo od for your family? (Household - for ages 0-17 years) Not on file 02/18/2024 Sex and Gender Information Value Date Recorded Sex Assigned at Male 04/15/2019 9:31 AM EDT Legal Sex Male 6:40 AM EST Gender Identity Male 04/15/2019 9:31 AM EDT Sexual Orientation Choose not to disclose 2018 9:31 AM EDT Occupation Industry Job Start Date Job End Date ritired Not on file Not on file Not on file documented as of this encounter Last Filed Vital Signs Vital Sign Reading Time Taken Comments Blood Pressure 108/54 07/30/2024 10:28 AM EST Pulse 77 07/30/2024 10:28 AM EST Temperature 36.3 °C (97.3 °F) 07/30/2024 1 0:28 AM EST Respiratory Rate 16 07/30/2024 10:2 8 AM EST Oxygen Saturation 99% 07/30/2024 10: 28 AM EST Inhaled Oxygen Concentration - - Weight 79.3 kg (174 lb 14.4 oz) 024 10:28 AM EST Height 172.7 cm (5' 7.99") 07/30/2024 1 0:28 AM EST Body Mass Index 26.6 07/30/2024 10:28 AM EST documented in this encounter Progress Notes * Alyssa Kwok MD - 07/30/2024 10:36 AM EST Images from the original note were not included. History of Present Illness Jerry Tobias is a 78 year old male that presents for Follow Up 78 YOM with PMH of HTN, hyperlipidemia, hypothyroidism , prediabetes, nummular eczema, venous stasis , gout tobacco abuse and daily alcohol use has seen for recheck. Acute concern :- -wants to talk about anemia that he has been dealing with since last 6-7 months. He has also been dealing with a left heel ulcer for that long which is very slowly healing. Has been seeing wound clinic once a week and foot doctor regularly. Last note reviewed with said wound is gradually healing. He does not know whether he had circulation or KRISTIAN checked already. Has appointment with wound clinictoday and also had MRI of the leg recently -stress at home due to change in personality his due to dementia. 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 Alcohol 1 beer in the evening after caregiver goes away to help with stress. Sometimes trouble sleeping due to mind racing Watching diet and exercise : Active but not as much as before and appetite is overall okay Routine labs : Labs reviewed with patient. Stable except mild anemia which has been stable/slightlyworse. Workup done in April was negative except high ferritin Routine HM : Up-to-date except colonoscopy which he is planning on scheduling it soon with the helpdaughter Chronic medical problem: reviewed and stable Physical Exam Vitals: 07/30/24 1028 Temp: 97.3 °F (36.3 °C) Pulse: 77 Resp: 16 SpO2: 99% BP: 108/54 BMI: 26.6 Physical Exam Vitals and nursing note reviewed. Constitutional: General: He is not in acute distress. Appearance: He is normal weight. HENT: Head: Normocephalic. Right Ear: There is no impacted cerumen. Left Ear: There is no impacted cerumen. Cardiovascular: Rate and Rhythm: Normal rate and regular rhythm. Heart sounds: No murmur heard. Pulmonary: Effort: Pulmonary effort is normal. No respiratory distress. Breath sounds: No wheezing. Abdominal: General: Bowel sounds are normal. There is no distension. Palpations: Abdomen is soft. There is no mass. Musculoskeletal: General: No swelling, tenderness or signs of injury. Cervical back: Neck supple. No rigidity. Right lower leg: Edema present. Left lower leg: Edema present. Skin: General: Skin is warm. Capillary Refill: Feeble dorsalis pedis pulses bilateral Findings: No lesion or rash. Neurological: Mental Status: He is alert. I have reviewed the following results: CMP, Lipid Panel, TSH, and CBC Assessment and Plan HTN, goal below 140/90 If blood pressure goes any lower would hold metoprolol - COMPREHENSIVE METABOLIC PANEL; Future Nummular dermatitis Better Stress due to illness of family member Prediabetes Doing well on conservative measure Continue to watch diet and exercise Wwill follow lab closely - HEMOGLOBIN A1C; Future Hyperlipidemia with target LDL less than 100 Stable Continue current treatment as directed - LIPID PANEL WITH DIRECT LDL IF TG IS HIGH; Future Idiopathic chronic gout of multiple sites without tophus Stage 3a chronic kidney disease (HCC) - ALBUMIN / CREATININE RATIO, URINE; Future Hereditary and idiopathic peripheral neuropathy Heart failure, diastolic, due to HTN (HCC) Anxiety related to change in role - DULoxetine HCl 20 MG Oral Capsule Delayed Release Particles (duloxetine); Take 1 Capsule by mouthin the morning. Do not cut, crush or chew. New Advised taking medications better than drinking alcohol Acquired hypothyroidism - TSH; Future BPH with obstruction/lower urinary tract symptoms - Tamsulosin HCl 0.4 MG Oral Capsule (Flomax); Take 1 Capsule by mouth every evening. Anemia, unspecified type - CBC; Future - FERRITIN; Future Ulcer of left foot, unspecified ulcer stage (HCC) - IRON SCREEN, INCLUDING TIBC; Future - CRP (INFLAMMATORY MARKER); Future Other vitamin B12 deficiency anemia - VITAMIN B12; Future NATALI (generalized anxiety disorder) - DULoxetine HCl 20 MG Oral Capsule Delayed Release Particles (duloxetine); Take 1 Capsule by mouthin the morning. Do not cut, crush or chew. Wrap-Up Time: I spent a total of 40-54 minutes (exact time 44 mins) on the date of service in preparation, delivery, and documentation of the care provided to Jerry Tobias excluding any time spent in the performance of separately billed services. documented in this encounter Nursing Notes * Leydi Cortez CMA - 07/30/2024 10:21 AM EST Pt here for a 6 month follow up. Pt would like to discuss lab work documented in this encounter Plan of Treatment Upcoming Encounters Date Type Department Care Team (Late st Contact Info) Description 01/31/2025 1:40 PM EDT [facility] [place] [address] [facility] [place] [address] Alyssa Kwok MD [address] [facility] [place] [address] Scheduled Orders Name Type Priority Associated Diagnoses Orde r Schedule CBC Lab Routine Anemia, unspecified type Expected: 09/30/2024, Expires: 07/30/2025 FERRITIN Lab Routine Anemia, unspecified type Expected: 09/30/2024, Expires: 07/30/2025 IRON SCREEN, INCLUDING TIBC Lab Routine Ulcer of left foot, unspecified ulcer stage (HCC) Expected: 09/30/2024, Expires: 07/30/2025 CRP (INFLAMMATORY MARKER) Lab Routine Ulcer of left foot, unspecified ulcer stage (HCC) Expected: 09/30/2024, Expires: 07/30/2025 COMPREHENSIVE METABOLIC PANEL Lab Routine HTN, goal below 140/90 Expected: 01/28/2025, Expires: 07/30/2025 LIPID PANEL WITH DIRECT LDL IF TG IS HIGH Lab Routine Hyperlipidemia with target LDL less than 100 Expected: 01/28/2025, Expires: 07/30/2025 TSH Lab Routine Acquired hypothyroidism Expected: 01/28/2025, Expires: 07/30/2025 HEMOGLOBIN A1C Lab Routine Prediabetes Expected: 07/30/2024 (Approximate), Expires: 07/30/2025 VITAMIN B12 Lab Routine Other vitamin B12 deficiency anemia Expected: 09/30/2024, Expires: 07/30/2025 ALBUMIN / CREATININE RATIO, URINE Lab Routine Stage 3a chronic kidney disease (HCC) Expected: 07/30/2024 (Approximate), Expires: 07/30/2025 Health Maintenance Due Date Last Done Comments CKD PHOS USE SMARTSET 42985 1963 Adult Wellness Visit 09/26/2022 09/26/2021 Albumin/Creatinine Ratio 09/26/2022 09/26/2021 Colonoscopy 05/14/2024 05/14/2019, 05/04, 12/20/2013, Additional history exists COVID-19 Vaccine ( season) 2024 05/15/2024, 01/10/2023, 06/05/2022, Additional history exists GFR 01/24/2025 07/26/2024, 04/04, 02/09/2024, Additional history exists Depression Screening 02/17/2025 02/18/2024 HbA1c 04/16/2025 04/16/2024, 03/2024, 12/18/2022, Additional history exists TSH 04/16/2025 04/16/2024, 09/2023, 08/11/2023, Additional history exists CKD HGB USE SMARTSET 50543 07/26/202507/26, 04/16/2024, 04/16/2024, Additional history exists DTap/Tdap Vaccines (4 - Td or Tdap) 02/17/2034 02/18/2024, 05/20/2011, 09/16/2000 Pneumococcal Vaccine: 50+ Years Completed 03/13/2016, 09/01/2013, 01/27/2008 RETIRED - COLONOSCOPY-EVERY 5 YRS AGES 18-100 Discontinued 05/14/2019, 05/14/2019, 12/20/2013, Additional history exists Zoster Vaccines Completed 01/10/2023, 03/04, 05/20/2012 Influenza Vaccine (FLU shot) Completed 04/30/2024, 06/06/2023, 05/11/2022, Additional history exists HPV (Gardasil) Vaccine Aged Out No lo nger eligible based on patient's age to complete this topic Hepatitis B Vaccine Aged Out No longe r eligible based on patient's age to complete this topic MENINGOCOCCAL (MENACTRA/MENVEO) Aged Out No longer eligible based on patient's age to complete this topic documented as of this encounter Medical Devices Not on filedocumented as of this encounter Visit Diagnoses Diagnosis HTN, goal below 140/90- Primary Unspecified essential hypertension Nummular dermatitis Contact dermatitis and other eczema, due to unspecified cause Stress due to illness of family member Other health problem within the family Prediabetes Other abnormal glucose Hyperlipidemia with target LDL less than 100 Other and unspecified hyperlipidemia Idiopathic chronic gout of multiple sites without tophus Chronic gouty arthropathy without mention of tophus (tophi) Stage 3a chronic kidney disease (HCC) Hereditary and idiopathic peripheral neuropathy Unspecified hereditary and idiopathic peripheral neuropathy Heart failure, diastolic, due to HTN (HCC) Unspecified hypertensive heart disease with heart failure Anxiety related to change in role Acquired hypothyroidism Unspecified hypothyroidism BPH with obstruction/lower urinary tract symptoms Hypertrophy of prostate with urinary obstruction and other lower urinary tract symptoms (LUTS) Anemia, unspecified type Ulcer of left foot, unspecified ulcer stage (HCC) Other vitamin B12 deficiency anemia NATALI (generalized anxiety disorder) Generalized anxiety disorder documented in this encounter Advance Directives Documents on File Type Date Recorded Patient Set Illustrator Expl anation Advance Directives and Arsh shannon Will 04/10/2007 ADVANCE DIRECTIVE * Full Code (Latest Code Status on File) Date Activated Date Inactivated Comments 02/02/2020 3:56 PM 02/02/2020 9:25 PM This order ref lects the patients wishes and were consensually agreed upon. Question Answer Comments Discussion of Advance Directives occurred with: Not Discussed * Full Code Date Activated Date Inactivated Comments 02/02/2020 12:21 PM 02/02/2020 3:56 PM This order re flects the patients wishes and were consensually agreed upon. Question Answer Comments Discussion of Advance Directives occurred with: Not Discussed Healthcare Agents on File Name Relationship Healthcare Agent Relationship Communication Melida Tobias Spouse First Alternate Health Care Agent (per Health Care Power of Stave And Bolt Equalizer document) Myra Tobias Adult Child Second Altern ate Health Care Agent (per Health Care Power of Stave And Bolt Equalizer document) Care Teams Seal Extrusion Operator Relationship Specialty Start Date End Date Alyssa Kwok MD [address] [place] [address] PCP - General 10/14/08 documented as of this encounter
--- OUTSIDE RECORDS SUMMARY | 2024-12-03 12:44 | External Medical Summary | Summary of Care ---
Author Name Unknown Organization [facility] Address [address] [place] [address] Phone [phone] Care Team Providers Care Installation Drafter Name Role Phone Alyssa Kwok MD Primary Care Provider [phone] Encounter Details Date Type Department Care Team (Late st Contact Info) Description 08/26/2024 Population Health External Data Unspecified Department Allergies Active Allergy Reactions Criticality Noted Date Comments Niacin Flushing High 12/18/2021 Niacin High 04/28/2009 Itchy burning skin red ears documented as of this encounter (statuses as of 08/26/2024) Medications ASPIRIN 81 MG PO CHEW One pill by mouth once a day with food 100 Tab 5 2 Active TIMOLOL MALEATE 0.25 % OP SOLN one drop in left eye once daily 4 Active latanoprost (XALATAN) 0.005 % ophthalmic solution 1 Drop at bedtime. Active Thiamine HCl (B-1) 100 MG TABS Take 50 mg by mouth daily. 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 180 Tablet 3 4 Active Metoprolol Succinate ER 25 MG Oral Tablet Extended Release 24 Hour (toPROL XL)Indications:HTN , goal below 140/90,Heart failure, diastolic, due to HTN (HCC) Take 1 Tablet by mouth in the morning. 90 Tablet 3 4 Active Levothyroxine Sodium 50 MCG Oral Tablet (Levoxyl)Indicatio ns:Acquired hypothyroidism Take 1 Tablet by mouth daily first thing in the morning. (at least 30 min prior to breakfast or other meds) 90 Tablet 3 4 Active Furosemide 20 MG Oral Tablet (Lasix)Indications :Heart failure, diastolic, due to HTN (HCC) Take 1 tab daily in the morning . Take an extra tab on Mon and Fri if increased swelling. 100 Tablet 3 4 Active Potassium Chloride Edwina ER 10 MEQ Oral Tablet Extended ReleaseIndications :Heart failure, diastolic, due to HTN (HCC) Take 1 Tablet by mouth in the morning. With extra one Mon and Fri along with lasix. 100 Tablet 3 4 Active Atorvastatin Calcium 20 MG Oral Tablet (Lipitor)Indicatio ns:Hyperlipidemia with target LDL less than 100 TAKE 1 TABLET EVERY MORNING 90 Tablet 3 4 Active Tamsulosin HCl 0.4 MG Oral Capsule (Flomax)Indication s:BPH with obstruction/lower urinary tract symptoms Take 1 Capsule by mouth every evening. 90 Capsule 3 4 Active DULoxetine HCl 20 MG Oral Capsule Delayed Release Particles (duloxetine)Indica tions:Anxiety related to change in role,NATALI (generalized anxiety disorder) Take 1 Capsule by mouth in the morning. Do not cut, crush or chew. 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 documented as of this encounter (statuses as of 08/26/2024) Immunizations Name Administration Dates Next Due COVID-19 mRNA, LNP-s, No Pre serve, 2-Dose Series ([employer]) 12/04/2021,06/01/2021,10/16/2020,09/11 COVID-19, MRNA-LNP, 24-25, P F, 50 MCG/0.5ML, IM, 12 YRS & ABOVE (Moderna - Spikevax) 05/15/2024 Covid-19, Mrna, Lnp-s, Pf, B ivalent, 30 Mcg, IM, 12 yrs and above ([employer]) 01/10/2023,06/05/2022 DTaP Dipth/Tet/Acell Pertussis (Infanrix), Peds 09/16/2000 [...] on file documented as of this encounter Plan of Treatment Upcoming Encounters Date Type Department Care Team (Late st Contact Info) Description 01/31/2025 1:40 PM EDT Office Visit General Internal Medicine [facility] [place] [address] [facility] [place] [address] Alyssa Kwok MD [address] [facility] [place] [place] [address] Health Maintenance Due Date Last Done Comments CKD PHOS USE SMARTSET 37358 1963 Adult Wellness Visit 09/26/2022 09/26/2021 Albumin/Creatinine Ratio 09/26/2022 09/26/2021 Colonoscopy 05/14/2024 05/14/2019, 05/04, 12/20/2013, Additional history exists COVID-19 Vaccine ( season) 2024 05/15/2024, 01/10/2023, 06/05/2022, Additional history exists GFR 01/24/2025 07/26/2024, 04/04, 02/09/2024, Additional history exists Depression Screening 02/17/2025 02/18/2024 HbA1c 04/16/2025 04/16/2024, 03/2024, 12/18/2022, Additional history exists TSH 04/16/2025 04/16/2024, 09/2023, 08/11/2023, Additional history exists CKD HGB USE SMARTSET 82774 07/26/202507/26, 04/16/2024, 04/16/2024, Additional history exists DTap/Tdap [...] Not on filedocumented as of this encounter Advance Directives Documents on File Type Date Recorded Patient Cutting Machine Tender Expl anation Advance Directives and Livin g Will 04/10/2007 ADVANCE DIRECTIVE * Full Code [...] Care Agent (per Health Care Power of Title Vehicle Service Attendant document) Myra Mychal Jatinder Adult Child Second Altern ate Health Care Agent (per Health Care Power of Title Vehicle Service Attendant document) Care Teams Installation Drafter Relationship Specialty Start Date End Date Alyssa Kwok MD [address] [place] [address], [place] [address] PCP - General 10/14/08 documented as of this encounter
--- OUTSIDE RECORDS SUMMARY | 2024-12-03 12:44 | External Medical Summary | Continuity of Care Document ---
Author Name Unknown Organization [id number] Address [address] [place] [id number] Care Team Providers Care Floral Decorator Name Role Phone Alyssa Kwok Primary Care Physician [phone] Encounter [facility] [id number] Date(s): 08/26/24 - 08/26/24 [facility] [address] [place] [id number] [address] Encounter Diagnosis S/P orthopedic surgery, follow-up exam(Discharge Diagnosis) - 08/26/24 Discharge Disposition: Home or Self Care Attending Physician: MD Bailey, Giles A Allergies, Adverse Reactions, Alerts Substance Criticality Severity Reaction Reaction Severity Status niacin unknown Active Medications allopurinol 100 mg oral tablet Start: 02/04/24 8:39:00 AM EDT, 1 tab, PO, bid Start Date: 02/04/24 Status: Ordered Aspir 81 Start: 02/04/24 8:39:00 AM EDT Start Date: 02/04/24 Status: Ordered furosemide 20 mg oral tablet Start: 02/04/24 8:38:00 AM EDT, 1 tab, PO, Daily Start Date: 02/04/24 Status: Ordered latanoprost 0.005% ophthalmic solution Start: 02/04/24 8:40:00 AM EDT Start Date: 02/04/24 Status: Ordered levothyroxine 50 mcg (0.05 mg) oral tablet Start: 02/04/24 8:38:00 AM EDT, 1 tab, PO, Daily Start Date: 02/04/24 Status: Ordered Metoprolol Succinate ER 25 mg oral tablet, extended release Start: 02/04/24 8:38:00 AM EDT, 1 tab, PO, Daily Start Date: 02/04/24 Status: Ordered potassium chloride Start: 02/04/24 8:39:00 AM EDT, 20 mEq =, PO, Daily Start Date: 02/04/24 Status: Ordered tamsulosin 0.4 mg oral capsule Start: 02/04/24 8:40:00 AM EDT, 1 cap, PO, Daily Start Date: 02/04/24 Status: Ordered thiamine 50 mg oral tablet Start: 02/04/24 8:40:00 AM EDT, 1 tab, PO, Daily Start Date: 02/04/24 Status: Ordered timolol maleate 0.5% ophthalmic solution Start: 02/04/24 8:39:00 AM EDT, 1 drop, left eye, Daily Start Date: 02/04/24 Status: Ordered Mental Status 08/26/24 Barriers to Learning one year None evide nt Mandatory Health Literacy Documentation Yes Health Literacy Communication Barriers N ever Primary Language Serbian Problem List Condition Confirmation Course Effective Dates Status Health St atus Informant Heel ulcer Confirmed Active S/P orthopedic surgery, follow-up exam Confirmed Active Diagnosis Diagnosis Type Effective Dates Health Status Clinical Service Informant S/P orthopedic surgery, follow-up exam Discharge Diagnosis 08/26/24 Procedures Procedure Date Related Diagnosis Body Site Status Heel 2023 Completed Cataract Completed Gall bladder Completed Hernia Completed Knee replacement Complete d 1I & D L heel Social History Social History Type Response Smoking Status Never smoked cigaret marysol Sex Male Sex Representation Male (finding) Ortho Outpt Note * MD Bailey, Giles A: MODIFY MD Bailey, Giles A: MODIFY Event Display: Ortho Outpt Note Authored Date: [id number] Name: KIM MOBLEY Patient Number: [id number] : 1945 Date of Service: 08/26/2024 CHIEF COMPLAINT: Follow-up s/p irrigation and debridement of the left heel; DOS: 01/27/2024 HPI: Kim Mobley is a 78 year old Male who presents today for the above noted left heel I&D. He reports no major concerns or complaints. He continues go to the wound care clinic for treatment and is currently in a cast. He is not on any antibiotics. He denies any fever or chills. Kim rates his pain as a 0/10. ROS: Refer to HPI PHYSICAL EXAM: Focusing on the patient's left lower extremity: Neurovascularly unchanged. Wound is about the size of a large pea. No evidence of infection and appears to be closing. Can wiggle toes IMPRESSION: 78 year old Male f/u s/p irrigation and debridement of the left heel; DOS: 01/27/2024, slow healing but improving GOAL: Promote healing PLAN: - New sterile dressing applied and bivalved contact cast re-applied - Continue going to the wound clinic for treatment and their recommendations - Follow up in 3-4 months for clinical evaluation The patient understood all my instructions and explanation; all their questions were satisfactorilyaddressed. ATTESTATION: I, Tamara Anguiano, scribing for and in the presence of, Giles Avalos, on this date, 08/26/2024 11:17:01. Electronic Signature on File Electronically Reviewed/Signed by: Tamara Anguiano Author Signature Dt/Tm:08/26/2024 11:52 AM Electronically Reviewed/Signed by: Giles Avalos MD Cosigner Signature Dt/Tm: 08/26/2024 12:52 PM [facility] Fingernail Sculpturer Department of Orthopaedics and [facility] [address], [place] [address] [place] Patient Care team information Care Team Personnel Name: MD Kwok Sapana Position: Referring DIRECT Member Role: Primary Care Provider Address: [address] [place] [address] [place]
--- OUTSIDE RECORDS SUMMARY | 2024-12-03 12:44 | External Medical Summary | Summary of Care ---
Author Name Unknown Organization [facility] Address [address] [place] [address] Phone [phone] Care Team Providers Care Driver Education Instructor Name Role Phone Alyssa Kwok MD Primary Care Provider [phone] Encounter Details Date Type Department Care Team (Late st Contact Info) Description 08/03/2024 Orders Only PATIENT PORTAL DO NOT DELETE THIS DEPT USED BY NATALY FRANCOIS [id number] Allergies Active Allergy Reactions Criticality Noted Date Comments Niacin Flushing High 12/18/2021 Niacin High 04/28/2009 Itchy burning skin red ears documented as of this encounter (statuses as of 08/03/2024) Medications ASPIRIN 81 MG PO CHEW One [...] as of this encounter (statuses as of 08/03/2024) Active Problems Problem Noted Date Diagnosed Date [...] as of this encounter (statuses as of 08/03/2024) Resolved Problems Problem Noted Date Diagnosed Date [...] as of this encounter (statuses as of 08/03/2024) Immunizations Name Administration Dates Next Due COVID-19 mRNA, LNP-s, No Pre serve, 2-Dose Series ([employer]) 12/04/2021,06/01/2021,10/16/2020,09/11 COVID-19, MRNA-LNP, 24-25, P F, 50 MCG/0.5ML, IM, 12 YRS & ABOVE (Moderna - Spikevax) 05/15/2024 Covid-19, Mrna, Lnp-s, Pf, B ivalent, 30 Mcg, IM, 12 yrs and above ([employer]) 01/10/2023,06/05/2022 DTaP Dipth/Tet/Acell Pertussis (Infanrix), Peds 09/16/2000 [...] 02/18/2024 Does the household have a re lar source of income? (Household - for ages [...] Office Visit General Internal Medicine [facility] [place] [address] [place] [address] Alyssa Kwok MD [address] [place] [address] Health Maintenance Due Date Last Done Comments CKD PHOS USE SMARTSET 48478 1963 Adult Wellness Visit 09/26/2022 09/26/2021 Albumin/Creatinine Ratio 09/26/2022 09/26/2021 Colonoscopy 05/14/2024 05/14/2019, 05/04, 12/20/2013, Additional history exists COVID-19 Vaccine ( season) 2024 05/15/2024, 01/10/2023, 06/05/2022, Additional history exists GFR 01/24/2025 07/26/2024, 04/04, 02/09/2024, Additional history exists Depression Screening 02/17/2025 02/18/2024 HbA1c 04/16/2025 04/16/2024, 03/2024, 12/18/2022, Additional history exists TSH 04/16/2025 04/16/2024, 09/2023, 08/11/2023, Additional history exists CKD HGB USE SMARTSET 07228 07/26/202507/26, 04/16/2024, 04/16/2024, Additional history exists DTap/Tdap [...] Documents on File Type Date Recorded Patient Winder Operator Expl anation Advance Directives and Arsh g Will 04/10/2007 ADVANCE DIRECTIVE * Full [...] Care Agent (per Health Care Power of Central Station Operator document) Myra Horta Jatinder Adult Child Second Altern ate Health Care Agent (per Health Care Power of Central Station Operator document) Care Teams Driver Education Instructor Relationship Specialty Start Date End Date Alyssa Kwok MD [address] [place] [address], [place] [address] PCP - General 10/14/08 documented as of this encounter
--- OUTSIDE RECORDS SUMMARY | 2024-12-03 12:44 | External Medical Summary | Summary of Care ---
Author Name Unknown Organization [facility] Address [address] [place] [address] Phone [phone] Care Team Providers Care Head Piece Assembler Name Role Phone Alyssa Kwok MD Primary Care Provider Reason for Visit * Reason Onset Date Comments Advice 07/22/2024 Encounter Details Date Type Department Care Team (Late st Contact Info) Description 07/22/2024 Telephone General Internal Medicine [facility] [place] [address] [facility] [place] [address] Alyssa Kwok MD 200 [place] [address] Advice Allergies Active Allergy Reactions Criticality Noted Date Comments Niacin Flushing High 12/18/2021 Niacin High 04/28/2009 Itchy burning skin red ears documented as of this encounter (statuses as of 10/22/2024) Medications ASPIRIN 81 MG PO CHEW One [...] MORNING 90 Tablet 3 07/09/20 24 Active Betamethasone Valerate 0.1 % External [...] as of this encounter (statuses as of 10/22/2024) Active Problems Problem Noted Date Diagnosed Date [...] as of this encounter (statuses as of 10/22/2024) Resolved Problems Problem Noted Date Diagnosed Date [...] as of this encounter (statuses as of 10/22/2024) Immunizations Name Administration Dates Next Due COVID-19 mRNA, LNP-s, No Pre serve, 2-Dose Series ([employer]) 12/04/2021,06/01/2021,10/16/2020,09/11 COVID-19, MRNA-LNP, 24-25, P F, 50 [...] No 02/18/2024 Does the household have a [facility] source of income? (Household - for ages [...] ages 0-17 years) Not on file 02/18/2024 Food Insecurity Answer Date Recorded Within the past 12 months, y ou worried that your food would run out before you got the money to buy more. Never true 02/18/20 24 Within the past 12 months, t he food you bought just didn't last and you didn't have money to get more. Never true 02/18/2024 Do you need food for this week? No 02/18/2024 Sex and Gender Information Value Date Recorded Sex Assigned at Male 04/15/2019 9:31 AM EDT Legal Sex Male 6:40 AM EST Gender Identity Male 04/15/2019 9:31 AM EDT Sexual Orientation Choose not to disclose 2018 9:31 AM EDT Occupation Industry Job Start Date Job End Date ritired Not on file Not on file Not on file documented as of this encounter Miscellaneous Notes * Telephone Encounter - Klaus Fernando OSA - 07/22/2024 1:46 PM EST Pt received for case repairermgr Pillai, please to call pt back [phone] documented in this encounter Plan of Treatment Upcoming Encounters Date Type Department Care Team (Late st Contact Info) Description 01/31/2025 1:40 PM EDT Office [facility] [address] [facility] [place] [address] Alyssa Kwok MD 200 [facility] [place] [address] Health Maintenance Due Date Last Done Comments CKD PHOS USE SMARTSET 64361 1963 Adult Wellness Visit 09/26/2022 09/26/2021 Albumin/Creatinine Ratio 09/26/2022 09/26/2021 Colonoscopy 05/14/2024 05/14/2019, 05/04, 12/20/2013, Additional history exists COVID-19 Vaccine ( season) 2024 05/15/2024, 01/10/2023, 06/05/2022, Additional history exists GFR 01/24/2025 07/26/2024, 04/04, 02/09/2024, Additional history exists Depression Screening 02/17/2025 02/18/2024 HbA1c 04/16/2025 04/16/2024, 03/2024, 12/18/2022, Additional history exists TSH 04/16/2025 04/16/2024, 0709/2023, 08/11/2023, Additional history exists CKD HGB USE SMARTSET 46203 07/26/202507/26, 04/16/2024, 04/16/2024, Additional history exists DTap/Tdap [...] on patient's age to complete this topic Meningitis B Vaccine (Bexsero/Trumemba) Aged Out No longer eligible based on patient's age to complete this topic documented as of this encounter Medical Devices Not on filedocumented as of this encounter Advance Directives Documents on File Type Date Recorded Patient Car Washer Expl anation Advance Directives and Livin g [...] Care Agent (per Health Care Power of Welt Trimming Machine Operator document) Myra Tobias Adult Child Second Altern ate Health Care Agent (per Health Care Power of Welt Trimming Machine Operator document) Care Teams Head Piece Assembler Relationship Specialty Start Date End Date Alyssa Kwok MD [address] [place] [address], [place] [address] PCP - General 10/14/08 documented as of this encounter
--- OUTSIDE RECORDS SUMMARY | 2024-12-03 12:44 | External Medical Summary | Summary of Care ---
Author Name Unknown Organization [facility] Address [address] [place] [address] Phone [phone] Care Team Providers Care Physics Technician Name Role Phone Alyssa Kwok MD Primary Care Provider [phone] Reason for Visit * Reason Onset Date Comments Health Maintenance 08/20/2024 Encounter Details Date Type Department Care Team (Late st Contact Info) Description 08/20/2024 Telephone General Internal Medicine [facility] [place] [address] [place] [address] Alyssa Kwok MD [address] [place] [address] Health Maintenance Allergies Active Allergy Reactions Criticality Noted Date Comments Niacin Flushing High 12/18/2021 Niacin High 04/28/2009 Itchy burning skin red ears documented as of this encounter (statuses as of 08/20/2024) Medications ASPIRIN 81 MG PO CHEW One [...] as of this encounter (statuses as of 08/20/2024) Active Problems Problem Noted Date Diagnosed Date [...] as of this encounter (statuses as of 08/20/2024) Resolved Problems Problem Noted Date Diagnosed Date [...] as of this encounter (statuses as of 08/20/2024) Immunizations Name Administration Dates Next Due COVID-19 mRNA, LNP-s, No Pre serve, 2-Dose Series ([employer]) 12/04/2021,06/01/2021,10/16/2020,09/11 COVID-19, MRNA-LNP, 24-25, P F, 50 MCG/0.5ML, IM, 12 YRS & ABOVE (Moderna - Spikevax) 05/15/2024 Covid-19, Mrna, Lnp-s, Pf, B ivalent, 30 Mcg, IM, 12 yrs and above ([employer]) 01/10/2023,06/05/2022 DTaP Dipth/Tet/Acell Pertussis (Infanrix), Peds 09/16/2000 [...] encounter Miscellaneous Notes * Telephone Encounter - Rosemary Haney LPN - 08/20/2024 8:26 AM EST Care Gaps Comprehensive Care Outreach Last Office/Telemedicine Visit: 07/30/2024 (in office), 12/28/2019 (telemedicine) Next Office Visit: 01/31/2025 Hemoglobin AIC Results: Lab Results Component Value Date/Time HEMOGLOBIN A1C - [facility] 5.8 (H) 04/16/2024 10:13 AM HEMOGLOBIN A1C - [facility] 5.7 (H) 08/11/2023 09:13 AM HEMOGLOBIN A1C - [facility] 5.7 (H) 12/18/2022 09:06 AM HEMOGLOBIN A1C - [facility] 5.7 (H) 06/14/2020 10:23 AM HEMOGLOBIN A1C - [facility] 5.9 (H) 12/15/2019 08:35 AM HEMOGLOBIN A1C - [facility] 5.7 (H) 03/31/2019 08:55 AM BP Readings from Last 1 Encounters: 07/30/24 108/54 Reviewed Health Maintenance below: Health Maintenance Topic Date Due CKD PHOS USE SMARTSET 94372 Never done Albumin/Creatinine Ratio 09/26/2022 Adult Wellness Visit 09/26/2022 Colonoscopy 05/14/2024 COVID-19 Vaccine ( season) 2024 GFR 01/24/2025 Labs already ordered Colon defer to pcp age will be 79 in November unable to schedule until january Care Gap Outreach Action Taken: Outreach not indicated documented in this encounter Plan of Treatment Upcoming Encounters Date Type Department Care Team (Late st Contact Info) Description 01/31/2025 1:40 PM EDT Office Visit [facility] [place] [address] [facility] [place] [address] Alyssa Kwok MD [address] [facility] [place] [address] Health Maintenance Due Date Last Done Comments CKD PHOS USE SMARTSET 86901 1963 Adult Wellness Visit 09/26/2022 09/26/2021 Albumin/Creatinine Ratio 09/26/2022 09/26/2021 Colonoscopy 05/14/2024 05/14/2019, 05/04, 12/20/2013, Additional history exists COVID-19 Vaccine ( season) 2024 05/15/2024, 01/10/2023, 06/05/2022, Additional history exists GFR 01/24/2025 07/26/2024, 04/04, 02/09/2024, Additional history exists Depression Screening 02/17/2025 02/18/2024 HbA1c 04/16/2025 04/16/2024, 01/0 03/2024, 12/18/2022, Additional history exists TSH 04/16/2025 04/16/2024, 07/0 09/2023, 08/11/2023, Additional history exists CKD HGB USE SMARTSET 25699 07/26/202507/26, 04/16/2024, 04/16/2024, Additional history exists DTap/Tdap [...] Documents on File Type Date Recorded Patient Perfumer Expl anation Advance Directives and Livin g [...] Name Relationship Healthcare Agent Relationship Communication Melida Jesus Jatinder Spouse First Alternate Health Care Agent (per Health Care Power of Wet Cleaner Machine document) Myra Tobias Adult Child Second Altern ate Health Care Agent (per Health Care Power of Wet Cleaner Machine document) Care Teams Physics Technician Relationship Specialty Start Date End Date Alyssa Kwok MD [address] [place] [address] PCP - General 10/14/08 documented as of this encounter
--- OUTSIDE RECORDS SUMMARY | 2024-12-03 12:44 | External Medical Summary | Summary of Care ---
Author Name Unknown Organization [facility] Address [address] [place] [address] Phone [phone] Care Team Providers Care Ent Consultant Name Role Phone Alyssa Kwok MD Primary Care Provider [phone] Reason for Referral * Evaluate & Treat - Unlimited Visits (Within 30 days (routine)) - Authorized Specialty Diagnoses / Procedures Referred By Shane gotti Referred To Contact Physical Therapy / Physical Medicine And Rehab Diagnoses Generalized weakness Alyssa Kwok MD [address] [place] [address] [place] [address] Phone: tel: fax: Referral ID Status Reason Start Date Expiration Date Visits Requested Visits Authorized [id number] Authorized Specialty Services Required 09/02/2024 999 999 Question Answer Referral Priority Within 30 days (routine) Where should this appointment be scheduled? External Reason for Visit * Reason Onset Date Comments Referral 08/31/2024 Encounter Details Date Type Department Care Team (Late st Contact Info) Description 08/31/2024 Telephone General Internal Medicine [facility] [address] [place] [address] Alyssa Kwok MD [address] [place] [address] Referral Allergies Active Allergy Reactions Criticality Noted Date Comments Niacin Flushing High 12/18/2021 Niacin High 04/28/2009 Itchy burning skin red ears documented as of this encounter (statuses as of 09/03/2024) Medications ASPIRIN 81 MG PO CHEW One [...] as of this encounter (statuses as of 09/03/2024) Active Problems Problem Noted Date Diagnosed Date [...] as of this encounter (statuses as of 09/03/2024) Resolved Problems Problem Noted Date Diagnosed Date [...] as of this encounter (statuses as of 09/03/2024) Immunizations Name Administration Dates Next Due COVID-19 mRNA, LNP-s, No Pre serve, 2-Dose Series ([employer]) 12/04/2021,06/01/2021,10/16/2020,09/11 COVID-19, MRNA-LNP, 24-25, P F, 49 [...] No 02/18/2024 Does the household have a [facility] source of income? (Household - for ages [...] encounter Miscellaneous Notes * Telephone Encounter - Arely Ward OSA - 09/03/2024 8:24 AM EST Referral faxed Fax successful * Telephone Encounter - Alyssa Kwok MD - 09/02/2024 3:51 PM EST Signed * Telephone Encounter - Ángela Adam OSA - 08/31/2024 3:25 PM EST Has the patient been seen for this problem? (Y/N)?: yes If No, an appt needs to be scheduled before a referral will be placed (exception: proceed with referral request if referral request is for a yearly routine appointment with speciality) Patient Name: Jerry Tobias Patient Primary care provider: Alyssa Kwok MD Does this need to be an insurance referral (Y/N)?: yes If Yes, does the insurance referral need to be placed into the [employer] system? Name of preferred specialist: [facility] Type of specialist: physical therapy Location of specialist: [facility] Phone #: [phone] [facility] Fax #: [phone] Reason for visit: general weakness Date of visit: na documented in this encounter Plan of Treatment Upcoming Encounters Date Type Department Care Team (Late st Contact Info) Description 01/31/2025 1:40 PM EDT Office Visit General Internal Medicine [facility] [address] [place] [address] Alyssa Kwok MD [address] [place] [address] Scheduled Referrals Name Type Priority Associated Diagnoses Orde r Schedule PHYSICAL THERAPY REFERRAL OP Referral Within 30 days (routine) Generalized weakness Ordered: 09/02/2024 Health Maintenance Due Date Last Done Comments CKD PHOS USE SMARTSET 57060 1963 Adult Wellness Visit 09/26/2022 09/26/2021 Albumin/Creatinine Ratio 09/26/2022 09/26/2021 Colonoscopy 05/14/2024 05/14/2019, 05/04, 12/20/2013, Additional history exists COVID-19 Vaccine ( season) 2024 05/15/2024, 01/10/2023, 06/05/2022, Additional history exists GFR 01/24/2025 07/26/2024, 04/04, 02/09/2024, Additional history exists Depression Screening 02/17/2025 02/18/2024 HbA1c 04/16/2025 04/16/2024, 03/2024, 12/18/2022, Additional history exists TSH 04/16/2025 04/16/2024, 09/2023, 08/11/2023, Additional history exists CKD HGB USE SMARTSET 34404 07/26/202507/26, 04/16/2024, 04/16/2024, Additional history exists DTap/Tdap [...] as of this encounter Visit Diagnoses Diagnosis Generalized weakness- Primary Other malaise and fatigue documented in this encounter Advance Directives Documents on File Type Date Recorded Patient [employer]er Expl wayne Advance Directives and Arsh shannon Will 04/10/2007 [...] Care Agent (per Health Care Power of Sling Operator document) Myra Tobias Adult Child Second Altern ate Health Care Agent (per Health Care Power of Sling Operator document) Care Teams Ent Consultant Relationship Specialty Start Date End Date Alyssa Kwok MD [address] [facility] [place] [address] PCP - General 10/14/08 documented as of this encounter
--- NOTE | 2024-12-03 12:45 | Emergency Department Note ---
ED Visit Note I was consulted in regards to the patient's presentation and plan of care by the Advanced Practice Provider. I engaged in a detailed/meaningful discussion with the Advanced Practice Provider in regards to this patient's workup and plan of care. I performed a substantiative portion of the medical decision making following discussion with the Advanced Practice Provider. Please see the Advanced Practice Provider's separate documentation for full details of the patient's visit. I agree with the assessment and plan of Dorinda Mcknight PA-C. Tony Mi, DO Emergency Medicine .
[2024-12-03] MEDS: AZITHROMYCIN 250 MG TAB PO ONE (13:12)
[2024-12-03] MEDS: CEFEPIME 2000MG 2,000 MG/20 ML SYR IV STA (13:14)
--- NOTE | 2024-12-03 13:24 | History & Physical Report ---
Date of Service December 03, 2024 Assessment & Plan (1) Pneumonia: (2) MUNIRA (acute kidney injury): (3) Generalized weakness: (4) Heel ulcer: (5) Diastolic congestive heart failure: (6) HTN (hypertension): (7) Dyslipidemia: (8) Hypothyroidism: (9) Gout: Plan 79 year old male with PMH significant for HFpEF, HTN, HLD, prediabetes, hypothyroidism, gout, CKD III, peripheral neuropathy, anxiety, peripheral arterial disease, and left heel ulcer who presents to the ED today with we akness, a cough, and left heel pain who is being admitted for pneumonia. Pneumonia Patient febrile in ED and endorses cough Labs without leukocytosis but procalcitonin elevated to 1 CXR with density suspicious for PNA IV cefepime and PO doxycycline O2 as needed to maintain sats >92% Tessalon perles and zyrtec as needed Encourage ISP MUNIRA Patient with CKD III and baseline creat ~0.9 Creat is 1.46 Patient endorses poor PO intake Likely due to dehydration Gentle IVF given HF Generalized weakness Likely due to PNA PT/OT consults Heel ulcer Patient follows with wound clinic weekly and daughter report left foot and heel look baseline for patient Suspect fever and elevated procal are due to PNA Cast removed in ED Xrays negative for osteomyelitis MRI pending Consider switching doxy to dapto if MRI shows osteomyelitis Consult wound nurse for management Diastolic heart failure/dyslipidemia Patient appears euvolemic Continue atorvastatin, baby aspirin, metoprolol Hold lasix and KCl Hypertension Continue metoprolol Hypothyroidism Continue levothyroxine Gout Continue allopurinol DVT Prophylaxis: SQ Heparin Code Status: FULL CODE - As per discussion at bedside with the patient. PCP: Dr Alyssa Kwok MD Disposition: admit to [facility] Patient seen in collaboration with Dr Ramirez. Please see addendum. I spent a total of 75 minutes coordinating, documenting and providing care for this patient excluding time spent in the performance of separately billed services or time spent by another provider/QHP. Admission and Anticipated Discharge Date Admission Date: 12/03/2024 History of Present Illness Chief Complaint: weakness, cough, heel pain Primary Care Provider: Alyssa Kwok MD 79 year old male with PMH significant for HFpEF, HTN, HLD, prediabetes, hypothyroidism, gout, CKD III, peripheral neuropathy, anxiety, peripheral arterial disease, and left heel ulcer who presents to the ED today with weakness, a cough, and left heel pain. He reports that he could not get out of bed today because he felt so weak. He had to lower himself to the ground out of bed but reports that he did not fall. He endorses a productive cough with clear phlegm and a runny nose that started yesterday. He notes chills but did not take his temperature. He also has a wound on his left heel that has been there since January 2024 for which he goes to wound clinic every week for dressing changes and cast application. He notes that he has been having left heel pain, which is not typical, for the last two days and was concerned that a pad was positioned incorrectly when he had his cast placed on Friday. He denies chest pain, SOB, abdominal pain, N/V/D, edema. He does not check his weight regularly. Allergies Allergy/AdvReac Type Severity Reaction Status Date / Time niacin AdvReac Intermediate FLUSH Verified 11/30/24 10:04 Home Medications Medication Instructions Recorded Confirmed Type allopurinol 100 mg tablet 200 mg PO QAM 01/12/20 12/03/24 History (Zyloprim) aspirin 81 mg tablet,delayed 81 mg PO QAM 01/12/20 12/03/24 History release (Aspir-) atorvastatin 20 mg tablet (Lipitor) 20 mg PO QAM 01/12/20 12/03/24 History latanoprost 0.005 % eye drops 1 drp OPB HS 01/12/20 12/03/24 History (Xalatan) levothyroxine 50 mcg tablet 50 mcg PO QAM 01/12/20 12/03/24 History (Levoxyl) metoprolol succinate 25 mg 25 mg PO QAM 01/12/20 12/03/24 History tablet,extended release 24 hr (Toprol XL) thiamine HCl (vitamin B1) 100 mg 50 mg PO QAM 01/12/20 12/03/24 History tablet (Vitamin B-1) timolol maleate 0.5 % eye drops 1 drp OPL QAM 01/12/20 12/03/24 History (Timoptic) ketoconazole 1 % shampoo 1 applic topical UD 12/13/21 12/03/24 History furosemide 20 mg tablet (Lasix) 20 mg PO DAILY #30 tabs 02/01/24 12/03/24 Rx tamsulosin 0.4 mg capsule 0.4 mg PO HS #30 caps 02/01/24 12/03/24 Rx amoxicillin 250 mg capsule 1,000 mg PO .COMPLEX 02/24/24 12/03/24 History potassium chloride 20 mEq 10 meq PO DAILY 12/03/24 12/03/24 History tablet,extended release(part/cryst) Past Med/Surg History Problem List (Updated 12/03/24 @ 14:55 by STEW Martinez) MUNIRA (acute kidney injury) Generalized weakness Pneumonia Peripheral arterial disease (Chronic) Peripheral neuropathy Hypothyroidism Diastolic congestive heart failure Euvolemic on exam at [facility] Gout HTN (hypertension) Dyslipidemia Medical History (Updated 12/03/24 @ 14:55 by STEW Martinez) Hypothyroidism Stage III pressure ulcer of left heel Loss of protective sensation of skin of deformed foot Deformity of left foot MRSA infection Pseudomonas infection Venous ulcer of left leg Surgical wound, non healing Foot abscess, left Urinary retention Acute on chronic diastolic HF (heart failure) Voiding dysfunction Sepsis Cellulitis of foot, left Rhabdomyolysis Injury of right thigh Encounter for pre-operative examination Diastolic dysfunction without heart failure Abnormal MRI Cholelithiasis Acute cholecystitis Biliary colic Epigastric abdominal pain Pressure ulcer of left foot Sleep apnea Osteoarthritis TMJ click Rarely Increased pressure in the eye Does not yet meet criteria for glaucoma Surgical History Status post incision and drainage History of right cataract surgery S/P cholecystectomy History of arthroscopy of left knee History of transesophageal echocardiography (FLACO) History of colonoscopy History of ERCP H/O inguinal hernia repair BILAT History of arthroplasty of both knees Family History Other Coronary heart disease No family history of adverse response to anesthesia Social History (Updated 12/03/24 @ 14:26 by STEW Martinez) Smoking Status: Never smoker Tobacco Type: Smokeless Tobacco (Dip or Chew) Second Hand Exposure: Yes (as a child); Do You Dip or Chew Tobacco: Yes (advised); Hx Alcohol Use: Yes Alcohol type: beer Hx Substance Use: No Preferred Language: [place] Communication Ability: Effective Screening Specialist Required: No Beliefs That Will Affect Care: None Current Living Situation: Spouse Current Living Situation Comment: and daughter Feels Safe at Home: Yes Assistive Devices: Cane, Crutches and Walker Review of Systems Review of Systems: All systems reviewed & are unremarkable except as noted in HPI & below Physical Exam Physical Exam: General/Psych: WD/WN, drowsy, sitting up in bed, NAD, conversing easily Head: normocephalic, atraumatic Eyes: normal inspection, PERRL, conjunctivae pink, anicteric sclerae ENT: external ear and nose normal, oropharynx normal Neck: normal visual inspection, trachea midline, no thyromegaly Respiratory: normal respiratory effort, lungs with crackles posteriorly bilaterally, no accessory muscle use Cardiovascular: regular rate and rhythm, no murmur/rub/gallop, no JVD Extremities: no cyanosis or clubbing, normal peripheral pulses, no BLE edema Abdomen/GI: normal bowel sounds, soft, nontender, no hepatosplenomegaly Neurologic/MSK: A+Ox3, motor strength 5/5, moves all extremities, left foot deformed and swollen with healing pressure ulcer on left heel Skin: no rashes, normal color, warm and dry Results & Data Results & Data Vital Signs (Past 12 Hours) Vital Signs Temp Pulse Resp BP Pulse Ox O2 Del Method 12/03/24 11:36 95 H 12/03/24 10:22 38.0 C H 86 20 127/61 96 Room Air Laboratory Results Short CBC 12/03/24 Range/Units 11:29 WBC 9.86 (4.8-10.8) K/ul Hgb 10.5 L (14.0-18.0) g/dl Hct 31.6 L (42.0-52.0) % Plt Count 111 L (130-400) K/uL BMP 12/03/24 11:29 Sodium 134 L Potassium 4.3 Chloride 103 Carbon Dioxide 25 BUN 26 H Creatinine 1.46 H Glucose 99 Calcium 9.1 Liver Function 12/03/24 Range/Units 11:29 Total Bilirubin 0.9 (0.2-1.0) mg/dl AST 31 (13-39) U/L ALT 13 (7-52) U/L Alkaline Phosphatase 106 H (34-104) U/L Albumin 4.0 (3.4-5.0) gm/dl I have independently reviewed and interpreted patient's admitting labs including CBC, CMP, PTT, PT/INR, troponin, lactate, procalcitonin. Diagnostic Findings Calcaneus X-Ray 12/03/24 11:30 XR calcaneus LT min 2V CLINICAL HISTORY: Pain, infection, pressure ulcer - ? osteomyelitis COMPARISON: MRI of the left ankle July 29, 2024. Left ankle radiographs and left foot CT January 24, 2024. FINDINGS: No areas of bony erosion within the left calcaneus are identified. There are no fractures or osseous lesions. Moderate vascular calcification is incidentally noted. Subtalar joint is intact. IMPRESSION: No evidence for osteomyelitis within the left calcaneus. ACT 112: Negative or not required by law. Electronically signed by: Rj Delcid M.D. 12/03/2024 12:04 PM Foot X-Ray 12/03/24 11:30 XR foot LT min 3V routine HISTORY: 79 years-old Male Pain, infection, pressure ulcer - ? osteomyelitis chronic pain of the left foot with clinical concern for osteomyelitis COMPARISON: Calcaneus radiographs 06/23/2024 TECHNIQUE: 3 views of the left foot FINDINGS: Limited evaluation of the toes secondary to extension of the metatarsophalangeal joints and flexion of the interphalangeal joints. Arterial calcifications. Demineralized appearance of the bones with mild to moderate multifocal osteoarthritis. There is diffuse soft tissue swelling. Probable cutaneous ulcer of the posterior heel. No acute osseous erosions. IMPRESSION: 1. Soft tissue swelling with heel ulcer. 2. No radiographic evidence of acute osteomyelitis. ACT 112: Negative or not required by law. The above report was generated using voice recognition software. It may contain grammatical, syntax or spelling errors. Electronically signed by: Allan Soriano M.D. 12/03/2024 12:10 PM Chest X-Ray 12/03/24 11:34 XR chest 1V not portable CLINICAL HISTORY: Fever. COMPARISON STUDY: Chest radiograph February 01, 2024. FINDINGS: Lung volumes are normal. A 2.9 cm right midlung elongated density is noted. An adjacent linear density represents atelectasis or scarring. There is no pneumothorax or pleural effusion. Cardiomegaly is unchanged. Mediastinal contours are normal. There is no evidence for pulmonary edema. IMPRESSION: 1. 2.9 cm right midlung elongated density. This may represent atelectasis or pneumonia. A pulmonary nodule could appear similar. Radiographic follow-up to ensure resolution is recommended. 2. Cardiomegaly without evidence for overt pulmonary edema. ACT 112: Negative or not required by law. Electronically signed by: Rj Delcid M.D. 12/03/2024 12:37 PM Code Status & VTE Plan Code Status Full Code Supervising Physician Co-Signing Physician Notes Patient is an 79-year-old male with multiple comorbidities including peripheral artery disease, chronic left heel ulcer, HFpEF and other medical problems presents with history of generalized weakness, ambulatory dysfunction, worsening left heel pain, cough and runny nose especially since 2 to 3 days duration. Patient follows with wound clinic for management of his left heel ulcer. Patient had trouble managing his ADLs due to significant weakness. He denies any recent travel, sick contact. Also denies any shortness of breath, chest pain. He was noted to be febrile while in the ED. Please review HPI for complete details of presentation. I personally reviewed blood work and imaging studies. Blood work suggestive of normocytic anemia with hemoglobin 10.5 baseline, thrombocytopenia 111K, sodium 134, creatinine 1.4, alkaline phosphatase 106, troponin 43.6, procalcitonin 1.0. Urinalysis currently pending. Respiratory BioFire negative. Calcaneal and foot x-ray should soft tissue swelling with heel ulcer but otherwise no signs of osteomyelitis. Chest x-ray showed 2.9 cm right midlung elongated density with findings suggestive of cardiomegaly. Physical Exam: Vitals signs as noted above General Appearance: Thin, frail, elderly, no apparent distress Head: normocephalic, Atraumatic Eyes: normal inspection, EOMI Neck: supple, Trachea midline Respiratory/Chest: Decreased breath sounds, CTA, No accessory muscle use Cardiovascular: S1, S2, No murmur Abdomen/GI:Soft, Non tender, Bowel sounds present Extremities/Musculoskeletal:normal inspection, left foot swelling, deformity,+ trace edema Neurologic/Psych:AAOX3, grossly no focal neurological deficits Skin: normal color, warm Community-acquired pneumonia Acute kidney injury on CKD stage III Chronic left heel ulcer Chronic troponin elevation slightly worsened likely due to worsening renal funct ion, demand ischemia Suspected pulmonary nodule Thrombocytopenia Ambulatory dysfunction BioFire negative Given history of MRSA, Pseudomonas agree with broad-spectrum antibiotics with cefepime and doxycycline Check nasal MRSA If no clinical improvement, will consider CT chest Obtain left ankle MRI to rule out osteomyelitis Wound care consulted Will hold Lasix for now and give gentle IV fluids Trend troponin Monitor volume status closely given history of heart failure Avoid nephrotoxic agents as able PT OT, fall precautions I personally interviewed and examined the patient at bedside. I have reviewed the advanced practitioner's documentation on the date of service referred in note and agree with plan. Patient's care is coordinated with Sonia MATHIAS. Please refer to the documentation above for details of patient's presentation and for discussion of other issues. I spent a total [id number] coordinating, documenting, and providing care for this patient excluding time spent in the pe rformance of separately billed services or time spent by another provider/QHP. (4) Heel ulcer Laterality: left Non-pressure ulcer stage: unspecified non-pressure ulcer stage Qualified Code(s): L97.429 - Non-pressure chronic ulcer of left heel and midfoot with unspecified severity
[2024-12-03] MEDS: SODIUM CHLORIDE 0.9% 1,000 ML IV SCH (14:24)
[2024-12-03] MEDS: DOXYCYCLINE HYCLATE 100 MG CAP PO ONE (15:19)
[2024-12-03] MEDS: SODIUM CHLORIDE 0.9% 1,000 ML IV ONE (15:20)
[2024-12-03] MEDS ORDERED: CETIRIZINE HCL 10 MG TABLET PO PRN (17:04)
[2024-12-03] MEDS: HEPARIN SOD 5,000 UNIT/0.5 ML VIAL SQ SCH (20:10)
[2024-12-03] MEDS: DOXYCYCLINE HYCLATE 100 MG CAP PO SCH (20:12)
[2024-12-03] MEDS: ACETAMINOPHEN 325 MG TAB PO PRN (20:12)
[2024-12-03] MEDS: TAMSULOSIN HCL 0.4 MG CAP PO SCH (20:25)
--- NOTE | 2024-12-03 20:57 | Magnetic Resonance Report ---
EXAM: MR ankle LT wo con CLINICAL HISTORY: Rule out osteomyelitis. TECHNIQUE: OBX.[id number].5.1.1Multiplanar, multiecho MRI of the left ankle was performed. Sequences were obtained without contrast in sagittal, coronal /OBX.5.1.1OBX.5.1.2 axial planes and submitted for interpretation./OBX.5.1.2/OBX.5.1 COMPARISON: Prior MR dated 07/29/2024 and CR dated 06/23/2024. FINDINGS: Bones: Focal signal alteration is seen at the calcaneus at the sinus tarsi ligament's insertion site. It exhibits low and bright signals on T1 WI and T2, and PD FS WI. Findings are consistent with a calcaneal vascular remnant. No fractures or dislocations. Other scanned osseous structures are unremarkable. Compartmental tendons: The left tibialis posterior, flexor digitorum, and flexor hallucis longus are unremarkable. The left tibialis anterior, extensor digitorum, and extensor hallucis longus are unremarkable. The left peroneus longus and brevis are unremarkable. The Achilles tendon is intact in its signal characteristics. Fluid signals are seen at the retrocalcaneal bursal consistent with retrocalcaneal bursitis. Articulations: Mild tibiotalar and posterior subtalar synovial effusion. The articulations of the tibiotalar, posterior subtalar, talonavicular anterior, subtalar, cuboidometatarsal, cuneometatarsal, intertarsal, and tarsometatarsal were unremarkable. Sinus tarsi and plantar fascia: The sinus tarsi are unremarkable. The plantar fascia thickened, measuring 8.2 mm, wth intrinsic and extrinsic signal alterations involving the adjacent soft tissues and bone marrow edema at the calcaneal insertion, exhibiting bright signals on PD FS WI findings are consistent with plantar fasciopathy. Associating rim Fluid signals are seen tangent with the plantar aponeurosis. Ligaments: The deltoid ligament is intact. The calcaneofibular ligament is intact. Intact anterior and posterior talofibular ligament. The intertarsal ligaments are unremarkable. The calcaneocuboid and calcaneonavicular ligaments are intact. Intact, intertarsal ligaments. Intact cuneometatarsal ligaments. Intact Lisfranc ligament. Muscles: Altered myogenic signals of the soleus, flexor hallucis longus, Intrinsic, and quadratus plantae muscles. Findings suggest Polymyogenic strain vs inflammatory myositis. Soft tissue edema is seen at the distal left leg around the left ankle and left foot with localized dermal thickening and sloughing at the medial and plantar aspect. Contour bulge and subcutaneous Inflammatory fluid signals are seen. Findings are consistent with soft tissue cellulitis. Engorged plantar veins ranging around 7.2 mm. Varicose veins are suggested. Further workup is recommended. IMPRESSION: 1. Altered myogenic signals of the soleus, flexor hallucis longus, Intrinsic, and quadratus plantae muscles. Findings suggest Polymyogenic strain versus inflammatory myositis. 2. Soft tissue edema is seen at the distal left leg around the left ankle and left foot with localized dermal thickening and sloughing at the medial and plantar aspect. Contour bulge and subcutaneous Inflammatory Fluid signals are seen. Findings are consistent with soft tissue cellulitis. Laboratory correlation and follow-up are recommended as appropriate. 3. Calcaneal vascular remnant. 4. No definite MRI features to suggest osteomyelitis in the examined field of view. 5. Retrocalcaneal bursitis. 6. Imaging findings consistent with plantar fasciopathy, with an associated rim of fluid signals that are tangent to the plantar aponeurosis. 7. Mild tibiotalar and posterior subtalar synovial effusion. 8. Engorged plantar veins ranging around 7.2 mm. Varicose veins are suggested. Further workup is recommended. 9. The comparison matches the radiographic findings and is consistent with a relatively progressive course. Electronically signed by Hugo Al 12-03-2024 8:56 PM
--- NOTE | 2024-12-03 22:27 | Communication Note ---
Date of Service: December 03, 2024 Patient coughing out frothy sputum as per RN. O2 sats 80s. Possible trouble handing secretions as per RN. Zosyn in place of cefepime for possible aspiration pneumonia
[2024-12-03 22:45] LABS: Base Excess VBG -0.4 mEq/L; HCO3 VBG 23 mmol/L; Oxygen Saturation VBG 74.7 %; PCO2 VBG 33 mmHg (38-50); PO2 VBG 39 mmHg; pH VBG 7.45 (7.36-7.41)
[2024-12-03 22:57] LABS: Appearance Urine Clear (Clear); Bacteria Urine Automated None Seen (None Seen); Bilirubin Urine Negative (Negative); Blood Urine 3+ (Negative); Cast Urine Automated 0-2 /lpf (0-2); Color Urine Orange; Glucose Urine UA Negative (Negative); Ketones Urine Trace (Negative); Leukocyte Esterase Urine Trace (Negative); Nitrite Urine Negative (Negative); Protein Urine 2+ (Negative); RBC Urine Automated >20 /hpf (0-2); Specific Gravity Urine 1.015 (1.000-1.030); Urobilinogen Urine Negative (Negative); WBC Urine Automated 0-5 /hpf (0-5); pH Urine 5.5 (4.5-7.5)
--- NOTE | 2024-12-03 23:25 | Electrocardiogram Report ---
Test Reason : Blood Pressure : */* mmHG Vent. Rate : 95 BPM Atrial Rate : 95 BPM P-R Int : 162 ms QRS Dur : 86 ms QT Int : 332 ms P-R-T Axes : 58 -18 14 degrees QTcB Int : 417 ms Normal sinus rhythm Minimal voltage criteria for LVH, may be normal variant ( R in aVL ) Borderline ECG When compared with ECG of 24-Jan-2024 17:08, No significant change was found Confirmed by Janu Rebolledo ([id number]) on 12/03/2024 11:24:39 PM Referred By: Confirmed By: Jaun Rebolledo
[2024-12-03] MEDS: PIPERACILLIN/TAZOBACTAM 4.5 GM/100 ML BAG IV ONE (23:38)
[2024-12-04] MEDS ORDERED: OLANZapine 10 MG/2.1 ML SDV IM PRN (00:14)
[2024-12-04] MEDS: MAGNESIUM SULFATE / D5W 1 GM/100 ML BAG IV SCH (00:30)
[2024-12-04] MEDS ORDERED: CEFEPIME 2000MG 2,000 MG/20 ML SYR IV SCH (01:30)
[2024-12-04 02:56] LABS: A calco-baum cmplx NotReported Not Detected (NotDetected); Bact fragilis Not Reported Not Detected (NotDetected); Blood Culture Id Panel See PCR Comment (NotDetected); C auris Not Reported Not Detected (NotDetected); Calbicans Not Reported Not Detected (NotDetected); Candida glabrata Not Reported Not Detected (NotDetected); Candida krusei Not Reported Not Detected (NotDetected); Cneoformans/gatti Not Reported Not Detected (NotDetected); Cparapsilosis Not Reported Not Detected (NotDetected); Ctropicalis Not Reported Not Detected (NotDetected); E cloacae compx Not Reported Not Detected (NotDetected); Efaecalis Not Reported Not Detected (NotDetected); Efaecium Not Reported Not Detected (NotDetected); Enterobacterales Not Reported Not Detected (NotDetected); Escherichia coli Not Reported Not Detected (NotDetected); H influenzae Not Reported Not Detected (NotDetected); K aerogenes Not Reported Not Detected (NotDetected); Koxytoca Not Reported Not Detected (NotDetected); Kpneumoniae grp Not Reported Not Detected (NotDetected); Lmonocyt Not Reported Not Detected (NotDetected); N meningitidis Not Reported Not Detected (NotDetected); P aeruginosa Not Reported Not Detected (NotDetected); Proteus spp Not Reported Not Detected (NotDetected); Salmonella spp Not Reported Not Detected (NotDetected); Staph lugdunensis Not Reported Not Detected (NotDetected); Staph spp. Not Reported DETECTED (NotDetected); Staphaureus Not Reported DETECTED (NotDetected); Staphepi Not Reported Not Detected (NotDetected); Stenmaltophilia Not Reported Not Detected (NotDetected); Strep agal(GrpB) Not Reported Not Detected (NotDetected); Strep pneum Not Reported Not Detected (NotDetected); Strep pyog (GrpA) Not Reported Not Detected (NotDetected); Strep spp Not Reported Not Detected (NotDetected)
[2024-12-04 03:00] LABS: Staphylococcus spp. DETECTED (NotDetected); mecAC+MREJ Resistant Gene MRSA DETECTED (NotDetected)
[2024-12-04] MEDS ORDERED: VANCOMYCIN CONSULT ACTIVE PRN (03:03)
[2024-12-04] MEDS: ALBUMIN 25% 25 GM/100 ML VIAL IV ONE (04:09)
[2024-12-04] MEDS: VANCOMYCIN HCL 1,750 MG in SODIUM CHLORIDE 0.9% 500 ML IV ONE (04:09)
[2024-12-04] MEDS: PIPERACILLIN/TAZOBACTAM 4.5 GM/100 ML BAG IV SCH (05:09)
[2024-12-04] MEDS: LEVOTHYROXINE SODIUM 50 MCG TABLET PO SCH (06:20)
[2024-12-04 07:31] LABS: Hematocrit (blood only) 27.3 % (42.0-52.0); Mean Corpuscular Hemoglobin 30.9 pg (25.0-34.0); Mean Corpuscular Volume 93.8 fL (80.0-100.0); Mean Platelet Volume 9.6 fL (9.4-12.4); Platelet Count 91 K/uL (130-400); RDW Coefficient of Variation 14.9 % (11.5-14.5); Red Blood Count 2.91 M/uL (4.70-6.10); White Blood Count 8.72 K/ul (4.8-10.8)
[2024-12-04] MEDS: ALBUT/IPRATROP 3MG/0.5MG NEB 3 ML VIAL NEB STA (07:53)
[2024-12-04 07:54] LABS: BUN Creatinine Ratio 16.2 (10-20); Calcium 8.3 mg/dl (8.6-10.3); Potassium 3.6 mmol/L (3.5-5.1)
[2024-12-04] MEDS: allopurinoL 100 MG TAB PO SCH (08:53)
[2024-12-04] MEDS: THIAMINE HCL 50 MG TABLET PO SCH (08:53)
[2024-12-04] MEDS: ATORVASTATIN 20 MG TAB PO SCH (08:53)
[2024-12-04] MEDS: ASPIRIN 81 MG ECTAB PO SCH (08:53)
[2024-12-04] MEDS: METOPROLOL SUCC 25MG EXT REL TAB PO SCH (09:02)
[2024-12-04] MEDS: SODIUM CHLORIDE 0.9% 1,000 ML IV SCH (09:02)
--- NOTE | 2024-12-04 09:07 | XRay Report ---
EXAM: XR chest 1V portable CLINICAL HISTORY: Low O2 TECHNIQUE: An X-ray image of the chest is obtained in 1 AP projection. COMPARISON: 02/01/2024 FINDINGS: Pulmonary Parenchyma: Bilateral coarse interstitial markings with patchy airspace opacification. Obscured bilateral costophrenic angles. Heart and Mediastinum: Apparent cardiomegaly. No mediastinal widening or masses. No hilar or mediastinal lymphadenopathy. Bony Thorax: Bony thorax appears intact without fractures or deformities. Thoracic spondylosis. Soft Tissues: Soft tissues overlying the chest wall are unremarkable. IMPRESSION: 1. Bilateral coarse interstitial markings with patchy airspace opacification. Interval slight progression. Suggest clinical lab correlation. 2. Obscured bilateral costophrenic angles (unchanged). Electronically signed by Hugo Al 12-04-2024 09:06 AM
--- NOTE | 2024-12-04 12:18 | Hospitalist Progress Note ---
Date of Service December 04, 2024 Assessment & Plan (1) Pneumonia: (2) MUNIRA (acute kidney injury): (3) Generalized weakness: (4) Heel ulcer: (5) Diastolic congestive heart failure: (6) HTN (hypertension): (7) Dyslipidemia: (8) Hypothyroidism: (9) Gout: Plan 79 year old male with PMH significant for HFpEF, HTN, HLD, prediabetes, hypothyroidism, gout, CKD III, peripheral neuropathy, anxiety, peripheral arterial disease, and left heel ulcer who presents to the ED 12/03 with weakness, cough, and left heel pain who is being admitted for pneumonia. 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 At admission: no leukocytosis, nl lactate but procalcitonin elevated to 1 CXR with density suspicious for PNA O2 as needed to maintain sats >92% Tessalon perles and zyrtec as needed, mucinex. Encourage ISP IV cefepime and PO doxycycline on 12/03 --> cefepime was changed to zosyn 12/04 passport application examiner due to concern for aspiration. Follow admitting Bl Cx --> Prelim results w/ GPC Repeat Bl Cx 12/05 AM, ID consult. 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 January 2024 ECHO w/ EF of 60-65%, Gr I diastolic dysfxn. Pt's appetite is finally improving from today. c/w gentle IVF, avoid nephrotoxics hold home lasix, labs in AM. If worsening consider nephro consult. Likely demand ischemia: Admitting troponin of 43, gradually up trended to 268. Patient with no chest pain. EKG with no acute ST or T changes. Will continue to monitor EKG and will get echo. Doubt this is actual ACS, rather gradual uptrend in troponin is likely due to secondary to acute illness in the setting of worsening renal function. will monitor closely over telemetry. Generalized weakness: Likely due to PNA. PT/OT consults Heel ulcer Patient follows with wound clinic weekly At presentation: and daughter report left foot and heel look baseline for patient Suspect fever and elevated procal are due to PNA Cast removed in ED Xrays and MRI negative for osteomyelitis Consult wound nurse for management Diastolic heart failure/dyslipidemia: Patient appears euvolemic. Continue atorvastatin, baby aspirin, metoprolol. Hold lasix (and KCl) due to MUNIRA CKDIII Hypertension: Continue metoprolol Hypothyroidism: Continue levothyroxine Gout: Continue allopurinol DVT Prophylaxis: SQ Heparin Code Status: FULL CODE PCP: Dr Alyssa Kwok MD Admission and Anticipated Discharge Date Admission Date: December 03, 2024 Subjective Patient was seen and examined at bedside. Patient was lying in bed, on 2 L nasal cannula oxygen, NAD, resting comfortably. AOx3. Per RN, patient has improved in mentation significantly, ate his breakfast well, last bowel movement 2 days ago which is usual for him. Patient is needing 2 L oxygen, does not use any oxygen at home. Patient denies any chest pain or headache or dizziness or shortness of breath. Physical Exam Physical Exam: General/Psych: WD/WN, AOX3, NAD, conversing easily, appears chronically ill/frail/weak. Head: normocephalic, atraumatic Eyes: normal inspection, PERRL, conjunctivae pink, anicteric sclerae ENT: external ear and nose normal, oropharynx normal Neck: normal visual inspection, trachea midline, no thyromegaly Respiratory: normal respiratory effort, lungs with crackles posteriorly bilaterally, no accessory muscle use Cardiovascular: regular rate and rhythm, no murmur/rub/gallop, no JVD Extremities: no cyanosis or clubbing, normal peripheral pulses, no BLE edema Abdomen/GI: normal bowel sounds, soft, nontender, no hepatosplenomegaly Neurologic/MSK: A+Ox3, motor strength 5/5, moves all extremities, left foot deformed and swollen with healing pressure ulcer on left heel Skin: no rashes, normal color, warm and dry Results & Data Results & Data Vital Signs (Past 12 Hours) Vital Signs Temp Pulse Pulse Resp BP Pulse Ox O2 Del Method 12/04/24 11:39 36.8 C 61 18 102/40 L 97 Nasal Cannula 12/04/24 11:00 Nasal Cannula 12/04/24 08:51 36.5 C 59 L 18 94/41 L 94 Nasal Cannula 12/04/24 07:18 69 12/04/24 02:16 37.4 C 74 14 104/54 L 96 Nasal Cannula O2 Flow Rate 12/04/24 11:39 2 12/04/24 11:00 3 12/04/24 08:51 3 12/04/24 07:18 12/04/24 02:16 3 (1) Pneumonia Laterality: right Lung location: unspecified part of lung Pneumonia type: due to unspecified organism Qualified Code(s): J18.9 - Pneumonia, unspecified organism (4) Heel ulcer Laterality: left Non-pressure ulcer stage: unspecified non-pressure ulcer stage Qualified Code(s): L97.429 - Non-pressure chronic ulcer of left heel and midfoot with unspecified severity
[2024-12-04] MEDS: VANCOMYCIN HCL 1,250 MG in SODIUM CHLORIDE 0.9% 250 ML IV SCH (12:52)
[2024-12-04] MEDS: guaiFENesin 600 MG TABCR PO SCH (13:23)
--- NOTE | 2024-12-04 13:35 | Pharmacy Report ---
Pharmacy PK ABX Note - Date of Service December 04, 2024 - Assessment and Plan Assessment 79 year old M receiving Vancomycin and Zosyn for treatment of pneumonia and bacteremia. * Day #1 of antimicrobial therapy. * Febrile at 39.1 C. No leukocytosis. SCr worsened, 1.85 mg/dL today, MUNIRA. Lactate 1.8. Procal 1. * MRSA growing in blood cultures. ID consulted. Plan Vancomycin * Loading dose: 1750 mg IV x 1 * Given 1250 mg IV x 1 today around 1200. Given MUNIRA, will dose per level for now * Random level ordered for: 12/05/24 Zosyn * 4.5 g IV every 8 hours Pharmacy will continue to follow and will adjust dose/frequency as necessary. Thank you. Pharmacy has transitioned to AUC monitoring for vancomycin. AUC/YANG is the preferred PK/PD target and is associated with decreased risk of nephrotoxicity compared to traditional trough targets.
[2024-12-05 06:03] LABS: Hematocrit (blood only) 26.2 % (42.0-52.0); Hemoglobin 8.9 g/dl (14.0-18.0); Mean Corpuscular Hemoglobin 31.6 pg (25.0-34.0); Mean Corpuscular Volume 92.9 fL (80.0-100.0); Mean Platelet Volume 10.2 fL (9.4-12.4); Platelet Count 92 K/uL (130-400); RDW Coefficient of Variation 15.3 % (11.5-14.5); RDW Standard Deviation 52.5 fL (36.4-46.3); Red Blood Count 2.82 M/uL (4.70-6.10); White Blood Count 7.44 K/ul (4.8-10.8)
[2024-12-05 06:17] LABS: BUN Creatinine Ratio 18.6 (10-20); Calcium 8.4 mg/dl (8.6-10.3); Creatinine Clr Calc Pharmacy 32.5 ml/min; Magnesium 2.4 mg/dl (1.7-2.4); Phosphorus 2.5 mg/dl (2.5-4.9)
[2024-12-05] MEDS: BENZONATATE 100 MG CAPSULE PO PRN (08:54)
[2024-12-05] MEDS: DOCUSATE SODIUM 100 MG CAP PO SCH (08:54)
--- NOTE | 2024-12-05 09:20 | Electrocardiogram Report ---
Test Reason : Blood Pressure : */* mmHG Vent. Rate : 63 BPM Atrial Rate : 63 BPM P-R Int : 174 ms QRS Dur : 92 ms QT Int : 432 ms P-R-T Axes : 32 -22 1 degrees QTcB Int : 442 ms Normal sinus rhythm Minimal voltage criteria for LVH, may be normal variant Borderline ECG When compared with ECG of 03-Dec-2024 11:15, Vent. rate has decreased by 32 bpm Confirmed by Марина Ramos ([id number]) on 12/05/2024 9:20:52 AM Referred By: REFERRED SELF Confirmed By: Марина Ramos
[2024-12-05] MEDS: AMPICILLIN/SULBACTAM SOD 3,000 MG/100 ML BAG IV SCH (09:32)
--- NOTE | 2024-12-05 09:32 | Electrocardiogram Report ---
Test Reason : Blood Pressure : */* mmHG Vent. Rate : 62 BPM Atrial Rate : 62 BPM P-R Int : 172 ms QRS Dur : 88 ms QT Int : 440 ms P-R-T Axes : 28 -22 -4 degrees QTcB Int : 446 ms Normal sinus rhythm Voltage criteria for left ventricular hypertrophy Cannot rule out Anterior infarct , age undetermined Abnormal ECG When compared with ECG of 04-Dec-2024 06:48, (unconfirmed) Nonspecific T wave abnormality, worse in Anterior leads Confirmed by Марина Ramos ([id number]) on 12/05/2024 9:32:37 AM Referred By: REFERRED SELF Confirmed By: Марина Ramos
--- NOTE | 2024-12-05 09:59 | Pharmacy Report ---
Pharmacy PK ABX Note - Date of Service December 05, 2024 - Assessment and Plan Assessment 12/05: * MRSA growing in blood cultures. Zosyn discontinued and patient started on Unasyn. Day #2 of Vancomycin. * Repeat blood cultures pending. SCr up to 1.94 mg/dL this AM, UO appears better. No leukocytosis. * Vanc level therapeutic this AM. Continue dosing by level for now given MUNIRA. 12/04: 79 year old M receiving Vancomycin and Zosyn for treatment of pneumonia and bacteremia. * Day #1 of antimicrobial therapy. * Febrile at 39.1 C. No leukocytosis. SCr worsened, 1.85 mg/dL today, MUNIRA. Lactate 1.8. Procal 1. * MRSA growing in blood cultures. ID consulted. Plan Vancomycin * Vancomycin 1250 mg IV x 1 received around 1200 yesterday. * Random level this AM was therapeutic at 17.6 mcg/mL. * Will give a one time dose of vancomycin 750 mg IV around 1000 today. Predicted to achieve steady state AUC/YANG of 465 mg/L.hr. * Repeat random level in the AM (12/06/24) Unasyn * 3 g IV every 6 hours Pharmacy will continue to follow and will adjust dose/frequency as necessary. Thank you. Pharmacy has transitioned to AUC monitoring for vancomycin. AUC/YANG is the preferred PK/PD target and is associated with decreased risk of nephrotoxicity compared to traditional trough targets.
[2024-12-05] MEDS: VANCOMYCIN 750 MG in SODIUM CHLORIDE 0.9% 250 ML IV ONE (10:49)
--- NOTE | 2024-12-05 15:50 | Hospitalist Progress Note ---
Date of Service December 05, 2024 Assessment & Plan (1) Pneumonia: (2) MUNIRA (acute kidney injury): (3) Generalized weakness: (4) Heel ulcer: (5) Diastolic congestive heart failure: (6) HTN (hypertension): (7) Dyslipidemia: (8) Hypothyroidism: (9) Gout: Plan 79 year old male with PMH significant for HFpEF, HTN, HLD, prediabetes, hypothyroidism, gout, CKD III, peripheral neuropathy, anxiety, peripheral arterial disease, and left heel ulcer who presents to the ED 12/03 with weakness, cough, and left heel pain who is being admitted for pneumonia. 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 At admission: no leukocytosis, nl lactate but procalcitonin elevated to 1 CXR with density suspicious for PNA O2 as needed to maintain sats >92% Tessalon perles and zyrtec as needed, mucinex. Encourage ISP IV cefepime and PO doxycycline on 12/03 --> cefepime was changed to zosyn 12/04 mold bunch trimmer due to concern for aspiration, Doxy changed to vanco 12/04--> unasyn 12/05, c/w vanco Follow admitting Bl Cx --> Prelim results w/ GPC Repeat Bl Cx 12/05 AM, ID consult. 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 January 2024 ECHO w/ EF of 60-65%, Gr I diastolic dysfxn. Pt's appetite is improving Cr slighly up, increase IVF, repeat BMP 3 pm, if worsening call nephro. c/w gentle IVF, avoid nephrotoxics hold home lasix, labs in AM. If worsening consider nephro consult. Likely demand ischemia: Admitting troponin of 43, gradually up trended to 268. Patient with no chest pain. EKG with no acute ST or T changes. Will continue to monitor EKG, ECHO this adm wo [facility]. Doubt this is actual ACS, rather gradual uptrend in troponin is likely due to secondary to acute illness in the setting of worsening renal function. will monitor closely over telemetry. Generalized weakness: Likely due to PNA. PT/OT consults Heel ulcer Patient follows with wound clinic weekly At presentation: and daughter report left foot and heel look baseline for patient Suspect fever and elevated procal are due to PNA Cast removed in ED Xrays and MRI negative for osteomyelitis Consult wound nurse for management Diastolic heart failure/dyslipidemia: Patient appears euvolemic. Continue atorvastatin, baby aspirin, metoprolol. Hold lasix (and KCl) due to MUNIRA CKDIII Hypertension: Continue metoprolol Hypothyroidism: Continue levothyroxine Gout: Continue allopurinol DVT Prophylaxis: SQ Heparin Code Status: FULL CODE PCP: Dr Alyssa Kwok MD Admission and Anticipated Discharge Date Admission Date: December 03, 2024 Subjective Patient was seen and examined at bedside. Patient was lying in bed, on RA, NAD, resting comfortably. AOx3. Per RN, eating well, BM 2 d ago. Patient denies any chest pain or headache or dizziness or shortness of breath. Physical Exam Physical Exam: General/Psych: WD/WN, AOX3, NAD, conversing easily, appears weak Head: normocephalic, atraumatic Eyes: normal inspection, PERRL, conjunctivae pink, anicteric sclerae ENT: external ear and nose normal, oropharynx normal Neck: normal visual inspection, trachea midline, no thyromegaly Respiratory: normal respiratory effort, lungs with crackles posteriorly bilaterally, no accessory muscle use Cardiovascular: regular rate and rhythm, no murmur/rub/gallop, no JVD Extremities: no cyanosis or clubbing, normal peripheral pulses, no BLE edema Abdomen/GI: normal bowel sounds, soft, nontender, no hepatosplenomegaly Neurologic/MSK: A+Ox3, motor strength 5/5, moves all extremities, left foot deformed and swollen with healing pressure ulcer on left heel Skin: no rashes, normal color, warm and dry Results & Data Results & Data Vital Signs (Past 12 Hours) Vital Signs Temp Pulse Resp BP BP Pulse Ox Pulse Ox 12/05/24 15:10 97 12/05/24 11:16 36.7 C 73 16 109/57 L 97 12/05/24 08:45 12/05/24 07:48 36.5 C 60 16 111/62 95 O2 Del Method O2 Flow Rate 12/05/24 15:10 0 12/05/24 11:16 Room Air 12/05/24 08:45 Room Air 12/05/24 07:48 Room Air (1) Pneumonia Laterality: right Lung location: unspecified part of lung Pneumonia type: due to unspecified organism Qualified Code(s): J18.9 - Pneumonia, unspecified organism (4) Heel ulcer Laterality: left Non-pressure ulcer stage: unspecified non-pressure ulcer stage Qualified Code(s): L97.429 - Non-pressure chronic ulcer of left heel and midfoot with unspecified severity
[2024-12-05 15:53] LABS: BUN Creatinine Ratio 14.3 (10-20); Calcium 8.7 mg/dl (8.6-10.3)
[2024-12-06] MEDS: AMPICILLIN/SULBACTAM SOD 3,000 MG/100 ML BAG IV SCH (02:33)
[2024-12-06 05:34] LABS: Hematocrit (blood only) 25.9 % (42.0-52.0); Hemoglobin 8.5 g/dl (14.0-18.0); Mean Corpuscular Hemoglobin 30.9 pg (25.0-34.0); Mean Corpuscular Hgb Conc 32.8 g/dL (32.0-36.0); Mean Corpuscular Volume 94.2 fL (80.0-100.0); Mean Platelet Volume 10.3 fL (9.4-12.4); Platelet Count 105 K/uL (130-400); RDW Coefficient of Variation 15.2 % (11.5-14.5); RDW Standard Deviation 52.8 fL (36.4-46.3); Red Blood Count 2.75 M/uL (4.70-6.10); White Blood Count 6.37 K/ul (4.8-10.8)
[2024-12-06 05:45] LABS: BUN Creatinine Ratio 16.8 (10-20); Calcium 8.4 mg/dl (8.6-10.3); Creatinine Clr Calc Pharmacy 27.9 ml/min; Magnesium 2.3 mg/dl (1.7-2.4); Phosphorus 2.6 mg/dl (2.5-4.9)
--- NOTE | 2024-12-06 09:24 | Pharmacy Report ---
Pharmacy PK ABX Note - Date of Service December 06, 2024 - Assessment and Plan Assessment 12/06: * Day #3 Vancomycin, day #4 CAP treatment (zosyn --> unasyn) * Repeat blood cultures no growth x 24h. SCr up to 2.26 mg/dL this AM, UO continues. No leukocytosis. * Vanc level therapeutic this AM. Continue dosing by vancomycin level for MUNIRA. 12/05: * MRSA growing in blood cultures. Zosyn discontinued and patient started on Unasyn. Day #2 of Vancomycin. * Repeat blood cultures pending. SCr up to 1.94 mg/dL this AM, UO appears better. No leukocytosis. * Vanc level therapeutic this AM. Continue dosing by level for now given MUNIRA. 12/04: 79 year old M receiving Vancomycin and Zosyn for treatment of pneumonia and bacteremia. * Day #1 of antimicrobial therapy. * Febrile at 39.1 C. No leukocytosis. SCr worsened, 1.85 mg/dL today, MUNIRA. Lactate 1.8. Procal 1. * MRSA growing in blood cultures. ID consulted. Plan Vancomycin * Vancomycin 750 mg IV x1 ~ 1000 today. Predicted to achieve steady state AUC/YANG of 498 mg/L.hr. * Repeat random level in the AM (12/07/24) Unasyn * 3 g IV every 12 hours for CrCl < 30ml/min Pharmacy will continue to follow and will adjust dose/frequency as necessary. Thank you. Pharmacy has transitioned to AUC monitoring for vancomycin. AUC/YANG is the preferred PK/PD target and is associated with decreased risk of nephrotoxicity compared to traditional trough targets.
[2024-12-06] MEDS: VANCOMYCIN 750 MG in SODIUM CHLORIDE 0.9% 250 ML IV ONE (10:05)
--- NOTE | 2024-12-06 10:16 | Nephrology Consultation ---
Date of Consultation December 06, 2024 Assessment & Plan (1) MUNIRA (acute kidney injury): MUNIRA on background CKD 3 ( baseline creat 1.3). On Admission was 1.46 but then kept rising and was 2.52 at peak yesterday. Today is better at 2.26 and with more urine output yesterday--so encouraging signs. Cause is classic ATN in the setting of MRSA bacteremia--this is a serious Condition almost always associated with MUNIRA agustin in vulnerable patient like him. NO need of dialysis today and hopefully will improve further from here. Starting to have some edema and also Some crackles--Can stop IV fluids now No Lasix, Contrast agents, HUBERT/ARB for now. Avoid Low BP situation. Continue vancomycin for now given creat is now improving. Check Vanco level carefully and try to keep it under 20. If renal function gets worse or does not get better fast enough may have to change vanco to Dapto. (2) Pneumonia: Being treated for same also. (3) MRSA bacteremia: Currently has this and is a serious Condition almost always associated with MUNIRA agustin in vulnerable patient like him. Continue vancomycin given creat is now improving. Check Vanco level acrefuly and try to keep it under 20. Plan time spent 62 mins History of Present Illness Attending Physician: Bernie Reyes MD History of Present Illness 79/M with CKD stage 3 Baseline creat of 1.3 as of , HFpEF, HTN, HLD, prediabetes, hypothyroidism, gout, peripheral neuropathy, anxiety, peripheral arterial disease, and left heel ulcer presented to ED 12/03/2024 with weakness, cough, and left heel pain. He was also very weak and could not get out of bed. Was having productive cough with clear phlegm and a runny nose also. He also has a wound on his left heel that has been there since January 2024 for which he goes to wound clinic every week for dressing changes and cast application. He denies chest pain, SOB, abdominal pain, N/V/D, edema. He does not check his weight regularly. Found to have MRSA bacteremia and Also Possible Pneumonia. So currently getting IV vancomycin and also some iv fluids. vanc level was 17 and 16 so far. Creat on Admission was 1.46 but since then went up gradually to 1.8 then 1.9 and then 2.52 but today is slightly better at 2.26. BP mostly has been fine. Urine output is also increasing and was 2000 ml yesterday. AT home takes lasix 20 daily --on hold now. No NSAIDS or HUBERT/ARB at home. No contrast exposure here so far. ROS--As detailed in HPI. otherwise 12 systems reviewed and negative Physical Exam Physical Exam: General/Psych: AAOX3, conversing easily, Slow but accurate speech Neck: No JVD Respiratory: normal respiratory effort, lungs with crackles basal area bilaterally, Cardiovascular: regular rate and rhythm, no murmur/rub/gallop, no JVD Extremities:1+ BLE edema. left LE with boot Abdomen/GI:soft, nontender Allergies Allergy/AdvReac Type Severity Reaction Status Date / Time niacin AdvReac Intermediate FLUSH Verified 11/30/24 10:04 Home Medications Medication Instructions Recorded Confirmed Type allopurinol 100 mg tablet 200 mg PO QAM 01/12/20 12/03/24 History (Zyloprim) aspirin 81 mg tablet,delayed 81 mg PO QAM 01/12/20 12/03/24 History release (Aspir-) atorvastatin 20 mg tablet (Lipitor) 20 mg PO QAM 01/12/20 12/03/24 History latanoprost 0.005 % eye drops 1 drp OPB HS 01/12/20 12/03/24 History (Xalatan) levothyroxine 50 mcg tablet 50 mcg PO QAM 01/12/20 12/03/24 History (Levoxyl) metoprolol succinate 25 mg 25 mg PO QAM 01/12/20 12/03/24 History tablet,extended release 24 hr (Toprol XL) thiamine HCl (vitamin B1) 100 mg 50 mg PO QAM 01/12/20 12/03/24 History tablet (Vitamin B-1) timolol maleate 0.5 % eye drops 1 drp OPL QAM 01/12/20 12/03/24 History (Timoptic) ketoconazole 1 % shampoo 1 applic topical UD 12/13/21 12/03/24 History furosemide 20 mg tablet (Lasix) 20 mg PO DAILY #30 tabs 02/01/24 12/03/24 Rx tamsulosin 0.4 mg capsule 0.4 mg PO HS #30 caps 02/01/24 12/03/24 Rx amoxicillin 250 mg capsule 1,000 mg PO .COMPLEX 02/24/24 12/03/24 History potassium chloride 20 mEq 10 meq PO DAILY 12/03/24 12/03/24 History tablet,extended release(part/cryst) Patient History Medical History Hypothyroidism Stage III pressure ulcer of left heel Loss of protective sensation of skin of deformed foot Deformity of left foot MRSA infection Pseudomonas infection Venous ulcer of left leg Surgical wound, non healing Foot abscess, left Urinary retention Acute on chronic diastolic HF (heart failure) Voiding dysfunction Sepsis Cellulitis of foot, left Rhabdomyolysis Injury of right thigh Encounter for pre-operative examination Diastolic dysfunction without heart failure Abnormal MRI Cholelithiasis Acute cholecystitis Biliary colic Epigastric abdominal pain Pressure ulcer of left foot Sleep apnea Osteoarthritis TMJ click Rarely Increased pressure in the eye Does not yet meet criteria for glaucoma Surgical History Status post incision and drainage History of right cataract surgery S/P cholecystectomy History of arthroscopy of left knee History of transesophageal echocardiography (FLACO) History of colonoscopy History of ERCP H/O inguinal hernia repair BILAT History of arthroplasty of both knees Family History Other Coronary heart disease No family history of adverse response to anesthesia Social History Smoking Status: Unknown if ever smoked Tobacco Type: Smokeless Tobacco (Dip or Chew) Second Hand Exposure: Yes (as a child); Do You Dip or Chew Tobacco: Yes (advised); Preferred Language: Telugu Communication Ability: Effective General Expeditor Required: No Beliefs That Will Affect Care: None Current Living Situation: Spouse Current Living Situation Comment: and daughter Feels Safe at Home: No Is there a partner from a previous relationship who is making you feel unsafe now?: No Assistive Devices: Cane, Crutches and Walker Results & Data Vital Signs (Past 12 Hours) Vital Signs Temp Pulse Pulse Resp BP BP Pulse Ox 12/06/24 07:33 36.8 C 58 L 18 128/70 97 12/06/24 05:29 58 L 12/06/24 02:35 36.5 C 59 L 18 121/59 L 97 12/06/24 01:22 58 L 12/05/24 22:24 36.8 C 63 18 120/63 96 O2 Del Method 12/06/24 07:33 Room Air 12/06/24 05:29 12/06/24 02:35 Room Air 12/06/24 01:22 12/05/24 22:24 Room Air Laboratory Results reviewed CBC, renal Panel, BLood C/s, CXR (2) Pneumonia Laterality: right Lung location: unspecified part of lung Pneumonia type: due to unspecified organism Qualified Code(s): J18.9 - Pneumonia, unspecified organism
[2024-12-06] MEDS: SODIUM CHLORIDE 0.9% 1,000 ML IV SCH (12:57)
--- NOTE | 2024-12-06 14:43 | Infectious Disease Consult ---
Date of Service December 06, 2024 Telehealth Information I performed this visit using a real-time telehealth connection between my location and the patients location ([facility]). After connecting through interactive tele-video, patient was identified by name and date of and/or wristband check.Patient (or authorized healthcare videotape sales representative) was informed that this was a telemedicine visit and it was being conducted confidentially over secure lines. My office door was closed and no one else was present in the room with me.Patient (or authorized healthcare videotape sales representative) provided consent to proceed with the visit, expressed an understanding of privacy and security of the telemedicine visit, and gave permission to have a hospital videotape sales representative in the room in order to assist with the visit and to conduct portions of the visit, as needed. I informed the patient (or authorized healthcare videotape sales representative) that I reviewed their record and presented the opportunity for them to ask any questions regarding the visit today. The patient agreed to participate. Assessment & Plan (1) MRSA bacteremia: Plan: MRSA bacteremia w/ r/o PNA vs cellulitis of L heel ulcer MUNIRA on CKD III Hx of PAD, peripheral neuropathy, b/l TKA (2010) - Stop unasyn - Continue vancomycin iv to cover MRSA in blood and possibly in lungs - Closely monitor Cr - F/u repeat blood cultures (12/05) - If the repeat blood cultures remain negative, anticipate total 28 days of vancomycin iv from negative blood cultures: last dose 01/01/25 I recommend a relatively long course of abx therapy as the patient has prosthetic joints in both knees. Although they do not appear to be involved in this current infection, ~4 weeks of abx is often recommended to prevent potential infection. During this patient encounter, one or more of the following was provided in addition to my in person visit: disease transmission risk assessment and mitigation; public health investigation, analysis, and testing; and/or complex antimicrobial therapy counseling and treatment. I spent a total of 82 minutes coordinating, documenting, and providing care for this patient excluding time spent in the performance of separately billed serv ices or time spent by another provider/QHP. (2) Chronic heel ulcer: (3) Pneumonia: History of Present Illness History of Present Illness This is an 79 y/o male (Jerry) w/ hx of HFpEF, HTN, preDM, b/l TKA (2010), hypothyroidism, gout, CKD III, PAD, peripheral neuropathy and L heel ulcer (about 1 year), who prsented w/ generalized weakness, productive coughs (mucus) and L heel pain. Fever was noted on admission, 12/03/24. He was started on IV cefepime and PO doxycycline on 12/03 -> cefepime was changed to zosyn 12/04 demand inspector due to concern for aspiration w/ doxy changed to vanco 12/04 -> unasyn 12/05, c/w vanco w/ blood cultures showing MRSA. L heel was warm and tendern w/ pain (kind of sore) different from his baseline last . No fever or chills at home. He initially had productive coughs prior to admission. He is currently feeling well overall. Denies f/c, n/v, abd pain, diarrhea, coughing, chest pain, sob, pain/swelling in knees b/l, headache, or neck/back pain. Allergies Allergy/AdvReac Type Severity Reaction Status Date / Time niacin AdvReac Intermediate FLUSH Verified 11/30/24 10:04 Home Medications Medication Instructions Recorded Confirmed Type allopurinol 100 mg tablet 200 mg PO QAM 01/12/20 12/03/24 History (Zyloprim) aspirin 81 mg tablet,delayed 81 mg PO QAM 01/12/20 12/03/24 History release (Aspir-) atorvastatin 20 mg tablet (Lipitor) 20 mg PO QAM 01/12/20 12/03/24 History latanoprost 0.005 % eye drops 1 drp OPB HS 01/12/20 12/03/24 History (Xalatan) levothyroxine 50 mcg tablet 50 mcg PO QAM 01/12/20 12/03/24 History (Levoxyl) metoprolol succinate 25 mg 25 mg PO QAM 01/12/20 12/03/24 History tablet,extended release 24 hr (Toprol XL) thiamine HCl (vitamin B1) 100 mg 50 mg PO QAM 01/12/20 12/03/24 History tablet (Vitamin B-1) timolol maleate 0.5 % eye drops 1 drp OPL QAM 01/12/20 12/03/24 History (Timoptic) ketoconazole 1 % shampoo 1 applic topical UD 12/13/21 12/03/24 History furosemide 20 mg tablet (Lasix) 20 mg PO DAILY #30 tabs 02/01/24 12/03/24 Rx tamsulosin 0.4 mg capsule 0.4 mg PO HS #30 caps 02/01/24 12/03/24 Rx amoxicillin 250 mg capsule 1,000 mg PO .COMPLEX 02/24/24 12/03/24 History potassium chloride 20 mEq 10 meq PO DAILY 12/03/24 12/03/24 History tablet,extended release(part/cryst) Patient History Medical History Hypothyroidism Stage III pressure ulcer of left heel Loss of protective sensation of skin of deformed foot Deformity of left foot MRSA infection Pseudomonas infection Venous ulcer of left leg Surgical wound, non healing Foot abscess, left Urinary retention Acute on chronic diastolic HF (heart failure) Voiding dysfunction Sepsis Cellulitis of foot, left Rhabdomyolysis Injury of right thigh Encounter for pre-operative examination Diastolic dysfunction without heart failure Abnormal MRI Cholelithiasis Acute cholecystitis Biliary colic Epigastric abdominal pain Pressure ulcer of left foot Sleep apnea Osteoarthritis TMJ click Rarely Increased pressure in the eye Does not yet meet criteria for glaucoma Surgical History Status post incision and drainage History of right cataract surgery S/P cholecystectomy History of arthroscopy of left knee History of transesophageal echocardiography (FLACO) History of colonoscopy History of ERCP H/O inguinal hernia repair BILAT History of arthroplasty of both knees Family History Other Coronary heart disease No family history of adverse response to anesthesia Social History Smoking Status: Unknown if ever smoked Tobacco Type: Smokeless Tobacco (Dip or Chew) Second Hand Exposure: Yes (as a child); Do You Dip or Chew Tobacco: Yes (advised); Preferred Language: Luxembourgish Communication Ability: Effective [employer]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: No Beliefs That Will Affect Care: None Current Living Situation: Spouse Current Living Situation Comment: and daughter Feels Safe at Home: No Is there a partner from a previous relationship who is making you feel unsafe now?: No Assistive Devices: Cane, Crutches and Walker Review of Systems as HPI and all others negative Physical Exam Gen: no acute distress Lungs: breathing comfortably on room air Neuro: A&Ox3, conversant Patient deferred L heel examination Results & Data Vital Signs (Past 12 Hours) Vital Signs Temp Pulse Pulse Resp BP BP Pulse Ox 12/06/24 13:05 53 L 12/06/24 12:03 36.6 C 56 L 18 113/55 L 98 12/06/24 07:33 36.8 C 58 L 18 128/70 97 12/06/24 05:29 58 L O2 Del Method 12/06/24 13:05 12/06/24 12:03 Room Air 12/06/24 07:33 Room Air 12/06/24 05:29 Laboratory Results WBC 6.37K H 8.5 Plt 105K Cr 2.26 PCT 7.67 RPPCR: neg Diagnostic Findings Blood cx (12/03): MRSA (3 of : R to oxa) Blood cx (12/05): NGTD Medications Administered TTE (12/05):no significant valvular disease MRI: 1. Altered myogenic signals of the soleus, flexor hallucis longus, Intrinsic, and quadratus plantae muscles. Findings suggest Polymyogenic strain versus inflammatory myositis. 2. Soft tissue edema is seen at the distal left leg around the left ankle and left foot with localized dermal thickening and sloughing at the medial and plantar aspect. Contour bulge and subcutaneous Inflammatory Fluid signals are seen. Findings are consistent with soft tissue cellulitis. 3. Calcaneal vascular remnant. 4. No definite MRI features to suggest osteomyelitis in the examined field of view. 5. Retrocalcaneal bursitis. 6. Imaging findings consistent with plantar fasciopathy, with an associated rim of fluid signals that are tangent to the plantar aponeurosis. 7. Mild tibiotalar and posterior subtalar synovial effusion. 8. Engorged plantar veins ranging around 7.2 mm. Varicose veins are suggested. Further workup is recommended. 9. The comparison matches the radiographic findings and is consistent with a relatively progressive course. (2) Chronic heel ulcer Laterality: left (3) Pneumonia Laterality: right Lung location: unspecified part of lung Pneumonia type: due to unspecified organism Qualified Code(s): J18.9 - Pneumonia, unspecified organism
--- NOTE | 2024-12-06 15:53 | Hospitalist Progress Note ---
Date of Service December 06, 2024 Assessment & Plan (1) Pneumonia: (2) MUNIRA (acute kidney injury): (3) Generalized weakness: (4) Heel ulcer: (5) Diastolic congestive heart failure: (6) HTN (hypertension): (7) Dyslipidemia: (8) Hypothyroidism: (9) Gout: Plan 79 year old male with PMH significant for HFpEF, HTN, HLD, prediabetes, hypothyroidism, gout, CKD III, peripheral neuropathy, anxiety, peripheral arterial disease, and left heel ulcer who presents to the ED 12/03 with weakness, cough, and left heel pain who is being admitted for pneumonia. 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 At admission: no leukocytosis, nl lactate but procalcitonin elevated to 1 CXR with density suspicious for PNA O2 as needed to maintain sats >92% Tessalon perles and zyrtec as needed, mucinex. 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 F/U repeat bl cx 12/05 - no growth so far. ID evaled 12/06 --stop unasyn, c/w vanco, if repeat bl cx neg treat w/ 28 d therapy (last dose 01/01/25) MUNIRA Patient with CKD III and baseline creat ~0.9 Admitting Creat is 1.46, next day elevated to 1.85 Patient endorses poor PO intake [employer] OF BIOLOGY, likely prerenal. January 2024 ECHO w/ EF of 60-65%, Gr I diastolic dysfxn. Pt's appetite is improving, now Cr slightly improved. Nephro evaled, no ivf for now due to developing fl overload. avoid nephrotoxics hold home lasix, labs in AM. Likely demand ischemia: Admitting troponin of 43, gradually up trended to 268. Patient with no chest pain. EKG with no acute ST or T changes. Will continue to monitor EKG, ECHO this adm wo RWMA. Doubt this is actual ACS, rather gradual uptrend in troponin is likely due to secondary to acute illness in the setting of worsening renal function. will monitor closely over telemetry. Generalized weakness: Likely due to PNA. PT/OT consults Heel ulcer Patient follows with wound clinic weekly At presentation: and daughter report left foot and heel look baseline for patient Suspect fever and elevated procal are due to PNA Cast removed in ED Xrays and MRI negative for osteomyelitis Consult wound nurse for management f/u wound care on dc. Diastolic heart failure/dyslipidemia: Patient appears euvolemic. Continue atorvastatin, baby aspirin, metoprolol. Hold lasix (and KCl) due to MUNIRA CKDIII Hypertension: Continue metoprolol Hypothyroidism: Continue levothyroxine Gout: Continue allopurinol DVT Prophylaxis: SQ Heparin Code Status: FULL CODE PCP: Dr Alyssa Kwok MD Admission and Anticipated Discharge Date Admission Date: December 03, 2024 Subjective Patient was seen and examined at bedside. Patient was sitting up in chair, on RA, NAD, resting comfortably. AOx3. Per RN, eating well, reports moving bowel ok. Patient denies any chest pain or headache or dizziness or shortness of breath. Physical Exam Physical Exam: General/Psych: WD/WN, AOX3, NAD, conversing easily, appears weak Head: normocephalic, atraumatic Eyes: normal inspection, PERRL, conjunctivae pink, anicteric sclerae ENT: external ear and nose normal, oropharynx normal Neck: normal visual inspection, trachea midline, no thyromegaly Respiratory: normal respiratory effort, lungs with crackles posteriorly bilaterally, no accessory muscle use Cardiovascular: regular rate and rhythm, no murmur/rub/gallop, no JVD Extremities: no cyanosis or clubbing, normal peripheral pulses, trace/1+ BLE edema Abdomen/GI: normal bowel sounds, soft, nontender, no hepatosplenomegaly Neurologic/MSK: A+Ox3, motor strength 5/5, moves all extremities, left foot deformed and swollen with healing pressure ulcer on left heel Skin: no rashes, normal color, warm and dry Results & Data Results & Data Vital Signs (Past 12 Hours) Vital Signs Temp Pulse Pulse Resp BP BP Pulse Ox 12/06/24 13:05 53 L 12/06/24 12:03 36.6 C 56 L 18 113/55 L 98 12/06/24 07:33 36.8 C 58 L 18 128/70 97 12/06/24 05:29 58 L O2 Del Method 12/06/24 13:05 12/06/24 12:03 Room Air 12/06/24 07:33 Room Air 12/06/24 05:29 (1) Pneumonia Laterality: right Lung location: unspecified part of lung Pneumonia type: due to unspecified organism Qualified Code(s): J18.9 - Pneumonia, unspecified organism (4) Heel ulcer Laterality: left Non-pressure ulcer stage: unspecified non-pressure ulcer stage Qualified Code(s): L97.429 - Non-pressure chronic ulcer of left heel and midfoot with unspecified severity
[2024-12-07 05:31] LABS: Hematocrit (blood only) 25.5 % (42.0-52.0); Hemoglobin 8.5 g/dl (14.0-18.0); Mean Corpuscular Hemoglobin 31.4 pg (25.0-34.0); Mean Corpuscular Hgb Conc 33.3 g/dL (32.0-36.0); Mean Corpuscular Volume 94.1 fL (80.0-100.0); Mean Platelet Volume 10.1 fL (9.4-12.4); Platelet Count 115 K/uL (130-400); RDW Coefficient of Variation 15.3 % (11.5-14.5); RDW Standard Deviation 53.1 fL (36.4-46.3); Red Blood Count 2.71 M/uL (4.70-6.10); White Blood Count 6.45 K/ul (4.8-10.8)
[2024-12-07 05:47] LABS: BUN Creatinine Ratio 19.5 (10-20); Calcium 8.4 mg/dl (8.6-10.3); Creatinine Clr Calc Pharmacy 34.5 ml/min; Magnesium 2.2 mg/dl (1.7-2.4); Phosphorus 3.1 mg/dl (2.5-4.9); Potassium 4.2 mmol/L (3.5-5.1)
--- NOTE | 2024-12-07 08:43 | Pharmacy Report ---
Pharmacy PK ABX Note - Date of Service December 07, 2024 - Assessment and Plan Assessment 12/07: * Day #4 Vancomycin - if BCx remains negative - last dose = 01/01/25 * Unasyn DC'd * SCr down to 1.85 mg/dL this AM * Vanc level therapeutic this AM. Continue dosing by vancomycin level for MUNIRA. 12/06: * Day #3 Vancomycin, day #4 CAP treatment (zosyn --> unasyn) * Repeat blood cultures no growth x 24h. SCr up to 2.26 mg/dL this AM, UO continues. No leukocytosis. * Vanc level therapeutic this AM. Continue dosing by vancomycin level for MUNIRA. 12/05: * MRSA growing in blood cultures. Zosyn discontinued and patient started on Unasyn. Day #2 of Vancomycin. * Repeat blood cultures pending. SCr up to 1.94 mg/dL this AM, UO appears better. No leukocytosis. * Vanc level therapeutic this AM. Continue dosing by level for now given MUNIRA. 12/04: 79 year old M receiving Vancomycin and Zosyn for treatment of pneumonia and bacteremia. * Day #1 of antimicrobial therapy. * Febrile at 39.1 C. No leukocytosis. SCr worsened, 1.85 mg/dL today, MUNIRA. Lactate 1.8. Procal 1. * MRSA growing in blood cultures. ID consulted. Plan Vancomycin * Vancomycin 1000 mg IV x1 ~ 0900 today. Predicted to achieve steady state AUC/YANG of 508 mg/L.hr. * Repeat random level in the AM (12/08/24), will continue daily levels until MUNIRA resolves/ SCr stable. Pharmacy will continue to follow and will adjust dose/frequency as necessary. Thank you. Pharmacy has transitioned to AUC monitoring for vancomycin. AUC/YANG is the preferred PK/PD target and is associated with decreased risk of nephrotoxicity compared to traditional trough targets.
[2024-12-07] MEDS: VANCOMYCIN HCL 1,000 MG/270 ML BAG IV ONE (09:33)
--- NOTE | 2024-12-07 10:00 | Nephrology Progress Note ---
Date of Service December 07, 2024 Assessment & Plan Admission and Anticipated Discharge Date Admission Date: December 03, 2024 Subjective Assessment & Plan (1) MUNIRA (acute kidney injury): MUNIRA on background CKD 3 ( baseline creat 1.3). On Admission was 1.46 but then kept rising and was 2.52 at peak yesterday. Today is better at 2.26 and with more urine output yesterday--so encouraging signs. Cause is classic ATN in the setting of MRSA bacteremia--this is a serious Condition almost always associated with MUNIRA agustin in vulnerable patient like him. NO need of dialysis today and hopefully will improve further from here. Creat down to 1.8 now. No IVF No Lasix, Contrast agents, HUBERT/ARB for now. However Lasix can be given if needed for SOB Avoid Low BP situation. Continue vancomycin for now given creat is now improving. Check Vanco level carefully and try to keep it under 20. If renal function gets worse or does not get better fast enough may have to change vanco to Dapto. Will need Weekly renal panel as long as he is on vancomycin (2) Pneumonia: Being treated for same also. (3) MRSA bacteremia: Currently has this and is a serious Condition almost always associated with MUNIRA agustin in vulnerable patient like him. Continue vancomycin given creat is now improving. Check Vanco level acrefuly and try to keep it under 20. reviewed ID note about PICC line and IV vanco for 4 weeks S---NO new issues. feels fine. NO N,v,SOB. Labs better. making urine Physical Exam Physical Exam: General/Psych: AAOX3, conversing easily, Slow but accurate speech Neck: No JVD Respiratory: normal respiratory effort, lungs with crackles basal area bilaterally, Cardiovascular: regular rate and rhythm, no murmur/rub/gallop, no JVD Extremities:1+ BLE edema. left LE with boot Abdomen/GI:soft, nontender Results & Data Vital Signs (Past 12 Hours) Vital Signs Temp Pulse Pulse Resp BP Pulse Ox O2 Del Method 12/07/24 07:42 37.1 C 58 L 16 112/48 L 95 Room Air 12/07/24 07:04 62 12/07/24 04:00 36.5 C 68 18 123/69 97 Room Air 12/07/24 00:20 61 12/06/24 23:26 36.5 C 67 18 128/71 97 Room Air
--- NOTE | 2024-12-07 14:10 | Hospitalist Progress Note ---
Date of Service December 07, 2024 Assessment & Plan (1) Pneumonia: (2) MUNIRA (acute kidney injury): (3) Generalized weakness: (4) Heel ulcer: (5) Diastolic congestive heart failure: (6) HTN (hypertension): (7) Dyslipidemia: (8) Hypothyroidism: (9) Gout: Plan 79 year old male with PMH significant for HFpEF, HTN, HLD, prediabetes, hypothyroidism, gout, CKD III, peripheral neuropathy, anxiety, peripheral arterial disease, and left heel ulcer who presents to the ED 12/03 with weakness, cough, and left heel pain who is being admitted for pneumonia. 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 At admission: no leukocytosis, nl lactate but procalcitonin elevated to 1 CXR with density suspicious for PNA O2 as needed to maintain sats >92% Tessalon perles and zyrtec as needed, mucinex. 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 F/U repeat bl cx 12/05 - no growth so far. ID evaled 12/06 --stop unasyn, c/w vanco, if repeat bl cx neg treat d therapy (last dose 01/01/25). PICC line order placed. Weekly CBC, BMP, CPK while on iv antibiotic therapy on discharge. 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 January 2024 ECHO w/ EF of 60-65%, Gr I diastolic dysfxn. Pt's appetite is improving, now Cr improving. Nephro evaled, appreciate recs. avoid nephrotoxics hold home lasix, labs in AM. Likely demand ischemia: Admitting troponin of 43, gradually up trended to 268. Patient with no chest pain. EKG with no acute ST or T changes. Will continue to monitor EKG, ECHO this adm wo RWMA. Doubt this is actual ACS, rather gradual uptrend in troponin is likely due to secondary to acute illness in the setting of worsening renal function. will monitor closely over telemetry. Generalized weakness: Likely due to PNA. PT/OT consults Heel ulcer Patient follows with wound clinic weekly At presentation: and daughter report left foot and heel look baseline for patient likely stage ii ulcer poa. Suspect fever and elevated procal are due to PNA Cast removed in ED Xrays and MRI negative for osteomyelitis Consult wound nurse for management f/u wound care on dc. Diastolic heart failure/dyslipidemia: Patient appears euvolemic. Continue atorv astatin, baby aspirin, metoprolol. Hold lasix (and KCl) due to MUNIRA CKDIII Hypertension: Continue metoprolol Hypothyroidism: Continue levothyroxine Gout: Continue allopurinol DVT Prophylaxis: SQ Heparin Code Status: FULL CODE PCP: Dr Alyssa Kwok MD Dispo: likely cadence, pending renal improvement. Admission and Anticipated Discharge Date Admission Date: December 03, 2024 Subjective Patient was seen and examined at bedside. Patient was sitting up in chair, on RA, NAD, resting comfortably. AOx3. Per RN, eating well, reports moving bowel ok. Patient denies any chest pain or headache or dizziness or shortness of breath. Pt agreeable for picc line, consent obtained, order placed. Physical Exam Physical Exam: General/Psych: WD/WN, AOX3, NAD, conversing easily, appears weak Head: normocephalic, atraumatic Eyes: normal inspection, PERRL, conjunctivae pink, anicteric sclerae ENT: external ear and nose normal, oropharynx normal Neck: normal visual inspection, trachea midline, no thyromegaly Respiratory: normal respiratory effort, lungs with crackles posteriorly bibasal, no accessory muscle use Cardiovascular: regular rate and rhythm, no murmur/rub/gallop, no JVD Extremities: no cyanosis or clubbing, normal peripheral pulses, 1+ BLE edema Abdomen/GI: normal bowel sounds, soft, nontender, no hepatosplenomegaly Neurologic/MSK: A+Ox3, motor strength 5/5, moves all extremities, left foot deformed and swollen with healing pressure ulcer on left heel Skin: no rashes, normal color, warm and dry Results & Data Results & Data Vital Signs (Past 12 Hours) Vital Signs Temp Pulse Pulse Resp BP BP Pulse Ox 12/07/24 12:19 12/07/24 11:40 36.9 C 57 L 18 119/62 98 12/07/24 07:42 37.1 C 58 L 16 112/48 L 95 12/07/24 07:04 62 12/07/24 04:00 36.5 C 68 18 123/69 97 O2 Del Method 12/07/24 12:19 Room Air 12/07/24 11:40 Room Air 12/07/24 07:42 Room Air 12/07/24 07:04 12/07/24 04:00 Room Air (1) Pneumonia Laterality: right Lung location: unspecified part of lung Pneumonia type: due to unspecified organism Qualified Code(s): J18.9 - Pneumonia, unspecified organism (4) Heel ulcer Laterality: left Non-pressure ulcer stage: unspecified non-pressure ulcer stage Qualified Code(s): L97.429 - Non-pressure chronic ulcer of left heel and midfoot with unspecified severity
[2024-12-08 05:48] LABS: BUN Creatinine Ratio 22.2 (10-20); Calcium 8.5 mg/dl (8.6-10.3); Creatinine Clr Calc Pharmacy 39.1 ml/min; Potassium 4.4 mmol/L (3.5-5.1)
--- NOTE | 2024-12-08 07:41 | Pharmacy Report ---
Pharmacy PK ABX Note - Date of Service December 08, 2024 - Assessment and Plan Assessment 12/08: * Vancomycin Day 5: Reviewed vancomycin level, based on level, vancomycin 1000mg today. * Serum creatinine continues to trend down, but not yet at baseline. Continue to dose per levels due to variable renal function 12/07: * Day #4 Vancomycin - if BCx remains negative - last dose = 01/01/25 * Unasyn DC'd * SCr down to 1.85 mg/dL this AM * Vanc level therapeutic this AM. Continue dosing by vancomycin level for MUNIRA. 12/06: * Day #3 Vancomycin, day #4 CAP treatment (zosyn --> unasyn) * Repeat blood cultures no growth x 24h. SCr up to 2.26 mg/dL this AM, UO continues. No leukocytosis. * Vanc level therapeutic this AM. Continue dosing by vancomycin level for MUNIRA. 12/05: * MRSA growing in blood cultures. Zosyn discontinued and patient started on Unasyn. Day #2 of Vancomycin. * Repeat blood cultures pending. SCr up to 1.94 mg/dL this AM, UO appears better. No leukocytosis. * Vanc level therapeutic this AM. Continue dosing by level for now given MUNIRA. 12/04: 79 year old M receiving Vancomycin and Zosyn for treatment of pneumonia and bacteremia. * Day #1 of antimicrobial therapy. * Febrile at 39.1 C. No leukocytosis. SCr worsened, 1.85 mg/dL today, MUNIRA. Lactate 1.8. Procal 1. * MRSA growing in blood cultures. ID consulted. Plan Vancomycin * Vancomycin 1000 mg IV x1 ~ 0800 today. Predicted to achieve steady state AUC/YANG of 446 mg/L.hr. * Repeat random level in the AM (12/09/24), will continue daily levels until MUNIRA resolves/ SCr stable. Pharmacy will continue to follow and will adjust dose/frequency as necessary. Thank you. Pharmacy has transitioned to AUC monitoring for vancomycin. AUC/YANG is the preferred PK/PD target and is associated with decreased risk of nephrotoxicity compared to traditional trough targets.
[2024-12-08] MEDS: VANCOMYCIN HCL 1,000 MG/270 ML BAG IV ONE (08:28)
--- NOTE | 2024-12-08 09:20 | Nephrology Progress Note ---
Date of Service December 08, 2024 Assessment & Plan Admission and Anticipated Discharge Date Admission Date: December 03, 2024 Subjective Assessment & Plan (1) MUNIRA (acute kidney injury): MUNIRA on background CKD 3 ( baseline creat 1.3). On Admission was 1.46 but then kept rising and was 2.52 at peak yesterday. Today is better at 2.26 and with more urine output yesterday--so encouraging signs. Cause is classic ATN in the setting of MRSA bacteremia--this is a serious Condition almost always associated with MUNIRA agustin in vulnerable patient like him. NO need of dialysis today and hopefully will improve further from here. Creat down to 1.6 now. No Lasix, Contrast agents, HUBERT/ARB for now. However Lasix can be given if needed for SOB/increased edema. was on lasix 20 daily pre Admission Avoid Low BP situation. Continue vancomycin for now given creat is now improving. Check Vanco level carefully and try to keep it under 20. If renal function gets worse or does not get better fast enough may have to change vanco to Dapto. Will sign off at this time. PCP can decide about nephro follow up after Discharge but would do Weekly renal panel as long as he is on vancomycin. (2) Pneumonia: Being treated for same also. (3) MRSA bacteremia: Currently has this and is a serious Condition almost always associated with MUNIRA agustin in vulnerable patient like him. Continue vancomycin given creat is now improving. Check Vanco level acrefuly and try to keep it under 20. reviewed ID note about PICC line and IV vanco for 4 weeks S---NO new issues. feels fine. NO N,v,SOB. Labs better. making urine Physical Exam Physical Exam: General/Psych: AAOX3, conversing easily, Slow but accurate speech Neck: No JVD Respiratory: normal respiratory effort, lungs with crackles basal area bilaterally, Cardiovascular: regular rate and rhythm, no murmur/rub/gallop, no JVD Extremities:1+ BLE edema. left LE with boot Abdomen/GI:soft, nontender Results & Data Vital Signs (Past 12 Hours) Vital Signs Temp Pulse Pulse Resp BP Pulse Ox O2 Del Method 12/08/24 08:07 36.7 C 63 19 135/62 97 Room Air 12/08/24 06:57 59 L 12/08/24 04:00 36.8 C 62 18 124/60 98 Room Air 12/08/24 00:00 36.6 C 61 18 122/79 97 Room Air 12/07/24 21:56 57 L 12/07/24 21:45 Room Air
--- NOTE | 2024-12-08 15:30 | Hospitalist Progress Note ---
Date of Service December 08, 2024 Assessment & Plan (1) Pneumonia: (2) MUNIRA (acute kidney injury): (3) Generalized weakness: (4) Heel ulcer: (5) Diastolic congestive heart failure: (6) HTN (hypertension): (7) Dyslipidemia: (8) Hypothyroidism: (9) Gout: Plan 79 year old male with PMH significant for HFpEF, HTN, HLD, prediabetes, hypothyroidism, gout, CKD III, peripheral neuropathy, anxiety, peripheral arterial disease, and left heel ulcer who presents to the ED 12/03 with weakness, cough, and left heel pain who is being admitted for pneumonia. 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 At admission: no leukocytosis, nl lactate but procalcitonin elevated to 1 CXR with density suspicious for PNA O2 as needed to maintain sats >92% Tessalon perles and zyrtec as needed, mucinex. 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 F/U repeat bl cx 12/05 - no growth so far. Appreciate ID input and recommendation on 12/06 --stop unasyn, c/w vanco, if repeat bl cx neg treat d therapy (last dose 01/01/25). Likely due to PICC line placement today He will need weekly CBC, BMP, CPK while on iv antibiotic therapy on discharge. 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 January 2024 ECHO w/ EF of 60-65%, Gr I diastolic dysfxn. Pt's appetite is improving, now Cr improving. Appreciate nephrology input and recommendation Advised not to have any Lasix, contrast has not, HUBERT/ARB for now PCP will decide for nephro follow-up as an outpatient with weekly compressive panel as long as he is on vancomycin Likely demand ischemia: Admitting troponin of 43, gradually up trended to 268. Patient with no chest pain. EKG with no acute ST or T changes. Will continue to monitor EKG, ECHO this adm wo RWMA. Doubt this is actual ACS, rather gradual uptrend in troponin is likely due to secondary to acute illness in the setting of worsening renal function. will monitor closely over telemetry. Remains medically stable without any cardiac symptoms and hemodynamically stable Generalized weakness: Likely due to PNA. PT/OT consults Heel ulcer Patient follows with wound clinic weekly At presentation: and daughter report left foot and heel look baseline for patient likely stage ii ulcer poa. Suspect fever and elevated procal are due to PNA Cast removed in ED Xrays and MRI negative for osteomyelitis Consult wound nurse for management f/u wound care on dc. Diastolic heart failure/dyslipidemia: Patient appears euvolemic. Continue atorvastatin, baby aspirin, metoprolol. Hold lasix (and KCl) due to MUNIRA CKDIII Hypertension: Continue metoprolol Hypothyroidism: Continue levothyroxine Gout: Continue allopurinol DVT Prophylaxis: SQ Heparin Code Status: FULL CODE PCP: Dr Alyssa Kwok MD Dispo: likely cadence, pending renal improvement. Admission and Anticipated Discharge Date Admission Date: December 03, 2024 Subjective 12/08/2024 The patient was seen and examined in medical telemetry unit He remains weak but stable and wants to be discharged Has been waiting for the PICC line and home health establishment before discharge Review of Systems Review of Systems: All systems reviewed and are unremarkable except as noted below Physical Exam Physical Exam: Sitting on a chair without any acute distress Constitutional: + ill appearing and average body habitus Eyes: PERRL, conjunctivae normal, anicteric sclerae ENMT: external ear and nose normal, oropharynx normal Neck: trachea midline, no thyromegaly Respiratory: no respiratory distress Auscultation: lungs clear to auscultation bilaterally Cardiovascular: Rate/Rhythm: regular rate and regular rhythm; not tachycardic Heart Sounds: normal S1 and normal S2; no murmur Extremities: + edema ( 1+ edema bilaterally) Gastrointestinal (Abdomen): Inspection/Auscultation: normal bowel sounds; abdomen not distended Percussion/Palpation: abdomen soft; abdomen nontender Musculoskeletal: No acute arthritis involving any of the joint Neurologic: normal touch/pain/proprioception and moves all extremities; no focal motor deficits Lymphatic: no cervical or axillary lymphadenopathy Results & Data Results & Data Vital Signs (Past 12 Hours) Vital Signs Temp Pulse Pulse Resp BP BP Pulse Ox 12/08/24 14:50 67 12/08/24 12:53 12/08/24 11:49 36.7 C 57 L 19 115/62 98 12/08/24 08:07 36.7 C 63 19 135/62 97 12/08/24 06:57 59 L 12/08/24 04:00 36.8 C 62 18 124/60 98 O2 Del Method 12/08/24 14:50 12/08/24 12:53 Room Air 12/08/24 11:49 Room Air 12/08/24 08:07 Room Air 12/08/24 06:57 12/08/24 04:00 Room Air Laboratory Results BMP 12/08/24 05:20 Sodium 140 Potassium 4.4 Chloride 110 H Carbon Dioxide 27 BUN 36 H Creatinine 1.62 H Glucose 93 Calcium 8.5 L Medications Administered Current Inpatient Medications Acetaminophen (Acetaminophen 325 Mg Tab) 650 mg PO Q4H PRN PRN Reason: pain/fever Stop: 01/02/25 17:03 Last Admin: 12/07/24 21:29 Dose: 650 mg [facility]opurinol ([facility] 100 Mg Tab) [facility]: 01/03/25 08:59 Last Admin: 12/08/24 07:48 Dose: 200 mg Aspirin (Aspirin 81 Mg Ectab) [facility] Stop: 01/03/25 08:59 Last Admin: 12/08/24 07:47 Dose: 81 mg Atorvastatin Calcium (Atorvastatin 20 Mg Tab) [facility] Stop: 01/03/25 08:59 Last Admin: 12/08/24 07:47 Dose: 20 mg Benzonatate (Benzonatate 100 Mg Capsule) 100 mg PO TID PRN PRN Reason: Cough Stop: 01/02/25 17:03 Last Admin: 12/05/24 08:54 Dose: 100 mg Cetirizine HCl (Cetirizine Hcl 10 Mg Tablet) 10 mg PO DAILY PRN PRN Reason: Allergy Symptoms Stop: 01/02/25 17:03 Docusate Sodium (Docusate Sodium 100 Mg Cap) 100 mg PO DAILY [facility] Stop: 01/04/25 08:59 Last Admin: 12/08/24 07:51 Dose: Not Given Guaifenesin (Guaifenesin 600 Mg Tabcr) 600 mg PO Q12 [facility] Stop: 01/03/25 12:19 Last Admin: 12/08/24 07:47 Dose: 600 mg Heparin Sodium (Porcine) (Heparin Sod 5,000 Unit/0.5 Ml Vial) 5,000 units SQ Q12 [facility] Stop: 01/02/25 20:59 Last Admin: 12/08/24 07:48 Dose: 5,000 units Levothyroxine Sodium (Levothyroxine Sodium 50 Mcg Tablet) 50 mcg PO DAILYBB [facility] Stop: 01/03/25 06:29 Last Admin: 12/08/24 06:09 Dose: 50 mcg Metoprolol Succinate (Metoprolol Succ 25mg Ext Rel Tab) 25 mg PO QAM [facility] Stop: 01/03/25 08:59 Last Admin: 12/08/24 07:48 Dose: 25 mg Miscellaneous Information (Vancomycin Consult Active) 1 each N/A UD PRN PRN Reason: consult Stop: 01/03/25 03:02 Olanzapine (Olanzapine 10 Mg/2.1 Ml Sdv) 2.5 mg IM Q4H PRN PRN Reason: Agitation Stop: 01/03/25 00:13 Tamsulosin HCl (Tamsulosin Hcl 0.4 Mg Cap) 0.4 mg PO HS [facility] Stop: 01/02/25 20:59 Last Admin: 12/07/24 21:31 Dose: 0.4 mg Thiamine HCl (Thiamine Hcl 50 Mg Tablet) 50 mg PO QAM [facility] Stop: 01/03/25 08:59 Last Admin: 12/08/24 07:48 Dose: 50 mg (1) Pneumonia Laterality: right Lung location: unspecified part of lung Pneumonia type: due to unspecified organism Qualified Code(s): J18.9 - Pneumonia, unspecified organism (4) Heel ulcer Laterality: left Non-pressure ulcer stage: unspecified non-pressure ulcer stage Qualified Code(s): L97.429 - Non-pressure chronic ulcer of left heel and midfoot with unspecified severity
[2024-12-09 06:24] LABS: Creatinine Clr Calc Pharmacy 41.6 ml/min
--- NOTE | 2024-12-09 09:10 | Pharmacy Report ---
Pharmacy PK ABX Note - Date of Service December 09, 2024 - Assessment and Plan Assessment 12/09: * Vancomycin Day 6: Reviewed vancomycin level, based on level, will give vancomycin 1250mg Q24H today. * Serum creatinine still trending down, almost to baseline, will schedule doses for now and continuing monitoring levels due to severity of infection and MUNIRA still resolving. 12/08: * Vancomycin Day 5: Reviewed vancomycin level, based on level, vancomycin 1000mg today. * Serum creatinine continues to trend down, but not yet at baseline. Continue to dose per levels due to variable renal function 12/07: * Day #4 Vancomycin - if BCx remains negative - last dose = 01/01/25 * Unasyn DC'd * SCr down to 1.85 mg/dL this AM * Vanc level therapeutic this AM. Continue dosing by vancomycin level for MUNIRA. 12/06: * Day #3 Vancomycin, day #4 CAP treatment (zosyn --> unasyn) * Repeat blood cultures no growth x 24h. SCr up to 2.26 mg/dL this AM, UO continues. No leukocytosis. * Vanc level therapeutic this AM. Continue dosing by vancomycin level for MUNIRA. 12/05: * MRSA growing in blood cultures. Zosyn discontinued and patient started on Unasyn. Day #2 of Vancomycin. * Repeat blood cultures pending. SCr up to 1.94 mg/dL this AM, UO appears better. No leukocytosis. * Vanc level therapeutic this AM. Continue dosing by level for now given MUNIRA. 12/04: 79 year old M receiving Vancomycin and Zosyn for treatment of pneumonia and bacteremia. * Day #1 of antimicrobial therapy. * Febrile at 39.1 C. No leukocytosis. SCr worsened, 1.85 mg/dL today, MUNIRA. Lactate 1.8. Procal 1. * MRSA growing in blood cultures. ID consulted. Plan Vancomycin * Vancomycin 1250mg Q24H. Predicted to achieve steady state AUC/YANG of 502 mg/L.hr. * Repeat random level in the AM (12/10/24), will continue daily levels until MUNIRA resolves/ SCr stable. Pharmacy will continue to follow and will adjust dose/frequency as necessary. Thank you. Pharmacy has transitioned to AUC monitoring for vancomycin. AUC/YANG is the preferred PK/PD target and is associated with decreased risk of nephrotoxicity compared to traditional trough targets.
[2024-12-09] MEDS: VANCOMYCIN HCL 1,250 MG in SODIUM CHLORIDE 0.9% 250 ML IV SCH (10:33)
--- NOTE | 2024-12-09 10:52 | Hospitalist Progress Note ---
Date of Service December 09, 2024 Assessment & Plan (1) Pneumonia: (2) MUNIRA (acute kidney injury): (3) Generalized weakness: (4) Heel ulcer: (5) Diastolic congestive heart failure: (6) HTN (hypertension): (7) Dyslipidemia: (8) Hypothyroidism: (9) Gout: Plan 79 year old male with PMH significant for HFpEF, HTN, HLD, prediabetes, hypothyroidism, gout, CKD III, peripheral neuropathy, anxiety, peripheral arterial disease, and left heel ulcer who presents to the ED 12/03 with weakness, cough, and left heel pain who is being admitted for pneumonia. 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 F/U repeat bl cx 12/05 - no growth so far. Appreciate ID input and recommendation on 12/06 --stop unasyn, c/w vanco, if repeat bl cx neg treat / d therapy (last dose 01/01/25). Likely due to PICC line placement today He will need weekly CBC, BMP, CPK while on iv antibiotic therapy on discharge. remains medically stable and will be discharged home today on IV vancomycin Vancomycin 1250 mg IV every 24 hours with the last dose to be given on 01/01/2025. He will have weekly CBC, CMP, CPK and vancomycin level which will be sent to PCP. 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 January 2024 ECHO w/ EF of 60-65%, Gr I diastolic dysfxn. Pt's appetite is improving, now Cr improving. Appreciate nephrology input and recommendation Advised not to have any Lasix, contrast has not, HUBERT/ARB for now PCP will decide for nephro follow-up as an outpatient with weekly compressive panel as long as he is on vancomycin Creatinine level is even better today and that will be monitored Likely demand ischemia: Admitting troponin of 43, gradually up trended to 268. Patient with no chest pain. EKG with no acute ST or T changes. Will continue to monitor EKG, ECHO this adm wo RWMA. Doubt this is actual ACS, rather gradual uptrend in troponin is likely due to secondary to acute illness in the setting of worsening renal function. will monitor closely over telemetry. Remains medically stable without any cardiac symptoms and hemodynamically stable Generalized weakness: Likely due to PNA. PT/OT consults Heel ulcer Patient follows with wound clinic weekly At presentation: and daughter report left foot and heel look baseline for patient likely stage ii ulcer poa. Suspect fever and elevated procal are due to PNA Cast removed in ED Xrays and MRI negative for osteomyelitis Consult wound nurse for management f/u wound care on dc. Diastolic heart failure/dyslipidemia: Patient appears euvolemic. Continue atorvastatin, baby aspirin, metoprolol. Hold lasix (and KCl) due to MUNIRA CKDIII Hypertension: Continue metoprolol Hypothyroidism: Continue levothyroxine Gout: Continue allopurinol DVT Prophylaxis: SQ Heparin Code Status: FULL CODE PCP: Dr Alyssa Kwok MD Dispo: likely cadence, pending renal improvement. He will be discharged home this afternoon Admission and Anticipated Discharge Date Admission Date: December 03, 2024 Subjective 12/08/2024 The patient was seen and examined in medical telemetry unit He remains weak but stable and wants to be discharged Has been waiting for the PICC line and home health establishment before discharge 12/09/2024 The patient was seen and examined in medical telemetry unit He has been complaining of some pain in both groins especially when he is moving around Denies any other significant symptoms Will be discharged home this afternoon with home IV antibiotic Review of Systems Review of Systems: All systems reviewed and are unremarkable except as noted below Physical Exam Physical Exam: Sitting on a chair without any acute distress Constitutional: + ill appearing and average body habitus Eyes: PERRL, conjunctivae normal, anicteric sclerae ENMT: external ear and nose normal, oropharynx normal Neck: trachea midline, no thyromegaly Respiratory: no respiratory distress Auscultation: lungs clear to auscultation bilaterally Cardiovascular: Rate/Rhythm: regular rate and regular rhythm; not tachycardic Heart Sounds: normal S1 and normal S2; no murmur Extremities: + edema ( 1+ edema bilaterally) Gastrointestinal (Abdomen): Inspection/Auscultation: normal bowel sounds; abdomen not distended Percussion/Palpation: abdomen soft; abdomen nontender Musculoskeletal: No acute arthritis involving any of the joint. Groin pain is likely secondary to osteoarthritis of the hips Neurologic: normal touch/pain/proprioception and moves all extremities; no focal motor deficits Lymphatic: no cervical or axillary lymphadenopathy Results & Data Results & Data Vital Signs (Past 12 Hours) Vital Signs Temp Pulse Pulse Resp BP Pulse Ox O2 Del Method 12/09/24 08:08 Room Air 12/09/24 07:49 36.8 C 58 L 20 122/63 97 Room Air 12/09/24 07:21 61 12/09/24 04:00 36.8 C 65 18 137/73 95 Room Air 12/08/24 23:24 60 12/08/24 23:19 36.6 C 63 18 135/66 99 Room Air Laboratory Results [facility] 12/09/24 05:31 Creatinine 1.52 H Medications Administered Current Inpatient Medications Acetaminophen (Acetaminophen 325 Mg Tab) 650 mg PO Q4H PRN PRN Reason: pain/fever Stop: 01/02/25 17:03 Last Admin: 12/07/24 21:29 Dose: 650 mg Allopurinol (Allopurinol 100 Mg Tab) 200 mg PO [facility] Stop: 01/03/25 08:59 Last Admin: 12/09/24 08:02 Dose: 200 mg Aspirin (Aspirin 81 Mg Ectab) 81 mg PO [facility] Stop: 01/03/25 08:59 Last Admin: 12/09/24 08:02 Dose: 81 mg Atorvastatin Calcium (Atorvastatin 20 Mg Tab) 20 mg PO [facility] Stop: 01/03/25 08:59 Last Admin: 12/09/24 08:02 Dose: 20 mg Benzonatate (Benzonatate 100 Mg Capsule) 100 mg PO TID PRN PRN Reason: Cough Stop: 01/02/25 17:03 Last Admin: 12/05/24 08:54 Dose: 100 mg Cetirizine HCl (Cetirizine Hcl 10 Mg Tablet) 10 mg PO DAILY PRN PRN Reason: Allergy Symptoms Stop: 01/02/25 17:03 Docusate Sodium (Docusate Sodium 100 Mg Cap) 100 mg PO DAILY [facility] Stop: 01/04/25 08:59 Last Admin: 12/09/24 08:03 Dose: Not Given Guaifenesin (Guaifenesin 600 Mg Tabcr) 600 mg PO Q12 [facility] Stop: 01/03/25 12:19 Last Admin: 12/09/24 08:02 Dose: 600 mg Heparin Sodium (Porcine) (Heparin Sod 5,000 Unit/0.5 Ml Vial) 5,000 units SQ Q12 [facility] Stop: 01/02/25 20:59 Last Admin: 12/09/24 08:01 Dose: 5,000 units Vancomycin HCl 1,250 mg/ (Sodium Chloride) 275 mls @ 200 mls/hr IV Q24H [facility] Stop: 01/01/25 23:59 Last Admin: 12/09/24 10:33 Dose: 200 mls/hr Levothyroxine Sodium (Levothyroxine Sodium 50 Mcg Tablet) 50 mcg PO DAILYBB [facility] Stop: 01/03/25 06:29 Last Admin: 12/09/24 05:46 Dose: 50 mcg Metoprolol Succinate (Metoprolol Succ 25mg Ext Rel Tab) [facility] [place] [place]: 01/03/25 08:59 Last Admin: 12/09/24 08:02 Dose: 25 mg Miscellaneous Information (Vancomycin Consult Active) 1 each N/A UD PRN PRN Reason: consult Stop: 01/03/25 03:02 Olanzapine (Olanzapine 10 Mg/2.1 Ml Sdv) 2.5 mg IM Q4H PRN PRN Reason: Agitation Stop: 01/03/25 00:13 Tamsulosin HCl (Tamsulosin Hcl 0.4 Mg Cap) 0.4 mg PO HS [facility] Stop: 01/02/25 20:59 Last Admin: 12/08/24 20:56 Dose: 0.4 mg Thiamine HCl (Thiamine Hcl 50 Mg Tablet) 50 mg PO QAM [facility] Stop: 01/03/25 08:59 Last Admin: 12/09/24 08:02 Dose: 50 mg (1) Pneumonia Laterality: right Lung location: unspecified part of lung Pneumonia type: due to unspecified organism Qualified Code(s): J18.9 - Pneumonia, unspecified organism (4) Heel ulcer Laterality: left Non-pressure ulcer stage: unspecified non-pressure ulcer stage Qualified Code(s): L97.429 - Non-pressure chronic ulcer of left heel and midfoot with unspecified severity
[2024-12-09 11:44] VITALS: RESP 18; TEMP 98.1; O2SAT 98
[2024-12-09 14:28] VITALS: BP 115/62; PULSE 57
--- NOTE | 2024-12-09 16:18 | Discharge Summary ---
Date of Service December 09, 2024 Admission HPI Per Admitting Provider 79 year old male with PMH significant for HFpEF, HTN, HLD, prediabetes, hypothyroidism, gout, CKD III, peripheral neuropathy, anxiety, peripheral arterial disease, and left heel ulcer who presents to the ED today with weak ness, a cough, and left heel pain. He reports that he could not get out of bed today because he felt so weak. He had to lower himself to the ground out of bed but reports that he did not fall. He endorses a productive cough with clear phlegm and a runny nose that started yesterday. He notes chills but did not take his temperature. He also has a wound on his left heel that has been there since January 2024 for which he goes to wound clinic every week for dressing changes and cast application. He notes that he has been having left heel pain, which is not typical, for the last two days and was concerned that a pad was positioned incorrectly when he had his cast placed on Friday. He denies chest pain, SOB, abdominal pain, N/V/D, edema. He does not check his weight regularly. Admission Exam Per Admitting Provider Physical Exam: General/Psych: WD/WN, drowsy, sitting up in bed, NAD, conversing easily Head: normocephalic, atraumatic Eyes: normal inspection, PERRL, conjunctivae pink, anicteric sclerae ENT: external ear and nose normal, oropharynx normal Neck: normal visual inspection, trachea midline, no thyromegaly Respiratory: normal respiratory effort, lungs with crackles posteriorly bilaterally, no accessory muscle use Cardiovascular: regular rate and rhythm, no murmur/rub/gallop, no JVD Extremities: no cyanosis or clubbing, normal peripheral pulses, no BLE edema Abdomen/GI: normal bowel sounds, soft, nontender, no hepatosplenomegaly Neurologic/MSK: A+Ox3, motor strength 5/5, moves all extremities, left foot deformed and swollen with healing pressure ulcer on left heel Skin: no rashes, normal color, warm and dry Principal Diagnosis Pneumonia with MRSA bacteremia, MUNIRA, diastolic heart failure, hypertension Discharge Exam Sitting on a chair without any acute distress Constitutional + ill appearing and average body habitus Eyes PERRL, conjunctivae normal, anicteric sclerae ENMT external ear and nose normal, oropharynx normal Neck trachea midline, no thyromegaly Respiratory no respiratory distress Auscultation: lungs clear to auscultation bilaterally Cardiovascular Rate/Rhythm: regular rate and regular rhythm; not tachycardic Heart Sounds: normal S1 and normal S2; no murmur Extremities: + edema ( 1+ edema bilaterally) Gastrointestinal (Abdomen) Inspection/Auscultation: normal bowel sounds; abdomen not distended Percussion/Palpation: abdomen soft; abdomen nontender Neurologic normal touch/pain/proprioception and moves all extremities; no focal motor deficits Lymphatic no cervical or axillary lymphadenopathy Discharge Data Allergies Allergy/AdvReac Type Severity Reaction Status Date / Time niacin AdvReac Intermediate FLUSH Verified 11/30/24 10:04 Consultations 12/03/24 13:11 ED Decision to Admit Stat 12/04/24 08:21 Consult Infectious Diseases Routine 12/05/24 16:05 Consult Nephrology Routine Ordered Studies 12/03/24 14:14 MRI Ankle [MR ankle LT wo con] Urgent Hospital Course (1) Pneumonia: (2) MUNIRA (acute kidney injury): (3) Generalized weakness: (4) Heel ulcer: (5) Diastolic congestive heart failure: (6) HTN (hypertension): (7) Dyslipidemia: (8) Hypothyroidism: (9) Gout: Plan 79 year old male with PMH significant for HFpEF, HTN, HLD, prediabetes, hypothyroidism, gout, CKD III, peripheral neuropathy, anxiety, peripheral arterial disease, and left heel ulcer who presents to the ED 12/03 with weakness, cough, and left heel pain who is being admitted for pneumonia. Pneumonia Bacteremia Possible MRSA sepsis Possible MRSA pneumonia Patient febrile in ED and endorses cough for few days [employer]. At admission: no leukocytosis, nl lactate but procalcitonin elevated to 1 CXR with density suspicious for PNA O2 as needed to maintain sats >92% Tessalon perles and zyrtec as needed, mucinex. IV cefepime and PO doxycycline on 12/03 --> cefepime was changed to zosyn 12/04 party host due to concern for aspiration, Doxy changed to vanco 12/04--> unasyn 12/05, c/w vanco Follow admitting Bl Cx --> MRSA. F/U repeat bl cx 12/05 - no growth so far. Appreciate ID input and recommendation on 12/06 --stop unasyn, c/w vanco, if repeat bl cx neg treat d therapy (last dose 01/01/25). Likely due to PICC line placement today He will need weekly CBC, BMP, CPK while on iv antibiotic therapy on discharge. remains medically stable and will be discharged home today on IV vancomycin Vancomycin 1250 mg IV every 24 hours with the last dose to be given on 01/01/2025. He will have weekly CBC, CMP, CPK and vancomycin level which will be sent to PCP. The PICC line can be discontinued after the Vanco dose is finished MUNIRA Patient with CKD III and baseline creat ~0.9 Admitting Creat is 1.46, next day elevated to 1.85 Patient endorses poor PO intake [employer], likely prerenal. January 2024 ECHO w/ EF of 60-65%, Gr I diastolic dysfxn. Pt's appetite is improving, now Cr improving. Appreciate nephrology input and recommendation Advised not to have any Lasix, contrast has not, HUBERT/ARB for now PCP will decide for nephro follow-up as an outpatient with weekly compressive panel as long as he is on vancomycin Creatinine level is even better today and that will be monitored Likely demand ischemia: Admitting troponin of 43, gradually up trended to 268. Patient with no chest pain. EKG with no acute ST or T changes. Will continue to monitor EKG, ECHO this adm wo RWMA. Doubt this is actual ACS, rather gradual uptrend in troponin is likely due to secondary to acute illness in the setting of worsening renal function. will monitor closely over telemetry. Remains medically stable without any cardiac symptoms and hemodynamically stable Generalized weakness: Likely due to PNA. PT/OT consults Heel ulcer Patient follows with wound clinic weekly At presentation: and daughter report left foot and heel look baseline for patient likely stage ii ulcer poa. Suspect fever and elevated procal are due to PNA Cast removed in ED Xrays and MRI negative for osteomyelitis Consult wound nurse for management f/u wound care on dc. Diastolic heart failure/dyslipidemia: Patient appears euvolemic. Continue atorvastatin, baby aspirin, metoprolol. Hold lasix (and KCl) due to MUNIRA CKDIII Hypertension: Continue metoprolol Hypothyroidism: Continue levothyroxine Gout: Continue allopurinol DVT Prophylaxis: SQ Heparin Code Status: FULL CODE PCP: Dr Alyssa Kwok MD Dispo: likely cadence, pending renal improvement. He will be discharged home this afternoon Total Time Total Time Spent Total Time Spent (In Minutes): 40 Minutes Discharge Plan Discharge Items Patient Disposition: Home - Home Health Services Reason For Visit: PNA Discharge Diagnosis: Pneumonia with MRSA bacteremia, MUNIRA, diastolic heart failure, hypertension Condition on Discharge: Fair Activity: Resume your previous activity Non-emergency contact: Primary Care Provider Call non-emergency contact if: you have any medication questions and your symptoms worsen Follow-up/Referrals: Alyssa Kwok MD [Primary Care Provider] - (Date & Time 12/13/2024 11:00 AM Provider: Alyssa Kwok MD General Internal Medicine [facility] ) Diet: Heart Healthy and Low Sodium (2gm) Addtl Attending Provider Instructions: Please take precautions to avoid falls Take your medications as advised- finish IV antibiotic as advised and try [id number] probiotics as long as you are on antibiotic Try to keep your feet elevated while lying down and when possible Please keep appointments with your healthcare providers Do not take any NSAIDs, HUBERT inhibitors or ARB and try to avoid taking diuretics Pending Studies at Discharge: No Stand-Alone Forms: [facility] BRAINDIGIT, Smoking Cessation Medications and DC Order Prescriptions: Continued amoxicillin 250 mg capsule 1,000 mg PO .COMPLEX Rx Instructions: 1,000 mg orally Before dental procedures; latanoprost [Xalatan] 0.005 % drops 1 drp OPB HS atorvastatin [Lipitor] 20 mg tablet 20 mg PO QAM thiamine HCl (vitamin B1) [Vitamin B-1] 100 mg Tablet 50 mg PO QAM allopurinol [Zyloprim] 100 mg tablet 200 mg PO QAM aspirin [Aspir-81] 81 mg Tablet,Delayed Release (Dr/Ec) 81 mg PO QAM levothyroxine [Levoxyl] 50 mcg Tablet 50 mcg PO QAM metoprolol succinate [Toprol XL] 25 mg tablet extended release 24 hr 25 mg PO QAM timolol maleate [Timoptic] 0.5 % drops 1 drp OPL QAM Rx Instructions: LEFT EYE ketoconazole 1 % Shampoo 1 applic TOPICAL UD Rx Instructions: PUT ON SITE SEVERAL MINUTES PRIOR TO SHOWERING 3-5X PER WEEK tamsulosin 0.4 mg Capsule 0.4 mg PO HS Qty: 30 0RF Discontinued furosemide [Lasix] 20 mg tablet 20 mg PO DAILY Qty: 30 0RF potassium chloride 20 mEq tablet,ER particles/crystals 10 meq PO DAILY Discharge Orders: Discharge Order (Routine); Ordered 12/09/24 Ordered By: Erasto Montes Admission Data Admit Date/Time: 12/03/24 14:48 Attending Provider: Erasto Montes Admit Provider: Richar Ramirez Primary Care Provider: Alyssa Kwok Other Providers: Richar Ramirez; Tyler Aiken; Tony Byrne; Kris Diallo; Lauren Kelley; Esme Reyna; Dipti Hurst; Bernie Reyes; [facility] Fax Other Interventions: Discharge Summary Assessment (RN) Last Done: 12/09/24 14:27
== END 2024-12-09 16:11 | disposition home health service (06) | DRG 871 ==
LOC: ED 10:10 → SUATTDRO 14:48 → EDINP 14:48 → 2W 17:04